=== PATIENT | male | born 1985 | race Caucasian/White ===

== ENCOUNTER → 2020-07-30 11:21 | Outpatient (BNVA) | payer SELFPAY | DX: Z02.79 Encounter for issue of other medical certificate (principal) ==

== ENCOUNTER 2020-08-06 20:19 | Emergency (ER) | payer OTHER, SELFPAY ==
[2020-08-06 20:40] VITALS: BP 146/85; PULSE 66; RESP 16; TEMP 36.2; O2SAT 99; BMI 28.1
--- NOTE | 2020-08-06 22:39 | ED.MEDCLEAR ---
HPI - Medical Clearance General Chief complaint: Medical Clearance Stated complaint: drug test Time Seen by Provider: 08/06/20 22:39 Source: patient Mode of arrival: ambulatory Limitations: no limitations History of Present Illness HPI Narrative: Patient probation missed appointment for drug testing came here for drug testing. Patient denies any substance abuse no other complaints Related Information Allergies Allergy/AdvReac Type Severity Reaction Status Date / Time No Known Allergies Allergy Verified 08/06/20 20:42 Review of Systems Review of Systems: Yes all other systems are reviewed and are negative [facility] Social History Social History Advance Directives: No Advance Directives Information Provided: Yes Physical Exam Vital Signs: Vital Signs: Last Vital Signs Temp 97.2 F 08/06/20 20:40 Pulse 66 08/06/20 20:40 Resp 16 08/06/20 20:40 BP 146/85 H 08/06/20 20:40 Pulse Ox 99 08/06/20 20:40 Body Mass Index 28.1 Const: General: comfortable and no acute distress Orientation/consciousness: patient oriented x3 Resp: Effort & Inspection: normal respiratory effort and able to speak in complete sentences Neuro: General: patient oriented x3 and gait normal Discharge Plan Discharge Clinical Impression: Normal physical exam Patient Disposition: Home, Self-Care
--- NOTE | 2020-08-06 23:40 | PC.NURSE ---
PT UPDATED. ANALYZER FOR LYNN DOWN. IT WILL BE ABOUT 1/2 HOUR. PT WILL WAIT. BLANKET GIVEN AND LIGHTS DIMMED.
[2020-08-07 00:36] LABS: Amphetamine Screen Urine Not Detected (Not Detect); Barbiturates, Urine Not Detected (Not Detect); Benzodiazepines Screen Urine Not Detected (Not Detect); Cannabinoid Screen Urine Not Detected (Not Detect); Cocaine Screen Urine Not Detected (Not Detect); Opiate Screen Urine Not Detected (Not Detect); Phencyclidine Screen Urine Not Detected (Not Detect)
== END 2020-08-07 01:11 | disposition home or self-care (01) ==
PROVIDERS: Emergency Provider Internal Medicine; PCP Internal Medicine
DX: Z02.79 Encounter for issue of other medical certificate (principal)
CPT/HCPCS: 80307; 99283; 99284

== ENCOUNTER 2020-12-12 09:03 | Outpatient (REF) | payer OTHER, SELFPAY ==
[2020-12-12 09:35] LABS: COVID-19 Test Negative (Negative)
== END 2020-12-12 09:04 | disposition home or self-care (01) ==
LOC: HO.LAB 09:03
PROVIDERS: Visit Provider Internal Medicine
DX: Z20.822 Contact with and (suspected) exposure to COVID-19 (principal)
CPT/HCPCS: 36415; 87635; C9803

== ENCOUNTER 2020-12-16 09:22 | Outpatient (REF) | payer OTHER, SELFPAY | END 2020-12-16 09:23 | disposition home or self-care (01) | LOC: HO.LAB 09:22 | PROVIDERS: Visit Provider Internal Medicine | DX: Z20.822 Contact with and (suspected) exposure to COVID-19 (principal) | CPT/HCPCS: C9803; U0003; U0005 ==

== ENCOUNTER 2021-09-08 13:13 | Emergency (ER) | payer OTHER, SELFPAY ==
[2021-09-08 16:15] VITALS: BP 135/81; PULSE 55; RESP 18; TEMP 36.8; O2SAT 99; BMI 29.5
--- NOTE | 2021-09-08 16:43 | ED_ITS ---
HPI - Extremity Problem General Chief complaint: Extremity Problem Stated complaint: achilles left pain Time Seen by Provider: 09/08/21 16:20 Source: patient Mode of arrival: ambulatory Limitations: no limitations History of Present Illness HPI Narrative: 36-year-old male with history of Achilles tendon repair in 2017 presents with intermittent left posterior heel pain over the last year. Patient tells me pain has been worsened over the last 1 week with some swelling. He noticed increasing pain and swelling after walking on the beach over 01 of September weekend. He denies any specific injury or trauma. He reports swelling is worsened after being on his feet for long period of time. No redness, warmth, fevers or chills. [facility] come into [facility] for further evaluation. He did have his Achilles tendon repair done by Dr. Baker Related Data Allergies Allergy/AdvReac Type Severity Reaction Status Date / Time No Known Allergies Allergy Verified 08/06/20 20:42 Review of Systems Review of Systems: Yes all other systems are reviewed and are negative Constitutional: Constitutional: Reports no additional constitutional complaints, Denies body ache(s), Denies chills, Denies fever(s), Denies headache(s) and Denies weakness Eyes: Eyes: Reports no additional eye complaints and Denies change in vision ENT: Reports system reviewed and no additional complaints, except as documented, Denies dizziness, Denies headache(s), Denies nasal congestion, Denies nasal discharge and Denies neck pain Cardiovascular: Cardiovascular: Reports no additional cardiovascular complaints, Denies chest pain, Denies leg edema and Denies dyspnea Respiratory: Respiratory: Reports no additional respiratory complaints, Denies cough and Denies dyspnea Gastrointestinal: Gastrointestinal: Reports no additional gastrointestinal complaints, Denies abdominal pain, Denies diarrhea, Denies nausea and Denies vomiting Genitourinary: Genitourinary: Denies urinary incontinence Musculoskeletal: Musculoskeletal: Reports no additional musculoskeletal complaints, Denies back pain, Reports arthralgias, Denies joint swelling, Reports limited range of motion, Denies neck pain, Denies numbness and Denies tingling Integumentary/Breasts: Skin/Breast: Reports system reviewed and no additional complaints, except as docu and Denies rash Neurologic: Reports system reviewed and no additional complaints, except as documented, Denies Abnormal speech present, Denies dizziness, Denies headache(s), Denies numbness, Denies tingling and Denies weakness [facility] Past Medical History Attestation statement: The following information was validated with the patient. Source: old records reviewed and nursing notes reviewed Physical Exam Vital Signs: Vital Signs: Last Vital Signs Temp 98.2 F 09/08/21 16:15 Pulse 55 09/08/21 16:15 Resp 18 09/08/21 16:15 BP 135/81 09/08/21 16:15 Pulse Ox 99 09/08/21 16:15 O2 Del Method 09/08/21 16:15 BMI result Body Mass Index 29.5 Const: General: cooperative, healthy appearing, comfortable and no acute distress Orientation/consciousness: patient oriented x3 Limitations: no limitations HEENT: Head: Yes normal to inspection Ears: hearing grossly normal bilaterally General nose exam: Normal external nose present Face and sinus: Yes normal facial exam Mouth: Normal oral and palatal mucosa present Throat: Yes posterior oropharynx normal Eyes: General: appearance normal, both eyes and all related structures Pupils: Equal, round and reactive pupils present Neck: Neck: Yes normal visual inspection Chest: Chest palpation & inspection: normal inspection of the chest Resp: Effort & Inspection: normal respiratory effort Auscultation: clear to auscultation bilaterally Cardio: Rate: regular rate Rhythm: regular rhythm Peripheral pulses: Peripheral pulses 2+ throughout GI: Inspection: Yes normal to inspection Palpation (GI): Soft to palpation and nontender Auscultation: normal bowel sounds Back/Spine/Pelvis: Thoracic/Lumbar Spine: thoracic and lumbar spine normal to inspection Skin: General skin exam: no rashes or lesions noted Neuro: General: patient oriented x3, no focal motor deficits and normal sensation to monofilament Cranial nerves: Yes Equal, round and reactive pupils present Cognition (Neuro): normal cognition Speech: No Abnormal speech present Gait exam (Neuro): Normal gait present Motor exam (neuro): 5/5 motor strength present throughout Extrem: Other: Negative Rubio sign Mild tenderness the left posterior heel with no obvious deformity or swelling or redness or warmth. Full range of motion. Palpable DP and PT pulses General: Yes normal to inspection Course Course Course Narrative: Reviewed worrisome signs and symptoms of when to return to the emergency department. Comfortable discharge home. MDM - Extremity (Nontraumatic) MDM Narrative Medical decision making narrative: 36-year-old male with history of Achilles tendon repair 2017 here with intermittent pain and swelling to the left posterior heel worsened over the last 1 week after walking on the beach. No signs of Achilles tendon rupture Likely mild tendinitis due to overuse Patient has crutches, ortho boot, air cast and Jr wrap home. He also has naproxen at home Recommend follow-up with Orthopedics for persistent symptoms Medical Records Attestation: I reviewed the patient's medical records. Lab Data Attestation: I reviewed the patient's lab results. Discharge Plan Discharge Clinical Impression: Achilles tendon pain Patient Disposition: Home, Self-Care Instructions: Achilles Tendinitis (ED) Additional Instructions: Continue ice, elevation, splint and crutches Continue naproxen twice daily [place] [facility] [place] [facility] [facility] [place] Group[place] Stand Alone Forms: Work/School Release
== END 2021-09-08 17:10 | disposition home or self-care (01) ==
PROVIDERS: Emergency Provider Emergency Medicine; PCP Internal Medicine
DX: M79.672 Pain in left foot (principal)
CPT/HCPCS: 99282; 99283

== ENCOUNTER 2023-04-19 05:05 | Emergency (ER) | payer OTHER, SELFPAY ==
--- NOTE | ~2023-04-19 | XR_ITS ---
EXAMINATION: XR HAND, RIGHT CLINICAL INFORMATION: Swelling and pain. COMPARISON: None available. TECHNIQUE: PA, lateral, and oblique views of the right hand. FINDINGS: The bone mineralization is normal. The joint spaces are maintained. There is no fracture. There is soft tissue swelling about the third digit. XR/XR hand RT min 3V IMPRESSION: Soft tissue swelling about the third digit. No acute osseous abnormality.
[2023-04-19 05:08] VITALS: BP 154/92; PULSE 64; RESP 14; TEMP 36.8; O2SAT 98; BMI 30.6
[2023-04-19 05:37] VITALS: BP 154/96; PULSE 59; RESP 18; TEMP 36.6; O2SAT 99
--- NOTE | 2023-04-19 05:48 | PC.NURSE ---
Pt c&ox4, no signs of distress. Pt reports 10/10 right middle finger pain with an onset x3 days. Pt denies trauma to finger. Pt reports his BP has been high lately but has not been diagnosed with HTN. Plan of care ongoing.
--- NOTE | 2023-04-19 06:02 | ED_ITS ---
HPI - Extremity Problem General Chief complaint: Extremity Injury, Upper Stated complaint: Fractured middle finger Time Seen by Provider: 04/19/23 05:55 Source: patient Mode of arrival: ambulatory Limitations: no limitations History of Present Illness HPI Narrative: Patient comes to the emergency room complaining of swelling in the middle finger of the right hand. Patient denies any trauma. Patient states that yesterday he got a splint for his finger to avoid movement because it hurts a lot. Patient denies any fever or chills Related Data Allergies Allergy/AdvReac Type Severity Reaction Status Date / Time No Known Allergies Allergy Verified 04/19/23 05:08 Review of Systems 2 Review of Systems: Constitutional : No Weight loss, No Fever, No Chills, No Night Sweats, No Fatigue, No Malaise ENT/Mouth : No Hearing loss, No Ear Pain, No Nasal Congestion, No Sinus Pain, No Hoarseness, No sore throat, No Rhinorrhea, No Swallowing Difficulty Eyes: No Eye Pain, No Swelling, No Redness, No Foreign Body, No Discharge, No Vision Changes Cardiovascular : No Chest Pain, No SOB, No Dyspnea on Exertion, No Orthopnea, No Edema, No Palpitations Respiratory : No Cough, No Sputum, No Wheezing, No Smoke Exposure, No Dyspnea Gastrointestinal : No Nausea, No Vomiting, No Diarrhea, No Constipation, No abdominal Pain, No Hematochezia, No Melena Genitourinary : no irregular bleeding, No Dysuria, No Urinary Frequency, No Hematuria, No Urinary Incontinence, No Urgency, No Flank Pain, No Urinary Flow Changes, No Hesitancy Musculoskeletal : Complaining of swelling of the right middle finger on the right hand. No joint pain, No Myalgias, No Joint Swelling Skin : No Skin Lesions, No rash Neuro : No Weakness, No Numbness, No Paresthesias, No Loss of Consciousness, No Dizziness, No Headache Psych : No Anxiety/Panic, No Depression, No SI/HI/AH/VH, No Social Issues, Heme/Lymph: No Bruising, No Bleeding,No Lymphadenopathy Endocrine : No Polyuria, No Polydipsia, No Temperature Intolerance [facility] Social History Social History Smoked in Last 30 Days: No Use of substances other than those prescribed or required for medical reasons: Yes Substance Use Type: Marijuana Advance Directives: No Advance Directives Information Provided: No Physical Exam 2 Vital Signs: Vital Signs: Last Vital Signs Temp 97.8 F 04/19/23 05:37 Pulse 59 04/19/23 05:37 Resp 18 04/19/23 05:37 BP 154/96 H 04/19/23 05:37 Pulse Ox 99 04/19/23 05:37 O2 Del Method Room Air 04/19/23 05:37 BMI result Body Mass Index 30.6 Const: Other: Appearance: Alert. Oriented X3. No acute distress. Eyes: Pupils equal, round and reactive to light. ENT: Pharynx normal. Neck: Normal inspection. Neck supple. No lymph nodes noted. No crepitus CVS: Normal heart rate and rhythm. Pulses normal. Normal S1 and S2 Respiratory: No respiratory distress. Breath sounds normal. No Wheezing. No rales Abdomen: Soft and nontender. No rigidity. No distention. Skin: Skin warm and dry. Normal skin color. Normal skin turgor. Extremities: No lower extremity edema. Patient's right middle finger of the right hand is significantly more swollen than the wrist of the fingers, dorsum of the hand normal, no pain to palpation there. Most of the pain is around the PIP of the middle finger Neuro: Oriented X 3. No motor deficit. No sensory deficit. Moving all extremities. No slurred speech. CN 2 through 12 grossly intact Psych: calm, cooperative, normal affect Course Course Course Narrative: -patient's labs pending -x-ray pending -patient refused IM medications. Medical Decision Making Medical Decision Making [facility] Narrative: -my interpretation of x-ray of the hand: Soft tissue swelling present on the middle finger of the right hand, normal osseous alignment, no fractures -labs are pending. -sign-out given to Dr. Casanova Differential Diagnosis Differential Diagnoses: The differential diagnosis associated with the presentation includes (Cellulitis, joint strain, contusion, gout, pseudogout) Lab Data 04/19/23 06:34 04/19/23 06:34 Labs: Lab Results 04/19/23 Range/Units 06:34 WBC 8.5 (4.8-10.8) X10*3/uL RBC 4.63 (4.60-5.80) X10*6/uL Hgb 14.0 (14.0-18.0) g/dl Hct 39.4 L (42.0-52.0) % MCV 85.1 (80.0-98.0) fL MCH 30.2 (27.0-33.0) pg MCHC 35.5 (31.0-36.0) g/dl RDW 12.7 (11.0-16.0) % Plt Count 268 (160-400) X10*3/uL MPV 10.2 (9.4-12.4) fL Immature Gran % (Auto) 0.5 H (0.0-0.4) % Neut % (Auto) 53.2 (45-73) % Lymph % (Auto) 34.6 (20-40) % [place] % (Auto) 8.4 (2-11) % Eos % (Auto) 2.9 (0-4) % Baso % (Auto) 0.4 (0-2) % Lymph # (Auto) 2.9 (1.2-4.9) X10*3/uL [place] # (Auto) 0.7 (0.1-1.2) X10*3/uL Eos # (Auto) 0.3 (0.0-0.4) X10*3/uL Baso # (Auto) 0.0 (0.0-0.2) X10*3/uL Abs Immat Gran (auto) 0.04 H (0.00-0.03) X10*3/uL Absolute Neuts (auto) 4.5 (2.0-8.3) x10*3/uL Absolute Nucleated RBC 0.000 (0.0-0.012) X10*3/uL Nucleated RBC % (auto) 0.0 (0.0-0.2) /100WBC Sodium 138 (135-145) mmol/L Potassium 4.0 (3.3-5.1) mmol/L Chloride 106 (96-108) mmol/L Carbon Dioxide 24 (22-29) mmol/L Anion Gap 12 (12-20) BUN 17 H (9-16) mg/dL Creatinine 0.88 (0.5-1.4) mg/dL Estim Creat Clear Calc 132.6 Estimated GFR > 60 Random Glucose 104 (60-115) mg/dL Uric Acid 7.1 H (3.4-7.0) mg/dL Calcium 9.4 (8.4-10.2) mg/dL C-Reactive Protein 0.45 (< or = 0.50) mg/dL Independent Interpretation I performed an independent interpretation of an: Plain X-Ray Radiology Impression Discussion of test interpretation with radiology: I have reviewed the radiologist's reading. Radiologist Impression: FINDINGS: The bone mineralization is normal. The joint spaces are maintained. There is no fracture. There is soft tissue swelling about the third digit. XR/XR hand RT min 3V IMPRESSION: Soft tissue swelling about the third digit. No acute osseous abnormality Discharge Plan Discharge Clinical Impression: Finger joint swelling Patient Disposition: Still a Patient
[2023-04-19 06:40] LABS: MANUAL DIFF FLAG NO
[2023-04-19 06:42] LABS: Basophils Percent Auto 0.4 % (0-2); Eosinophils Absolute Auto 0.3 X10*3/uL (0.0-0.4); Eosinophils Percent Auto 2.9 % (0-4); Hematocrit 39.4 % (42.0-52.0); Imm Gran Abs Auto 0.04 X10*3/uL (0.00-0.03); Imm Gran Pct Auto 0.5 % (0.0-0.4); Lymphocytes Absolute Auto 2.9 X10*3/uL (1.2-4.9); Lymphocytes Percent Auto 34.6 % (20-40); Mean Corpuscular HGB Conc 35.5 g/dl (31.0-36.0); Mean Corpuscular Hemoglobin 30.2 pg (27.0-33.0); Mean Corpuscular Volume 85.1 fL (80.0-98.0); Mean Platelet Volume 10.2 fL (9.4-12.4); Monocytes Absolute Auto 0.7 X10*3/uL (0.1-1.2); Monocytes Percent Auto 8.4 % (2-11); Neutrophils Absolute Auto 4.5 x10*3/uL (2.0-8.3); Neutrophils Percent Auto 53.2 % (45-73); Platelet Count 268 X10*3/uL (160-400); Red Blood Count 4.63 X10*6/uL (4.60-5.80); Red Cell Distribution Width 12.7 % (11.0-16.0); White Blood Count 8.5 X10*3/uL (4.8-10.8)
[2023-04-19 07:01] LABS: Anion Gap 12 (12-20); Blood Urea Nitrogen 17 mg/dL (9-16); C Reactive Protein 0.45 mg/dL (< or = 0.50); Calcium 9.4 mg/dL (8.4-10.2); Carbon Dioxide 24 mmol/L (22-29); Chloride 106 mmol/L (96-108); Creatinine Clr Calc Pharmacy 132.6; Estimated Glomerular Filt Rate > 60; Glucose Random 104 mg/dL (60-115); Sodium 138 mmol/L (135-145); Uric Acid 7.1 mg/dL (3.4-7.0)
[2023-04-19 07:31] LABS: Erythrocyte Sedimentation Rate 6 MM/HR (0-15)
== END 2023-04-19 08:48 | disposition home or self-care (01) ==
PROVIDERS: Emergency Provider Emergency Medicine
DX: M25.441 Effusion, right hand (principal); M79.644 Pain in right finger(s); M79.641 Pain in right hand; Z79.899 Other long term (current) drug therapy
CPT/HCPCS: 36415; 73130; 80048; 84550; 85025; 85652; 86140; 99283; 99284

== ENCOUNTER 2023-05-14 08:47 | Outpatient (AMB) | payer OTHER, SELFPAY ==
--- NOTE | 2023-05-14 09:01 | MHC.OFFVIS ---
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 Rob 37 yoM presents today for evaluation of swollen right middle finger PIP thought to be gout. He was referred by his PCP. Per patient the sudden onset pain and swelling starting about 3 weeks ago. He takes Ibuprofen and Aleve. He had left achilles repair (due to injury) done 2014. About 2 years ago he started having intermittent swelling to the left great toe and dorsum. He thought the swelling was related to his achilles. Additionally, he has felt on and off sensation/pain in his right elbow. The elbow has been for about 1 year intermittent and the finger is the latest in the episodes. He was given Aleve and Ibuprofen 600 that helps with the pain. He drinks alcohol regularly. He wants to know what dietary choices may be contributory to the flares so he can make stay away from those. He denies symptoms of AxSpA - uveitis, rash, GI, low back pains and other joint swelling. He denies family history of gout and other inflammatory arthritis. 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 External ear normal. NOSE/SINUS:? Airflow through both nares, no nasal discharge, no bleeding THROAT:? Oral mucosa moist, no ulcerations NECK:? No thyromegaly or masses, no adenopathy, trachea midline. HEART:? Regular rhythm, S1-S2 heard, no murmurs, rubs or gallops. LUNG:? Clear to percussion and auscultation EXTREMITIES:? No edema, no calf tenderness, normal peripheral pulses. NEURO:? Oriented and alert x3.? No focal weakness.? Reflexes symmetric.? Gait normal. SKIN:? There are no skin lesions evident. No objective signs of Raynaud's phenomenon. JOINT EXAM: Cervical Spine:.? Full range of motion without pain; no tenderness. Thoracic Spine:.? No scoliosis.? No tenderness on palpation. Lumbar Spine:.? Alignment normal.? Full range of motion without pain, no tenderness. Chest Wall:.? No tenderness, swelling, increased warmth or erythema. Hands:.? Left: Normal pain-free range of motion without tenderness, swelling, increased warmth or erythema. 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 Right: Third MCP swollen, tender, warm Wrists:.? Normal pain-free range of motion without tenderness, swelling, increased warmth or erythema. Elbows:. Left: Normal pain-free range of motion without tenderness, swelling, increased warmth or erythema. Right: Swollen, tender warm erythematous/olecranon bursitis Shoulders:.?? Full range of motion without pain. No tenderness, weakness, swelling, increased warmth or erythema. Hips:.? Full range of motion without pain. Hip bursa:.? No tenderness. Knees:.?? Normal pain-free range of motion without tenderness, swelling, increased warmth or erythema.? There is no effusion or crepitation Ankles:.? Normal pain-free range of motion without tenderness, swelling, increased warmth or erythema. Feet:.? Normal pain-free range of motion without tenderness, swelling, increased warmth or erythema. Left Small 1st MTP bunion Results Reviewed Results Reviewed: Laboratory Tests 04/19/23 04/19/23 04/19/23 06:32 06:34 06:34 WBC 8.5 RBC 4.63 Hgb 14.0 Hct 39.4 L ESR 6 Uric Acid 7.1 H C-Reactive Protein 0.45 Assessment & Plan Assessment & Plan (1) Swelling of right middle finger: Code(s): M79.89 - Other specified soft tissue disorders (2) Olecranon bursitis, right elbow: Code(s): M70.21 - Olecranon bursitis, right elbow (3) Dietary counseling: Code(s): Z71.3 - Dietary counseling and surveillance (4) Idiopathic gout: Code(s): M10.00 - Idiopathic gout, unspecified site Plan #Gout: The clinical picture with this patient is 1 of a crystal arthritis, gout. As outlined in the HPI he has had intermittent swelling at multiple sites and now found to have elevated uric acid levels at 7.1. I will prescribed colchicine 0.6 mg q.d. for about 2 weeks and reassess for improvement. I will consider to start him on allopurinol at the next visit in 1 month after the swelling and tenderness have resolved that will help to affirm that gout is the differential diagnosis. If it is gout I think it would be appropriate to start the allopurinol because it sounds like historically over the last 2 years he has been having flares. On visit today his right elbow and right middle finger is really swollen, red and warm. He experienced could also be an AxSpA given the intermittent swelling of unilateral joints. However we will consider that option if treatment for gout approach is not effective. I discussed with patient the possible side effects of colchicine to include but not limited to diarrhea. His kidney functions are adequate so there is no concerns there. He is also aware of that personal allergies are possible and to seek medical attention immediately if needed. #Diet: The patient is interested in understanding what foods can potentially have adverse effects. I discussed with the patient that not everything effects everyone the same and we talked about common foods that are known to insight gout flares. At this time I recommend that we work on resolving the current gout episode. It is easier to determine his reaction is to foods when he is not in a flare. One known thing that he can cut back on is the alcohol which he agrees and will do at this time. We will continue to assess and discuss this. I spent 45 minutes reviewing history, evaluating and educating patient on the disease process, and documenting Orders: Orders Erythrocyte Sedimentation Rate 1 Month M70.21 - Olecranon bursitis, right elbow, M79.89 - Other specified soft tissue disorders Comprehensive Met. Panel 1 Month M70.21 - Olecranon bursitis, right elbow, M79.89 - Other specified soft tissue disorders Complete Blood Count Auto Diff 1 Month M70.21 - Olecranon bursitis, right elbow, M79.89 - Other specified soft tissue disorders MARY Reflex Titer and Pattern 1 Month M70.21 - Olecranon bursitis, right elbow, M79.89 - Other specified soft tissue disorders Immunoglobulins,IgG IgA IgM 1 Month M70.21 - Olecranon bursitis, right elbow, M79.89 - Other specified soft tissue disorders Creatine Kinase Total 1 Month M70.21 - Olecranon bursitis, right elbow, M79.89 - Other specified soft tissue disorders C Reactive Protein 1 Month M70.21 - Olecranon bursitis, right elbow, M79.89 - Other specified soft tissue disorders Anti Extractable Nuclear Ag 1 Month M70.21 - Olecranon bursitis, right elbow, M79.89 - Other specified soft tissue disorders Protein Electrophoresis, Serum 1 Month M70.21 - Olecranon bursitis, right elbow, M79.89 - Other specified soft tissue disorders Uric Acid 1 Month M70.21 - Olecranon bursitis, right elbow, M79.89 - Other specified soft tissue disorders Medications: New colchicine 0.6 mg PO DAILY 14 tabs 2RF M10.00 - Idiopathic gout, unspecified site, M70.21 - Olecranon bursitis, right elbow, M79.89 - Other specified soft tissue disorders ibuprofen 800 mg PO Q8H 30 tabs 2RF M10.00 - Idiopathic gout, unspecified site, M70.21 - Olecranon bursitis, right elbow, M79.89 - Other specified soft tissue disorders Discontinued naproxen (Naprosyn) Discontinued Reason: Doctor's Order 500 mg PO BID PRN 20 tabs 0RF PAIN Coding Level of Care Code New Pt Level 4 (87956) Diagnoses Swelling of right middle finger M79.89 Olecranon bursitis, right elbow M70.21 Dietary counseling Z71.3 Idiopathic gout M10.00
[2023-05-14 09:04] VITALS: BP 138/104; PULSE 72; TEMP 36.1; O2SAT 93; BMI 31.1
== END 2023-05-14 09:54 | disposition home or self-care (01) ==
PROVIDERS: PCP Internal Medicine; Referring Provider Nurse Practitioner Family; Visit Provider Nurse Practitioner Family
DX: M79.89 Other specified soft tissue disorders (principal); M70.21 Olecranon bursitis, right elbow; Z71.3 Dietary counseling and surveillance; M10.00 Idiopathic gout, unspecified site
CPT/HCPCS: 99204

== ENCOUNTER → 2023-05-14 08:47 | Outpatient (BNVA) | payer OTHER, SELFPAY | PROVIDERS: Visit Provider Nurse Practitioner Family | DX: M10.00 Idiopathic gout, unspecified site (principal); M70.21 Olecranon bursitis, right elbow; M79.89 Other specified soft tissue disorders; Z71.3 Dietary counseling and surveillance | CPT/HCPCS: 99202 ==

== ENCOUNTER 2023-05-20 16:05 | Outpatient (REF) | payer OTHER, SELFPAY ==
--- NOTE | ~2023-05-20 | MR_ITS ---
EXAMINATION: MR FOOT WITHOUT AND WITH CONTRAST, LEFT CLINICAL INFORMATION: Left toe lytic lesion. Achilles tendon repair in 2014. Well-defined lytic lesion involving the base of the first proximal phalanx. COMPARISON: Left toe radiographs dated 11/20/2016. TECHNIQUE: MRI of the left foot was performed before and after the intravenous administration of 10 mL Gadavist on a high-field scanner. FINDINGS: BONE: Within the base of the first proximal phalanx there is a subchondral, well marginated and simple appearing cyst measuring approximately 1.4 x 1.1 x 1.3 cm (AP x ML x CC). There is peripheral postcontrast enhancement. Minimal adjacent marrow edema. No cortical erosion or expansion. No periosteal reaction. Full-thickness articular cartilage loss with marginal osteophytes at the first metatarsophalangeal joint and hallux sesamoids. Findings likely represent a subchondral degenerative cyst/geode. On the radiographs from 2017 there is a tiny subchondral cyst in this region and overall first metatarsophalangeal osteoarthritis appears progressed. No additional lytic or blastic osseous lesion. Focal marrow edema within the fourth metatarsal head with mild adjacent soft tissue edema which could represent a stress reaction or osseous contusion. Mild fourth metatarsal head articular cartilage signal heterogeneity with tiny marginal osteophytes. MUSCLES/TENDONS: The visualized flexor and extensor tendons are intact. No transverse tendon tear or tendon retraction. LIGAMENTS: Intact Lisfranc ligament. SOFT TISSUES: Moderate first metatarsophalangeal joint effusion and small fourth metatarsophalangeal joint effusion as well as a trace fifth metatarsal joint effusion with mild synovitis and edema/enhancement. Findings could indicate a multifocal inflammatory arthropathy in the appropriate clinical setting. MR/MR foot LT wo/w con IMPRESSION: 1. Within the base of the first proximal phalanx there is a simple appearing subchondral cyst measuring up to 1.4 cm with minimal adjacent marrow edema. 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 No associated cortical erosion or expansion. Overall moderate first metatarsophalangeal osteoarthritis which appears slightly progressed when compared to the radiographs from 2017. 2. Focal marrow edema within the fourth metatarsal head with mild adjacent soft tissue edema. Findings could indicate a stress reaction or osseous contusion. No associated fracture line. 3. Small fourth and trace fifth metatarsophalangeal joint effusions. Given the multifocal joint effusions, an inflammatory arthropathy could be considered in the appropriate clinical setting.
[2023-05-20] MEDS: gadobutroL 10 ML VIAL IVPUSH (17:19)
== END 2023-05-20 16:06 | disposition home or self-care (01) ==
LOC: HO.MRI 16:05
PROVIDERS: PCP Internal Medicine; Visit Provider Internal Medicine
DX: M89.9 Disorder of bone, unspecified (principal)
CPT/HCPCS: 73720; A9585

== ENCOUNTER 2023-06-16 09:47 | Outpatient (REF) | payer OTHER, SELFPAY ==
[2023-06-16 10:04] LABS: MANUAL DIFF FLAG NO
[2023-06-16 10:46] LABS: Basophils Percent Auto 0.6 % (0-2); Eosinophils Absolute Auto 0.2 X10*3/uL (0.0-0.4); Hematocrit 41.8 % (42.0-52.0); Hemoglobin 14.7 g/dl (14.0-18.0); Imm Gran Abs Auto 0.01 X10*3/uL (0.00-0.03); Imm Gran Pct Auto 0.2 % (0.0-0.4); Lymphocytes Absolute Auto 2.1 X10*3/uL (1.2-4.9); Lymphocytes Percent Auto 39.7 % (20-40); Mean Corpuscular HGB Conc 35.2 g/dl (31.0-36.0); Mean Corpuscular Hemoglobin 29.1 pg (27.0-33.0); Mean Corpuscular Volume 82.8 fL (80.0-98.0); Mean Platelet Volume 10.5 fL (9.4-12.4); Monocytes Absolute Auto 0.5 X10*3/uL (0.1-1.2); Monocytes Percent Auto 9.8 % (2-11); Neutrophils Absolute Auto 2.4 x10*3/uL (2.0-8.3); Neutrophils Percent Auto 45.7 % (45-73); Platelet Count 278 X10*3/uL (160-400); Red Blood Count 5.05 X10*6/uL (4.60-5.80); Red Cell Distribution Width 12.6 % (11.0-16.0); White Blood Count 5.2 X10*3/uL (4.8-10.8)
[2023-06-16 11:34] LABS: Alanine Aminotransferase 61 U/L (0-40); Albumin Level 4.5 g/dL (3.5-5.0); Anion Gap 12 (12-20); Aspartate Amino Transferase 29 U/L (5-37); Bilirubin Total 0.4 mg/dL (0.0-1.0); Blood Urea Nitrogen 15 mg/dL (9-16); Calcium 9.4 mg/dL (8.4-10.2); Carbon Dioxide 24 mmol/L (22-29); Chloride 107 mmol/L (96-108); Estimated Glomerular Filt Rate > 60; Glucose Random 101 mg/dL (60-115); Sodium 139 mmol/L (135-145); Total Protein 7.7 g/dL (6.5-8.0); Uric Acid 12.4 mg/dL (3.4-7.0)
[2023-06-16 11:38] LABS: Alkaline Phosphatase 55 U/L (39-117)
[2023-06-16 11:43] LABS: Erythrocyte Sedimentation Rate 6 MM/HR (0-15)
[2023-06-17 14:34] LABS: IgA 111 mg/dL (47-310); IgG 1097 mg/dL (600-1640); IgM 168 mg/dL (50-300)
[2023-06-17 20:48] LABS: SM/Ribonucleoprotein Ab <1.0 NEG AI (<1.0 NEG); Smith Protein <1.0 NEG AI (<1.0 NEG)
[2023-06-17 22:09] LABS: Prot Elec - Albumin 4.5 g/dL (3.8-4.8); Prot Elec - Alpha1 0.2 g/dL (0.2-0.3); Prot Elec - Alpha2 0.6 g/dL (0.5-0.9); Prot Elec - Beta 1 0.5 g/dL (0.4-0.6); Prot Elec - Beta 2 0.4 g/dL (0.2-0.5); Prot Elec - Gamma 1.1 g/dL (0.8-1.7); Prot Elec - Total Protein 7.2 g/dL (6.1-8.1)
[2023-06-18 15:09] LABS: Anti Nuclear Antibody Screen NEGATIVE (NEGATIVE)
== END 2023-06-16 09:48 | disposition home or self-care (01) ==
LOC: HO.LAB 09:47
PROVIDERS: PCP Obstetrics & Gynecology; Visit Provider Nurse Practitioner Family
DX: M79.89 Other specified soft tissue disorders (principal); M70.21 Olecranon bursitis, right elbow
CPT/HCPCS: 36415; 80053; 82550; 82784; 84165; 84550; 85025; 85652; 86038; 86140; 86235

== ENCOUNTER 2023-10-29 13:40 | Outpatient (REF) | payer OTHER, SELFPAY ==
--- NOTE | ~2023-10-29 | MR_ITS ---
EXAMINATION: MR ANKLE WITHOUT CONTRAST, LEFT CLINICAL INFORMATION: History of Achilles tendon rupture 2016. Continued pain and swelling. COMPARISON: MRI of the left foot April 2023. TECHNIQUE: MRI of the ankle was performed using routine sequences on a high-field scanner. FINDINGS: MUSCLES/TENDONS: Achilles: There is fusiform enlargement of most of the Achilles tendon with sparing of the very distal insertion of the tendon. There is minimal metallic artifact present consistent with prior surgery. There is additional scattered heterogeneous intermediate increased signal throughout the intrasubstance portion of the tendon. There is no transverse measurable defect or tendon retraction. There is no surrounding soft tissue edema. RETROCALCANEAL BURSA: Normal. Minimal cyst within the calcaneal tuberosity. No surrounding edema. The remaining muscles and tendons are normal. PLANTAR FASCIA: Normal. SUBCUTANEOUS SOFT TISSUES: Normal. LIGAMENTS/CAPSULAR STRUCTURES: Normal. BONE/CARTILAGE: Normal. MR/MR ankle LT wo con IMPRESSION: 1. Postsurgical changes related to prior Achilles tendon repair. 2. There is fusiform enlargement and scattered heterogeneity throughout most of the Achilles tendon compatible with postsurgical change but cannot exclude small areas of recurrent chronic interstitial intrasubstance partial tearing and tendinosis. 3. No transverse measurable defect or tendon retraction. Electronically signed by: Darci Terry MD 11/03/2023 12:12 PM EDT
== END 2023-10-29 13:41 | disposition home or self-care (01) ==
LOC: HO.MRI 13:40
PROVIDERS: PCP Internal Medicine; Visit Provider Podiatrist
DX: M76.62 Achilles tendinitis, left leg (principal)
CPT/HCPCS: 73721

== ENCOUNTER 2024-03-13 16:10 | Emergency (ER) | payer SELFPAY ==
[2024-03-13 16:47] VITALS: BP 157/95; PULSE 70; RESP 18; TEMP 36.1; O2SAT 98; BMI 29.5
--- NOTE | 2024-03-13 16:48 | ED_ITS ---
HPI - General Adult General Chief complaint: Medical Clearance Stated complaint: drug test Time Seen by Provider: 03/13/24 16:47 Source: patient, RN notes reviewed and old records reviewed Mode of arrival: ambulatory Limitations: no limitations History of Present Illness ED Provider: Anton HPI narrative: Patient is a 38-year-old male presenting to the ED requesting a urine drug screen, states he needs this primarily for THC. Denies any physical complaints. MD complaint: med clearance Associated symptoms: denies other symptoms Treatments prior to arrival: none Related Data Previous Rx's ?Medication ?Instructions ?Recorded colchicine 0.6 mg tablet 0.6 mg PO DAILY #14 tabs 05/17/23 ibuprofen 800 mg tablet 800 mg PO Q8H #30 tabs 05/17/23 Allergies Allergy/AdvReac Type Severity Reaction Status Date / Time No Known Allergies Allergy Verified 03/13/24 16:48 Review of Systems Review of Systems: As per HPI Yes all other systems are reviewed and are negative Constitutional: Constitutional: Reports as per HPI [facility] Past Medical History Medical History (Updated 03/13/24 @ 17:19 by Rosalba Walton, GERTRUDIS) Dietary counseling Swelling of right middle finger Olecranon bursitis, right elbow Idiopathic gout Surgical History (Updated 05/14/23 @ 09:12 by JOEL Pennington) History of surgery Social History Social History (Updated 05/14/23 @ 09:11 by JOEL Pennington) Alcohol intake: never Patient Tobacco Use Status: Never used Tobacco Substance Use Type: Marijuana Advance Directives: No Advance Directives Information Provided: Yes Do you have a plan to hurt others: No 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 Blood pressure normal. Heart rate normal. Respiratory rate normal. Temperature normal. Oxygen saturation normal. Const General: cooperative, healthy appearing and no acute distress Orientation/consciousness: oriented to person, oriented to place, oriented to time and patient oriented x3 Limitations: no limitations HENMT Head: Yes normocephalic and Yes atraumatic Ears: external ears normal General nose exam: Normal external nose present Face and sinus: Yes face symmetric Mouth: oropharynx normal and moist mucous membranes Throat: Yes uvula midline Eyes Pupils: Equal, round and reactive pupils present Neck Neck: Yes normal visual inspection and Yes supple Resp Effort & Inspection: normal respiratory effort and able to speak in complete sentences Auscultation: clear to auscultation bilaterally Cardio Rate: regular rate Rhythm: regular rhythm Heart sounds: S1 normal heart sound present and S2 normal heart sound present GI Palpation (GI): Soft to palpation and nontender Auscultation: normoactive bowel sounds General: Yes no CVA tenderness Back/Spine/Pelvis Back: no CVA tenderness Skin General skin exam: elasticity normal and turgor normal Neuro General: oriented to person, oriented to place, oriented to time, patient oriented x3, moves all extremities, no focal motor deficits and CN's II-XI intact bilaterally Cranial nerves: Yes Equal, round and reactive pupils present Cognition (Neuro): normal cognition Extrem General: Yes full ROM, Yes no pedal edema and Yes no calf tenderness Psych Mental Status: mental status grossly normal Affect: normal affect Thought process: Normal thought process present Medical Decision Making Medical Decision Making [facility] Narrative: Patient is a 38-year-old male presenting to the ED requesting a urine drug screen, states he needs this primarily for THC. On exam patient is awake, A+Ox3, VS WNL, afebrile, normal neurological exam without focal deficits, physical exam findings as above. Given reported symptoms and physical exam findings, initial differential includes but is not limited to med clearance, drug intoxication. Urine drug screen ordered and patient provided specimen. Patient requesting discharge prior to results, states he will check results on the portal. Instructions for accessing the portal provided on discharge instructions. Advised patient to return with any new or concerning symptoms. Patient verbalized understanding of and agreement with plan. Differential Diagnosis Differential Diagnoses: The differential diagnosis associated with the presentation includes as per [facility] External Record Review External record reviewed: Inpatient record, Office record and Outpatient record Discharge Plan Discharge Clinical Impression: Encounter for drug screening Patient Disposition: Home, Self-Care Additional Instructions: You presented to the emergency department today for drug screening. You chose to leave prior to results. You can view your results on the patient portal. Follow up with your primary care provider. Return with any new or concerning symptoms. Please see the information below about our Patient Portal. If you are not yet enrolled in the [facility] Patient Portal, you will receive an enrollment email invitation following your visit to any [facility] care setting. You may also self-enroll in the Patient Portal by visiting our website: [email or web address] The following information is required to access the Patient Portal: - Your [facility] Medical Record Number - Your personal home email address (must match what is in your electronic medical record, Registration staff can assist with this) - Name - Date of Capabilities of the Patient Portal: - Message some providers - View upcoming appointments - Access your health summary, medical history, and visit history - View current conditions and allergies - View procedure and lab results - View your medications, including guidelines, side effects, and precautions - Complete pre-appointment questionnaires requested by your provider - Ready summary reports of your office visits and procedures To access the Patient Portal Mobile [employer], follow these directions: - Search [employer] in the [employer] Store or [employer] Store - Download the Chary - Search for [facility] - Enter your login/password Prescriptions: No Action colchicine 0.6 mg tablet 0.6 mg PO DAILY Qty: 14 2RF ibuprofen 800 mg tablet 800 mg PO Q8H Qty: 30 2RF Print Language: Czech
[2024-03-13 17:37] LABS: Amphetamine Screen Urine Not Detected (Not Detect); Barbiturates, Urine Not Detected (Not Detect); Benzodiazepines Screen Urine Not Detected (Not Detect); Buprenorphine Scr Not Detected (Not Detect); Cannabinoid Screen Urine Not Detected (Not Detect); Cocaine Screen Urine Not Detected (Not Detect); Fentanyl, urine Not Detected (Not Detect); Methadone Screen, Urine Not Detected (Not Detect); Opiate Screen Urine Not Detected (Not Detect); Oxycodone Screen Urine Not Detected (Not Detect); Phencyclidine Screen Urine Not Detected (Not Detect)
--- OUTSIDE RECORDS SUMMARY | 2024-03-13 19:46 | XMS_ITS | Continuity of Care Document ---
Author Name [facility] Organization [facility] Care Team Providers Care Fire Ranger Name Role Phone [facility] Unavailable Unavailable Problems Combined list of problems from Department of Defense and Veterans Affairs facilities. It does not include entries that were removed or entered in error. Problem Status Onset Date Problem Type Date of Resolution Comments Source Pain in leg Active 024 Condition July 20, 2023 Entered By: RAFIA MEDEROS Comment: gout [facility] Abdominal pain Active Condition July 11, 2021 Entered By: RAFIA MEDEROS Comment: ordered UGI [facility] Hypercholesterolemia (SCT [id number]) Active Condition July 11, 2021 Entered By: RAFIA MEDEROS Comment: treated with diet [facility] Sleep disorder Active Condition July 11, 2021 Entered By: RAFIA MEDEROS Comment: ordered sleep studySep 2023 Entered By: RAFIA MEDEROS Comment: obstructive sleep apnea [facility] Knee pain Active 018 Condition May 21, 2017 Entered By: RAFIA MEDEROS Comment: x-rays normal. Completed physical therapy. [facility] Achilles tendinitis Active 016 Condition July 09, 2020 Entered By: RAFIA MEDEROS Comment: 2016 surgery [facility] Anxiety disorder Active Condition Feb 07, 2024 Entered By: CHYNA MCCOY Comment: Unspecified Anxiety Disorder [facility] Cannabis abuse Active Condition Jan Entered By: CHYNA MCCOY Comment: Cannabis Use Disorder, Mild [facility] Diagnosis: ICD-10-CM F32.A Depression, unspecified Active Diagnosis [facility] Diagnosis: ICD-10-CM F41.9 Anxiety disorder, unspecified Active Diagnosis [facility] Diagnosis: ICD-10-CM F12.10 Cannabis abuse, uncomplicated Active Diagnosis [facility] Diagnosis: ICD-10-CM M10.9 Gout, unspecified Active Diagnosis [facility] Diagnosis: ICD-10-CM G47.33 Obstructive sleep apnea (adult) (pediatric) Active Diagnosis [facility] Diagnosis: ICD-10-CM M76.62 Achilles tendinitis, left leg Active Diagnosis [facility] Diagnosis: ICD-10-CM M79.669 Pain in unspecified lower leg Active Diagnosis [facility] Diagnosis: ICD-10-CM M76.60 Achilles tendinitis, unspecified leg Active Diagnosis [facility] Diagnosis: ICD-10-CM E78.00 Pure hypercholesterolemia, unspecified Active Diagnosis [facility] Medications Combined list of outpatient medications from Department of Defense and Veterans Affairs facilities.Medications provided include 1) outpatient medications from the last 15 months, and 2) patient-reported medications. Medication Details Route Status Patient Instructions Prescription Expires Prescription Number Last Dispense Date Ordering Provider Order Date Order Qty Source colchicine (U/D) 0.6 MG ORAL TAB TAKE ONE TABLET BY MOUTH ONCE DAILYFOR GOUT Active 05/17/2024 [id number] DAVID CAMARILLO 2023 14 [facility] COLCHICINE 0.6MG TAB TAKE ONE TABLET BY MOUTH ONCE DAILY NEEDED FOR ACUTE GOUT ATTACK FOR GOUT ORAL ACTIVE 11/16/2024 [id number] 4 CINTHIA MEDEROS 2023 14 [facility] COLCHICINE 0.6MG TAB TAKE ONE TABLET BY MOUTH ONCE DAILY FOR GOUT ORAL DISCONT INUED 05/17/2024 [id number] ZO CAMARILLO 2023 14 [facility] DICLOFENAC NA 1% GEL,TOP APPLY 2 GRAMS TOPICALL Y THREE TIMES DAILY NEEDED FOR OSTEOART HRITIS - USE DOSING CARD PROVIDED IN BOX TOPICA L ACTIVE 04/14/2024 [id number] 4 CINTHIA MEDEROS D 2023 [facility] Diclofenac Sodium 0.01mg/mg, Gel/Jelly, Topical APPLY 2 GRAMS TOPICALL Y THREE TIMES DAILY NEEDED FOR OSTEOART HRITIS - USE DOSING CARD PROVIDED IN BOX Active 04/14/2024 [id number] RAFIA MEDEROS 2023 100 [facility] Ibuprofen (Motrin) Tablet 800 mg Oral TAKE ONE TABLET BY MOUTH EVERY 8 HOURSTAK E WITH FOOD Active 05/17/2024 [id number] 4 DAVID CAMARILLO 2023 30 [facility] IBUPROFEN 800MG TAB TAKE ONE TABLET BY MOUTH EVERY 8 HOURS NEEDED FOR PAIN TAKE WITH FOOD ORAL ACTIVE 11/16/2024 [id number] 4 CINTHIA MEDEROS D 2023 [facility] IBUPROFEN 800MG TAB TAKE ONE TABLET BY MOUTH EVERY 8 HOURS TAKE WITH FOOD ORAL DISCONT INUED 05/17/2024 [id number] 4 ZO CAMARILLO 2023 30 [facility] IBUPROFEN 800MG TAB TAKE ONE TABLET BY MOUTH THREE TIMES A DAY AFTER MEALS ORAL ACTIVE ONEYSSI,I SSAM A [facility] Immunizations Combined list of available immunizations from the Department of Defense and Veterans Affairs facilities. Immunization Series Date Given Administered By Site Reaction Lot Number CVX Code Drug Photographic Supervisor Status Comments Source INFLUENZA, INJECTABLE, QUADRIVALENT, PRESERVATIVE FREE 2022 BRITTNEY MORENO LEFT DELTO ID [id number] A 150 complet ed [facility] [place] [facility] [facility] INFLUENZA, INJECTABLE, QUADRIVALENT, PRESERVATIVE FREE 2019 150 complet ed Site: Right Deltoid [facility] INFLUENZA, INJECTABLE, QUADRIVALENT 2018 158 complet ed Site: Right Deltoid [facility] [place] [facility] INFLUENZA, SEASONAL, INJECTABLE 2017 141 complet ed Site: Right Deltoid [facility] TDAP 2017 115 complet ed Site: Left Deltoid [facility] [place] Results Combined list of recent chemistry, hematology and other laboratory results from Department of Defense and Veterans Affairs, ranging from 15 months to all on record, depending upon the facility. Order Name Results Value Reference Range Date Interpretation Specimen Comments Source BASIC METABOLI C PANEL (fasting ) UREA NITROGEN [MASS/VOLU ME] IN SERUM OR PLASMA 15 mg/dL 7 - 25 11/15 Specimen Type: SERUM No comment entered. Ordering Provider: EFFIE MEDEROS Report Released Date/Time: Nov 07, 2023 12:06 AM Reporting Lab: [place] [facility] [place] [facility] [address] [facility] [address] Performing Lab: [facility] [address] [facility] [facility] BASIC METABOLI C PANEL (fasting ) GLUCOSE [MASS/VOLU ME] IN SERUM OR PLASMA 90 mg/dL 65 - 100 11/15 Specimen Type: SERUM No comment entered. Ordering Provider: EFFIE MEDEROS Report Released Date/Time: Nov 07, 2023 12:06 AM Reporting Lab: [facility] [place] [facility] [address] [facility] [address] Performing Lab: [facility] [place] [address] [address] [facility] [place] [facility] BASIC METABOLI C PANEL (fasting ) SODIUM [MOLES/VOL UME] IN SERUM OR PLASMA 139 mmol/L 135 - 145 11/15 Specimen Type: SERUM No comment entered. Ordering Provider: EFFIE MEDEROS Report Released Date/Time: Nov 07, 2023 12:06 AM Reporting Lab: [place] [facility] [place] [facility] [address] [facility] [address] Performing Lab: [facility] [place] [address] [address] [place] [facility] [place] [facility] BASIC METABOLI C PANEL (fasting ) POTASSIUM [MOLES/VOL UME] IN SERUM OR PLASMA 5.4 mmol/L 3.5 - 5.0 11/15 H Specimen Type: SERUM No comment entered. Ordering Provider: EFFIE MEDEROS Report Released Date/Time: Nov 07, 2023 12:06 AM Reporting [facility]: [facility] [address] [address] Performing Lab: [facility] [address] [address] [facility] BASIC METABOLI C PANEL (fasting ) CHLORIDE [MOLES/VOL UME] IN SERUM OR PLASMA 106 mmol/L 100 - 110 11/15 Specimen Type: SERUM No comment entered. Ordering Provider: EFFIE MEDEROS Report Released Date/Time: Nov 07, 2023 12:06 AM Reporting Lab: [address] [address] Performing Lab: [facility] [address] [address] [facility] BASIC METABOLI C PANEL (fasting ) CARBON DIOXIDE, TOTAL [MOLES/VOL UME] IN SERUM OR PLASMA 25 meq/L 20 - 30 11/15 Specimen Type: SERUM No comment entered. Ordering Provider: EFFIE MEDEROS Report Released Date/Time: Nov 07, 2023 12:06 AM Reporting Lab: [facility] [address] [address] Performing Lab: [facility] [address] [address] [facility] BASIC METABOLI C PANEL (fasting ) CREATININE [MASS/VOLU ME] IN SERUM OR PLASMA 0.94 mg/dL 0.50 - 1.40 11/15 Specimen Type: SERUM No comment entered. Ordering Provider: EFFIE MEDEROS Report Released Date/Time: Nov 07, 2023 12:06 AM Reporting Lab: [facility] [address] [address] Performing Lab: [facility] [place] [facility] [address] [facility] [address] [facility] BASIC METABOLI C PANEL (fasting ) GLOMERULAR FILTRATION RATE/1.73 SQ M.PREDICTE D [VOLUME RATE/AREA] IN SERUM, PLASMA OR BLOOD BY CREATININE -BASED FORMULA (CKD-EPI 2020) >90mL/mi n 60 11/15 Specimen Type: SERUM No comment entered. Ordering Provider: EFFIE MEDEROS Report Released Date/Time: Nov 07, 2023 12:06 AM Reporting Lab: [place] [facility] [address] [facility] [address] Performing Lab: [place] [facility] [place] [facility] [address] [facility] [address] [facility] [place] [facility] CBC AND DIFF (AUTO) LEUKOCYTES [#/VOLUME] IN BLOOD BY AUTOMATED COUNT 5.28 10*3/uL 4.50 - 11.00 11/15 Specimen Type: BLOOD No comment entered. Ordering Provider: EFFIE MEDEROS Report Released Date/Time: Nov 07, 2023 12:06 AM Reporting Lab: [facility] [place] [facility] [address] [facility] [address] Performing Lab: [place] [facility] [address] [facility] [address] [facility] [place] [facility] CBC AND DIFF (AUTO) ERYTHROCYT ES [#/VOLUME] IN BLOOD BY AUTOMATED COUNT 5.16 10*6/uL 4.23 - 5.66 11/15 Specimen Type: BLOOD No comment entered. Ordering Provider: EFFIE MEDEROS Report Released Date/Time: Nov 07, 2023 12:06 AM Reporting Lab: [place] [facility] [place] [facility] [address] [facility] [address] Performing Lab: [place] [facility] [place] [address] [address] [facility] [place] [facility] CBC AND DIFF (AUTO) HEMOGLOBIN [MASS/VOLU ME] IN BLOOD 14.9 g/dL 12.8 - 17 11/15 Specimen Type: BLOOD No comment entered. Ordering Provider: EFFIE MEDEROS Report Released Date/Time: Nov 07, 2023 12:06 AM Reporting Lab: [facility] [address] [facility] [address] Performing Lab: [facility] [address] [facility] [address] [facility] CBC AND DIFF (AUTO) HEMATOCRIT [VOLUME FRACTION] OF BLOOD BY AUTOMATED COUNT 43.7 39.2 - 50.4 11/15 Specimen Type: BLOOD No comment entered. Ordering Provider: EFFIE MEDEROS Report Released Date/Time: Nov 07, 2023 12:06 AM Reporting Lab: [facility] [place] [facility] [address] [facility] [address] Performing Lab: [facility] [place] [facility] [address] [facility] [address] [facility] [place] [facility] CBC AND DIFF (AUTO) MCV [ENTITIC VOLUME] BY AUTOMATED COUNT 84.7 fL 82 - 99 11/15 Specimen Type: BLOOD No comment entered. Ordering Provider: EFFIE MEDEROS Report Released Date/Time: Nov 07, 2023 12:06 AM Reporting Lab: [facility] [address] [facility] [address] Performing Lab: [facility] [place] [facility] [address] [facility] [address] [facility] [place] [facility] CBC AND DIFF (AUTO) MCHC [MASS/VOLU ME] BY AUTOMATED COUNT 34.1 g/dL 30.8 - 35.1 11/15 Specimen Type: BLOOD No comment entered. Ordering Provider: EFFIE MEDEROS Report Released Date/Time: Nov 07, 2023 12:06 AM Reporting Lab: [facility] [address] [facility] [address] Performing Lab: [facility] [place] [facility] [address] [facility] [address] [facility] [place] [facility] CBC AND DIFF (AUTO) PLATELETS [#/VOLUME] IN BLOOD BY AUTOMATED COUNT 256 10*3/uL 140 - 360 11/15 Specimen Type: BLOOD No comment entered. Ordering Provider: EFFIE MEDEROS Report Released Date/Time: Nov 07, 2023 12:06 AM Reporting Lab: [facility] [place] [facility] [address] [facility] [address] Performing Lab: [place] [facility] [place] [facility] [address] [facility] [address] [place] [facility] [place] [facility] CBC AND DIFF (AUTO) ERYTHROCYT E DISTRIBUTI ON WIDTH [RATIO] BY AUTOMATED COUNT 12.8 12.0 - 16.0 11/15 Specimen Type: BLOOD No comment entered. Ordering Provider: EFFIE MEDEROS Report Released Date/Time: Nov 07, 2023 12:06 AM Reporting Lab: [facility] [place] [address] [address] Performing Lab: [place] [facility] [place] [facility] [address] [facility] [address] [facility] [place] [facility] CBC AND DIFF (AUTO) MONOCYTES [#/VOLUME] IN BLOOD BY AUTOMATED COUNT 0.34 10*3/uL 0.30 - 1.10 11/15 Specimen Type: BLOOD No comment entered. Ordering Provider: EFFIE MEDEROS Report Released Date/Time: Nov 07, 2023 12:06 AM Reporting Lab: [facility] [place] [address] [address] Performing Lab: [place] [facility] [place] [facility] [address] [facility] [address] [place] [facility] [place] [facility] CBC AND DIFF (AUTO) MCH [ENTITIC MASS] BY AUTOMATED COUNT 28.9 pg 26.2 - 32.6 11/15 Specimen Type: BLOOD No comment entered. Ordering Provider: EFFIE MEDEROS Report Released Date/Time: Nov 07, 2023 12:06 AM Reporting Lab: [place] [facility] [place] [facility] [address] [facility] [address] Performing Lab: [place] [facility] [place] [place] [address] [address] [facility] CBC AND DIFF (AUTO) NEUTROPHIL S/100 LEUKOCYTES IN BLOOD BY AUTOMATED COUNT 43.4 43.7 - 75.8 11/15 L Specimen Type: BLOOD No comment entered. Ordering Provider: EFFIE MEDEROS Report Released Date/Time: Nov 07, 2023 12:06 AM Reporting Lab: [facility] [address] [facility] [address] Performing Lab: [facility] [address] [facility] [address] [facility] CBC AND DIFF (AUTO) LYMPHOCYTE S/100 LEUKOCYTES IN BLOOD BY AUTOMATED COUNT 45.6 14.0 - 42.3 11/15 H Specimen Type: BLOOD No comment entered. Ordering Provider: EFFIE MEDEROS Report Released Date/Time: Nov 07, 2023 12:06 AM Reporting Lab: [facility] [address] [facility] [address] Performing Lab: [facility] [place] [address] [address] [facility] CBC AND DIFF (AUTO) MONOCYTES/ 100 LEUKOCYTES IN BLOOD BY AUTOMATED COUNT 6.4 5.1 - 13.7 11/15 Specimen Type: BLOOD No comment entered. Ordering Provider: EFFIE MEDEROS Report Released Date/Time: Nov 07, 2023 12:06 AM Reporting Lab: [facility] [address] [facility] [address] Performing Lab: [facility] [address] [facility] [address] [facility] CBC AND DIFF (AUTO) EOSINOPHIL S/100 LEUKOCYTES IN BLOOD BY AUTOMATED COUNT 3.6 0.4 - 6.8 11/15 Specimen Type: BLOOD No comment entered. Ordering Provider: EFFIE MEDEROS Report Released Date/Time: Nov 07, 2023 12:06 AM Reporting Lab: [facility] [place] [facility] [address] [facility] [address] Performing Lab: [facility] [place] [facility] [address] [facility] [address] [facility] [place] [facility] CBC AND DIFF (AUTO) BASOPHILS/ 100 LEUKOCYTES IN BLOOD BY AUTOMATED COUNT 0.6 0.1 - 2.0 11/15 Specimen Type: BLOOD No comment entered. Ordering Provider: EFFIE MEDEROS Report Released Date/Time: Nov 07, 2023 12:06 AM Reporting Lab: [facility] [address] [facility] [address] Performing Lab: [place] [place] [facility] [address] [facility] [address] [facility] [place] [facility] CBC AND DIFF (AUTO) NEUTROPHIL S [#/VOLUME] IN BLOOD BY AUTOMATED COUNT 2.29 10*3/uL 2.20 - 7.60 11/15 Specimen Type: BLOOD No comment entered. Ordering Provider: EFFIE MEDEROS Report Released Date/Time: Nov 07, 2023 12:06 AM Reporting Lab: [facility] [place] [facility] [address] [facility] [address] Performing Lab: [facility] [place] [facility] [address] [facility] [address] [place] [facility] [place] [facility] CBC AND DIFF (AUTO) LYMPHOCYTE S [#/VOLUME] IN BLOOD BY AUTOMATED COUNT 2.41 10*3/uL 1.00 - 3.20 11/15 Specimen Type: BLOOD No comment entered. Ordering Provider: EFFIE MEDEROS Report Released Date/Time: Nov 07, 2023 12:06 AM Reporting Lab: [facility] [place] [facility] [address] [facility] [address] Performing Lab: [facility] [place] [place] [facility] [address] [facility] [address] [facility] [place] [facility] CBC AND DIFF (AUTO) EOSINOPHIL S [#/VOLUME] IN BLOOD BY AUTOMATED COUNT 0.19 10*3/uL 0.03 - 0.44 11/15 Specimen Type: BLOOD No comment entered. Ordering Provider: EFFIE MEDEROS Report Released Date/Time: Nov 07, 2023 12:06 AM Reporting Lab: [facility] [address] [facility] [address] Performing Lab: [facility] [address] [facility] [address] [facility] CBC AND DIFF (AUTO) BASOPHILS [#/VOLUME] IN BLOOD BY AUTOMATED COUNT 0.03 10*3/uL 0.01 - 0.13 11/15 Specimen Type: BLOOD No comment entered. Ordering Provider: EFFIE MEDEROS Report Released Date/Time: Nov 07, 2023 12:06 AM Reporting Lab: [facility] [address] [facility] [address] Performing Lab: [facility] [address] [facility] [address] [facility] CBC AND DIFF (AUTO) IMMATURE GRANULOCYT ES/100 LEUKOCYTES IN BLOOD BY AUTOMATED COUNT 0.4 0.0 - 0.7 11/15 Specimen Type: BLOOD No comment entered. Ordering Provider: EFFIE MEDEROS Report Released Date/Time: Nov 07, 2023 12:06 AM Reporting Lab: [facility] [address] [facility] [address] Performing Lab: [facility] [address] [facility] [address] [facility] CBC AND DIFF (AUTO) IMMATURE GRANULOCYT ES [#/VOLUME] IN BLOOD 0.02 10*3/uL 0.00 - 0.06 11/15 Specimen Type: BLOOD No comment entered. Ordering Provider: EFFIE MEDEROS Report Released Date/Time: Nov 07, 2023 12:06 AM Reporting Lab: [facility] [address] [facility] [address] Performing Lab: [facility] [address] [place] [address] [facility] CBC AND DIFF (AUTO) NRBC % 0.0 0.0 - 0.0 11/15 Specimen Type: BLOOD No comment entered. Ordering Provider: EFFIE MEDEROS Report Released Date/Time: Nov 07, 2023 12:06 AM Reporting Lab: [facility] [address] [facility] [address] Performing Lab: [facility] [place] [place] [facility] [address] [facility] [address] [facility] [place] [facility] CBC AND DIFF (AUTO) NRBC, ABS 0.00 10*3/uL 0.00 - 0.00 11/15 Specimen Type: BLOOD No comment entered. Ordering Provider: EFFIE MEDEROS Report Released Date/Time: Nov 07, 2023 12:06 AM Reporting Lab: [facility] [place] [facility] [address] [facility] [address] Performing Lab: [facility] [facility] [address] [facility] [address] [place] [facility] [place] [facility] LIVER FUNCTION PROTEIN [MASS/VOLU ME] IN SERUM OR PLASMA 7.4 g/dL 6.0 - 8.3 11/15 Specimen Type: SERUM No comment entered. Ordering Provider: EFFIE MEDEROS Report Released Date/Time: Nov 07, 2023 12:06 AM Reporting Lab: [facility] [place] [facility] [address] [facility] [address] Performing Lab: [facility] [place] [facility] [address] [facility] [address] [facility] [place] [facility] LIVER FUNCTION ALBUMIN [MASS/VOLU ME] IN SERUM OR PLASMA 4.3 g/dL 3.5 - 5.0 11/15 Specimen Type: SERUM No comment entered. Ordering Provider: EFFIE MEDEROS Report Released Date/Time: Nov 07, 2023 12:06 AM Reporting Lab: [facility] [place] [facility] [address] [facility] [address] Performing Lab: [facility] [place] [facility] [address] [facility] [address] [facility] [place] [facility] LIVER FUNCTION ALKALINE PHOSPHATAS E [ENZYMATIC ACTIVITY/V OLUME] IN SERUM OR PLASMA 49 U/L 40 - 150 11/15 Specimen Type: SERUM No comment entered. Ordering Provider: EFFIE MEDEROS Report Released Date/Time: Nov 07, 2023 12:06 AM Reporting Lab: [facility] [place] [facility] [address] [facility] [address] Performing Lab: [place] [facility] [address] [facility] [address] [facility] [place] [facility] LIVER FUNCTION ASPARTATE AMINOTRANS FERASE [ENZYMATIC ACTIVITY/V OLUME] IN SERUM OR PLASMA 18 U/L 5 - 34 11/15 Specimen Type: SERUM No comment entered. Ordering Provider: EFFIE MEDEROS Report Released Date/Time: Nov 07, 2023 12:06 AM Reporting Lab: [place] [facility] [place] [address] [address] Performing Lab: [place] [place] [facility] [address] [facility] [address] [facility] LIVER FUNCTION ALANINE AMINOTRANS FERASE [ENZYMATIC ACTIVITY/V OLUME] IN SERUM OR PLASMA 34 U/L 11/15 Specimen Type: SERUM No comment entered. Ordering Provider: EFFIE MEDEROS Report Released Date/Time: Nov 07, 2023 12:06 AM Reporting Lab: [facility] [place] [address] [address] Performing Lab: [place] [facility] [address] [facility] [phone] [facility] [place] [facility] LIVER FUNCTION BILIRUBIN. TOTAL [MASS/VOLU ME] IN SERUM OR PLASMA 0.4 mg/dL 0.2 - 1.2 11/15 Specimen Type: SERUM No comment entered. Ordering Provider: EFFIE MEDEROS Report Released Date/Time: Nov 07, 2023 12:06 AM Reporting Lab: [facility] [place] [address] [address] Performing Lab: [place] [address] [address] [place] [facility] TSH THYROTROPI N [UNITS/VOL UME] IN SERUM OR PLASMA 1.25 u[IU]/mL 0.35 - 5.00 11/15 Specimen Type: SERUM No comment entered. Ordering Provider: EFFIE MEDEROS Report Released Date/Time: Nov 07, 2023 12:06 AM Reporting Lab: [facility] [place] [facility] [address] [facility] [phone] Performing Lab: [facility] [place] [place] [facility] [address] [facility] [address] [place] [facility] LIPID PANEL FASTING CHOLESTERO L [MASS/VOLU ME] IN SERUM OR PLASMA 257 mg/dL 11/15 H Specimen Type: SERUM No comment entered. Ordering Provider: EFFIE MEDEROS Report Released Date/Time: Nov 07, 2023 12:06 AM Reporting Lab: [place] [address] [address] Performing Lab: [facility] [place] [address] [address] [place] [facility] [place] [facility] LIPID PANEL FASTING TRIGLYCERI DE [MASS/VOLU ME] IN SERUM OR PLASMA 375 mg/dL 0 - 150 11/15 H Specimen Type: SERUM No comment entered. Ordering Provider: EFFIE MEDEROS Report Released Date/Time: Nov 07, 2023 12:06 AM Reporting Lab: [facility] [place] [address] [address] Performing Lab: [facility] [place] [address] [address] [facility] [place] [facility] LIPID PANEL FASTING CHOLESTERO L IN LDL [MASS/VOLU ME] IN SERUM OR PLASMA BY CALCULATIO N Reflex to dLDLmg/d L 0 - 129 11/15 Specimen Type: SERUM No comment entered. Ordering Provider: EFFIE MEDEROS Report Released Date/Time: Nov 07, 2023 12:06 AM Reporting Lab: [facility] [place] [address] [place] [address] Performing Lab: [facility] [place] [facility] [address] [facility] [address] [facility] [place] [facility] LIPID PANEL FASTING CHOLESTERO L.TOTAL/CH OLESTEROL IN HDL [MASS RATIO] IN SERUM OR PLASMA 6.4 11/15 Specimen Type: SERUM No comment entered. Ordering Provider: EFFIE MEDEROS Report Released Date/Time: Nov 07, 2023 12:06 AM Reporting Lab: [facility] [place] [facility] [address] [facility] [address] Performing Lab: [facility] [place] [facility] [address] [facility] [address] [facility] [place] [facility] LIPID PANEL FASTING CHOLESTERO L IN HDL [MASS/VOLU ME] IN SERUM OR PLASMA 40 mg/dL 40 - 60 11/15 Specimen Type: SERUM No comment entered. Ordering Provider: EFFIE MEDEROS Report Released Date/Time: Nov 07, 2023 12:06 AM Reporting Lab: [facility] [place] [facility] [address] [facility] [address] Performing Lab: [facility] [place] [facility] [address] [facility] [address] [facility] W[facility] LIPID PANEL FASTING CHOLESTERO L IN LDL [MASS/VOLU ME] IN SERUM OR PLASMA BY DIRECT ASSAY 153 mg/dL 11/15 H Specimen Type: SERUM No comment entered. Ordering Provider: EFFIE MEDEROS Report Released Date/Time: Nov 07, 2023 12:06 AM Reporting Lab: [facility] [place] [facility] [address] [facility] [address] Performing Lab: [facility] [place] [facility] [address] [facility] [address] [facility] [place] [facility] URIC ACID URATE [MASS/VOLU ME] IN SERUM OR PLASMA 9.6 mg/dL 3.5 - 7.2 11/15 H Specimen Type: SERUM No comment entered. Ordering Provider: EFFIE MEDEROS Report Released Date/Time: Nov 07, 2023 12:06 AM Reporting Lab: [facility] [place] [facility] [address] [facility] [address] Performing Lab: [facility] [place] [facility] [address] [facility] [address] [facility] [place] [facility] URINALYS IS CLEAN CATCH COLOR OF URINE Colorles s 11/15 Specimen Type: URINE Comment: If Glucose = >500 and Ketones are positive, please alert the Physician. Ordering Provider: EFFIE MEDEROS Report Released Date/Time: Nov 07, 2023 12:06 AM Reporting Lab: [place] [facility] [facility] [address] [facility] [address] Performing Lab: [facility] [place] [facility] [address] [facility] [address] [facility] [place] [facility] URINALYS IS CLEAN CATCH APPEARANCE OF URINE Clear 11/15 Specimen Type: URINE Comment: If Glucose = >500 and Ketones are positive, please alert the Physician. Ordering Provider: EFFIE MEDEROS Report Released Date/Time: Nov 07, 2023 12:06 AM Reporting Lab: [facility] [place] [facility] [address] [facility] [address] Performing Lab: [facility] [place] [facility] [address] [facility] [address] [facility] [place] [facility] URINALYS IS CLEAN CATCH GLUCOSE [MASS/VOLU ME] IN URINE Normalmg /dL 11/15 Specimen Type: URINE Comment: If Glucose = >500 and Ketones are positive, please alert the Physician. Ordering Provider: EFFIE MEDEROS Report Released Date/Time: Nov 07, 2023 12:06 AM Reporting Lab: [facility] [place] [facility] [address] [facility] [address] Performing Lab: [facility] [facility] [address] [facility] [address] [facility] [place] [facility] URINALYS IS CLEAN CATCH KETONES [MASS/VOLU ME] IN URINE BY TEST STRIP NEGATIVE mg/dL 11/15 Specimen Type: URINE Comment: If Glucose = >500 and Ketones are positive, please alert the Physician. Ordering Provider: EFFIE MEDEROS Report Released Date/Time: Nov 07, 2023 12:06 AM Reporting Lab: [facility] [place] [facility] [address] [facility] [address] Performing Lab: [facility]R W[facility]N [facility] [address] [facility] [address] [facility]RL [facility] [place] [facility] URINALYS IS CLEAN CATCH ERYTHROCYT ES [PRESENCE] IN URINE SEDIMENT BY LIGHT MICROSCOPY NEGATIVE mg/dL 11/15 Specimen Type: URINE Comment: If Glucose = >500 and Ketones are positive, please alert the Physician. Ordering Provider: EFFIE MEDEROS Report Released Date/Time: Nov 07, 2023 12:06 AM Reporting Lab: [facility]ITALRINFIRMARY WESTTRN [place] [facility] [address] [facility] [address] Performing Lab: [facility]N [place] [facility] [address] [facility] [address] [facility]ITALRL TRN [place] [facility] URINALYS IS CLEAN CATCH PROTEIN [MASS/VOLU ME] IN URINE BY TEST STRIP NEGATIVE mg/dL 11/15 Specimen Type: URINE Comment: If Glucose = >500 and Ketones are positive, please alert the Physician. Ordering Provider: EFFIE MEDEROS Report Released Date/Time: Nov 07, 2023 12:06 AM Reporting Lab: [facility]ITALRINFIRMARY WESTTRN [place] [facility] [address] [facility] [address] Performing Lab: [place] [facility] [address] [facility] [address] [facility]RL TRN [place] [facility] URINALYS IS CLEAN CATCH NITRITE [PRESENCE] IN URINE NEGATIVE mg/dL 11/15 Specimen Type: URINE Comment: If Glucose = >500 and Ketones are positive, please alert the Physician. Ordering Provider: EFFIE MEDEROS Report Released Date/Time: Nov 07, 2023 12:06 AM Reporting Lab: [facility] [place] [facility] [address] [facility] [address] Performing Lab: [facility]RL [facility]N [place] [facility] [address] [facility] [address] [facility]N [facility]ITALUSE [facility] URINALYS IS CLEAN CATCH BILIRUBIN. TOTAL [PRESENCE] IN URINE NEGATIVE mg/dL 11/15 Specimen Type: URINE Comment: If Glucose = >500 and Ketones are positive, please alert the Physician. Ordering Provider: EFFIE MEDEROS Report Released Date/Time: Nov 07, 2023 12:06 AM Reporting Lab: [facility] [address] Performing Lab: [facility]N [facility]ITALUSE[address] [address] [facility]PITALUSE [facility] URINALYS IS CLEAN CATCH SPECIFIC GRAVITY OF URINE BY REFRACTOME TRY 1.017 1.016 - 1.022 11/15 Specimen Type: URINE Comment: If Glucose = >500 and Ketones are positive, please alert the Physician. Ordering Provider: EFFIE MEDEROS Report Released Date/Time: Nov 07, 2023 12:06 AM Reporting Lab: [facility]N [facility]ITALUSE[address] [address] Performing Lab: [facility]N [facility]ITALUSE[address] [address] [facility]N [facility]ITALUSE [facility] URINALYS IS CLEAN CATCH PH OF URINE BY TEST STRIP 6.0 5.0 - 9.0 11/15 Specimen Type: URINE Comment: If Glucose = >500 and Ketones are positive, please alert the Physician. Ordering Provider: EFFIE MEDEROS Report Released Date/Time: Nov 07, 2023 12:06 AM Reporting Lab: [facility] HOSPITALRTAYLOR HARDIN [facility] MEDICAL FACILITYN [facility]OSPITALUSE[address] [address] Performing Lab: [facility]N [facility]ITALUSE[address] [address] [facility]N [facility]OSPITALUSE [facility] URINALYS IS CLEAN CATCH UROBILINOG EN [MASS/VOLU ME] IN URINE BY TEST STRIP Normalmg /dL <2.0 - 2.0 11/15 Specimen Type: URINE Comment: If Glucose = >500 and Ketones are positive, please alert the Physician. Ordering Provider: EFFIE MEDEROS Report Released Date/Time: Nov 07, 2023 12:06 AM Reporting Lab: [place] [facility] [address] [facility] [address] Performing Lab: [place] [facility] [address] [facility] [address] [facility] HOSPITALRL WSTRN [place] [facility] URINALYS IS CLEAN CATCH LEUKOCYTE ESTERASE [PRESENCE] IN URINE BY TEST STRIP NEGATIVE 11/15 Specimen Type: URINE Comment: If Glucose = >500 and Ketones are positive, please alert the Physician. Ordering Provider: EFFIE MEDEROS Report Released Date/Time: Nov 07, 2023 12:06 AM Reporting Lab: [place] [facility] [address] [facility] [address] Performing Lab: [place] [address] [address] [facility]OSPITALRL WSTRN [place] [facility] BASIC METABOLI C PANEL (fasting ) UREA NITROGEN [MASS/VOLU ME] IN SERUM OR PLASMA 20 mg/dL 7 - 25 11/13 Specimen Type: SERUM No comment entered. Ordering Provider: EFFIE MEDEROS Report Released Date/Time: Oct 31, 2022 05:55 PM Reporting Lab: [place] [facility] [address] [facility] [address] Performing Lab: [place] [address] [address] [facility]ITALRL WSTRN [place] [facility] BASIC METABOLI C PANEL (fasting ) GLUCOSE [MASS/VOLU ME] IN SERUM OR PLASMA 93 mg/dL 65 - 100 11/13 Specimen Type: SERUM No comment entered. Ordering Provider: EFFIE MEDEROS Report Released Date/Time: Oct 31, 2022 05:55 PM Reporting Lab: [place] [facility] [address] [facility] [address] Performing Lab: [place] [address] [address] [facility] [place] [place] [facility] BASIC METABOLI C PANEL (fasting ) SODIUM [MOLES/VOL UME] IN SERUM OR PLASMA 139 mmol/L 135 - 145 11/13 Specimen Type: SERUM No comment entered. Ordering Provider: EFFIE MEDEROS Report Released Date/Time: Oct 31, 2022 05:55 PM Reporting Lab: [place] [facility] [address] Performing Lab: [facility] HOSPITALRL WSTRN [facility]USE[address] [address] [facility]PITALRL WSTRN [facility]OSPITALUSE [facility] BASIC METABOLI C PANEL (fasting ) POTASSIUM [MOLES/VOL UME] IN SERUM OR PLASMA 4.9 mmol/L 3.5 - 5.0 11/13 Specimen Type: SERUM No comment entered. Ordering Provider: EFFIE MEDEROS Report Released Date/Time: Oct 31, 2022 05:55 PM Reporting Lab: [facility] HOSPITALRL TRN [address] [address] Performing Lab: IN CNTRL [place] [facility]OSPITALUSE[address] [address] [facility]OSPITALRL WSTRN [facility] BASIC METABOLI C PANEL (fasting ) CHLORIDE [MOLES/VOL UME] IN SERUM OR PLASMA 104 mmol/L 100 - 110 11/13 Specimen Type: SERUM No comment entered. Ordering Provider: EFFIE MEDEROS Report Released Date/Time: Oct 31, 2022 05:55 PM Reporting Lab: [facility] HOSPITALRL WSTRN [place] [address] Performing Lab: IN CNTRL [place] [facility] HOSPITALUSETS [address] [address] [facility]ITALRL WSTRN [facility]PITALUSE [facility] BASIC METABOLI C PANEL (fasting ) CARBON DIOXIDE, TOTAL [MOLES/VOL UME] IN SERUM OR PLASMA 26 meq/L 20 - 30 11/13 Specimen Type: SERUM No comment entered. Ordering Provider: EFFIE MEDEROS Report Released Date/Time: Oct 31, 2022 05:55 PM Reporting Lab: [facility]ITALR W[facility]N [facility]ITALUSE[address] [address] Performing Lab: [facility] [place] [facility] [address] [facility] [address] [facility] HOSPITALRL WSTRN [place] [facility] BASIC METABOLI C PANEL (fasting ) CREATININE [MASS/VOLU ME] IN SERUM OR PLASMA 1.08 mg/dL 0.50 - 1.40 11/13 Specimen Type: SERUM No comment entered. Ordering Provider: EFFIE MEDEROS Report Released Date/Time: Oct 31, 2022 05:55 PM Reporting Lab: [facility]PITALRL [facility]STRN [place] [facility] [address] [facility] [address] Performing Lab: [facility] HOSPITALRL WSTRN [facility]ETS [facility] [address] [facility] [address] [facility] HOSPITALRL TRN [place] [facility] BASIC METABOLI C PANEL (fasting ) GLOMERULAR FILTRATION RATE/1.73 SQ M.PREDICTE D [VOLUME RATE/AREA] IN SERUM, PLASMA OR BLOOD BY CREATININE -BASED FORMULA (CKD-EPI 2020) >90mL/mi n 60 11/13 Specimen Type: SERUM No comment entered. Ordering Provider: EFFIE MEDEROS Report Released Date/Time: Oct 31, 2022 05:55 PM Reporting Lab: [facility] HOSPITALRL TRN [facility]ITALUSETS [facility] [address] [facility] [address] Performing Lab: [facility] HOSPITALRL TRN [facility]ITALUSETS [facility] [address] [facility] [address] [facility]N [facility] CBC AND DIFF (AUTO) LEUKOCYTES [#/VOLUME] IN BLOOD BY AUTOMATED COUNT 7.14 10*3/uL 4.50 - 11.00 11/13 Specimen Type: BLOOD No comment entered. Ordering Provider: EFFIE MEDEROS Report Released Date/Time: Oct 31, 2022 05:55 PM Reporting Lab: [facility] HOSPITALRL TRN [facility]ITALUSETS [facility] [address] [facility] [address] Performing Lab: [facility] HOS[facility]ITALRL TRN [facility]OSPITALUSETS [address] [address] [facility] HOSPITALRTAYLOR HARDIN SECURE MEDICAL FACILITYN [facility]OSPITALUSE [facility] CBC AND DIFF (AUTO) ERYTHROCYT ES [#/VOLUME] IN BLOOD BY AUTOMATED COUNT 5.17 10*6/uL 4.23 - 5.66 11/13 Specimen Type: BLOOD No comment entered. Ordering Provider: EFFIE MEDEROS Report Released Date/Time: Oct 31, 2022 05:55 PM Reporting Lab: [facility] [place] [facility] [address] [facility] [address] Performing Lab: [facility] [place] [facility] [address] [facility] [address] [facility] [facility] CBC AND DIFF (AUTO) HEMOGLOBIN [MASS/VOLU ME] IN BLOOD 15.0 g/dL 12.8 - 17 11/13 Specimen Type: BLOOD No comment entered. Ordering Provider: EFFIE MEDEROS Report Released Date/Time: Oct 31, 2022 05:55 PM Reporting Lab: [facility] [place] [facility] [address] [facility] [address] Performing Lab: [facility] [place] [address] [address] [place] [facility] CBC AND DIFF (AUTO) HEMATOCRIT [VOLUME FRACTION] OF BLOOD BY AUTOMATED COUNT 44.2 39.2 - 50.4 11/13 Specimen Type: BLOOD No comment entered. Ordering Provider: EFFIE MEDEROS Report Released Date/Time: Oct 31, 2022 05:55 PM Reporting Lab: [facility] [place] [facility] [address] [facility] [address] Performing Lab: [facility] [place] [facility] [address] [facility] [address] [facility] [place] [facility] CBC AND DIFF (AUTO) MCV [ENTITIC VOLUME] BY AUTOMATED COUNT 85.5 fL 82 - 99 11/13 Specimen Type: BLOOD No comment entered. Ordering Provider: EFFIE MEDEROS Report Released Date/Time: Oct 31, 2022 05:55 PM Reporting Lab: [facility] [place] [facility] [address] [facility] [address] Performing Lab: [facility] [place] [address] [address] [facility] [place] [facility] CBC AND DIFF (AUTO) MCHC [MASS/VOLU ME] BY AUTOMATED COUNT 33.9 g/dL 30.8 - 35.1 11/13 Specimen Type: BLOOD No comment entered. Ordering Provider: EFFIE MEDEROS Report Released Date/Time: Oct 31, 2022 05:55 PM Reporting Lab: [place] [facility] [address] [facility] [address] Performing Lab: [place] [facility] [address] [facility] [address] [facility]ITALRL WSTRN [place] [facility] CBC AND DIFF (AUTO) PLATELETS [#/VOLUME] IN BLOOD BY AUTOMATED COUNT 294 10*3/uL 140 - 360 11/13 Specimen Type: BLOOD No comment entered. Ordering Provider: EFFIE MEDEROS Report Released Date/Time: Oct 31, 2022 05:55 PM Reporting Lab: [place] [address] [address] Performing Lab: [place] [address] [address] [facility]ITALRL WSTRN [facility]USCHUSE TS [facility] CBC AND DIFF (AUTO) ERYTHROCYT E DISTRIBUTI ON WIDTH [RATIO] BY AUTOMATED COUNT 12.3 12.0 - 16.0 11/13 Specimen Type: BLOOD No comment entered. Ordering Provider: EFFIE MEDEROS Report Released Date/Time: Oct 31, 2022 05:55 PM Reporting Lab: [facility] HOSPITALRL [place] [place] [address] [address] Performing Lab: [place] [address] [address] [facility]ITALRL WSTRN [place] [facility] CBC AND DIFF (AUTO) MONOCYTES [#/VOLUME] IN BLOOD BY AUTOMATED COUNT 0.53 10*3/uL 0.30 - 1.10 11/13 Specimen Type: BLOOD No comment entered. Ordering Provider: EFFIE MEDEROS Report Released Date/Time: Oct 31, 2022 05:55 PM Reporting Lab: [facility]ITALRL [place] [place] [facility] [address] [facility] [address] Performing Lab: [place] [address] [place] [address] [facility] [place] [facility] CBC AND DIFF (AUTO) MCH [ENTITIC MASS] BY AUTOMATED COUNT 29.0 pg 26.2 - 32.6 11/13 Specimen Type: BLOOD No comment entered. Ordering Provider: EFFIE MEDEROS Report Released Date/Time: Oct 31, 2022 05:55 PM Reporting Lab: [facility] [place] [facility] [address] [facility] [address] Performing Lab: [facility] [place] [facility] [address] [facility] [address] [facility] [place] [facility] CBC AND DIFF (AUTO) NEUTROPHIL S/100 LEUKOCYTES IN BLOOD BY AUTOMATED COUNT 54.3 43.7 - 75.8 11/13 Specimen Type: BLOOD No comment entered. Ordering Provider: EFFIE MEDEROS Report Released Date/Time: Oct 31, 2022 05:55 PM Reporting Lab: [facility] [place] [facility] [address] [facility] [address] Performing Lab: [facility] [place] [facility] [address] [facility] [address] [facility] [place] [facility] CBC AND DIFF (AUTO) LYMPHOCYTE S/100 LEUKOCYTES IN BLOOD BY AUTOMATED COUNT 35.7 14.0 - 42.3 11/13 Specimen Type: BLOOD No comment entered. Ordering Provider: EFFIE MEDEROS Report Released Date/Time: Oct 31, 2022 05:55 PM Reporting Lab: [facility] [place] [facility] [address] [facility] [address] Performing Lab: [facility] [place] [facility] [address] [facility] [address] [facility] [place] [facility] CBC AND DIFF (AUTO) MONOCYTES/ 100 LEUKOCYTES IN BLOOD BY AUTOMATED COUNT 7.4 5.1 - 13.7 11/13 Specimen Type: BLOOD No comment entered. Ordering Provider: EFFIE MEDEROS Report Released Date/Time: Oct 31, 2022 05:55 PM Reporting Lab: [facility] [place] [facility] [address] [facility] [address] Performing Lab: [place] [facility] [address] [facility] [address] [place] [facility] [facility] CBC AND DIFF (AUTO) EOSINOPHIL S/100 LEUKOCYTES IN BLOOD BY AUTOMATED COUNT 1.7 0.4 - 6.8 11/13 Specimen Type: BLOOD No comment entered. Ordering Provider: EFFIE MEDEROS Report Released Date/Time: Oct 31, 2022 05:55 PM Reporting Lab: [facility] [place] [facility] [address] [facility] [address] Performing Lab: [place] [address] [address] [place] [facility] CBC AND DIFF (AUTO) BASOPHILS/ 100 LEUKOCYTES IN BLOOD BY AUTOMATED COUNT 0.6 0.1 - 2.0 11/13 Specimen Type: BLOOD No comment entered. Ordering Provider: EFFIE MEDEROS Report Released Date/Time: Oct 31, 2022 05:55 PM Reporting Lab: [facility] [place] [address] [address] Performing Lab: [place] [address] [address] [facility]RL W[facility]N [place] [facility] CBC AND DIFF (AUTO) NEUTROPHIL S [#/VOLUME] IN BLOOD BY AUTOMATED COUNT 3.88 10*3/uL 2.20 - 7.60 11/13 Specimen Type: BLOOD No comment entered. Ordering Provider: EFFIE MEDEROS Report Released Date/Time: Oct 31, 2022 05:55 PM Reporting Lab: [facility] [place] [address] [address] Performing Lab: [place] [address] [address] [place] [facility] CBC AND DIFF (AUTO) LYMPHOCYTE S [#/VOLUME] IN BLOOD BY AUTOMATED COUNT 2.55 10*3/uL 1.00 - 3.20 11/13 Specimen Type: BLOOD No comment entered. Ordering Provider: EFFIE MEDEROS Report Released Date/Time: Oct 31, 2022 05:55 PM Reporting Lab: [facility] [place] [facility] [address] [facility] [phone] Performing Lab: [facility] [place] [facility] [address] [facility] [address] [facility] CBC AND DIFF (AUTO) EOSINOPHIL S [#/VOLUME] IN BLOOD BY AUTOMATED COUNT 0.12 10*3/uL 0.03 - 0.44 11/13 Specimen Type: BLOOD No comment entered. Ordering Provider: EFFIE MEDEROS Report Released Date/Time: Oct 31, 2022 05:55 PM Reporting Lab: [facility] [place] [facility] [address] [facility] [phone] Performing Lab: [facility] [place] [facility] [address] [place] [phone] [facility] CBC AND DIFF (AUTO) BASOPHILS [#/VOLUME] IN BLOOD BY AUTOMATED COUNT 0.04 10*3/uL 0.01 - 0.13 11/13 Specimen Type: BLOOD No comment entered. Ordering Provider: EFFIE MEDEROS Report Released Date/Time: Oct 31, 2022 05:55 PM Reporting Lab: [facility] [place] [facility] [address] [facility] [phone] Performing Lab: [facility] [place] [facility] [address] [place] [phone] [facility] CBC AND DIFF (AUTO) IMMATURE GRANULOCYT ES/100 LEUKOCYTES IN BLOOD BY AUTOMATED COUNT 0.3 0.0 - 0.7 11/13 Specimen Type: BLOOD No comment entered. Ordering Provider: EFFIE MEDEROS Report Released Date/Time: Oct 31, 2022 05:55 PM Reporting Lab: [facility] [place] [facility] [address] [facility] [address] Performing Lab: [facility] [place] [facility] [address] [place] [phone] [facility] [place] CBC AND DIFF (AUTO) IMMATURE GRANULOCYT ES [#/VOLUME] IN BLOOD 0.02 10*3/uL 0.00 - 0.06 11/13 Specimen Type: BLOOD No comment entered. Ordering Provider: EFFIE MEDEROS Report Released Date/Time: Oct 31, 2022 05:55 PM Reporting Lab: [facility] [place] [facility] [address] [facility] [phone] Performing Lab: [place] [facility] [place] [facility] [address] [facility] [phone] [facility] [place] [facility] LIVER FUNCTION PROTEIN [MASS/VOLU ME] IN SERUM OR PLASMA 7.9 g/dL 6.0 - 8.3 11/13 Specimen Type: SERUM No comment entered. Ordering Provider: EFFIE MEDEROS Report Released Date/Time: Oct 31, 2022 05:55 PM Reporting Lab: [facility] [place] [address] [address] [address] Performing Lab: [place] [address] [address] [facility] LIVER FUNCTION ALBUMIN [MASS/VOLU ME] IN SERUM OR PLASMA 4.8 g/dL 3.5 - 5.0 11/13 Specimen Type: SERUM No comment entered. Ordering Provider: EFFIE MEDEROS Report Released Date/Time: Oct 31, 2022 05:55 PM Reporting Lab: [place] [address] [address] Performing Lab: [place] [address] [address] IN [facility] [place] [facility] LIVER FUNCTION ALKALINE PHOSPHATAS E [ENZYMATIC ACTIVITY/V OLUME] IN SERUM OR PLASMA 49 U/L 40 - 150 11/13 Specimen Type: SERUM No comment entered. Ordering Provider: EFFIE MEDEROS Report Released Date/Time: Oct 31, 2022 05:55 PM Reporting Lab: [place] [address] [address] Performing Lab: [place] [address] [address] [facility] [place] [facility] LIVER FUNCTION ASPARTATE AMINOTRANS FERASE [ENZYMATIC ACTIVITY/V OLUME] IN SERUM OR PLASMA 21 U/L 5 - 34 11/13 Specimen Type: SERUM No comment entered. Ordering Provider: EFFIE MEDEROS Report Released Date/Time: Oct 31, 2022 05:55 PM Reporting Lab: [facility] [place] [place] [facility] [address] [facility] [address] Performing Lab: [place] [facility] [address] [facility] [address] [facility] [place] [facility] LIVER FUNCTION ALANINE AMINOTRANS FERASE [ENZYMATIC ACTIVITY/V OLUME] IN SERUM OR PLASMA 36 U/L 11/13 Specimen Type: SERUM No comment entered. Ordering Provider: EFFIE MEDEROS Report Released Date/Time: Oct 31, 2022 05:55 PM Reporting Lab: [facility] [place] [address] [address] Performing Lab: [facility] [place] [place] [facility] [address] [facility] [address] [facility] LIVER FUNCTION BILIRUBIN. TOTAL [MASS/VOLU ME] IN SERUM OR PLASMA 0.7 mg/dL 0.2 - 1.2 11/13 Specimen Type: SERUM No comment entered. Ordering Provider: EFFIE MEDEROS Report Released Date/Time: Oct 31, 2022 05:55 PM Reporting Lab: [facility] [place] [place] [address] [address] Performing Lab: [facility] [place] [place] [address] [address] [facility]OSPITALRTAYLOR [facility]ARD[facility]ILITYN [facility] Vital Signs Combined list of inpatient and outpatient Vital Signs from Department of Defense and Veterans Affairs, ranging from 12 months to all on record, depending upon the facility. Vital Sign Value Date Comments Source SYSTOLIC BLOOD PRESSURE 144 11/16/19 24 09:59:08 [facility]TR[facility] DIASTOLIC BLOOD PRESSURE 86 024 09:59:08 [facility]ITAL[facility]STTRN [facility] PULSE OXIMETRY 99 11/16/2023 09:59:08 [facility] [place] [facility] WEIGHT 205.4 11/16/2023 09:59:08 [facility] [place] [facility] BMI 30kg/m2 11/16/2023 09:59:08 [facility] [place] [facility] PAIN 0 11/16/2023 09:59:08 [facility] [place] [facility] HEIGHT 69 11/16/2023 09:59:08 [facility] [place] [facility] TEMPERATURE 97.6 11/16/2023 09:59:08 [facility] [place] [facility] PULSE 48 11/16/2023 09:59:08 [facility] [place] [facility] RESPIRATION 16 11/16/2023 09:59:08 [facility] [place] [facility] SYSTOLIC BLOOD PRESSURE 118 09/17/19 24 10:13:01 [facility] [place] [facility] DIASTOLIC BLOOD PRESSURE 68 024 10:13:01 [facility] [place] [facility] PULSE OXIMETRY 98 09/17/2023 10:13:01 [facility] [place] [facility] PAIN 3 09/17/2023 10:13:01 [facility] [place] [facility] TEMPERATURE 98.8 09/17/2023 10:13:01 [facility] [place] [facility] PULSE 68 09/17/2023 10:13:01 [facility] [place] [facility] SYSTOLIC BLOOD PRESSURE 142 07/20/19 24 12:52:02 [facility] [place] [facility] DIASTOLIC BLOOD PRESSURE 92 024 12:52:02 [facility] [place] [facility] PULSE OXIMETRY 99 07/20/2023 12:52:02 [facility] [place] [facility] WEIGHT 205.3 07/20/2023 12:52:02 [facility] [place] [facility] BMI 30kg/m2 07/20/2023 12:52:02 [facility] [place] [facility] PAIN 3 07/20/2023 12:52:02 [facility] [place] [facility] HEIGHT 69 07/20/2023 12:52:02 [facility] [place] [facility] TEMPERATURE 98.7 07/20/2023 12:52:02 [facility] [place] [facility] PULSE 59 07/20/2023 12:52:02 [facility] [place] [facility] RESPIRATION 16 07/20/2023 12:52:02 [facility] [place] [facility] SYSTOLIC BLOOD PRESSURE 150 04/14/19 24 09:14:33 [facility] [place] [facility] DIASTOLIC BLOOD PRESSURE 98 024 09:14:33 [facility] [place] [facility] PULSE OXIMETRY 98 04/14/2023 09:14:33 [facility] [place] [facility] WEIGHT 209 04/14/2023 09:14:33 [facility] [place] [facility] BMI 32kg/m2 04/14/2023 09:14:33 [facility] [place] [facility] PAIN 0 04/14/2023 09:14:33 [facility] [place] [facility] TEMPERATURE 98.2 04/14/2023 09:14:33 [facility] [place] [facility] PULSE 64 04/14/2023 09:14:33 [facility] [place] [facility] RESPIRATION 16 04/14/2023 09:14:33 [facility] [place] [facility] Encounters Combined list of: 1) Encounters from Department of Veterans Affairs facilities going back up to thelast 18 months. 2) Encounters from the Department of Defense facilities going back up to 280 months. Location Location Details Encounter Type Encounter Number Reason For Visit Attending Provider ADM Date DC Date Status Disposition Source [place] [address](Opt ometry Clinic [facility]) OUTPATIENT [id number] ROSINA KEITH 08/24 Released w/o Limitations [facility] [place] [address](O ptometr y Clinic [facility]) Theater Facility OUTPATIENT [id number] Theater Provider 10/06 Released w/o Limitations [facility] OUTPATIENT [id number] Theater Provider 10/06 Released w/o Limitations [facility] OUTPATIENT [id number] Theater Provider 10/13 Released w/o Limitations [facility] Facility OUTPATIENT [id number] Theater Provider 10/20 Released w/o Limitations [facility] Theater Facility OUTPATIENT [id number] Theater Provider 12/23 Transfer to [facility] Theater Facilit y Theater Facility OUTPATIENT [id number] Theater Provider 12/23 Released with Work/Duty Limitations Theater Facilit y Theater Facility OUTPATIENT [id number] Theater Provider 12/26 Released with Work/Duty Limitations Theater Facilit [facility] Theater Facility OUTPATIENT [id number] Theater Provider 12/28 Released with Work/Duty Limitations Theater Facilit [facility] Theater Facility OUTPATIENT [id number] Theater Provider 01/02 Released w/o Limitations Theater Facilit [facility] Theater Facility OUTPATIENT [id number] Theater Provider 01/05 [facility]ilit [facility] [place] 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
VALERIE MEDEROS RD 11/13 [facility] En[facility] [id number] 03/04 [facility] [place] En[facility] [id number] OSCAR EARLY 04/05 [facility] O/P EST SF 10 MIN [id number] Diagnos is: ICD-10- CM M76.60 Lloyd s tendini tis, unspeci fied leg<br/ > VALERIE MEDEROS RD D 04/14 [facility] En[facility] [id number] 04/16 [facility] En[facility] [id number] 04/22 [facility] [place] En[facility] [id number] 05/10 [facility] En[facility] [id number] 05/12 [facility] [place] En[facility] [id number] 05/17 [facility] En[facility] [id number] 05/19 [facility] En[facility] [id number] 07/15 [facility] [place] O/P EST LOW 20 MIN [id number] Diagnos is: ICD-10- CM M79.669 Pain in unspeci fied lower leg<br/ > VALERIE MEDEROS RD 07/19 [facility] En[facility] [id number] 07/19 [facility] [place] En[facility] [id number] 07/28 [facility] [place] PSYTX W PT 45 MINUTES [id number] Diagnos is: ICD-10- CM F32.A Depress ion, unspeci fied
MARGARITA UNDERWOOD R 08/01 [facility] [place] En[facility] [id number] 08/05 [facility] PSYTX W PT 30 MINUTES [id number] Diagnos is: ICD-10- CM F41.9 Anxiety disorde r, unspeci fied
MARGARITA UNDERWOOD R 08/15 [facility] [place] [place] [facility] Outpatient Encounter [id number] 08/29 [facility] En[facility] [id number] 09/12 [facility] [place] [place] [facility] OFFICE O/P NEW LOW 30 MIN [id number] Diagnos is: ICD-10- CM M76.62 Wright s tendini tis, left leg<br/ > JENNIE MOSS D 09/16 [facility] [place] [facility] SELF-MGMT EDUC & TRAIN 1 PT [id number] Diagnos is: ICD-10- CM G47.33 Obstruc tive sleep apnea (adult) (pediat [place])
SHIRAZ,FREDE ROSALINA 09/21 [facility] [place] [facility] PSYTX W PT 30 MINUTES [id number] Diagnos is: ICD-10- CM F41.9 Anxiety disorde r, unspeci fied
MARGARITA UNDERWOOD R 10/17 [facility] [place] [facility] [place] [facility] Outpatient Encounter [id number] 10/24 [facility] [place] [facility] SLEEP STUDY UNATT&RESP EFFT [id number] Diagnos is: ICD-10- CM G47.33 Obstruc tive sleep apnea (adult) ([facility] [place])
SHIRAZJOSEPH Gutierrez ROSALINA 10/[address] [facility] [place] [facility] [place] [facility] Outpatient Encounter [id number] 10/28 [facility] [place] [facility] SLEEP STUDY UNATT&RESP EFFT [id number] Diagnos is: ICD-10- CM G47.33 Obstruc tive sleep apnea (adult) ([facility] [place])
COCO HENDRIXA 11/[address] [place] [facility] [place] [place] [facility] Outpatient Encounter [id number] 11/06 [facility] [place] [place] [facility] [place] [facility] PSYTX W PT 30 MINUTES [id number] Diagnos is: ICD-10- CM F41.9 Anxiety disorde r, unspeci fied
MARGARITA UNDERWOOD R 11/07 [facility] [place] [place] [facility] [facility] [place] [facility] OFFICE O/P EST LOW 20 MIN [id number] Diagnos is: ICD-10- CM M10.9 Gout, unspeci fied
VALERIE MEDEROS RD D 11/15 [facility] [place] En[facility] [id number] 1.11/20 [facility] [place] Encounter [id number] D 11/20 [facility] [place] PSYTX W PT 30 MINUTES [id number] 1. Diagnos is: ICD-10- CM F32.A Depress ion, unspeci fied
MARGARITA UNDERWOOD R 11/21 [facility] En[facility] [id number] 1.1987 [facility] [place] PSYTX W PT 30 MINUTES [id number] Diagnos is: ICD-10- CM F41.9 Anxiety disorde r, unspeci fied
MARGARITA UNDERWOOD R 12/19 [facility] PSYTX W PT 30 MINUTES [id number] Diagnos is: ICD-10- CM F32.A Depress ion, unspeci fied
MARGARITA UNDERWOOD R 01/02 [facility] [place] En[facility] [id number] D 01/20 [facility] [place] [place] PSYTX W PT 30 MINUTES [id number] Diagnos is: ICD-10- CM F41.9 Anxiety disorde r, unspeci fied
MARGARITA UNDERWOOD RTNEY R 01/30 [facility] [place] [place] [facility] PSYCH DIAGNOSTIC EVALUATION [id number] Diagnos is: ICD-10- CM F12.10 Cannabi s abuse, uncompl icated< br/> CLARITA MCCOYF PETER 02/06 [facility] En[facility] [id number] 1. NADINELIZABETH PETER 02/06 [facility] [place] PSYTX W PT 30 MINUTES [id number] Diagnos is: ICD-10- CM F12.10 Cannabi s abuse, uncompl icated< br/> LIZABETH MCCOY 02/06 [facility] [place] PSYTX W PT 30 MINUTES [id number] Diagnos is: ICD-10- CM F41.9 Anxiety disorde r, unspeci fied
MARGARITA UNDERWOOD RTMARK R 02/13 [facility] En[facility] [id number] 02/18 [facility] [place] Out[facility] Encounter [id number] 02/25 [facility] [place] [place] PSYTX W PT 30 MINUTES [id number] Diagnos is: ICD-10- CM F32.A Depress ion, unspeci fied
MARGARITA UNDERWOOD RTMARK R 02/27 [facility] [place] [facility] [facility] Procedures Combined list of: 1) Procedures from Department of Veterans Affairs facilities going back up to thelast 18 months, not all [place] non-surgical procedures are included; 2) All procedures from the Department of Defense facilities. Procedure Procedure Type Code Date Perfomer Comments Sour e Screening Test Of Visual Acuity, Quantitative, Bilateral Screening Test Of Visual Acuity, Quantitative, Bilateral 41815 08/25/2011 ONELIA JAEGER [facility] Spectacles Services Fitting Monofocal Except For Aphakia Spectacles Services Fitting Monofocal Except For Aphakia 27667 08/25/2011 ONELIA JAEGER [facility] THERAPEUTIC, PROPHYLACTIC, OR DIAGNOSTIC INJECTION (SPECIFY SUBSTANCE OR DRUG); SUBCUTANEOUS OR INTRAMUSCULAR 08/27/2011 [facility] FITTING OF SPECTACLES, EXCEPT FOR APHAKIA; MONOFOCAL 08/25/2011 [facility] Social History Combined list of available smoking, tobacco, and other social history from Department of Defense and Veterans Affairs facilities. Social History Type Response Date Comment Sourc e Tobacco smoking status NHIS VA-TOBACCO QUIT 1 TO < 5 YRS 11/16/2023 [facility] [place] [facility] History of tobacco use VA-TOBACCO FORMER USER 11/16/2023 [facility] [place] [facility] History of tobacco use VA-TOBACCO NEVER USED 11/13/2022 [facility] [place] [facility] History of tobacco use VA-TOBACCO NEVER USED 07/11/2021 [facility] [place] [facility] History of tobacco use VA-TOBACCO NEVER USED 07/09/2020 [facility] [place] [facility] History of tobacco use VA-TOBACCO NEVER USED 05/16/2019 [facility] [place] [facility] History of tobacco use VA-TOBACCO NEVER USED 10[facility]20/2017 [facility] [place] [facility] History of tobacco use LIFETIME NON-TOBACCO USER 05/21/2017 [place] [facility] This section is an empty social history section. [facility] Plan of Care List of future care activities from Department of Veterans Affairs facilities. Additional future care activities may be listed in the Assessment and Plan section. Date/Time Care Activity Care Activity Detail Facili ty 03/14/2024 AMBULATORY - PSYCHIATRY AMBULATORY - PSYC [place]ATRY [place] [facility] 03/23/2024 AMBULATORY - MEDICINE [facility] 03/27/2024 AMBULATORY - PSYCHIATRY AMBULATORY [facility] 02/07/2024 Consult Order [facility] OUTPT Cons Strategic Business Development's Choice [facility]
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
--- OUTSIDE RECORDS SUMMARY | 2024-03-13 19:48 | XMS_ITS ---
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 Date/Time Encounter Type Encounter Description Reason Provider Source Jan 03, 2024 04:30 PM PSYTX W PT 30 MINUTES PCMHI INDIV ICD-10-CM F32.A Depression, unspecified DEVYN UNDERWOOD E Encounter Template Text not used by [place] Assessments - Encounter Diagnoses This section includes the primary and secondary diagnoses documented for the Encounter. Date/Time Primary/Secondary Diagnosis Diagnosis Name Provider Source Jan 04, 2024 03:37 PM PRIMARY Depression, unspecified DEVYN UNDERWOOD [facility] [place] [facility] Jan 04, 2024 03:37 PM SECONDARY Anxiety disorder, unspecified DEVYN UNDERWOOD [facility] [place] [facility] Jan 04, 2024 03:37 PM SECONDARY Pain in leg, unspecified DEVYN UNDERWOOD [facility] [place] [facility] Plan of Treatment: Future Appointments (+ 6 months) and Future Tests (+/- 45 days) The Plan of Treatment section includes future care activities for the patient from all [place] treatmentfacilities. This section includes future appointments and future orders which are active, pending or scheduled. Future Appointments This section includes appointments that were scheduled to occur 6 months from the date of the Encounter, up to a maximum of 20 appointments. The data comes from all [place] treatment facilities. Appointment Date/Time Appointment Type Appointme nt Facility Name Jan 31, 2024 04:30 PM AMBULATORY - PSYCHIATRY [facility] [place] [facility] Feb 07, 2024 10:00 AM AMBULATORY - PSYCHIATRY [facility] [place] [facility] Feb 07, 2024 11:30 AM AMBULATORY - PSYCHIATRY [facility] [place] [facility] Feb 14, 2024 04:30 PM AMBULATORY - PSYCHIATRY [facility] [place] [facility] Feb 19, 2024 01:00 PM AMBULATORY - PSYCHIATRY [facility] [place] [facility] Feb 26, 2024 01:00 PM AMBULATORY - PSYCHIATRY [facility] [place] [facility] Feb 28, 2024 04:30 PM AMBULATORY - PSYCHIATRY [facility] [place] [facility] Mar 14, 2024 05:00 PM AMBULATORY - PSYCHIATRY [facility] [place] [facility] Mar 23, 2024 10:00 AM AMBULATORY - MEDICINE [facility] Mar 27, 2024 04:30 PM [facility] Active, Pending, and Scheduled Orders This section includes a listing of several types of active, pending, and scheduled orders, including clinic medications orders, diagnostic test orders, procedure orders and consult orders; where the start date of the order is 45 days before the date of the Encounter or 45 days after the date of theEncounter. The data comes from all [facility]. Test Date/Time Test Type Test Details Facility Name Nov 23, 2023 05:39 PM Consult Order [facility] OUTPT Cons Director [facility] [place] [facility] Feb 07, 2024 11:58 AM Consult Order [facility] Cons Director Plans[facility] [place] [facility] Social History: Smoking Status (Most current) and Tobacco Use (All prior to encounter date) This section includes the most current, and the historical, smoking and tobacco- related health factors from the [place] facility where the Encounter took place. Current Smoking Status This section includes the most current smoking, or tobacco-related health factor, from the [place] facility where the Encounter took place. Date/Time Current Smoking Status Comment Facil ity Nov 16, 2023 10:00 AM VA-TOBACCO QUIT 1 TO < 5 YRS [facility] [place] [facility] Tobacco Use History This section includes a history of the smoking, or tobacco-related health factors, that were collected on or before the date of the Encounter. The data comes from the [place] facility where the Encounter took place. Date/Time Smoking Status/Tobacco Use Comment F acility Nov 16, 2023 10:00 AM VA-TOBACCO QUIT 1 TO < 5 YRS [facility] [place] [facility] Nov 13, 2022 11:00 AM VA-TOBACCO NEVER USED [facility] [place] [facility] July 11, 2021 03:00 PM VA-TOBACCO NEVER USED [facility] [place] [facility] July 09, 2020 09:30 AM VA-TOBACCO NEVER USED [facility] [place] [facility] May 16, 2019 11:51 AM VA-TOBACCO NEVER USED [facility] [place] [facility] Oct 20, 2017 11:04 AM VA-TOBACCO NEVER USED [facility] [place] [facility] May 21, 2017 01:47 PM LIFETIME NON-TOBACCO USER [facility] [place] [facility] Encounter Notes: All associated encounter notes This section contains the clinical notes associated to the Encounter. Date/Time Encounter Note(s) Provider Source Jan 03, 2024 07:17 AM TELEHEALTH NOTE: LOCAL TITLE: [facility] VIDEO CONNECT PCMMO NOTE STANDARD TITLE: TELEHEALTH NOTE DATE OF NOTE: JAN 03, 2024@07:17 ENTRY DATE: JAN 03, 2024@07:17:47 AUTHOR: SUMEET UNDERWOOD COSIGNER: URGENCY: STATUS: COMPLETED [place] [facility] Connect ([facility]) Standard Documentation [facility] Clinician Resources Only: E911 (Emergency Call Relay Center): [phone] National Veterans Crisis Line - 988 then press #1. [facility] Suicide Coordinator [phone], Ext. [phone]; Back-up Ext. [phone] [place] YUNG [place] [phone] Introduction: Visit is being conducted by [place] Video Connect. [place] identified with 2 identifiers: [X] Full Name [X] Date of [ ] VA ID Card Emergency Plan: confirmed and/or provided the following information in case of emergency or technology failure. PATIENT PHONE - PHONE NUMBER [CELLULAR] - NONE FOUND Is patient phone number correct, if not, enter below: 's phone number: JULIÁN ROB JR [address], [place], [address] 's present location and address for appointment: home address listed above Delavan's emergency contact name and phone number: [phone]- mother Pradeep's phone reported that location is private and safe: Yes Informed Consent: [place] informed of the risks and benefits of Telehealth video care. [place] has the right to refuse video services. If refuses video visit, a ysaj-dc-zain visit will be scheduled. verbalized consent for this video visit: Yes provided consent for any other persons present for visit: No If yes, who and relationship to patient: Secure visit: Visit was locked for security and privacy:Yes PC-M[facility] OUTPATIENT F/U NOTE DURATION: 35 mins Mr. Rob is a 38 year-old, partnered male with a PMH of pain in leg, knee, Achillies, anxiety, and depression. This was the seventh session between junior technical writer and . Delavan will return for one, final PCMHI session. explored how his mood and stress have been stable, mild and more manageable . He still experiences moments of feeling overwhelmed with life but reported that it does not interfere as much with functioning, and he is able to change his mind set to become more positive and realistic, and build in periods of breaks and relaxation when possible. He is asking to take time for his own needs to improve balance of life and reduce stressmore often. He said that he is also challenging automatic negative thoughts and critical thinking, more frequently and successfully. Furthermore, he is taking more time in nature for self-care which is helpful. He denied SI/HI. SCREENERS: PHQ-9: 5, mild depression (11/22/23 ABIODUN-7: 6, mild anxiety (11/22/23) DIAGNOSES: Anxiety D/O, Unspecified; Depressive Disorder, Unspecified; Pain in left leg IMPRESSIONS/PLAN: Mr. 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 He has not engaged in MH treatment and symptoms persist despite making many positive health changes (discontinuing use of alhcol tobacco and cannabis and earing healthier). He denied SI/HI. In collaboration with considering evidence-based treatment, clinical judgment and patient preference, options of treatment were offered. He agreed to return to [facility] for brief CBT for depression and anxiety including relaxation training, cognitive restructuring and behavioral activation. He will return to -MHI for roughly 1-2 individual sessions. He will return to -I, 01/30 at 4:30pm [facility]. /mendez/ SUMEET UNDERWOOD, PhD STAFF PSYCHOLOGIST Signed: 01/04/2024 15:38 SUMEET UNDERWOOD [facility]
--- OUTSIDE RECORDS SUMMARY | 2024-03-13 19:48 | XMS_ITS | Encounter Summary ---
Author Name [facility] [place] [place] Organization [facility] [place] Address [address] [place] [address] Care Team Providers Care Bonded Structures Repairer Name Role Phone MEDEROS RAFIA Primary Care Provider Unavailabl e Selected Encounter This section includes the information on record at [place] for the Encounter. Date/Time Encounter Type Encounter Description Reason Provider Source Nov 22, 2023 04:30 PM PSYTX W PT 30 MINUTES PCMHI INDIV ICD-10-CM F32.A Depression, unspecified DEVYN UNDERWOOD E Encounter Template Text not used by [place] Assessments - Encounter Diagnoses This section includes the primary and secondary diagnoses documented for the Encounter. Date/Time Primary/Secondary Diagnosis Diagnosis Name Provider Source Nov 24, 2023 08:01 AM PRIMARY Depression, unspecified DEVYN UNDERWOOD [facility] Nov 24, 2023 08:01 AM SECONDARY Anxiety disorder, unspecified DEVYN UNDERWOOD [facility] Plan of Treatment: Future Appointments (+ 6 months) and Future Tests (+/- 45 days) The Plan of Treatment section includes future care activities for the patient from all [place] treatmentfacilities. This section includes future appointments and future orders which are active, pending or scheduled. Future Appointments This section includes appointments that were scheduled to occur 6 months from the date of the Encounter, up to a maximum of 20 appointments. The data comes from all [place] treatment facilities. Appointment Date/Time Appointment Type Appointme nt Facility Name Dec 20, 2023 04:30 PM AMBULATORY - [facility]IATRY [facility] [place] [facility] Jan 03, 2024 04:30 PM AMBULATORY - PS[facility]CHIATRY [facility] [place] [facility] Jan 31, 2024 04:30 PM AMBULATORY - PS[facility]CHIATRY [facility] [place] [facility] Feb 07, 2024 10:00 AM AMBULATORY - PSYCHIATRY [facility] [place] [facility] Feb 07, 2024 11:30 AM AMBULATORY - PS[facility]CHIATRY [facility] [place] [facility] Feb 14, 2024 04:30 PM AMBULATORY - PS[facility]CHIATRY [facility] [place] [facility] Feb 19, 2024 01:00 PM AMBULATORY - PSYCHIATRY [facility] [place] [facility] Feb 26, 2024 01:00 PM AMBULATORY - PSYCHIATRY [facility] [place] [facility] Feb 28, 2024 04:30 PM AMBULATORY - PSYCHIATRY [facility] [place] [facility] Mar 14, 2024 05:00 PM AMBULATORY - PSYCHIATRY [place] [facility] [place] [facility] Mar 23, 2024 10:00 AM AMBULATORY - MEDICINE [facility] [place] [facility] Mar 27, 2024 04:30 PM AMBULATORY - PSYCHIATRY [place] [facility] [place] [facility] Active, Pending, and Scheduled Orders This section includes a listing of several types of active, pending, and scheduled orders, including clinic medications orders, diagnostic test orders, procedure orders and consult orders; where the start date of the order is 45 days before the date of the Encounter or 45 days after the date of theEncounter. The data comes from all [place] treatment facilities. Test Date/Time Test Type Test Details Facility Name Nov 23, 2023 05:39 PM Consult Order LIBRA E/BILLY OUTPT Cons Assistant Sales Manager's Choice [place] [facility] [place] [facility] Lab Results: +/- 30 days of the encounter This section includes the Chemistry and Hematology Lab Results on record with [place] for the patient. Radiology Reports and Pathology Reports are provided separately, in subsequent sections. Lab Results This section contains the Chemistry/Hematology Results that were resulted 30 days before or 30 daysafter the date of the Encounter. Date/Time Source Result Type Result - Unit Interpretation Reference Range Comment Nov 16, 2023 10:39 AM [place] [facility] BASIC METABOLIC PANEL (fasting) Specimen Type: SERUM No comment entered. Ordering Provider: RAFIA MEDEROS Report Released Date/Time: Nov 07, 2023 12:06 AM Reporting Lab: [facility] [address] [facility] [address] Performing Lab: [facility] [address] [facility] [address] UREA NITROGEN 15 mg/dL 7-25 GLUCOSE 90 mg/dL 65-100 SODIUM 139 mmol/L 135-145 POTASSIUM 5.4 mmol/L H 3.5-5.0 CHLORIDE 106 mmol/L 100-110 CO2 25 meq/L 20-30 CREATININE, Serum 0.94 mg/dL 0.50-1.40 eGFR(CKD-EPI 2020) >90 mL/min >60 Nov 16, 2023 10:39 AM [facility] CBC AND DIFF (AUTO) Specimen Type: BLOOD No comment entered. Ordering Provider: RAFIA MEDEROS Report Released Date/Time: Nov 07, 2023 12:06 AM Reporting Lab: [facility] [address] [facility] [address] Performing Lab: [address] [address] WBC 5.28 10*3/uL 4.50-11.00 RBC 5.16 10*6/uL 4.23-5.66 HGB 14.9 g/dL 12.8-17 HCT 43.7 39.2-50.4 MCV 84.7 fL 82-99 MCHC 34.1 g/dL 30.8-35.1 PLT 256 10*3/uL 140-360 RDW-CV 12.8 12.0-16.0 MONO, ABS 0.34 10*3/uL 0.30-1.10 MCH 28.9 pg 26.2-32.6 NEUT % 43.4 L 43.7-75.8 LYMPH % 45.6 H 14.0-42.3 MONO % 6.4 5.1-13.7 EOS % 3.6 0.4-6.8 BASO % 0.6 0.1-2.0 NEUT, ABS 2.29 10*3/uL 2.20-7.60 LYMPH, ABS 2.41 10*3/uL 1.00-3.20 EOS, ABS 0.19 10*3/uL 0.03-0.44 BASO, ABS 0.03 10*3/uL 0.01-0.13 IMMATURE GRAN % 0.4 0.0-0.7 IMMATURE GRAN, ABS 0.02 10*3/uL 0.00-0.06 NRBC % 0.0 0.0-0.0 NRBC, ABS 0.00 10*3/uL 0.00-0.00 Nov 16, 2023 10:39 AM [facility] LIVER FUNCTION Specimen Type: SERUM No comment entered. Ordering Provider: RAFIA MEDEROS Report Released Date/Time: Nov 07, 2023 12:06 AM Reporting Lab: [address] [address] Performing Lab: [address] [address] PROTEIN,TOTAL 7.4 g/dL 6.0-8.3 ALBUMIN 4.3 g/dL 3.5-5.0 ALKALINE PHOSPHATASE 49 U/L 40-150 AST 18 U/L 5-34 ALT 34 U/L BILIRUBIN, TOTAL 0.4 mg/dL 0.2-1.2 Nov 16, 2023 10:39 AM [facility] TSH Specimen Type: SERUM No comment entered. Ordering Provider: RAFIA MEDEROS Report Released Date/Time: Nov 07, 2023 12:06 AM Reporting Lab: [address] [address] Performing Lab: [address] [address] TSH 1.25 u[IU]/mL 0.35-5.00 Nov 16, 2023 10:39 AM [facility] LIPID PANEL FASTING Specimen Type: SERUM No comment entered. Ordering Provider: RAFIA MEDEROS Report Released Date/Time: Nov 07, 2023 12:06 AM Reporting Lab: [address] [address] Performing Lab: [facility] [address] [facility] [address] CHOLESTEROL 257 mg/dL H TRIGLYCERIDE 375 mg/dL H 0-150 LDL calculated Reflex to dLDL mg/dL 0-129 CHOL/HDL 6.4 HDL CHOLESTEROL 40 mg/dL 40-60 LDL DIRECT 153 mg/dL H Nov 16, 2023 10:39 AM [facility] URIC ACID Specimen Type: SERUM No comment entered. Ordering Provider: RAFIA MEDEROS Report Released Date/Time: Nov 07, 2023 12:06 AM Reporting Lab: [facility] [address] [facility] [address] Performing Lab: [address] [address] URIC ACID 9.6 mg/dL H 3.5-7.2 Nov 16, 2023 10:39 AM [facility] URINALYSIS CLEAN CATCH Specimen Type: URINE Comment: If Glucose = >500 and Ketones are positive, please alert the Physician. Ordering Provider: RAFIA MEDEROS Report Released Date/Time: Nov 07, 2023 12:06 AM Reporting Lab: [address] [address] Performing Lab: [address] [address] UA COLOR Colorless Yellow UA APPEARANCE Clear Clear UA GLUCOSE Normal mg/dL Negative UA KETONES NEGATIVE mg/dL Negative UA BLOOD NEGATIVE mg/dL Negative UA PROTEIN NEGATIVE mg/dL Negative UA NITRITE NEGATIVE mg/dL Negative UA BILIRUBIN NEGATIVE mg/dL Negative UA SPECIFIC GRAVITY 1.017 1.016-1.022 UA pH 6.0 5.0-9.0 UA UROBILINOGEN Normal mg/dL <2.0 UA LEUKOCYTE NEGATIVE Negative Social History: Smoking Status (Most current) and Tobacco Use (All prior to encounter date) This section includes the most current, and the historical, smoking and tobacco- related health factors from the [place] facility where the Encounter took place. Current Smoking Status This section includes the most current smoking, or tobacco-related health factor, from the [place] facility where the Encounter took place. Date/Time Current Smoking Status Comment Facil ity Nov 16, 2023 10:00 AM VA-TOBACCO QUIT 1 TO < 5 YRS [place] [facility] [place] [facility] Tobacco Use History This section includes a history of the smoking, or tobacco-related health factors, that were collected on or before the date of the Encounter. The data comes from the [place] facility where the Encounter took place. Date/Time Smoking Status/Tobacco Use Comment F acility Nov 16, 2023 10:00 AM VA-TOBACCO QUIT 1 TO < 5 YRS [place] [facility] [place] [facility] Nov 13, 2022 11:00 AM VA-TOBACCO NEVER USED [facility] [place] [facility] July 11, 2021 03:00 PM VA-TOBACCO NEVER USED [facility] [place] [facility] July 09, 2020 09:30 AM VA-TOBACCO NEVER USED [facility] [place] [facility] May 16, 2019 11:51 AM VA-TOBACCO NEVER USED [facility] [place] [facility] Oct 20, 2017 11:04 AM VA-TOBACCO NEVER USED [place] [facility] [place] [facility] May 21, 2017 01:47 PM LIFETIME NON-TOBACCO USER [place] [facility] [place] [facility] Encounter Notes: All associated encounter notes This section contains the clinical notes associated to the Encounter. Date/Time Encounter Note(s) Provider Source Nov 22, 2023 06:32 AM TELEHEALTH NOTE: LOCAL TITLE: [facility] VIDEO CONNECT [facility] NOTE STANDARD TITLE: TELEHEALTH NOTE DATE OF NOTE: NOV 22, 2023@06:32 ENTRY DATE: NOV 22, 2023@06:32:56 AUTHOR: SUMEET UNDERWOOD COSIGNER: URGENCY: STATUS: COMPLETED [facility] Video Connect (VVC) Standard Documentation VVC Clinician Resources Only: E911 (Emergency Call Relay Center): [phone] National Veterans Crisis Line - 988 then press #1. YUNG Suicide Coordinator [phone], Ext. [phone]; Back-up Ext. [phone] [place] YUNG Font[place] [phone] Introduction: Visit is being conducted by [place] Video Connect. Mona identified with 2 identifiers: [X] Full Name [X] Date of [ ] VA ID Card Emergency Plan: Mona confirmed and/or provided the following information in case of emergency or technology failure. PATIENT PHONE - PHONE NUMBER [CELLULAR] - NONE FOUND Is patient phone number correct, if not, enter below: Mona's phone number: JULIÁN ROB JR [address], [place], [address] Mona's present location and address for appointment: home address listed above Mona's emergency contact name and phone number: [phone]- mother Pradeep's phone Mona reported that location is private and safe: Yes Informed Consent: Mona informed of the risks and benefits of Telehealth video care. has the right to refuse video services. If refuses video visit, a [id number] visit will be scheduled. verbalized consent for this video visit: Yes Mona provided consent for any other persons present for visit: No If yes, who and relationship to patient: Secure visit: Visit was locked for security and privacy:Yes PC-MHI OUTPATIENT F/U NOTE DURATION: 35 mins Mr. Rob is a 38 year-old, partnered male Mona with a PMH of pain in leg, knee, Achillies, anxiety, and depression. This was the fifth session between television writer and Mona. explored how he was feeling much better and experiencing a reduction in anxiety and depression. Results on measures were reviewed. Mona denied SI/HI. Mona reviewed how he continues to challenge negative thoughts and challenge himself to gain more balanced perspectives and reduce self-judgment and blame. He also identified how he is challenging his initial assumptions on how fast he must complete certain chores and responsibilities. He also identified room to better manage stress to reduce burnout and irritability and improve relaxation and communication. Mona explored how is asking for time for himself to destress and practice relaxation and mindfulness and practice more self-care. Confines of PCMHI were reviewed as well as other MH treatment options and WH treatment options. identified interest in acupuncture and television writer contact Mona's PCP to ask about possibility of this consult and if he would be eligible. SCREENERS: PHQ-9: 5, mild depression ABIODUN-7: 6, mild anxiety DIAGNOSES: Anxiety D/O, Unspecified; Depressive Disorder, Unspecified; Pain in left IMPRESSIONS/PLAN: Mr. 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 He has not engaged in MH treatment and symptoms persist despite making many positive health changes (discontinuing use of alhcol tobacco and cannabis and earing healthier). He denied SI/HI. In collaboration with Mona considering evidence-based treatment, clinical judgment and patient preference, options of treatment were offered. He agreed to return to [facility] for brief CBT for depression and anxiety including relaxation training, cognitive restructuring and behavioral activation. He will return to -I for roughly 1-2 individual sessions. He will return to -I, 12/19 at 430pm, [facility]. /mendez/ SUMEET UNDERWOOD, PhD STAFF PSYCHOLOGIST Signed: 11/24/2023 08:01 SUMEET UNDERWOOD [place] [facility]
--- OUTSIDE RECORDS SUMMARY | 2024-03-13 19:48 | XMS_ITS ---
Author Name [facility] [place] [place] Organization [place] Address [address] [place] [address] Care Team Providers Care Testing Shaking Shipping Name Role Phone KIM RAFIA Primary Care Provider Unavailabl e Selected Encounter This section includes the information on record at [place] for the Encounter. Date/Time Encounter Type Encounter Description Reason Pro vider Source Nov 07, 2023 02:44 PM Outpatient Encounter PRIMARY CARE/MEDICINE IHE Encounter Template Text not used by [place] Plan of Treatment: Future Appointments (+ 6 months) and Future Tests (+/- 45 days) The Plan of Treatment section includes future care activities for the patient from all [place] treatmentfacilities. This section includes future appointments and future orders which are active, pending or scheduled. Future Appointments This section includes appointments that were scheduled to occur 6 months from the date of the Encounter, up to a maximum of 20 appointments. The data comes from all [place] treatment facilities. Appointment Date/Time Appointment Type Appointme nt Facility Name Nov 08, 2023 05:00 PM AMBULATORY - PS[place]CHIATRY [place] [facility] [place] [facility] Nov 16, 2023 10:00 AM AMBULATORY - MEDICINE [place] [facility] [place] [facility] Nov 22, 2023 04:30 PM AMBULATORY - PSYCHIATRY [place] [facility] [place] [facility] Dec 20, 2023 04:30 PM AMBULATORY - PSYCHIATRY [place] [facility] [place] [facility] Jan 03, 2024 04:30 PM AMBULATORY - PSYCHIATRY [place] [facility] [place] [facility] Jan 31, 2024 04:30 PM AMBULATORY - PSYCHIATRY [place] [facility] [place] [facility] Feb 07, 2024 10:00 AM AMBULATORY - PSYCHIATRY [place] [facility] [place] [facility] Feb 07, 2024 11:30 AM AMBULATORY - PSYCHIATRY [place] [facility] [place] [facility] Feb 14, 2024 04:30 PM AMBULATORY - PSYCHIATRY [place] [facility] [place] [facility] Feb 19, 2024 01:00 PM AMBULATORY - PSYCHIATRY [place] [facility] [place] [facility] Feb 26, 2024 01:00 PM AMBULATORY - PSYCHIATRY [place] [facility] [place] [facility] Feb 28, 2024 04:30 PM AMBULATORY - PSYCHIATRY [place] [facility] [place] [facility] Mar 14, 2024 05:00 PM AMBULATORY - PSYCHIATRY [place] [facility] [place] [facility] Mar 23, 2024 10:00 AM [facility] [place] [facility] Mar 27, 2024 04:30 PM [facility] Active, Pending, and Scheduled Orders This section includes a listing of several types of active, pending, and scheduled orders, including clinic medications orders, diagnostic test orders, procedure orders and consult orders; where the start date of the order is 45 days before the date of the Encounter or 45 days after the date of theEncounter. The data comes from all [place] treatment facilities. Test Date/Time Test Type Test Details Facility Name Nov 23, 2023 05:39 PM Consult Order LIBRA Casey/BILLY OUTPT Cons [place] Operator's Choice [facility] Lab Results: +/- 30 days of the encounter This section includes the Chemistry and Hematology Lab Results on record with [place] for the patient. Radiology Reports and Pathology Reports are provided separately, in subsequent sections. Lab Results This section contains the Chemistry/Hematology Results that were resulted 30 days before or 30 daysafter the date of the Encounter. Date/Time Source Result Type Result - Unit Interpretation Reference Range Comment Nov 16, 2023 10:39 AM [facility] BASIC METABOLIC PANEL (fasting) Specimen Type: SERUM No comment entered. Ordering Provider: RAFIA KIM Report Released Date/Time: Nov 07, 2023 12:06 AM Reporting Lab: [facility] [address] [place] [address] Performing Lab: [address] [address] UREA NITROGEN 15 mg/dL 7-25 GLUCOSE 90 mg/dL 65-100 SODIUM 139 mmol/L 135-145 POTASSIUM 5.4 mmol/L H 3.5-5.0 CHLORIDE 106 mmol/L 100-110 CO2 25 meq/L 20-30 CREATININE, Serum 0.94 mg/dL 0.50-1.40 eGFR(CKD-EPI 2020) >90 mL/min >60 Nov 16, 2023 10:39 AM [facility] LIVER FUNCTION Specimen Type: SERUM No comment entered. Ordering Provider: RAFIA KIM Report Released Date/Time: Nov 07, 2023 12:06 AM Reporting Lab: [address] [address] Performing Lab: [address] [address] PROTEIN,TOTAL 7.4 g/dL 6.0-8.3 ALBUMIN 4.3 g/dL 3.5-5.0 ALKALINE PHOSPHATASE 49 U/L 40-150 AST 18 U/L 5-34 ALT 34 U/L BILIRUBIN, TOTAL 0.4 mg/dL 0.2-1.2 Nov 16, 2023 10:39 AM [facility] CBC AND DIFF (AUTO) Specimen Type: BLOOD No comment entered. Ordering Provider: RAFIA KIM Report Released Date/Time: Nov 07, 2023 12:06 AM Reporting Lab: [address] [address] Performing Lab: [address] [address] WBC 5.28 10*3/uL 4.50-11.00 RBC 5.16 10*6/uL [...] 10*3/uL 0.00-0.00 Nov 16, 2023 10:39 AM [facility] LIPID PANEL FASTING Specimen Type: SERUM No comment entered. Ordering Provider: RAFIA KIM Report Released Date/Time: Nov 07, 2023 12:06 AM Reporting Lab: [address] [address] Performing Lab: [address] [address] CHOLESTEROL 257 mg/dL H TRIGLYCERIDE 375 mg/dL H 0-150 LDL calculated Reflex to dLDL mg/dL 0-129 CHOL/HDL 6.4 HDL CHOLESTEROL 40 mg/dL 40-60 LDL DIRECT 153 mg/dL H Nov 16, 2023 10:39 AM [facility] TSH Specimen Type: SERUM No comment entered. Ordering Provider: RAFIA KIM Report Released Date/Time: Nov 07, 2023 12:06 AM Reporting Lab: [address] [address] Performing Lab: [address] [address] TSH 1.25 u[IU]/mL 0.35-5.00 Nov 16, 2023 10:39 AM [facility] URIC ACID Specimen Type: SERUM No comment entered. Ordering Provider: RAFIA KIM Report Released Date/Time: Nov 07, 2023 12:06 AM Reporting Lab: [address] [address] Performing Lab: [address] [address] URIC ACID 9.6 mg/dL H 3.5-7.2 Nov 16, 2023 10:39 AM [facility] URINALYSIS CLEAN CATCH Specimen Type: URINE Comment: If Glucose = >500 and Ketones are positive, please alert the Physician. Ordering Provider: RAFIA KIM Report Released Date/Time: Nov 07, 2023 12:06 AM Reporting Lab: [address] [address] Performing Lab: [address] [address] UA COLOR Colorless Yellow UA APPEARANCE Clear [...] and tobacco- related health factors from the [place] facility where the Encounter took place. Current Smoking Status This section includes the most current smoking, or tobacco-related health factor, from the [place] facility where the Encounter took place. Date/Time Current Smoking Status Comment Chika reyna Nov 13, 2022 11:00 AM VA-TOBACCO NEVER USED [facility] Tobacco Use History This section includes a history of the smoking, or tobacco-related health factors, that were collected on or before the date of the Encounter. The data comes from the [place] facility where the Encounter took place. Date/Time Smoking Status/Tobacco Use Comment F acility July 11, 2021 03:00 PM VA-TOBACCO NEVER USED [place] [facility] [place] [facility] July 09, 2020 09:30 AM VA-TOBACCO NEVER USED [facility] [place] [facility] May 16, 2019 11:51 AM VA-TOBACCO NEVER USED [facility] [place] [facility] Oct 20, 2017 11:04 AM VA-TOBACCO NEVER USED [facility] [place] [facility] May 21, 2017 01:47 PM LIFETIME NON-TOBACCO USER [facility] [place] [facility] Encounter Notes: All associated encounter notes This section contains the clinical notes associated to the Encounter. Date/Time Encounter Note(s) Provider Source Nov 07, 2023 02:46 PM LETTERS: LOCAL TITLE: PATIENT LETTER (T) STANDARD TITLE: LETTERS DATE OF NOTE: NOV 07, 2023@14:46 ENTRY DATE: NOV 07, 2023@14:46:21 AUTHOR: RAFIA KIM EXP COSIGNER: URGENCY: STATUS: COMPLETED DEPARTMENT OF [facility] Toll Free Number Primary Care Telephone Assistance can be reached at extension [phone] [facility] scheduling can be reached at extension [phone] [facility] scheduling can be reached at ext [phone] JULIÁN PENN [address], [address] November 07, 2023 Dear Randolph, Please find enclosed a copy of recent testing. The sleep study showed obstructive sleep apnea. I entered a request for a respiratory therapy appointment. They can discuss treatment options with you. Please contact me if you have questions. Respectfully, Rafia Kim MD Sincerely, Your Primary Care Team [facility] [address] [address] [place] [address] [phone] [facility] [address] [place] [address] [place], [place] [id number] [facility] [address] [facility] [place] [address] [place] [address] [phone] RAFIA KIM [facility]
--- OUTSIDE RECORDS SUMMARY | 2024-03-13 19:48 | XMS_ITS | Encounter Summary ---
Author Name [facility] Address [address] [place] [address] Care Team Providers Care Salary And Wage Administrator Name Role Phone RAFIA KIM Primary Care Provider Unavailabl e Selected Encounter This section includes the information on record at [place] for the Encounter. Date/Time Encounter Type Encounter Description Reason Provider Source Nov 16, 2023 10:00 AM OFFICE O/P EST LOW 20 MIN PRIMARY CARE/MEDICINE ICD-10-CM M10.9 Gout, unspecified RAFIA KIM E Encounter Template Text not used by [place] Assessments - Encounter Diagnoses This section includes the primary and secondary diagnoses documented for the Encounter. Date/Time Primary/Secondary Diagnosis Diagnosis Name Provider Source Nov 16, 2023 10:39 AM PRIMARY Gout, unspecified RAFIA KIM [facility] Plan of Treatment: Future Appointments (+ 6 months) and Future Tests (+/- 45 days) The Plan of Treatment section includes future care activities for the patient from all [place] treatmentfacilities. This section includes future appointments and future orders which are active, pending or scheduled. Future Appointments This section includes appointments that were scheduled to occur 6 months from the date of the Encounter, up to a maximum of 20 appointments. The data comes from all [place] treatment facilities. Appointment Date/Time Appointment Type Appointme nt Facility Name Nov 22, 2023 04:30 PM AMBULATORY - PSYCHIATRY [facility] Dec 20, 2023 04:30 PM AMBULATORY - PSYCHIATRY [facility] Jan 03, 2024 04:30 PM [facility] [place] [facility] Jan 31, 2024 04:30 PM AM[place]ORY [place] [facility] [place] [facility] Feb 07, 2024 10:00 AM AMBUL[facility]ORY [place] [facility] [place] [facility] Feb 07, 2024 11:30 AM [facility] [place] [facility] Feb 14, 2024 04:30 PM AM[facility] [place] [facility] Feb 19, 2024 01:00 PM AMBUL[facility] [place] [facility] Feb 26, 2024 01:00 PM AMBUL[facility]ORY [place] [facility] [place] [facility] Feb 28, 2024 04:30 PM AMBULATORY - [place]RY [place] [facility] [place] [facility] Mar 14, 2024 05:00 PM AMBULATORY - [place]RY [place] [facility] [place] [facility] Mar 23, 2024 10:00 AM AMBULATORY - MEDICINE [place] [facility] [place] [facility] Mar 27, 2024 04:30 PM AMBULATORY - [place]ATRY [place] [facility] [place] [facility] Active, Pending, and Scheduled Orders This section includes a listing of several types of active, pending, and scheduled orders, including clinic medications orders, diagnostic test orders, procedure orders and consult orders; where the start date of the order is 45 days before the date of the Encounter or 45 days after the date of theEncounter. The data comes from all [place] treatment facilities. Test Date/Time Test Type Test Details Facility Name Nov 23, 2023 05:39 PM Consult Order LIBRA Casey/BILLY OUTPT Cons [facility] Lab Results: +/- 30 days of the encounter This section includes the Chemistry and Hematology Lab Results on record with [place] for the patient. Radiology Reports and Pathology Reports are provided separately, in subsequent sections. Lab Results This section contains the Chemistry/Hematology Results that were resulted 30 days before or 30 daysafter the date of the Encounter. Date/Time Source Result Type Result - Unit Interpretation Reference Range Comment Nov 16, 2023 10:39 AM [facility] BASIC METABOLIC PANEL (fasting) Specimen Type: SERUM No comment entered. Ordering Provider: RAFIA KIM Report Released Date/Time: Nov 07, 2023 12:06 AM Reporting Lab: [address] [address] Performing Lab: [address] [address] UREA NITROGEN 15 mg/dL 7-25 GLUCOSE 90 mg/dL 65-100 SODIUM 139 mmol/L 135-145 POTASSIUM 5.4 mmol/L H 3.5-5.0 CHLORIDE 106 mmol/L 100-110 CO2 25 meq/L 20-30 CREATININE, Serum 0.94 mg/dL 0.50-1.40 eGFR(CKD-EPI 2020) >90 mL/min >60 Nov 16, 2023 10:39 AM [facility] CBC AND DIFF (AUTO) Specimen Type: BLOOD No comment entered. Ordering Provider: RAFIA KIM Report Released Date/Time: Nov 07, 2023 12:06 AM Reporting Lab: [address] [address] Performing Lab: [address] [address] WBC 5.28 10*3/uL 4.50-11.00 RBC 5.16 10*6/uL [...] 10*3/uL 0.00-0.00 Nov 16, 2023 10:39 AM [facility] LIVER FUNCTION Specimen Type: SERUM No comment entered. Ordering Provider: RAFIA KIM Report Released Date/Time: Nov 07, 2023 12:06 AM Reporting Lab: [address] [address] Performing Lab: [address] [address] PROTEIN,TOTAL 7.4 g/dL 6.0-8.3 ALBUMIN 4.3 g/dL 3.5-5.0 ALKALINE PHOSPHATASE 49 U/L 40-150 AST 18 U/L 5-34 ALT 34 U/L BILIRUBIN, TOTAL 0.4 mg/dL 0.2-1.2 Nov 16, 2023 10:39 AM [facility] TSH Specimen Type: SERUM No comment entered. Ordering Provider: RAFIA KIM Report Released Date/Time: Nov 07, 2023 12:06 AM Reporting Lab: [address] [address] Performing Lab: [address] [address] TSH 1.25 u[IU]/mL 0.35-5.00 Nov 16, 2023 10:39 AM [facility] LIPID PANEL FASTING Specimen Type: SERUM No comment entered. Ordering Provider: RAFIA KIM Report Released Date/Time: Nov 07, 2023 12:06 AM Reporting Lab: [address] [address] Performing Lab: [address] [place] [address] CHOLESTEROL 257 mg/dL H TRIGLYCERIDE 375 mg/dL H 0-150 LDL calculated Reflex to dLDL mg/dL 0-129 CHOL/HDL 6.4 HDL CHOLESTEROL 40 mg/dL 40-60 LDL DIRECT 153 mg/dL H Nov 16, 2023 10:39 AM [facility] URIC ACID Specimen Type: SERUM No comment entered. Ordering Provider: RAFIA KIM Report Released Date/Time: Nov 07, 2023 12:06 AM Reporting Lab: [address] [address] Performing Lab: [address] [address] URIC ACID 9.6 mg/dL H 3.5-7.2 Nov 16, 2023 10:39 AM [facility] URINALYSIS CLEAN CATCH Specimen Type: URINE Comment: If Glucose = >500 and Ketones are positive, please alert the Physician. Ordering Provider: RAFIA KIM Report Released Date/Time: Nov 07, 2023 12:06 AM Reporting Lab: [address] [address] Performing Lab: [address] [address] UA COLOR Colorless Yellow UA APPEARANCE Clear Clear UA GLUCOSE Normal mg/dL Negative UA KETONES NEGATIVE mg/dL Negative UA BLOOD NEGATIVE mg/dL Negative UA PROTEIN NEGATIVE mg/dL Negative UA NITRITE NEGATIVE mg/dL Negative UA BILIRUBIN NEGATIVE mg/dL Negative UA SPECIFIC GRAVITY 1.017 1.016-1.022 UA pH 6.0 5.0-9.0 UA UROBILINOGEN Normal mg/dL <2.0 UA LEUKOCYTE NEGATIVE Negative Vital Signs: All taken on the encounter date This section contains inpatient and outpatient Vital Signs collected on the date of the Encounter. Date/Time Temperature Pulse Blood Pressure Respiratory Rate SP02 Pain Height Weight Body Mass Index Source Nov 16, 2023 10:34 AM 134[facility] Nov 16, 2023 09:59 AM 97.6 48 144/86 16 99 0 69 205.4 30 [facility] Social History: Smoking Status (Most current) and Tobacco Use (All prior to encounter date) This section includes the most current, and the historical, smoking and tobacco- related health factors from the [place] facility where the Encounter took place. Current Smoking Status This section includes the most current smoking, or tobacco-related health factor, from the [place] facility where the Encounter took place. Date/Time Current Smoking Status Comment Facil ity Nov 16, 2023 10:00 AM VA-TOBACCO FORMER USER [place] [facility] [place] [facility] Tobacco Use History This section includes a history of the smoking, or tobacco-related health factors, that were collected on or before the date of the Encounter. The data comes from the [place] facility where the Encounter took place. Date/Time Smoking Status/Tobacco Use Comment F [email or web address] Nov 16, 2023 10:00 AM VA-TOBACCO QUIT 1 TO < 5 YRS [facility] [place] [facility] Nov 13, 2022 11:00 AM VA-TOBACCO NEVER USED [facility] [place] [facility] July 11, 2021 03:00 PM VA-TOBACCO NEVER USED [facility] [place] [facility] July 09, 2020 09:30 AM VA-TOBACCO NEVER USED [facility] [place] [facility] May 16, 2019 11:51 AM VA-TOBACCO NEVER USED [facility] [place] [facility] Oct 20, 2017 11:04 AM VA-TOBACCO NEVER USED [facility] [place] [facility] May 21, 2017 01:47 PM LIFETIME NON-TOBACCO USER [place] [facility] [place] [facility] Encounter Notes: All associated encounter notes This section contains the clinical notes associated to the Encounter. Date/Time Encounter Note(s) Provider Source Nov 16, 2023 10:35 AM PHYSICIAN NOTE: LOCAL TITLE: MD NOTE STANDARD TITLE: PHYSICIAN NOTE DATE OF NOTE: NOV 16, 2023@10:35 ENTRY DATE: NOV 16, 2023@10:35:04 AUTHOR: RAFIA KIM COSIGNER: URGENCY: STATUS: COMPLETED Patient Name: JULIÁN PENN JR CHEEK VITALS: Patient temperature: 97.6 F [36.4 C] (11/16/2023 09:59) Blood pressure: 134/74 (11/16/2023 10:34) Patient height: 69 in [175.3 cm] (11/16/2023 09:59) Patient weight: 205.4 lb [93.17 kg] (11/16/2023 09:59) Patient BMI: BMI: 30.4 Patient pulse: 48 (11/16/2023 09:59) Patient respiration: 16 (11/16/2023 09:59) Patient Pulse Oximetry: 99% (11/16/2023 09:59) Pain Ratin (11/16/2023 09:59) Active [facility] Medications: Active Outpatient Medications (including Supplies): Active Outpatient Medications Status 1) COLCHICINE 0.6MG TAB TAKE ONE TABLET BY MOUTH ONCE ACTIVE DAILY FOR GOUT 2) DICLOFENAC NA 1% TOP GEL APPLY 2 GRAMS TOPICALLY ACTIVE THREE TIMES DAILY NEEDED FOR OSTEOARTHRITIS - USE DOSING CARD PROVIDED IN BOX 3) IBUPROFEN 800MG TAB TAKE ONE TABLET BY MOUTH EVERY 8 ACTIVE HOURS TAKE WITH FOOD Pending Outpatient Medications Status 1) COLCHICINE 0.6MG TAB TAKE ONE TABLET BY MOUTH ONCE PENDING DAILY NEEDED FOR GOUT 2) IBUPROFEN 800MG TAB TAKE ONE TABLET BY MOUTH EVERY 8 PENDING HOURS NEEDED TAKE WITH FOOD Active Non-VA Medications Status 1) Non-VA IBUPROFEN 800MG TAB 800MG BY MOUTH THREE TIMES ACTIVE A DAY AFTER MEALS 6 Total Medications Remote Medications: No Active Remote 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 He has discontinued use of alcohol. He keeps proteins meat and fish to minimum. Today he feels well today with no complaints. Review of systems No chest pain or dyspnea No abdominal pain No trouble urinating No fever or chills No cough Physical examination: Well developed well nourished in no apparent distress Vitals as above Heart: rrr, no m/r/g Lungs: clear to ausculatation Abdomen: soft, +bs, nontender, nondistended, no masses or guarding Extremities: no edema, no cyanosis or clubbing Neurologic: alert, normal gait, normal senory and motor, EOMI, PERRLA, conjunctiva and sclera normal Psychiatric: answers questions appropriately, normal/coherent speech HEENT: mucious membranes moist Ears and pharynx: no erythema, tympanic membranes normal Neck: supple Urogenital: normal external male, no masses Skin: warm, dry, no lesions Assessment and plan: 1. Gout: No acute symptoms Plan: Check uric acid level Continue colchicine and ibuprofen as needed Fasting labs today Follow-up 1 year clinic visit and lab Patient declined all vaccines today BMI>30/>24.99 High Risk: At this visit, the health risks of obesity were reviewed and discussed with the , and the benefits of a weight management treatment program, such as [facility] was discussed and offered to the . After discussing the health risks of being overweight or obese and providing information about available weight management treatment, and offering a referral to [facility] or another weight management treatment program outside the [facility], the patient DECLINES REFERRAL to [facility] or any other weight management treatment program at this time. Influenza Immunization: Deferral / Refusal The patient declines to receive the recommended dose of seasonal influenza vaccine. Immunization: INFLUENZA, UNSPECIFIED FORMULATION Refusal Reason: PATIENT DECISION Patient refuses all immunization(s) in the FLU group Date Documented: 11/16/23 10:38 COVID-19 Immunization: Refused Moderna Monovalent COVID-19 vaccine Immunization: COVID-19 (MODERNA), MRNA, LNP-S, PF, 50 MCG/0.5 ML (AGES 12+ YEARS) Refusal Reason: PATIENT DECISION Patient refuses all immunization(s) in the COVID-19 group Date Documented: 11/16/23 10:39 /mendez/ Rafia Kim MD Staff Physician Signed: 11/16/2023 10:39 RAFIA KIM [place] [facility] [place] [facility] Nov 16, 2023 10:02 AM PREVENTIVE MEDICIN E NURSING NOTE: LOCAL TITLE: CLINICAL REMINDERS/NURSING STANDARD TITLE: PREVENTIVE MEDICINE NURSING NOTE DATE OF NOTE: NOV 16, 2023@10:02 ENTRY DATE: NOV 16, 2023@10:02:10 AUTHOR: VIPIN DOLAN COSIGNER: URGENCY: STATUS: COMPLETED Homelessness/Food Insecurity Screen: In the past 2 months, have you been living in stable housing that you own, rent, or stay in as part of a household? Yes - Living in stable housing. Are you worried or concerned that in the next 2 months you may NOT have stable housing that you own, rent, or stay in as part of a household? No - Not worried about housing near future The reports the following: Within the past 12 months, you worried whether your food would run out before you got money to buy more. Never true Within the past 12 months, the food you bought just didn't last and you didn't have money to get more. Never true Depression Screening: Perform PHQ-2 A PHQ-2 screen was performed. The score was 0 which is a negative screen for depression. Over the past two weeks, how often have you been bothered by the following problems? 1. Little interest or pleasure in doing things Not at all 2. Feeling down, depressed, or hopeless Not at all Tobacco Use Screening: The patient is a former tobacco user. The patient quit one to less than 5 years ago. Alcohol Use Screen (AUDIT-C): Alcohol Screen: SCREEN FOR ALCOHOL (AUDIT-C) An alcohol screening test (AUDIT-C) was negative (score=0). 1. How often did you have a drink containing alcohol in the past year? Consider a drink to be a 12 ounce can or bottle of regular beer, 8 ounces of malt liquor, a 5 ounce glass of table wine, or a 1.5 ounce shot of liquor (like scotch, gin, or vodka). Never 2. How many drinks containing alcohol did you have on a typical day when you were drinking in the past year? Response not required due to responses to other questions. 3. How often did you have six or more drinks on one occasion in the past year? Response not required due to responses to other questions. Sexual Orientation: The patient thinks of their sexual orientation as: Straight or Heterosexual /es/ VIPIN DOLAN LPN LPN Signed: 11/16/2023 10:03 [facility]
--- OUTSIDE RECORDS SUMMARY | 2024-03-13 19:48 | XMS_ITS | Encounter Summary ---
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 Date/Time Encounter Type Encounter Description Reason Provider Source Nov 08, 2023 05:00 PM PSYTX W PT 30 MINUTES PCMHI INDIV ICD-10-CM F41.9 Anxiety disorder, unspecified DEVYN UNDERWOOD E Encounter Template Text not used by [place] Assessments - Encounter Diagnoses This section includes the primary and secondary diagnoses documented for the Encounter. Date/Time Primary/Secondary Diagnosis Diagnosis Name Provider Source Nov 13, 2023 08:37 PM PRIMARY Anxiety disorder, unspecified DEVYN UNDERWOOD [facility] [place] [facility] Nov 13, 2023 08:37 PM SECONDARY Depression, unspecified DEVYN UNDERWOOD [facility] [place] [facility] Plan of Treatment: Future Appointments (+ 6 months) and Future Tests (+/- 45 days) The Plan of Treatment section includes future care activities for the patient from all [place] treatmentfacilities. This section includes future appointments and future orders which are active, pending or scheduled. Future Appointments This section includes appointments that were scheduled to occur 6 months from the date of the Encounter, up to a maximum of 20 appointments. The data comes from all [place] treatment facilities. Appointment Date/Time Appointment Type Appointme nt Facility Name Nov 16, 2023 10:00 AM AMBULATORY - MEDICINE [facility] [place] [facility] Nov 22, 2023 04:30 PM AMBULATORY - PSYCHIATRY [facility] [place] [facility] Dec 20, 2023 04:30 PM AMBULATORY - PSYCHIATRY [facility] [place] [facility] Jan 03, 2024 04:30 PM AMBULATORY - PSYCHIATRY [facility] [place] [facility] Jan 31, 2024 04:30 PM AMBULATORY - PSYCHIATRY [facility] [place] [facility] Feb 07, 2024 10:00 AM AMBULATORY - PSYCHIATRY [facility] [place] [facility] Feb 07, 2024 11:30 AM AMBULATORY - PSYCHIATRY [facility] [place] [facility] Feb 14, 2024 04:30 PM AMBULATORY - PSYCHIATRY [facility] [place] [facility] Feb 19, 2024 01:00 PM AMBULATORY - PSYCHIATRY [facility] [place] [facility] Feb 26, 2024 01:00 PM AMBULATORY - PSYCHIATRY [facility] [place] [facility] Feb 28, 2024 04:30 PM AMBULATORY - PSYCHIATRY [facility] [place] [facility] Mar 14, 2024 05:00 PM AMBULATORY - PSYCHIATRY [facility] [place] [facility] Mar 23, 2024 10:00 AM AMBULATORY - MEDICINE [facility] [place] [facility] Mar 27, 2024 04:30 PM AMBULATORY - PSYCHIATRY [facility] [place] [facility] Active, Pending, and Scheduled Orders This section includes a listing of several types of active, pending, and scheduled orders, including clinic medications orders, diagnostic test orders, procedure orders and consult orders; where the start date of the order is 45 days before the date of the Encounter or 45 days after the date of theEncounter. The data comes from all [place] treatment facilities. Test Date/Time Test Type Test Details Facility Name Nov 23, 2023 05:39 PM Consult Order LIBRA Casey/BILLY OUTPT Cons Sr. Media Manager's Choice [facility] [place] [facility] Lab Results: +/- 30 days of the encounter This section includes the Chemistry and Hematology Lab Results on record with VA for the patient. Radiology Reports and Pathology Reports are provided separately, in subsequent sections. Lab Results This section contains the Chemistry/Hematology Results that were resulted 30 days before or 30 daysafter the date of the Encounter. Date/Time Source Result Type Result - Unit Interpretation Reference Range Comment Nov 16, 2023 10:39 AM [facility] BASIC METABOLIC PANEL (fasting) Specimen Type: SERUM No comment entered. Ordering Provider: RAFIA MEDEROS Report Released Date/Time: Nov 07, 2023 12:06 AM Reporting Lab: [address] [address] Performing Lab: [address] [address] UREA NITROGEN 15 mg/dL 7-25 GLUCOSE 90 mg/dL 65-100 SODIUM 139 mmol/L 135-145 POTASSIUM 5.4 mmol/L H 3.5-5.0 CHLORIDE 106 mmol/L 100-110 CO2 25 meq/L 20-30 CREATININE, Serum 0.94 mg/dL 0.50-1.40 eGFR(CKD-EPI 2020) >90 mL/min >60 Nov 16, 2023 10:39 AM [facility] CBC AND DIFF (AUTO) Specimen Type: BLOOD No comment entered. Ordering Provider: RAFIA MEDEROS Report Released Date/Time: Nov 07, 2023 12:06 AM Reporting Lab: [address] [address] Performing Lab: [address] [address] WBC 5.28 10*3/uL 4.50-11.00 RBC 5.16 10*6/uL [...] 10*3/uL 0.00-0.00 Nov 16, 2023 10:39 AM [facility] LIVER FUNCTION Specimen Type: SERUM No comment entered. Ordering Provider: RAFIA MEDEROS Report Released Date/Time: Nov 07, 2023 12:06 AM Reporting Lab: [address] [address] Performing Lab: [address] [address] PROTEIN,TOTAL 7.4 g/dL 6.0-8.3 ALBUMIN 4.3 g/dL 3.5-5.0 ALKALINE PHOSPHATASE 49 U/L 40-150 AST 18 U/L 5-34 ALT 34 U/L BILIRUBIN, TOTAL 0.4 mg/dL 0.2-1.2 Nov 16, 2023 10:39 AM [facility] TSH Specimen Type: SERUM No comment entered. Ordering Provider: RAFIA MEDEROS Report Released Date/Time: Nov 07, 2023 12:06 AM Reporting Lab: [address] [address] Performing Lab: [address] [address] TSH 1.25 u[IU]/mL 0.35-5.00 Nov 16, 2023 10:39 AM [facility] LIPID PANEL FASTING Specimen Type: SERUM No comment entered. Ordering Provider: RAFIA MEDEROS Report Released Date/Time: Nov 07, 2023 12:06 AM Reporting Lab: [address] [address] Performing Lab: [address] [address] CHOLESTEROL 257 mg/dL H TRIGLYCERIDE 375 mg/dL H 0-150 LDL calculated Reflex to dLDL mg/dL 0-129 CHOL/HDL 6.4 HDL CHOLESTEROL 40 mg/dL 40-60 LDL DIRECT 153 mg/dL H Nov 16, 2023 10:39 AM [facility] URIC ACID Specimen Type: SERUM No comment entered. Ordering Provider: RAFIA MEDEROS Report Released Date/Time: Nov 07, 2023 12:06 AM Reporting Lab: [address] [address] Performing Lab: [address] [address] URIC ACID 9.6 mg/dL H 3.5-7.2 Nov 16, 2023 10:39 AM [facility] URINALYSIS CLEAN CATCH Specimen Type: URINE Comment: If Glucose = >500 and Ketones are positive, please alert the Physician. Ordering Provider: RAFIA MEDEROS Report Released Date/Time: Nov 07, 2023 12:06 AM Reporting Lab: [address] [address] Performing Lab: [address] [address] UA COLOR Colorless Yellow UA APPEARANCE Clear [...] and tobacco- related health factors from the [place] facility where the Encounter took place. Current Smoking Status This section includes the most current smoking, or tobacco-related health factor, from the [place] facility where the Encounter took place. Date/Time Current Smoking Status Comment Chika reyna Nov 13, 2022 11:00 AM [facility] Tobacco Use History This section includes a history of the smoking, or tobacco-related health factors, that were collected on or before the date of the Encounter. The data comes from the [place] facility where the Encounter took place. Date/Time Smoking Status/Tobacco Use Comment F acsanjeev July 11, 2021 03:00 PM VA-TOBACCO NEVER USED [facility] [facility] July 09, 2020 09:30 AM VA-TOBACCO NEVER USED [facility] [place] [facility] May 16, 2019 11:51 AM VA-TOBACCO NEVER USED [facility] [place] [facility] Oct 20, 2017 11:04 AM VA-TOBACCO NEVER USED [facility] [place] [facility] May 21, 2017 01:47 PM LIFETIME [facility]-TOBACCO [facility] Encounter Notes: All associated encounter notes This section contains the clinical notes associated to the Encounter. Date/Time Encounter Note(s) Provider Source Nov 08, 2023 06:09 AM TELEHEALTH NOTE: LOCAL TITLE: [place] [facility] NOTE STANDARD TITLE: TELEHEALTH NOTE DATE OF NOTE: NOV 08, 2023@06:09 ENTRY DATE: NOV 08, 2023@06:09:51 AUTHOR: SUMEET UNDERWOOD COSIGNER: URGENCY: STATUS: COMPLETED [place] [facility] Connect (VVC) Standard Documentation VVC Clinician Resources Only: E911 (Emergency Call Relay Center): [phone] National Veterans Crisis Line - 988 then press #1. YUNG Suicide Coordinator [phone], Ext. [phone]; Back-up Ext. [phone] [place] PoliceYUNG [place] [phone] Introduction: Visit is being conducted by [place] [employer] (formerly [employer]) Connect. identified with 2 identifiers: [X] Full Name [X] Date of [ ] VA ID Card Emergency Plan: [place] confirmed and/or provided the following information in case of emergency or technology failure. PATIENT PHONE - PHONE NUMBER [CELLULAR] - NONE FOUND Is patient phone number correct, if not, enter below: [place]'s phone number: JULIÁN ROB JR [address], [place], [address] 's present location and address for appointment: home address listed above 's emergency contact name and phone number: [phone]- mother Pradeep's phone reported that location is private and safe: Yes Informed Consent: informed of the risks and benefits of Telehealth video care. has the right to refuse video services. If refuses video visit, a [id number] visit will be scheduled. verbalized consent for this video visit: Yes [place] provided consent for any other persons present for visit: No If yes, who and relationship to patient: Secure visit: Visit was locked for security and privacy:Yes __ [facility] OUTPATIENT F/U NOTE DURATION: 35 mins Mr. Rob is a 38 year-old, partnered male with a PMH of pain in leg, knee, Achillies, anxiety, and depression. This was the fourth session between life underwriter and [place]. explored how he is managing both fatherhood and work. He explored how he sometimes feel anxious and overwhelmed. He explored room to continue to build in more self-care and relaxation. Options of topics to explore for today were reviewed and [place] chose to explore automative negative thinking patterns and VA handouts on cognitive distortions and fixing cognitive distortions were reviewed and securely messaged to the [place]. [place] identified habits of all or nothing, shoulds/oughts, emotional reasoning, negative labels ahole and hindsight bias. Recent examples were explored and reviewed. briefly explored ways of challenging automatic thoughts and creating more balanced perspectives. He will also consider double standards and shades of grissom. [place] denied SI/HI and agreed to explore other MH treatment options next session. Confines of PCMHI were briefly reviewed. SCREENERS: PHQ-9: 6, mild depression, somewhat difficult (08/02/23) ABIODUN-7: 12, moderate anxiety, somewhat difficult (08/02/23) DIAGNOSES: Anxiety D/O, Unspecified; Depressive Disorder, Unspecified; [...] were offered. [facility] for depression and anxiety including relaxation training, cognitive restructuring and behavioral activation. He will return to -[facility] for roughly 2-3, individual sessions. He will return to -[facility], 11/21 at 430pm, [facility]. /mendez/ SUMEET UNDERWOOD, PhD STAFF PSYCHOLOGIST Signed: 11/13/2023 20:43 SUMEET UNDERWOOD [facility]
--- OUTSIDE RECORDS SUMMARY | 2024-03-13 19:48 | XMS_ITS ---
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 Date/Time Encounter Type Encounter Description Reason Pro vider Source Nov 21, 2023 05:09 PM Outpatient Encounter PRIMARY CARE/MEDICINE IHE Encounter Template Text not used by [place] Plan of Treatment: Future Appointments (+ 6 months) and Future Tests (+/- 45 days) The Plan of Treatment section includes future care activities for the patient from all [place] treatmentfacilities. This section includes future appointments and future orders which are active, pending or scheduled. Future Appointments This section includes appointments that were scheduled to occur 6 months from the date of the Encounter, up to a maximum of 20 appointments. The data comes from all [place] treatment facilities. Appointment Date/Time Appointment Type Appointme nt Facility Name Nov 22, 2023 04:30 PM AMBULATORY - PSYCHIATRY [facility] [place] [facility] Dec 20, 2023 04:30 PM AMBULATORY - PSYCHIATRY [facility] [place] [facility] Jan 03, 2024 04:30 PM AMBULATORY - PSYCHIATRY [facility] [place] [facility] Jan 31, 2024 04:30 PM AMBULATORY - PSYCHIATRY [facility] [place] [facility] Feb 07, 2024 10:00 AM AMBULATORY - PSYCHIATRY [facility] [place] [facility] Feb 07, 2024 11:30 AM AMBULATORY - PSYCHIATRY [facility] [place] [facility] Feb 14, 2024 04:30 PM AMBULATORY - PSYCHIATRY [facility] [place] [facility] Feb 19, 2024 01:00 PM AMBULATORY - PSYCHIATRY [facility] [place] [facility] Feb 26, 2024 01:00 PM AMBULATORY - PSYCHIATRY [facility] [place] [facility] Feb 28, 2024 04:30 PM AMBULATORY - PSYCHIATRY [facility] [place] [facility] Mar 14, 2024 05:00 PM AMBULATORY - PSYCHIATRY [facility] [place] [facility] Mar 23, 2024 10:00 AM AMBULATORY - MEDICINE [facility] [place] [facility] Mar 27, 2024 04:30 PM [facility] Active, Pending, and Scheduled Orders This section includes a listing of several types of active, pending, and scheduled orders, including clinic medications orders, diagnostic test orders, procedure orders and consult orders; where the start date of the order is 45 days before the date of the Encounter or 45 days after the date of theEncounter. The data comes from all [place] treatment facilities. Test Date/Time Test Type Test Details Facility Name Nov 23, 2023 05:39 PM Consult Order ACUPUNCTPHUONG Casey/BILLY OUTPT Cons Ham Passer's Choice [facility] Lab Results: +/- 30 days of the encounter This section includes the Chemistry and Hematology Lab Results on record with [place] for the patient. Radiology Reports and Pathology Reports are provided separately, in subsequent sections. Lab Results This section contains the Chemistry/Hematology Results that were resulted 30 days before or 30 daysafter the date of the Encounter. Date/Time Source Result Type Result - Unit Interpretation Reference Range Comment Nov 16, 2023 10:39 AM [facility] BASIC METABOLIC PANEL (fasting) Specimen Type: SERUM No comment entered. Ordering Provider: RAFIA KIM Report Released Date/Time: Nov 07, 2023 12:06 AM Reporting Lab: [facility] [address] [facility] [address] Performing Lab: [address] [address] UREA NITROGEN 15 mg/dL 7-25 GLUCOSE 90 mg/dL 65-100 SODIUM 139 mmol/L 135-145 POTASSIUM 5.4 mmol/L H 3.5-5.0 CHLORIDE 106 mmol/L 100-110 CO2 25 meq/L 20-30 CREATININE, Serum 0.94 mg/dL 0.50-1.40 eGFR(CKD-EPI 2020) >90 mL/min >60 Nov 16, 2023 10:39 AM [facility] LIVER FUNCTION Specimen Type: SERUM No comment entered. Ordering Provider: RAFIA KIM Report Released Date/Time: Nov 07, 2023 12:06 AM Reporting Lab: [address] [address] Performing Lab: [address] [address] PROTEIN,TOTAL 7.4 g/dL 6.0-8.3 ALBUMIN 4.3 g/dL 3.5-5.0 ALKALINE PHOSPHATASE 49 U/L 40-150 AST 18 U/L 5-34 ALT 34 U/L BILIRUBIN, TOTAL 0.4 mg/dL 0.2-1.2 Nov 16, 2023 10:39 AM [facility] CBC AND DIFF (AUTO) Specimen Type: BLOOD No comment entered. Ordering Provider: RAFIA KIM Report Released Date/Time: Nov 07, 2023 12:06 AM Reporting Lab: [address] [address] Performing Lab: [address] [address] WBC 5.28 10*3/uL 4.50-11.00 RBC 5.16 10*6/uL [...] 10*3/uL 0.00-0.00 Nov 16, 2023 10:39 AM [facility] LIPID PANEL FASTING Specimen Type: SERUM No comment entered. Ordering Provider: RAFIA KIM Report Released Date/Time: Nov 07, 2023 12:06 AM Reporting Lab: [address] [address] Performing Lab: [address] [address] CHOLESTEROL 257 mg/dL H TRIGLYCERIDE 375 mg/dL H 0-150 LDL calculated Reflex to dLDL mg/dL 0-129 CHOL/HDL 6.4 HDL CHOLESTEROL 40 mg/dL 40-60 LDL DIRECT 153 mg/dL H Nov 16, 2023 10:39 AM [facility] TSH Specimen Type: SERUM No comment entered. Ordering Provider: RAFIA KIM Report Released Date/Time: Nov 07, 2023 12:06 AM Reporting Lab: [address] [address] Performing Lab: [address] [address] TSH 1.25 u[IU]/mL 0.35-5.00 Nov 16, 2023 10:39 AM [facility] URIC ACID Specimen Type: SERUM No comment entered. Ordering Provider: RAFIA KIM Report Released Date/Time: Nov 07, 2023 12:06 AM Reporting Lab: [address] [address] Performing Lab: [address] [address] URIC ACID 9.6 mg/dL H 3.5-7.2 Nov 16, 2023 10:39 AM [facility] URINALYSIS CLEAN CATCH Specimen Type: URINE Comment: If Glucose = >500 and Ketones are positive, please alert the Physician. Ordering Provider: RAFIA KIM Report Released Date/Time: Nov 07, 2023 12:06 AM Reporting Lab: [address] [address] Performing Lab: [address] [address] UA COLOR Colorless Yellow UA APPEARANCE Clear [...] and tobacco- related health factors from the [place] facility where the Encounter took place. Current Smoking Status This section includes the most current smoking, or tobacco-related health factor, from the [place] facility where the Encounter took place. Date/Time Current Smoking Status Comment Facil ity Nov 16, 2023 10:00 AM VA-TOBACCO FORMER USER [facility] Tobacco Use History This section includes a history of the smoking, or tobacco-related health factors, that were collected on or before the date of the Encounter. The data comes from the [place] facility where the Encounter took place. Date/Time Smoking Status/Tobacco Use Comment F acility Nov 16, 2023 10:00 AM VA-TOBACCO QUIT 1 TO < 5 YRS [facility] [place] [facility] Nov 13, 2022 11:00 AM VA-TOBACCO NEVER USED [facility] [place] [facility] July 11, 2021 03:00 PM VA-TOBACCO NEVER USED [facility] [place] [facility] July 09, 2020 09:30 AM VA-TOBACCO NEVER USED [facility] [place] [facility] May 16, 2019 11:51 AM VA-TOBACCO NEVER USED [facility] [place] [facility] Oct 20, 2017 11:04 AM VA-TOBACCO NEVER USED [facility] [place] [facility] May 21, 2017 01:47 PM LIFETIME NON-TOBACCO USER [facility] [place] [facility] Encounter Notes: All associated encounter notes This section contains the clinical notes associated to the Encounter. Date/Time Encounter Note(s) Provider Source Nov 21, 2023 05:09 PM LETTERS: LOCAL TITLE: PATIENT LETTER (T) STANDARD TITLE: LETTERS DATE OF NOTE: NOV 21, 2023@17:09 ENTRY DATE: NOV 21, 2023@17:09:25 AUTHOR: RAFIA KIM EXP COSIGNER: URGENCY: STATUS: COMPLETED DEPARTMENT OF [facility] Toll Free Number Primary Care Telephone Assistance can be reached at extension [phone] [facility] scheduling can be reached at extension [phone] [facility] scheduling can be reached at ext [phone], [address] November 21, 2023 Dear [place], Please find enclosed a copy of recent testing. The following tests were normal: Red blood cell count, white blood cell count, platelets, TSH thyroid, liver enzymes, kidney enzymes, glucose, urine. Uric acid is a screening test for gout. Uric acid level is elevated. Cholesterol and triglyceride levels were elevated. These are fat molecules. This may increase risk for heart attack and stroke. This does not require medication. You may benefit from mild exercise, mild weight loss and low-fat foods. Please contact me if you have questions. Respectfully, Rafia Kim MD Sincerely, Your Primary Care Team [facility] [address] [place] [id number] [place] [address] [phone] [facility] Outpatient [facility] [address] [place] [address] [place] [address] [phone] [facility] [address] [facility] [place] [address] [place] [address] RAFIA KIM [facility]
--- OUTSIDE RECORDS SUMMARY | 2024-03-13 19:48 | XMS_ITS | Encounter Summary ---
Author Name [facility] Organization [facility] Address [address] [place] [id number] Care Team Providers Care Chemistry Manager Name Role Phone RAFIA MEDEROS Primary Care Provider Unavailabl e Selected Encounter This section includes the information on record at [facility] for the Encounter. Date/Time Encounter Type Encounter Description Reason Provider Source Feb 07, 2024 11:24 AM Outpatient Encounter SUBSTANCE USE DISORDER IND LEBRON DUFFY Encounter Template Text not used by [facility] Plan of Treatment: Future Appointments (+ 6 months) and Future Tests (+/- 45 days) The Plan of Treatment section includes future care activities for the patient from all [facility] treatmentfacilities. This section includes future appointments and future orders which are active, pending or scheduled. Future Appointments This section includes appointments that were scheduled to occur 6 months from the date of the Encounter, up to a maximum of 20 appointments. The data comes from all [facility] treatment facilities. Appointment Date/Time Appointment Type Appointme nt Facility Name Feb 14, 2024 04:30 PM AMBULATORY - [facility]ATRY [facility] Feb 19, 2024 01:00 PM AMBULATORY - PS[facility]IATRY [facility] Feb 26, 2024 01:00 PM AMBULATORY - PS[facility]ATRY [facility] Feb 28, 2024 04:30 PM AMBULATORY - PS[facility]ATRY [facility] Mar 14, 2024 05:00 PM AMBULATORY - PS[facility]IATRY [facility] Mar 23, 2024 10:00 AM AMBULATORY - MEDICINE [facility] Mar 27, 2024 04:30 PM AMBULATORY - PS[facility]IATRY [facility] Active, Pending, and Scheduled Orders This section includes a listing of several types of active, pending, and scheduled orders, including clinic medications orders, diagnostic test orders, procedure orders and consult orders; where the start date of the order is 45 days before the date of the Encounter or 45 days after the date of theEncounter. The data comes from all [facility] treatment facilities. Test Date/Time Test Type Test Details Facility Name Feb 07, 2024 11:58 AM Consult Order [facility]PT Cons Humanities Teacher's Choice [facility] Social History: Smoking Status (Most current) and Tobacco Use (All prior to encounter date) This section includes the most current, and the historical, smoking and tobacco- related health factors from the [facility] facility where the Encounter took place. Current Smoking Status This section includes the most current smoking, or tobacco-related health factor, from the [facility] facility where the Encounter took place. Date/Time Current Smoking Status Comment Facil ity Nov 16, 2023 10:00 AM VA-TOBACCO FORMER USER [facility] Tobacco Use History This section includes a history of the smoking, or tobacco-related health factors, that were collected on or before the date of the Encounter. The data comes from the [facility] facility where the Encounter took place. Date/Time Smoking Status/Tobacco Use Comment F acility Nov 16, 2023 10:00 AM VA-TOBACCO QUIT 1 TO < 5 YRS [facility] Nov 13, 2022 11:00 AM VA-TOBACCO NEVER USED [facility] July 11, 2021 03:00 PM VA-TOBACCO NEVER USED [facility] July 09, 2020 09:30 AM VA-TOBACCO NEVER USED [facility] May 16, 2019 11:51 AM VA-TOBACCO NEVER USED [facility] Oct 20, 2017 11:04 AM VA-TOBACCO NEVER USED [facility] May 21, 2017 01:47 PM LIFETIME NON-TOBACCO USER [facility] Encounter Notes: All associated encounter notes This section contains the clinical notes associated to the Encounter. Date/Time Encounter Note(s) Provider Source Feb 07, 2024 11:24 AM MENTAL HEALTH DIAG NOSTIC STUDY NOTE: LOCAL TITLE: MENTAL HEALTH DIAGNOSTIC STUDY STANDARD TITLE: MENTAL HEALTH DIAGNOSTIC STUDY NOTE DATE OF NOTE: FEB 07, 2024@11:24:33 ENTRY DATE: FEB 07, 2024@11:24:33 AUTHOR: LEBRON DUFFY EXP COSIGNER: URGENCY: STATUS: COMPLETED Brief Addiction Monitor - Revised Date Given: 02/07/2024 Clinician: Lebron Duffy Location: [facility] [place]: LianeJulián Jr, Jr SSN: [id number] : [birth year] ([birth year]) Gender: Man Clinical Subscales Use: 35 Items 4, 5, 6. A high score indicates more use, range is 0 to 90. If a patient scores a 1 or greater, it calls for further assessment and clinical attention, e.g., consider addition/change of pharmacotherapy or psychosocial intervention. Risk Factors: 142 Items 1, 2, 3, 8, 11, 15. A high score indicates increased risk, range is 0 to 180. For subscale scores, items with ordinal response options (0-4) were converted to contribute proportionately consistent with items on days of use (0-30). Clinicians are encouraged to consider scores on individual Risk items in offering interventions as indicated during initial treatment planning and following re-assessment. Protective Factors: 81 Items 9, 10, 12, 13, 14, 16. A high score indicates greater protective factors, range is 0 to 180. For subscale scores, items with ordinal response options (0-4) were converted to contribute proportionately consistent with items on days of use (0-30). Clinicians are encouraged to consider scores on individual Protective items in offering interventions as indicated during initial treatment planning and following re-assessment. Questions and Answers A. Date of administration: 02/07/2024 B. Method of administration: Clinician Interview 1. In the past 30 days, how would you say your physical health has been? Fair 2. In the past 30 days, how many nights did you have trouble falling asleep or staying asleep? 30 3. In the past 30 days, how many days have you felt depressed, anxious, angry or very upset throughout most of the day? 30 4. In the past 30 days, how many days did you drink ANY alcohol? 6 5. In the past 30 days, how many days did you have at least 5 drinks (if you are a man) or at least 4 drinks (if you are a woman)? [One drink is considered one shot of hard liquor (1.5 oz.) or 12-ounce can/bottle of beer or 5-ounce glass of wine.] 0 6. In the past 30 days, how many days did you use any illegal or street drugs or abuse any prescription medications? 29 7A. Marijuana (cannabis, pot, weed)? 29 7B. Sedatives and/or Tranquilizers (benzos, Valium, Xanax, Ativan, Ambien, barbs, Phenobarbital, downers, etc.)? 0 7C. Cocaine and/or Crack? 0 7D. Other Stimulants (amphetamine, methamphetamine, Dexedrine, Ritalin, Adderall, speed, crystal meth, ice, etc.)? 0 7E. Opiates (Heroin, Morphine, Dilaudid, Demerol, Oxycontin, oxy, codeine (Tylenol 2,3,4), Percocet, Vicodin, Fentanyl, etc.)? 0 7F. Inhalants (glues, adhesives, nail english remover, paint thinner, etc.)? 0 7G. Other drugs (steroids, non-prescription sleep and diet pills, Benadryl, Ephedra, other bpls-mhp-yygdwgo or unknown medications)? 0 8. In the past 30 days, how much were you bothered by cravings or urges to drink alcohol or use drugs? Not at all 9. How confident are you that you will NOT use alcohol and drugs in the next 30 days? Moderately 10. In the past 30 days, how many days did you attend self-help meetings like AA or NA to support your recovery? 0 11. In the past 30 days, how many days were you in any situations or with any people that might put you at an increased risk for using alcohol or drugs (i.e., around risky people, places or things )? 30 12. Does your congregation or spirituality help support your recovery? Moderately 13. In the past 30 days, how many days did you spend much of the time at work, school, or doing volunteer work? 20 14. Do you have enough income (from legal sources) to pay for necessities such as housing, transportation, food and clothing for yourself and your dependents? Yes 15. In the past 30 days, how much have you been bothered by arguments or problems getting along with any family members or friends? Extremely 16. In the past 30 days, how many days did you contact or spend time with any family members or friends who are supportive of your recovery? 1 17. How satisfied are you with your progress toward achieving your recovery goals? Moderately Information contained in this note is based on a self-report assessment and is not sufficient to use alone for diagnostic purposes. Assessment results should be verified for accuracy and used in conjunction with other diagnostic activities and procedures. /mendez/ LEBRON DUFFY [facility] Airport Operations Coordinator Signed: 02/07/2024 11:56 LEBRON DUFFY [facility]
--- OUTSIDE RECORDS SUMMARY | 2024-03-13 19:48 | XMS_ITS | Encounter Summary ---
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 Response not required due to responses to other questions. 6. If yes, at any time in the past month did you intend to carry out this plan? Response not required due to responses to other questions. 7. In your lifetime, have you ever done anything, started to do anything, or prepared to do anything to end your life (for example, collected pills, obtained a gun, gave away valuables, went to the roof but didn't jump)? No 8. If YES, was this within the past 3 months? Response not required due to responses to other questions. /mendez/ LEBRON MCCOY [facility] Assistant Women'S Rowing Coach Signed: 02/07/2024 11:[address]
--- OUTSIDE RECORDS SUMMARY | 2024-03-13 19:48 | XMS_ITS ---
Author Name [facility] [place] Organization [place] Address [address] [place] [address] Care Team Providers Care Garage Helper Name Role Phone RAFIA MEDEROS Primary Care Provider Unavailabl e Selected Encounter This section includes the information on record at [place] for the Encounter. Date/Time Encounter Type Encounter Description Reason Pro vider Source Aug 30, 2023 04:00 PM Outpatient Encounter [facility] I[facility] Encounter Template Text not used by [...] Date/Time Appointment Type Appointme nt Facility Name Sep 13, 2023 05:00 PM AMBULATORY - PSYCHIATRY [facility] [place] [facility] Sep 17, 2023 10:00 AM AMBULATORY - MEDICINE [facility] [place] [facility] Sep 22, 2023 01:30 PM AMBULATORY - NONE [facility] [place] [facility] Oct 18, 2023 05:00 PM AMBULATORY - PSYCHIATRY [facility] [place] [facility] Oct 25, 2023 05:00 PM AMBULATORY - PSYCHIATRY [facility] [place] [facility] Oct 29, 2023 01:30 PM AMBULATORY - MEDICINE [facility] [place] [facility] Nov 08, 2023 05:00 PM AMBULATORY - PSYCHIATRY [facility] [place] [facility] Nov 16, 2023 10:00 AM AMBULATORY - MEDICINE [facility] [place] [facility] Nov 22, 2023 04:30 PM AMBULATORY - PSYCHIATRY [facility] [place] [facility] Dec 20, 2023 04:30 PM AMBULATORY - PSYCHIATRY [facility] [place] [facility] Jan 03, 2024 04:30 PM AMBULATORY - PSYCHIATRY [facility] [place] [facility] Jan 31, 2024 04:30 PM AMBULATORY - PSYCHIATRY [facility] [place] [facility] Feb 07, 2024 10:00 AM AMBULATORY - PSYCHIATRY [facility] [place] [facility] Feb 07, 2024 11:30 AM AMBULATORY - PSYCHIATRY [facility] [place] [facility] Feb 14, 2024 04:30 PM AMBULATORY - PSYCHIATRY [facility] [place] [facility] Feb 19, 2024 01:00 PM AMBULATORY - PSYCHIATRY [facility] [place] [facility] Feb 26, 2024 01:00 PM AMBULATORY - PSYCHIATRY [facility] [place] [facility] Feb 28, 2024 04:30 PM AMBULATORY - PSYCHIATRY [facility] [place] [facility] Social History: Smoking Status (Most current) [...] 13, 2022 11:00 AM VA-TOBACCO [facility] Tobacco Use History This section includes a history of the smoking, or tobacco-related health factors, that were collected on or before the date of the Encounter. The data comes from the [place] facility where the Encounter took place. Date/Time Smoking Status/Tobacco Use Comment F [email or web address] July 11, 2021 03:00 PM VA-TOBACCO NEVER USED [facility] [place] [facility] July 09, 2020 09:30 AM VA-TOBACCO NEVER USED [facility] [place] [facility] May 16, 2019 11:51 AM VA-TOBACCO NEVER USED [facility] [place] [facility] Oct 20, 2017 11:04 AM VA-TOBACCO NEVER USED [facility] [place] [facility] May 21, 2017 01:47 PM LIFETIME NON-TOBACCO USER [facility] [place] [facility] Encounter Notes: All associated encounter notes This section contains the clinical notes associated to the Encounter. Date/Time Encounter Note(s) Provider Source Aug 30, 2023 04:19 PM CLERICAL NOTE: LOCAL TITLE: APPOINTMENT NO SHOW STANDARD TITLE: CLERICAL NOTE DATE OF NOTE: AUG 30, 2023@16:19 ENTRY DATE: AUG 30, 2023@16:19:58 AUTHOR: SUMEET UNDERWOOD EXP COSIGNER: URGENCY: STATUS: COMPLETED Patient Name: JULIÁN ROB JR JR Patient SSN: [id number] Date and time of Appointment No show : 08/30/23 16:00 PATIENT PHONE - PHONE NUMBER [CELLULAR] - NONE FOUND Patient's medical record was reviewed. Follow-up actions were determined and initiated: Please check/complete as applies: [X]Telephoned Directly [X]Re-scheduled for next available appt [ ]Sent a N0-show letter ( must call for appointment) [ ]Other (Emergent/Overbook, etc.): Additional Comments: Operations Label Clerk called Mr. Rob five minutes into the start of the video appointment and reached him. He shared that he forgot about the appointment today and they just had their baby and he requested to reschedule the PCMHI appt. He rescheduled for 09/12 at 5pm, [facility]. Operations Label Clerk confirmed her direct contact information as well. Future Clinic Visits 09/13/2023 17:00 CWM/NO/VVC/PCMHI/PSYCHOL O 09/17/2023 10:00 CWM/NO/PODIATRY A 09/22/2023 13:30 CWM/NO/VVC/HOMESLEEP 1 11/16/2023 10:00 CWM/NO/PACT 2 /es/ SUMEET UNDERWOOD, PhD STAFF PSYCHOLOGIST Signed: 08/30/2023 16:21 SUMEET UNDERWOOD [facility]
--- OUTSIDE RECORDS SUMMARY | 2024-03-13 19:48 | XMS_ITS ---
Author Name Department of Vetera Affairs [place] Organization [place] Address [address] [place] [address] Care Team Providers Care Precast Concrete Ironworker Name Role Phone RAFIA KIM Primary Care Provider Unavailabl e Selected Encounter This section includes the information on record at [place] for the Encounter. Date/Time Encounter Type Encounter Description Reason Provider Source Nov 21, 2023 05:15 PM Outpatient Encounter PRIMARY CARE/MEDICINE RAFIA KIM Carmela Encounter Template Text not used by [place] Plan of Treatment: Future Appointments (+ 6 months) and Future Tests (+/- 45 days) The Plan of Treatment section includes future care activities for the patient from all [place] treatmentfacilities. This section includes future appointments and future orders which are active, pending or scheduled. Future Appointments This section includes appointments that were scheduled to occur 6 months from the date of the Encounter, up to a maximum of 20 appointments. The data comes from all [place] treatment facilities. Appointment Date/Time Appointment Type Appointme nt Facility Name Nov 22, 2023 04:30 PM AMBULATORY - PSYCHIATRY [place] [facility] [place] [facility] Dec 20, 2023 04:30 PM AMBULATORY - PSYCHIATRY [place] [facility] [place] [facility] Jan 03, 2024 04:30 PM AMBULATORY - PSYCHIATRY [place] [facility] [place] [facility] Jan 31, 2024 04:30 PM AMBULATORY - PSYCHIATRY [place] [facility] [place] [facility] Feb 07, 2024 10:00 AM AMBULATORY - PSYCHIATRY [place] [facility] [facility] Feb 07, 2024 11:30 AM AMBULATORY - PSYCHIATRY [place] [facility] [facility] Feb 14, 2024 04:30 PM AMBULATORY - PSYCHIATRY [place] [facility] [place] [facility] Feb 19, 2024 01:00 PM AMBULATORY - PSYCHIATRY [place] [facility] [place] [facility] Feb 26, 2024 01:00 PM AMBULATORY - PSYCHIATRY [place] [facility] [place] [facility] Feb 28, 2024 04:30 PM AMBULATORY - PSYCHIATRY [facility] [place] [facility] Mar 14, 2024 05:00 PM AMBULATORY - PSYCHIATRY [facility] [place] [facility] Mar 23, 2024 10:00 AM AMBULATORY - MEDICINE [place] [facility] [place] [facility] Mar 27, 2024 04:30 PM AMBULATORY - [facility] Active, Pending, and Scheduled Orders This section includes a listing of several types of active, pending, and scheduled orders, including clinic medications orders, diagnostic test orders, procedure orders and consult orders; where the start date of the order is 45 days before the date of the Encounter or 45 days after the date of theEncounter. The data comes from all [place] treatment facilities. Test Date/Time Test Type Test Details Facility Name Nov 23, 2023 05:39 PM Consult Order LIBRA Casey/BILLY OUTPT Cons Cook At [employer] [facility] Lab Results: +/- 30 days of the encounter This section includes the Chemistry and Hematology Lab Results on record with [place] for the patient. Radiology Reports and Pathology Reports are provided separately, in subsequent sections. Lab Results This section contains the Chemistry/Hematology Results that were resulted 30 days before or 30 daysafter the date of the Encounter. Date/Time Source Result Type Result - Unit Interpretation Reference Range Comment Nov 16, 2023 10:39 AM [facility] BASIC METABOLIC PANEL (fasting) Specimen Type: SERUM No comment entered. Ordering Provider: RAFIA KIM Report Released Date/Time: Nov 07, 2023 12:06 AM Reporting Lab: [facility] [address] [facility] [address] Performing Lab: [facility] [address] [address] UREA NITROGEN 15 mg/dL 7-25 GLUCOSE 90 mg/dL 65-100 SODIUM 139 mmol/L 135-145 POTASSIUM 5.4 mmol/L H 3.5-5.0 CHLORIDE 106 mmol/L 100-110 CO2 25 meq/L 20-30 CREATININE, Serum 0.94 mg/dL 0.50-1.40 eGFR(CKD-EPI 2020) >90 mL/min >60 Nov 16, 2023 10:39 AM [facility] LIVER FUNCTION Specimen Type: SERUM No comment entered. Ordering Provider: RAFIA KIM Report Released Date/Time: Nov 07, 2023 12:06 AM Reporting Lab: [address] [address] Performing Lab: [address] [address] PROTEIN,TOTAL 7.4 g/dL 6.0-8.3 ALBUMIN 4.3 g/dL 3.5-5.0 ALKALINE PHOSPHATASE 49 U/L 40-150 AST 18 U/L 5-34 ALT 34 U/L BILIRUBIN, TOTAL 0.4 mg/dL 0.2-1.2 Nov 16, 2023 10:39 AM [facility] CBC AND DIFF (AUTO) Specimen Type: BLOOD No comment entered. Ordering Provider: RAFIA KIM Report Released Date/Time: Nov 07, 2023 12:06 AM Reporting Lab: [facility] [address] [facility] [address] Performing Lab: [address] [address] WBC 5.28 10*3/uL 4.50-11.00 RBC 5.16 10*6/uL [...] 10*3/uL 0.00-0.00 Nov 16, 2023 10:39 AM [facility] LIPID PANEL FASTING Specimen Type: SERUM No comment entered. Ordering Provider: RAFIA KIM Report Released Date/Time: Nov 07, 2023 12:06 AM Reporting Lab: [address] [address] Performing Lab: [address] [address] CHOLESTEROL 257 mg/dL H TRIGLYCERIDE 375 mg/dL H 0-150 LDL calculated Reflex to dLDL mg/dL 0-129 CHOL/HDL 6.4 HDL CHOLESTEROL 40 mg/dL 40-60 LDL DIRECT 153 mg/dL H Nov 16, 2023 10:39 AM [facility] TSH Specimen Type: SERUM No comment entered. Ordering Provider: RAFIA KIM Report Released Date/Time: Nov 07, 2023 12:06 AM Reporting Lab: [address] [address] Performing Lab: [address] [address] TSH 1.25 u[IU]/mL 0.35-5.00 Nov 16, 2023 10:39 AM [facility] URIC ACID Specimen Type: SERUM No comment entered. Ordering Provider: RAFIA KMI Report Released Date/Time: Nov 07, 2023 12:06 AM Reporting Lab: [address] [address] Performing Lab: [address] [address] URIC ACID 9.6 mg/dL H 3.5-7.2 Nov 16, 2023 10:39 AM [facility] URINALYSIS CLEAN CATCH Specimen Type: URINE Comment: If Glucose = >500 and Ketones are positive, please alert the Physician. Ordering Provider: RAFIA KIM Report Released Date/Time: Nov 07, 2023 12:06 AM Reporting Lab: [address] [address] Performing Lab: [address] [address] UA COLOR Colorless Yellow UA APPEARANCE Clear [...] and tobacco- related health factors from the [place] facility where the Encounter took place. Current Smoking Status This section includes the most current smoking, or tobacco-related health factor, from the [place] facility where the Encounter took place. Date/Time Current Smoking Status Comment Facil ity Nov 16, 2023 10:00 AM VA-TOBACCO FORMER USER [facility] Tobacco Use History This section includes a history of the smoking, or tobacco-related health factors, that were collected on or before the date of the Encounter. The data comes from the [place] facility where the Encounter took place. Date/Time Smoking Status/Tobacco Use Comment F acility Nov 16, 2023 10:00 AM VA-TOBACCO QUIT 1 TO < 5 YRS [facility] [place] [facility] Nov 13, 2022 11:00 AM VA-TOBACCO NEVER USED [facility] [place] [facility] July 11, 2021 03:00 PM VA-TOBACCO NEVER USED [facility] [place] [facility] July 09, 2020 09:30 AM VA-TOBACCO NEVER USED [facility] [place] [facility] May 16, 2019 11:51 AM VA-TOBACCO NEVER USED [facility] [place] [facility] Oct 20, 2017 11:04 AM VA-TOBACCO NEVER USED [facility] [place] [facility] May 21, 2017 01:47 PM LIFETIME NON-TOBACCO USER [facility] [place] [facility] Encounter Notes: All associated encounter notes This section contains the clinical notes associated to the Encounter. Date/Time Encounter Note(s) Provider Source Nov 21, 2023 05:15 PM PRIMARY CARE SECUR E MESSAGING: LOCAL TITLE: PRIMARY CARE SECURE MESSAGING STANDARD TITLE: PRIMARY CARE SECURE MESSAGING DATE OF NOTE: NOV 21, 2023@17:15 ENTRY DATE: NOV 21, 2023@17:15:13 AUTHOR: RAFIA KIM EXP COSIGNER: URGENCY: STATUS: COMPLETED ------Original Message ----- Sent: 11/21/2023 05:14 PM ET From: RAFIA KIM To: JULIÁN PENN JR Subject: General:General Inquiry LOCAL TITLE: PATIENT LETTER (T) STANDARD TITLE: LETTERS DATE OF NOTE: NOV 21, 2023@17:09 ENTRY DATE: NOV 21, 2023@17:09:25 AUTHOR: RAFIA KIM EXP COSIGNER: URGENCY: STATUS: COMPLETED [facility] Toll Free Number Primary Care Telephone Assistance can be reached at extension [phone] [facility] scheduling can be reached at extension [phone] [facility] scheduling can be reached at ext [phone] JULIÁN PENN JR [address] [place] [address], [phone] November 21, 2023 Dear Janet, Please find enclosed a copy of recent [...] Kim MD Sincerely, Your Primary Care Team [facility] [address] [facility] [address] [place] [address] [place] [address] [phone] [facility] [address] [place] [address] [place] [address] [place] [facility] [address] [facility] [place] [phone] [place] [address] ---- GENERAL CHEMISTRY ---- SERUM Sep Reference 2023 10:39 Units Ranges - GLUCOSE 90 mg/dL 65 - 100 BUN 15 mg/dL 7 - 25 CREATININE 0.94 mg/dL .5 - 1.4 eGFR(IDMS) Ref: >=60 CREAT mg/dL .5 - 1.5 eGFR See Eval Ref: See Eval Sodium 139 mmol/L 135 - 145 K+/Pot 5.4 H mmol/L 3.5 - 5 CL 106 mmol/L 100 - 110 CO2 25 mEq/L 20 - 30 CA mg/dL 8.5 - 10.2 UricAci 9.6 H mg/dL 3.5 - 7.2 NH3/Amm PO4 mg/dL 2.5 - 5 T. PROT 7.4 g/dL 6 - 8.3 ALBUMIN 4.3 g/dL 3.5 - 5 T BILI 0.4 mg/dL .2 - 1.2 D. BILI mg/dL 0 - .5 AST 18 U/L 5 - 34 ALT 34 U/L <6 - 55 GGT U/L 10 - 65 ALK NAHUN 49 U/L 40 - 150 AMYLASE U/L 25 - 125 MAG mg/dL 1.6 - 2.6 ACETONE Ref: Neg T3 Total ng/dL 35 - 193 Comments: isaac gray. Evaluation for GLUCOSE: Reference range prior to 10/15/03 was 65-110 mg/dL Ordering Provider: Rafia Kim MD Report Released..: Nov 16, 2023@12:41 Reporting Lab....: [facility] [CLIA# [id number]] [address] [place] [address] Performing Lab...: [facility] [CLIA# [id number]] [address] [place] [address] ---- LIPID PANEL ---- SERUM Nov 15 Reference 2023 10:39 Units Ranges - CHOL 257 H mg/dL <7 - 199 TRIG 375 H mg/dL 0 - 150 HDL 40 mg/dL 40 - 60 LDL-d 153 H mg/dL <10 - 120 LDL Reflex to dLDL mg/dL0 - 129 CHO/HDL 6.4 Comments: isaac gray. Evaluation for TRIG: Triglyceride & cLDL results may be affected by nonfasting state. Evaluation for LDL-c: Evaluation of cardiovascular risk is based on the following range of values: Desirable: <100 mg/dL Low risk: 100-129 mg/dL Borderline high: 130-159 mg/dL High:160-189 mg/dL Very high: > or = 190 mg/dL LDL calculated using Friedewald formula. Evaluation for LDL-d: Evaluation of cardiovascular risk is based on the following range of values: Desirable: <100 mg/dL Low risk: 100-129 mg/dL Borderline high: 130-159 mg/dL High:160-189 mg/dL Very high: > or = 190 mg/dL Ordering Provider: Rafia Kim MD Report Released..: Nov 16, 2023@12:41 Reporting Lab....: [facility] [place] [facility] [CLIA# [id number]] [address] [place] [address] Performing Lab...: [facility] [CLIA# [id number]] [address] [place] [phone] ---- THYROID TESTS ---- SERUM Nov 15 Reference 2023 10:39 Units Ranges - T-U % 32 - 48 T4 ug/dL 4.5 - 12 TSH 1.25 uIU/mL .35 - 5 FTI ug/dL 6.3 - 12.4 T3FR pg/mL WES AB IU/mL 0 - 2 TSIG % baseline FT4 ng/dL .6 - 1.6 Comments: paxton burnett Ordering Provider: Rafia Kim MD Report Released..: Nov 16, 2023@12:49 Reporting Lab....: [facility] [CLIA# [id number]] [address] [place] [phone] Performing Lab...: [facility] [CLIA# [id number]] [address] [place] [phone] ---- URINE TESTS ---- URINE Nov 15 Reference 2023 10:39 Units Ranges - Color Colorless Ref: Yellow Appear Clear Ref: Clear pH 6.0 5 - 9 GlucUr Normal mg/dL Ref: Negative Keton Neg mg/dL Ref: Negative Blood Neg mg/dL Ref: Negative Protein Neg mg/dL Ref: Negative LeukEs Neg Ref: Negative Nitrit Neg mg/dL Ref: Negative Biliru Neg mg/dL Ref: Negative UroBiln Normal mg/dL Ref: <2.0 SpeGra 1.017 1.016 - 1.022 Comments: a a. If Glucose = >500 and Ketones are positive, please alert the Physician. Evaluation for Biliru: Etodolac may cause false positve Bilirubin, Urine. Ordering Provider: Rafia Kim MD Report Released..: Nov 16, 2023@11:09 Reporting Lab....: [facility] [CLIA# [id number]] [address] [place] [address] Performing Lab...: [facility] [CLIA# [id number]] [address] [place] [address] ---- CBC and AUTO DIFF ---- BLOOD Nov 15 Reference 2023 10:39 Units Ranges - WBC 5.28 K/cmm 4.5 - 11 RBC 5.16 M/cmm 4.23 - 5.66 HGB 14.9 g/dL 12.8 - 17 HCT 43.7 % 39.2 - 50.4 MCV 84.7 fl 82 - 99 MCH 28.9 pg 26.2 - 32.6 MCHC 34.1 g/dL 30.8 - 35.1 RDW 12.8 % 12 - 16 PLT 256 K/cmm 140 - 360 Neut% 43.4 L % 43.7 - 75.8 Lymph% 45.6 H % 14 - 42.3 Faulkner% 6.4 % 5.1 - 13.7 Eos% 3.6 % .4 - 6.8 Baso% 0.6 % .1 - 2 IG% 0.4 % 0 - .7 NeutAbs 2.29 K/cmm 2.2 - 7.6 LymAbs 2.41 K/cmm 1 - 3.2 MonoAbs 0.34 K/cmm .3 - 1.1 EosAbs 0.19 K/cmm .03 - .44 BasoAbs 0.03 K/cmm .01 - .13 IG,Abs 0.02 K/cmm 0 - .06 NRBC% 0.0 % 0 - 0 NRBC# 0.00 K/cmm 0 - 0 RETIC % % .6 - 2 RETIC # K/cmm 30 - 90 Comments: zak torres Ordering Provider: Rafia Kim MD Report Released..: Nov 16, 2023@11:10 Reporting Lab....: [facility] [CLIA# [id number]] [address] [place] [address] Performing Lab...: [facility] [facility] [CLIA# [id number]] [address] [place] [phone] ---- MISCELLANEOUS TESTS ---- DATE TIME SPECIMEN TEST VALUE Ref ranges - Nov 16, 2023@10:39 SERUM eGFR(CKD-EPI 2020): >90 mL/min Ref: >=60 Ordering Provider: Rafia Kim MD Report Released..: Nov 16, 2023@12:41 Reporting Lab....: [facility] [CLIA# [id number]] [address] [place] [phone] Performing Lab...: [facility] [place] [facility] [CLIA# [id number]] [address] [place] [address] = /es/ Rafia Kim MD Staff Physician Signed: 11/21/2023 17:15 RAFIA KIM [facility]
--- OUTSIDE RECORDS SUMMARY | 2024-03-13 19:48 | XMS_ITS ---
Author Name [facility] [place] Organization [facility] [place] [place] Address [address] [place] [address] Care Team Providers Care Senior Inspector Name Role Phone MEDEROS RAFIA Primary Care Provider Unavailabl e Selected Encounter This section includes the information on record at [place] for the Encounter. Date/Time Encounter Type Encounter Description Reason Pro vider Source Feb 26, 2024 01:00 PM Outpatient Encounter [facility] Encounter Template Text not used by [place] Plan of Treatment: Future Appointments (+ 6 months) and Future Tests (+/- 45 days) The Plan of Treatment section includes future care activities for the patient from all [place] treatmentfacilities. This section includes future appointments and future orders which are active, pending or scheduled. Future Appointments This section includes appointments that were scheduled to occur 6 months from the date of the Encounter, up to a maximum of 20 appointments. The data comes from all [place] treatment facilities. Appointment Date/Time Appointment Type Appointme nt Facility Name Feb 28, 2024 04:30 PM AMBULATORY - PS[place]IATRY [facility] [place] [facility] Mar 14, 2024 05:00 PM AMBULATORY - PSYCHIATRY [facility] [place] [facility] Mar 23, 2024 10:00 AM AMBULATORY - MEDICINE [facility] [place] [facility] Mar 27, 2024 04:30 PM AMBULATORY [facility]IATRY [facility] Active, Pending, and Scheduled Orders This section includes a listing of several types of active, pending, and scheduled orders, including clinic medications orders, diagnostic test orders, procedure orders and consult orders; where the start date of the order is 45 days before the date of the Encounter or 45 days after the date of theEncounter. The data comes from all [place] treatment facilities. Test Date/Time Test Type Test Details Facility Name Feb 07, 2024 11:58 AM Consult Order [facility] Cons [facility] [place] [facility] Social History: Smoking Status (Most current) and Tobacco Use (All prior to encounter date) This section includes the most current, and the historical, smoking and tobacco- related health factors from the [place] facility where the Encounter took place. Current Smoking Status This section includes the most current smoking, or tobacco-related health factor, from the [place] facility where the Encounter took place. Date/Time Current Smoking Status Comment Facil ity Nov 16, 2023 10:00 AM VA-TOBACCO FORMER USER [place] [facility] [place] [facility] Tobacco Use History This section includes a history of the smoking, or tobacco-related health factors, that were collected on or before the date of the Encounter. The data comes from the [place] facility where the Encounter took place. Date/Time Smoking Status/Tobacco Use Comment F acility Nov 16, 2023 10:00 AM VA-TOBACCO QUIT 1 TO < 5 YRS [facility] [place] [facility] Nov 13, 2022 11:00 AM VA-TOBACCO NEVER USED [facility] [place] [facility] July 11, 2021 03:00 PM VA-TOBACCO NEVER USED [facility] [place] [facility] July 09, 2020 09:30 AM VA-TOBACCO NEVER USED [facility] [place] [facility] May 16, 2019 11:51 AM VA-TOBACCO NEVER USED [facility] [place] [facility] Oct 20, 2017 11:04 AM VA-TOBACCO NEVER USED [facility] [place] [facility] May 21, 2017 01:47 PM LIFETIME NON-TOBACCO USER [facility] [place] [facility] Encounter Notes: All associated encounter notes This section contains the clinical notes associated to the Encounter. Date/Time Encounter Note(s) Provider Source Feb 26, 2024 01:00 PM CLERICAL NOTE: LOCAL TITLE: APPOINTMENT NO SHOW STANDARD TITLE: CLERICAL NOTE DATE OF NOTE: FEB 26, 2024@13:00 ENTRY DATE: FEB 26, 2024@17:49:54 AUTHOR: THANH HALL EXP COSIGNER: URGENCY: STATUS: COMPLETED Patient Name: JULIÁN PENN JR, JR Patient SSN: [id number] Date and time of Appointment No show : 02/26/24 13:00 PATIENT PHONE - PHONE NUMBER [CELLULAR] - Patient's medical record was reviewed. Follow-up actions were determined and initiated: Please check/complete as applies: [ ]Telephoned Directly [ ]Re-scheduled for next available appt [ ]Sent a N0-show letter ( must call for appointment) [ ]Other (Emergent/Overbook, etc.): Additional Comments: Alerting central office operator supervisor and consults guest history clerk MSA. did not show up for past two appts and cancelled original appt. This particular appt time seems inopportune for [place]. Future Clinic Visits 02/28/2024 16:30 CWM/NO/VVC/PCMHI/PSYCHO LO 03/23/2024 10:00 CWM/NO/ACUPUNCTURE GRP 1 11/17/2024 10:00 CWM/NO/PACT 2 /es/ THANH HALL,PhD Neuropsychologist Signed: 02/26/2024 17:51 [facility]
--- OUTSIDE RECORDS SUMMARY | 2024-03-13 19:48 | XMS_ITS | Encounter Summary ---
Author Name [facility] [place] [place] Organization [facility] [place] Address [address] [place] [id number] Care Team Providers Care Director [facility] Name Role Phone RAFIA MEDEROS Primary Care Provider Unavailabl e Selected Encounter This section includes the information on record at [place] for the Encounter. Date/Time Encounter Type Encounter Description Reason Provider Source Sep 17, 2023 10:00 AM OFFICE O/P NEW LOW 30 MIN PODIATRY ICD-10-CM M76.62 Achilles tendinitis, left leg CINDY MARTINEZ Carmela Encounter Template Text not used by [place] Assessments - Encounter Diagnoses This section includes the primary and secondary diagnoses documented for the Encounter. Date/Time Primary/Secondary Diagnosis Diagnosis Name Provider Source Dec 09, 2023 07:56 PM PRIMARY Achilles tendinitis, left leg CINDY MARTINEZ [facility] Plan of Treatment: Future Appointments (+ 6 months) and Future Tests (+/- 45 days) The Plan of Treatment section includes future care activities for the patient from all [place] treatmentfacilities. This section includes future appointments and future orders which are active, pending or scheduled. Future Appointments This section includes appointments that were scheduled to occur 6 months from the date of the Encounter, up to a maximum of 20 appointments. The data comes from all [place] treatment facilities. Appointment Date/Time Appointment Type Appointme nt Facility Name Sep 22, 2023 01:30 PM AMBULATORY - NONE [facility] Oct 18, 2023 05:00 PM AMBULATORY - PSYCHIATRY [facility] Oct 25, 2023 05:00 PM AMBULATORY - PS[facility]IATRY [facility] [place] [facility] Oct 29, 2023 01:30 PM AMBULATORY - MEDICINE [facility] [place] [facility] Nov 08, 2023 05:00 PM AMBULATORY - PSYCHIATRY [facility] [place] [facility] Nov 16, 2023 10:00 AM AMBULATORY - MEDICINE [facility] [place] [facility] Nov 22, 2023 04:30 PM AMBULATORY - PSYCHIATRY [facility] [place] [facility] Dec 20, 2023 04:30 PM AMBULATORY - PSYCHIATRY [facility] [place] [facility] Jan 03, 2024 04:30 PM AMBULATORY - PSYCHIATRY [facility] [place] [facility] Jan 31, 2024 04:30 PM AMBULATORY - PSYCHIATRY [facility] [place] [facility] Feb 07, 2024 10:00 AM AMBULATORY - PSYCHIATRY [facility] [place] [facility] Feb 07, 2024 11:30 AM AMBULATORY - PSYCHIATRY [facility] [place] [facility] Feb 14, 2024 04:30 PM AMBULATORY - PSYCHIATRY [facility] [place] [facility] Feb 19, 2024 01:00 PM AMBULATORY - PSYCHIATRY [facility] [place] [facility] Feb 26, 2024 01:00 PM AMBULATORY - PSYCHIATRY [facility] [place] [facility] Feb 28, 2024 04:30 PM AMBULATORY - PSYCHIATRY [facility] [place] [facility] Mar 14, 2024 05:00 PM AMBULATORY - PSYCHIATRY [facility] [place] [facility] Vital Signs: All taken on the encounter date This section contains inpatient and outpatient Vital Signs collected on the date of the Encounter. Date/Time Temperature Pulse Blood Pressure Respiratory Rate SP02 Pain Height Weight Body Mass Index Source Sep 17, 2023 10:13 AM 98.8 68 118/68 98 3 [facility] [place] [facility] Social History: Smoking Status (Most current) and Tobacco Use (All prior to encounter date) This section includes the most current, and the historical, smoking and tobacco- related health factors from the [place] facility where the Encounter took place. Current Smoking Status This section includes the most current smoking, or tobacco-related health factor, from the [place] facility where the Encounter took place. Date/Time Current Smoking Status Comment Facil ity Nov 13, 2022 11:00 AM VA-TOBACCO NEVER USED [place] [facility] [place] [facility] Tobacco Use History This section includes a history of the smoking, or tobacco-related health factors, that were collected on or before the date of the Encounter. The data comes from the [place] facility where the Encounter took place. Date/Time Smoking Status/Tobacco Use Comment F acility July 11, 2021 03:00 PM VA-TOBACCO NEVER USED [place] [facility] [place] [facility] July 09, 2020 09:30 AM VA-TOBACCO NEVER USED [facility] [place] [facility] May 16, 2019 11:51 AM VA-TOBACCO NEVER USED [facility] [place] [facility] Oct 20, 2017 11:04 AM VA-TOBACCO NEVER USED [place] [facility] [place] [facility] May 21, 2017 01:47 PM LIFETIME NON-TOBACCO USER [place] [facility] [place] [facility] Encounter Notes: All associated encounter notes This section contains the clinical notes associated to the Encounter. Date/Time Encounter Note(s) Provider Source Sep 17, 2023 10:12 AM PODIATRY CONSULT: LOCAL TITLE: CONSULT REPORT/PODIATRY STANDARD TITLE: PODIATRY CONSULT DATE OF NOTE: SEP 17, 2023@10:12 ENTRY DATE: SEP 17, 2023@10:14:28 AUTHOR: CINDY MARTINEZ EXP COSIGNER: URGENCY: STATUS: COMPLETED Podiatry [facility] New Consult Provider: Cindy Martinez Date: SEP 17, [address] [address] May 38 [place] [id number] PATIENT PHONE - Primary Care: RAFIA MEDEROS Consult Concern:Patient referred by RAFIA MEDEROS for ankle pain. History of chief complaint: Patient reports history of acute rupture of left Achilles tendon in 2016 with primary open repair but condition reportedly was delayed in repair due to deployment issues. Patient eventually recovered but has continued to have stiffness in the area he is unable to participate in running or jogging or other high impact activities without developing acute redness and swelling in the area. Presently the areas of low intensity pain because patient has been relatively inactive. He is not reporting any current foot problems though he does report a history of gout. X-rays of the right foot and an MRI of the right foot display a benign cyst at the base of the proximal phalanx of the right great toe. Otherwise no significant pathology please see reports below Subjective: Presently patient reporting low level pain at about 2. He is not performing any active stretching exercises but only prior to trying to do activities. Social Hx: No history of IVDA or illicit drug use. Hx: [employer] FROM Oct TO Oct Surgical Hx: Surgical repair of ruptured Achilles tendon left 2015 [employer]/ Medical problems active: Active Problem Pain in leg M79.606, Onset 07/20/2023 RAFIA MEDEROS Hypercholesterolemia ([facility] [id number]) 07/11/2021 RAFIA MEDEROS Abdominal pain R10.9, Onset 07/11/2021 RAFIA MEDEROS Sleep disorder G47.9, Onset 07/11/2021 RAFIA MEDEROS Achilles tendinitis M76.60, Onset 0 07/09/2020 RAFIA MEDEROS Knee pain R69., Onset 05/21/2017 RAFIA MEDEROS Active mediciation: Active Outpatient Medications (including Supplies): Active Outpatient Medications Status 1) COLCHICINE 0.6MG TAB TAKE ONE TABLET BY MOUTH ONCE ACTIVE DAILY FOR GOUT 2) DICLOFENAC NA 1% TOP GEL APPLY 2 GRAMS TOPICALLY ACTIVE THREE TIMES DAILY NEEDED FOR OSTEOARTHRITIS - USE DOSING CARD PROVIDED IN BOX 3) IBUPROFEN 800MG TAB TAKE ONE TABLET BY MOUTH EVERY 8 ACTIVE HOURS TAKE WITH FOOD Active Non-VA Medications Status 1) Non-VA IBUPROFEN 800MG TAB 800MG BY MOUTH THREE TIMES ACTIVE A DAY AFTER MEALS 4 Total Medications Allergies: Data on this list may not be complete. Please check JLV. FACILITY ALLERGY/ADR -------- No Remote Allergy/ADR Data available for this patient [place] [facility] No Known Allergies Lab data: CBC TREND Collection DT Spec WBC RBC HGB HCT MCV MCH PLT 11/13/2022 11:33 BLOOD 7.14 5.17 15.0 44.2 85.5 29.0 294 07/11/2021 15:37 BLOOD 7.28 5.01 14.9 43.8 87.4 29.7 276 07/30/2020 10:25 BLOOD 5.52 5.14 15.0 44.7 87.0 29.2 273 05/20/2018 08:42 BLOOD 5.15 5.05 15.1 43.2 85.5 29.9 289 -- -- PT INR TREND No data available -- Imaging Reports: === Include data from 09/17/2022 to 09/17/2023 09/17/2023 10:14 CONFIDENTIAL IMAGING REPORTS SUMMARY pg. 1 JULIÁN PENN JR [id number] : 1985 II - Imaging Impression (max 1 occurrence) Date Procedure CPT Status Case # 04/14/2023 FOOT 3 OR MORE VIEWS(LEFT) [id number] Verified 274 1. Well-defined lytic lesion involving the base of the proximal phalanx of the great toe with the differential diagnosis as provided above. Given that one of the considerations is a a giant cell tumor,an MRI with and without contrast is recommended for further assessment. 2. Mild first MTP joint degenerative changes. Mild pes cavus deformity. 3. Calcaneal enthesopathy READING PHYSICIAN: Malick Fatima -[phone] 04/15/2023 7:18 [facility] [phone] (For Medical Practitioner Use Only) Attention Patients / Veterans: If you have questions or concerns about these test results, please contact your ordering provider or primary care team. MRI 05/19/2013 see report in vistal pre and post contarts: major findings of djd first mpj and cyct likely degerative at base prox phalanx hallux. enhancement metatsarl head four - contusion, no tenoniopathy retracvtion. ligamaents lisfarct intact. There is no MRI of the achilles. One is ordered today. === REVIEW OF SYSTEMS: CONSTITUTIONAL: No fever/chills, unintended wgt loss. SKIN: No rashes, pruritis, new/changed skin lesions. ENDOCRINE: No excess thirst, heat/cold intolerance ALLERGY/IMMUNE: No recurrent infections. HEMATOL/LYMPH: No hx of abnl bleeding/bruising, no night sweats. EYES: No change in vision, no eye pain. ENMT: no tinnitus and hearing loss, has had audiology exam. No nasal tiff/rhinorrhea, sore throat/gums/mouth, difficulty swallowing. CARDIOVASCULAR: No chest pain, palpitations, no orthopnea/pnd. RESPIRATORY: No dyspnea at rest or with exertion. No cough, wheezing GI: No n/v, abd pain, change in bowel habits, blood in stool, melena. : No dysuria, hematuria, frequency. No difficulty starting the stream, hesitancy, nocturia. No difficulty achieving or maintaining erection. MSC-SKEL: No arthralgias, myalgias. NEURO: No vertigo, johnston, numbness/weakness, unstable balance or falls. PSYCHIATRIC: no depressed mood, racing thought, anxiety, or difficulty sleeping Vital signs: Date Vital Measurement Qualifiers 09/17/2023 10:13 Temp F (C) 98.8 (37.1) Pulse 68 BP 118/68 L Arm, Sitting, Cuff- Manual, Lg Adult Cuff Pain 3 POx (L/Min)(%) 98 Room Air LE Exam: Vascular exam reveals: Bilateral findings: 2+ DP and PT pulses, warm pink skin normal distribution of pedal ankle and leg hair, no edema, warm pink skin, normal brisk capillary refill bilaterally. Neurological exam reveals intact light touch pain in temperature to dermatomes L4-5 S1 bilateral, normal muscle bulk and tone equal and symmetrical bilateral, no clonus on dorsiflexion bilateral, Babinski downgoing bilateral, no fasciculations or other abnormal spontaneous motor movement identified, motor power 5 over 5 inverters everters invertors dorsi flexors plantar flexors bilateral. Orthopedic exam: Normal posterior leg ankle heel alignment, no significant inversion or eversion positional stance abnormalities in the hindfoot, normal arch formation bilateral, no forefoot positional or structural abnormalities such as varus or valgus, no hallux varus or valgus or hammertoes present. No significant tibial varum or torsion present. Equal limb length left and right. Ankle range of motion 3-4 degree dorsiflexion 25 degree plantarflexion bilateral subtalar joint range of motion two thirds one third inversion eversion bilateral with neutral near 0, midtarsal and metatarsophalangeal joint range of motion normal without crepitus. Dermatological exam: No abnormal pigmentation lesions no rashes or plaques present no webspace maceration no plantar lesions or calluses present no excrescences on the toes toenails normal. Problem focused exam: Patient has bulbous firm enlargement of the distal Achilles tendon approximately 3 cm above the insertion and comprising an area of approximately 3 cm x 2 cm length and width. Relatively firm pressure across this area produces only a 2-3 out of 10 pain reaction which the patient states is mild. There is no redness or swelling There is a well-healed surgical scar There is no heat. Impression: Presently patient is not complaining of any forefoot pain though he does have some degenerative changes noted on both plain radiography and MRI. He was concerned about his Achilles tendon and its limitations on his activities. He likely has a significant amount of scarring that may reorganize with Alfmercedezson's protocol stretching. An MRI would be useful to evaluate the tendon heterogenicity and to rule out any central tendon degenerative changes. Plan: Alfmercedezson's protocol was discussed with the patient Patient was instructed to perform the following stretching exercises: -Stretch each leg understanding with metatarsals and toes on step and dropping heels into ankle dorsiflexion 4 10 to 15 seconds. This should then be followed by rising on toes with plantar flexion for an additional 10 to 15 seconds resulting in both eccentric and concentric contraction of triceps surgeries which will facilitate tendon fiber realignment in a linear fashion. -Patient should repeat this exercise with each leg 15-20 times for 1 set -Patient should do 3 sets a day if possible -Patient should warm up prior to stretching -If pain lasts more than a couple hours after stretching should decrease distance between wall and feet so that stretching potential is decreased, and should back off from stretching for 24 to 48 hours to allow for tissues to recover. -Overtime gradually increase distance from the wall until patient able to achieve 7 to 10 degrees of dorsiflexion in each lower extremity without pain during above exercise. -For patients with significant tightness in the posterior muscle group this goal should not be considered achievable earlier than 4 to 6 months. -Patient encouraged to call for any questions regarding the above should they occur. A consult for an MRI for the Achilles tendon was placed formerly [facility] Patient will follow-up in 8 weeks clinical however we will schedule firmly once patient's MRI has returned. In the meantime patient should avoid any high impact activities and proceed with daily stretching exercises at least 2-3 times a day with icing afterwards. Time spent 35 minutes decision-making points: Preparing to see patient reviewing tests obtaining and/or reviewing separate obtained history, performing a medically appropriate examination and/or evaluation, counseling and educating the patient/family/caregiver, ordering medications, tests, or procedures, referring and communicating with other healthcare professionals, documenting critical information in the medical record, independently interpreting results and communicating results and care coordination. /mendez/ CINDY MARTINEZ DPM PODIATRY ATTENDING Signed: 09/17/2023 15:31 CINDY MARTINEZ [facility]
--- OUTSIDE RECORDS SUMMARY | 2024-03-13 19:48 | XMS_ITS | Encounter Summary ---
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 Date/Time Encounter Type Encounter Description Reason Provider Source Feb 28, 2024 04:30 PM PSYTX W PT 30 MINUTES [facility] INDIV ICD-10-CM F32.A Depression, unspecified DEVYN UNDERWOOD E Encounter Template Text not used by [place] Assessments - Encounter Diagnoses This section includes the primary and secondary diagnoses documented for the Encounter. Date/Time Primary/Secondary Diagnosis Diagnosis Name Provider Source Feb 29, 2024 11:35 AM PRIMARY Depression, unspecified DEVYN UNDERWOOD [facility] [place] [facility] Feb 29, 2024 11:35 AM SECONDARY Anxiety disorder, unspecified DEVYN UNDERWOOD [facility] [place] [facility] Feb 29, 2024 11:35 AM SECONDARY Pain in leg, unspecified DEVYN UNDERWOOD [facility] [place] [facility] Plan of Treatment: Future Appointments (+ 6 [...] Date/Time Appointment Type Appointme nt Facility Name Mar 14, 2024 05:00 PM AMBULATORY - PS[place]IATRY [place] [facility] [place] [facility] Mar 23, 2024 10:00 AM AMBULATORY - MEDICINE [place] [facility] [place] [facility] Mar 27, 2024 04:30 PM AMBULATORY - PS[place]CHIATRY [place] [facility] [place] [facility] Active, Pending, and Scheduled Orders [...] AM Consult Order [facility] Cons [employer] [place] [facility] [place] [facility] Social History: Smoking Status (Most current) [...] 16, 2023 10:00 AM VA-TOBACCO FORMER USER [place] [facility] [place] [facility] Tobacco Use History This section includes a history of the smoking, or tobacco-related health factors, that were collected on or before the date of the Encounter. The data comes from the [place] facility where the Encounter took place. Date/Time Smoking Status/Tobacco Use Comment F acility Nov 16, 2023 10:00 AM VA-TOBACCO QUIT 1 TO < 5 YRS [place] [facility] [place] [facility] Nov 13, 2022 11:00 AM VA-TOBACCO NEVER USED [place] [facility] [place] [facility] July 11, 2021 03:00 PM VA-TOBACCO NEVER USED [place] [facility] [place] [facility] July 09, 2020 09:30 AM VA-TOBACCO NEVER USED [place] [facility] [place] [facility] May 16, 2019 11:51 AM VA-TOBACCO NEVER USED [facility] [place] [facility] Oct 20, 2017 11:04 AM VA-TOBACCO NEVER USED [facility] [place] [facility] May 21, 2017 01:47 PM LIFETIME NON-TOBACCO USER [place] [facility] [place] [facility] Encounter Notes: All associated encounter notes This section contains the clinical notes associated to the Encounter. Date/Time Encounter Note(s) Provider Source Feb 28, 2024 05:37 AM TELEHEALTH NOTE: LOCAL TITLE: [employer] VIDEO CONNECT [facility] NOTE STANDARD TITLE: TELEHEALTH NOTE DATE OF NOTE: FEB 28, 2024@05:37 ENTRY DATE: FEB 28, 2024@05:38:02 AUTHOR: SUMEET UNDERWOOD COSIGNER: URGENCY: STATUS: COMPLETED [place] Video Connect (VVC) Standard Documentation VVC Clinician Resources Only: E911 (Emergency Call Relay Center): [phone] [place] [employer] Crisis Line - 9[address] press #[address] [facility] Suicide Coordinator [phone], Ext. [phone]; Back-up Ext. [phone] [place] Police, Gavin BARRAGAN [phone] Introduction: Visit is being conducted by [email or web address]. identified with 2 identifiers: [X] Full Name [X] Date of [ ] [place] ID Card Emergency Plan: confirmed and/or provided the following information in case of emergency or technology failure. PATIENT PHONE - PHONE NUMBER [CELLULAR] - Is patient phone number correct, if not, enter below: 's phone number: JULIÁN ROB [address], [address] [place]'s present location and address for appointment: home address listed above [place]'s emergency contact name and phone number: [phone]- mother Pradeep's phone [place] reported that location is private and safe: Yes Informed Consent: informed of the risks and benefits of Telehealth video care. [place] has the right to refuse video services. If refuses video visit, a [id number] visit will be scheduled. [place] verbalized consent for this video visit: Yes [place] provided consent for any other persons present for visit: No If yes, who and relationship to patient: Secure visit: Visit was locked for security and privacy:Yes _ [facility] OUTPATIENT F/U NOTE DURATION: 35 mins Mr. Rob is a 38 year-old, partnered male [place] with a PMH of pain in leg, knee, Achillies, anxiety, and depression. 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 explored how he is making efforts to sustain sobriety from cannabis. He will leave current job and return to prior job at end of March. He has home drug tests for cannabis to confirm clean reading before returning to prior place of employment. He explored how previous employer is looking forward to his return and been encouraging. He explored ways to prepare for potential increase in stress with return to prior job and room to create boundaries at work. He explored gratitude for having time to titrate off cannabis at current employment to prepare for previous employment. To increase healthy coping he is increasing exercise at gym, using sauna and considering getting a sauna for the home. He is also using other oral substitute such as gum or candy and practicing relaxation and mindfulness. He and his partner are giving each other time away for exercise and self-care. He is considering trying herbal teas as well. He denied SI/HI. Furthermore, he is 8/10 confident he can sustain sobriety from cannabis. He said that he knows it is me and keeping motivated and busy will help. Some friends still use around him and he is working on this trigger. He said the official quit date for 03/01/24. SCREENERS: PHQ-9: 5, mild depression (11/22/23 ABIODUN-7: [...] healthier). He denied SI/HI. In collaboration with [place] considering evidence-based treatment, clinical judgment and patient preference, options of treatment were offered. He agreed to return to [facility] for brief CBT for depression and anxiety including relaxation training, cognitive restructuring and behavioral activation. He will return to -[facility] for roughly 1-2 individual sessions. He will return to -[facility], 03/20 at 430pm, [facility]. /mendez/ SUMEET UNDERWOOD, PhD STAFF PSYCHOLOGIST Signed: 02/29/2024 11:37 SUMEET UNDERWOOD [place] [facility]
--- OUTSIDE RECORDS SUMMARY | 2024-03-13 19:48 | XMS_ITS | Encounter Summary ---
Author Name [place] Organization [place] Address [address] [place] [id number] Care Team Providers Care Shipping Room Helper Name Role Phone MEDEROS RAFIA Primary Care Provider Unavailabl e Selected Encounter This section includes the information on record at [place] for the Encounter. Date/Time Encounter Type Encounter Description Reason Provider Source Jan 31, 2024 04:30 PM PSYTX W PT 30 MINUTES PC[facility] INDIV ICD-10-CM F41.9 Anxiety disorder, unspecified DEVYN UNDERWOOD E Encounter Template Text not used by [place] Assessments - Encounter Diagnoses This section includes the primary and secondary diagnoses documented for the Encounter. Date/Time Primary/Secondary Diagnosis Diagnosis Name Provider Source Feb 03, 2024 09:09 AM PRIMARY Anxiety disorder, unspecified DEVYN UNDERWOOD [place] [facility] [facility] Feb 03, 2024 09:09 AM SECONDARY Depression, unspecified DEVYN UNDERWOOD [place] [facility] [facility] Feb 03, 2024 09:09 AM SECONDARY Pain in leg, unspecified DEVYN UNDERWOOD [facility] [place] [facility] Plan of Treatment: Future Appointments (+ 6 months) and Future Tests (+/- 45 days) The Plan of Treatment section includes future care activities for the patient from all [place] treatmentfacilities. This section includes future appointments and future orders which are active, pending or scheduled. Future Appointments This section includes appointments that were scheduled to occur 6 months from the date of the Encounter, up to a maximum of 20 appointments. The data comes from all [facility]. Appointment Date/Time Appointment Type Appointme nt Facility Name Feb 07, 2024 10:00 AM AM[place]ULATORY [place] [facility] [place] [facility] Feb 07, 2024 11:30 AM AMBULATORY [place] [facility] Feb 14, 2024 04:30 PM AMBULATORY [place] [facility] Feb 19, 2024 01:00 PM AMBULATORY [place] [facility] Feb 26, 2024 01:00 PM AMBULATORY [place] [facility] Feb 28, 2024 04:30 PM AMBULATORY - [place]RY [place] [facility] [facility] Mar 14, 2024 05:00 PM AMBUL[place]ORY [place]RY [place] [facility] [place] [facility] Mar 23, 2024 10:00 AM AM[place]ORY [place] [facility] Mar 27, 2024 04:30 PM [facility] Active, Pending, and Scheduled Orders This section includes a listing of several types of active, pending, and scheduled orders, including clinic medications orders, diagnostic test orders, procedure orders and consult orders; where the start date of the order is 45 days before the date of the Encounter or 45 days after the date of theEncounter. The data comes from all [facility]. Test Date/Time Test Type Test Details Facility Name Feb 07, 2024 11:58 AM Consult Order [facility] Cons Inspector Filters's Choice [facility] Social History: Smoking Status (Most current) and Tobacco Use (All prior to encounter date) This section includes the most current, and the historical, smoking and tobacco- related health factors from the [place] facility where the Encounter took place. Current Smoking Status This section includes the most current smoking, or tobacco-related health factor, from the [place] facility where the Encounter took place. Date/Time Current Smoking Status Comment Facil ity Nov 16, 2023 10:00 AM VA-TOBACCO [facility] Tobacco Use History This section includes a history of the smoking, or tobacco-related health factors, that were collected on or before the date of the Encounter. The data comes from the [place] facility where the Encounter took place. Date/Time Smoking Status/Tobacco Use Comment F acility Nov 16, 2023 10:00 AM VA-TOBACCO QUIT 1 TO < 5 YRS [place] [facility] [place] [facility] Nov 13, 2022 11:00 AM VA-TOBACCO NEVER USED [place] [facility] [place] [facility] July 11, 2021 03:00 PM VA-TOBACCO NEVER USED [place] [facility] [place] [facility] July 09, 2020 09:30 AM VA-TOBACCO NEVER USED [place] [facility] [place] [facility] May 16, 2019 11:51 AM VA-TOBACCO NEVER USED [place] [facility] [place] [facility] Oct 20, 2017 11:04 AM VA-TOBACCO NEVER USED [place] [facility] [place] [facility] May 21, 2017 01:47 PM LIFETIME NON-TOBACCO USER [place] [facility] [place] [facility] Encounter Notes: All associated encounter notes This section contains the clinical notes associated to the Encounter. Date/Time Encounter Note(s) Provider Source Jan 31, 2024 06:34 AM TELEHEALTH NOTE: LOCAL TITLE: [facility] VIDEO CONNECT [facility] NOTE STANDARD TITLE: TELEHEALTH NOTE DATE OF NOTE: JAN 31, 2024@06:34 ENTRY DATE: JAN 31, 2024@06:34:59 AUTHOR: SUMEET UNDERWOOD COSIGNER: URGENCY: STATUS: COMPLETED [place] Video Connect (VVC) Standard Documentation VVC Clinician Resources Only: E911 (Emergency Call Relay Center): [phone] [employer] Crisis Line - 988 then press #1. [facility] Suicide Coordinator [phone], Ext. [phone]; Back-up Ext. [phone] [place] Police, Gavin BARRAGAN [phone] Introduction: Visit is being conducted by [place] Video Connect. identified with 2 identifiers: [X] Full Name [X] Date of [ ] [place] ID Card Emergency Plan: [place] confirmed and/or provided the following information in case of emergency or technology failure. PATIENT PHONE - PHONE NUMBER [CELLULAR] - Is patient phone number correct, if not, enter below: [place]'s phone number: JULIÁN ROB JR [address] [place] [address], [phone] 's present location and address for appointment: home address listed above [place]'s emergency contact name and phone number: [phone]- mother Pradeep's phone [place] reported that location is private and safe: Yes Informed Consent: [place] informed of the risks and benefits of Telehealth video care. [place] has the right to refuse video services. If refuses video visit, a [id number] visit will be scheduled. verbalized consent for this video visit: Yes provided consent for any other persons present for visit: No If yes, who and relationship to patient: Secure visit: Visit was locked for security and privacy:Yes [facility] OUTPATIENT F/U NOTE DURATION: 35 mins Mr. Rob is a 38 year-old, partnered male [place] with a PMH of pain in leg, knee, Achillies, anxiety, and depression. 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 explored how he lost his job due to drug test and cannabis use. However, he already started a temporary job through a friend that pays more and is less stress. He explored how stressful the last few weeks were with job loss. 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 explored how he has relied on cannabis on and off for anxiety and how it is helpful at times. [facility] MH treatment options including medication and WH treatment options in addition to talk therapy were explored. In addition, other MH psychotherapy treatment beyond PCMHI was explored. He requested additional 1-2 PCM[facility] session during this transition time and will consider other treatment options. He denied SI/HI. SCREENERS: PHQ-9: 5, mild [...] were offered. He agreed to return to [facility] for brief CBT for depression and anxiety including relaxation training, cognitive restructuring and behavioral activation. He will return to -[place] for roughly 1-2 individual sessions. He will return to -[place], 02/13 at 4:30pm [facility]. /mendez/ SUMEET UNDERWOOD, PhD STAFF PSYCHOLOGIST Signed: 02/03/2024 09:15 SUMEET UNDERWOOD [place] [facility] [facility]
--- OUTSIDE RECORDS SUMMARY | 2024-03-13 19:48 | XMS_ITS | Encounter Summary ---
Author Name [facility] [place] Organization [place] Address [address] [place] [id number] Care Team Providers Care Scrub Wheel Operator Name Role Phone RAFIA MEDEROS Primary Care Provider Unavailabl e Selected Encounter This section includes the information on record at [place] for the Encounter. Date/Time Encounter Type Encounter Description Reason Provider Source Dec 20, 2023 04:30 PM PSYTX W PT 30 MINUTES PCMHI INDIV ICD-10-CM F41.9 Anxiety disorder, unspecified DEVYN UNDERWOOD E Encounter Template Text not used by [place] Assessments - Encounter Diagnoses This section includes the primary and secondary diagnoses documented for the Encounter. Date/Time Primary/Secondary Diagnosis Diagnosis Name Provider Source Dec 21, 2023 08:34 AM PRIMARY Anxiety disorder, unspecified DEVYN UNDERWOOD [facility] [place] [facility] Dec 21, 2023 08:34 AM SECONDARY Depression, unspecified [facility]WOOD [facility] [place] [facility] Dec 21, 2023 08:34 AM SECONDARY Pain in leg, unspecified DEVYN UNDERWOOD [facility] Plan of Treatment: Future Appointments (+ 6 months) and Future Tests (+/- 45 days) The Plan of Treatment section includes future care activities for the patient from all [place] treatmentfacilities. This section includes future appointments and future orders which are active, pending or scheduled. Future Appointments This section includes appointments that were scheduled to occur 6 months from the date of the Encounter, up to a maximum of 20 appointments. The data comes from all [place] treatment [facility]. Appointment Date/Time Appointment Type Appointme nt Facility Name Jan 03, 2024 04:30 PM AMBULATORY - PS[place]IATRY [place] [facility] [place] [place] [facility] Jan 31, 2024 04:30 PM AMBULATORY - PSYCHIATRY [place] [facility] [place] [facility] Feb 07, 2024 10:00 AM AMBULATORY - PSYCHIATRY [place] [facility] [place] [facility] Feb 07, 2024 11:30 AM AMBULATORY - PSYCHIATRY [place] [facility] [place] [facility] Feb 14, 2024 04:30 PM AMBULATORY - PSYCHIATRY [place] [facility] [place] [facility] Feb 19, 2024 01:00 PM AMBULATORY - PSYCHIATRY [place] [facility] [place] [place] [facility] Feb 26, 2024 01:00 PM AMBULATORY - PSYCHIATRY [place] [facility] [place] [facility] Feb 28, 2024 04:30 PM AMBULATORY - PSYCHIATRY [place] [facility] [place] [place] [facility] Mar 14, 2024 05:00 PM AMBULATORY - PSYCHIATRY [place] [facility] [place] [facility] Mar 23, 2024 10:00 AM AMBULATORY - MEDICINE [place] C [facility] [place] [facility] Mar 27, 2024 04:30 PM AMBULATORY - PSYCHIATRY [place] [facility] [place] [facility] Active, Pending, and Scheduled Orders This section includes a listing of several types of active, pending, and scheduled orders, including clinic medications orders, diagnostic test orders, procedure orders and consult orders; where the start date of the order is 45 days before the date of the Encounter or 45 days after the date of theEncounter. The data comes from all [place] treatment [facility]. Test Date/Time Test Type Test Details Facility Name Nov 23, 2023 05:39 PM Consult Order ACUPUNCTUR E/NHM OUTPT Cons Circle Shear Operator's Choice [place] [facility] [place] [facility] Social History: Smoking Status (Most current) and Tobacco Use (All prior to encounter date) This section includes the most current, and the historical, smoking and tobacco- related health factors from the [place] facility where the Encounter took place. Current Smoking Status This section includes the most current smoking, or tobacco-related health factor, from the [place] facility where the Encounter took place. Date/Time Current Smoking Status Comment Chika reyna Nov 16, 2023 10:00 AM VA-TOBACCO QUIT 1 TO < 5 YRS [place] [facility] [place] [facility] Tobacco Use History This section includes a history of the smoking, or tobacco-related health factors, that were collected on or before the date of the Encounter. The data comes from the [place] facility where the Encounter took place. Date/Time Smoking Status/Tobacco Use Comment F acility Nov 16, 2023 10:00 AM VA-TOBACCO QUIT 1 TO < 5 YRS [place] [facility] [place] [facility] Nov 13, 2022 11:00 AM VA-TOBACCO NEVER USED [place] [facility] [place] [facility] July 11, 2021 03:00 PM VA-TOBACCO NEVER USED [place] [facility] [place] [facility] July 09, 2020 09:30 AM VA-TOBACCO NEVER USED [facility] [place] [facility] May 16, 2019 11:51 AM VA-TOBACCO NEVER USED [place] [facility] [place] [facility] Oct 20, 2017 11:04 AM VA-TOBACCO NEVER USED [place] [facility] [place] [place] [facility] May 21, 2017 01:47 PM LIFETIME NON-TOBACCO USER [place] [facility] [place] [facility] Encounter Notes: All associated encounter notes This section contains the clinical notes associated to the Encounter. Date/Time Encounter Note(s) Provider Source Dec 20, 2023 08:31 AM TELEHEALTH NOTE: LOCAL TITLE: VA VIDEO CONNECT [facility] NOTE STANDARD TITLE: TELEHEALTH NOTE DATE OF NOTE: DEC 20, 2023@08:31 ENTRY DATE: DEC 20, 2023@08:31:44 AUTHOR: SUMEET UNDERWOOD COSIGNER: URGENCY: STATUS: COMPLETED VA Video Connect (VVC) Standard Documentation VVC Clinician Resources Only: E911 (Emergency Call Relay Center): [phone] [employer] [facility] Crisis Line - 988 then press #1. YUNG Suicide Coordinator [phone], Ext. [phone]; Back-up Ext. [phone] [place] PoliceYUNG [place] [phone] Introduction: Visit is being conducted by [place] [employer] [facility]. [facility] identified with 2 identifiers: [X] Full Name [X] Date of [ ] VA ID Card Emergency Plan: confirmed and/or provided the following information in case of emergency or technology failure. PATIENT PHONE - PHONE NUMBER [CELLULAR] - NONE FOUND Is patient phone number correct, if not, enter below: 's phone number: JULIÁN ROB JR [address], [place], [address] [facility]'s present location and address for appointment: home address as listed above [facility]'s emergency contact name and phone number: [phone]- mother Pradeep's phone [facility] reported that location is private and safe: Yes Informed Consent: [facility] informed of the risks and benefits of Telehealth video care. [facility] has the right to refuse video services. If refuses video visit, a fvoa-jw-ouhs visit will be scheduled. verbalized consent for this video visit: Yes [facility] provided consent for any other persons present for visit: No If yes, who and relationship to patient: Secure visit: Visit was locked for security and privacy:Yes PC-MHI OUTPATIENT F/U NOTE DURATION: 35 mins Mr. Rob is a 38 year-old, partnered male with a PMH of pain in leg, knee, Achillies, anxiety, and depression. 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 explored how anxiety/stress overall have been better, but some days anxiety may spike. He also explored how he does not experience depression or low mood. 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 He looks forward to acupuncture and will return to [facility] for 1-2 sessions. He denied interest in other MH treatment. 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 He explored how he aims to create more time for relaxation and hobbies just for him, to promote stress reduction, as well as continue with value-driven activities and responsibilities that he can balance and manage, in service of others. He identified benefit of reducing guilt related to activities, exercise, hobbies for himself and improving ability to set limits and boundaries, and say no as appropriate to help reduce burnout/stress. He denied SI/HI. SCREENERS: PHQ-9: 5, mild depression (11/22/23 ABIODUN-7: 6, mild anxiety (11/22/23) DIAGNOSES: Anxiety D/O, Unspecified; Depressive Disorder, Unspecified; Pain in left leg IMPRESSIONS/PLAN: Mr. 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 He has not engaged in MH treatment and symptoms persist despite making many positive health changes (discontinuing use of alhcol tobacco and cannabis and earing healthier). He denied SI/HI. In collaboration with considering evidence-based treatment, clinical judgment and patient preference, options of treatment were offered. He agreed to return to [facility] for brief CBT for depression and anxiety including relaxation training, cognitive restructuring and behavioral activation. He will return to -[facility] for roughly 1-2 individual sessions. He will return to -[facility], 01/02 at 4:30pm [facility]. /mendez/ SUMEET UNDERWOOD, PhD STAFF PSYCHOLOGIST Signed: 12/21/2023 14:09 SUMEET UNDERWOOD [facility]
--- OUTSIDE RECORDS SUMMARY | 2024-03-13 19:48 | XMS_ITS ---
Author Name [facility] [place] Organization [place] Address [address] [place] [address] Care Team Providers Care Chronic Specialist Name Role Phone RAFIA MEDEROS Primary Care Provider Unavailabl e Selected Encounter This section includes the information on record at [place] for the Encounter. Date/Time Encounter Type Encounter Description Reason Pro vider Source Feb 19, 2024 01:00 PM Outpatient Encounter [facility] Encounter Template Text not used by [place] Plan of Treatment: Future Appointments (+ 6 [...] Appointment Type Appointme nt Facility Name Feb 26, 2024 01:00 PM AMBULATORY - PS[place]CHIATRY [place] [facility] [place] [facility] Feb 28, 2024 04:30 PM AMBULATORY - PSYCHIATRY [place] [facility] [place] [facility] Mar 14, 2024 05:00 PM AMBULATORY - PSYCHIATRY [place] [facility] [place] [facility] Mar 23, 2024 10:00 AM AMBULATORY - MEDICINE [place] C [facility] [place] [facility] Mar 27, 2024 04:30 PM [facility] [place] [facility] Active, Pending, and Scheduled Orders This section includes a listing of several types of active, pending, and scheduled orders, including clinic medications orders, diagnostic test orders, procedure orders and consult orders; where the start date of the order is 45 days before the date of the Encounter or 45 days after the date of theEncounter. The data comes from all [place] treatment facilities. Test Date/Time Test Type Test Details Facility Name Feb 07, 2024 11:58 AM Consult Order [facility] OUTPT Cons Activity Director's Choice [place] [facility] [place] [facility] Social History: Smoking Status (Most [...] 16, 2023 10:00 AM [facility] [place] [facility] Tobacco Use History This section includes a history of the smoking, or tobacco-related health factors, that were collected on or before the date of the Encounter. The data comes from the [place] facility where the Encounter took place. Date/Time Smoking Status/Tobacco Use Comment F acility Nov 16, 2023 10:00 AM VA-TOBACCO QUIT 1 TO < 5 YRS [place] [facility] [place] [facility] Nov 13, 2022 11:00 AM VA-TOBACCO NEVER USED [place] [facility] [place] [facility] July 11, 2021 03:00 PM VA-TOBACCO NEVER USED [place] [facility] [place] [facility] July 09, 2020 09:30 AM VA-TOBACCO NEVER USED [place] [facility] [place] [facility] May 16, 2019 11:51 AM VA-TOBACCO NEVER USED [place] [facility] [place] [facility] Oct 20, 2017 11:04 AM VA-TOBACCO NEVER USED [place] [facility] [place] [facility] May 21, 2017 01:47 PM LIFETIME NON-TOBACCO USER [place] [facility] [facility] Encounter Notes: All associated encounter notes This section contains the clinical notes associated to the Encounter. Date/Time Encounter Note(s) Provider Source Feb 19, 2024 01:00 PM CLERICAL NOTE: LOCAL TITLE: APPOINTMENT NO SHOW STANDARD TITLE: CLERICAL NOTE DATE OF NOTE: FEB 19, 2024@13:00 ENTRY DATE: FEB 26, 2024@09:51:47 AUTHOR: THANH HALL COSIGNER: URGENCY: STATUS: COMPLETED Patient Name: JULIÁN PENN JR JR Patient SSN: [id number] Date and time of Appointment No show : 02/19/24 13:00 PATIENT PHONE - PHONE NUMBER [CELLULAR] - Patient's medical record was reviewed. Follow-up actions were determined and initiated: Please check/complete as applies: [ ]Telephoned Directly [X]Re-scheduled for next available appt [ ]Sent a N0-show letter ( must call for appointment) [ ]Other (Emergent/Overbook, etc.): Additional Comments: Future Clinic Visits 02/26/2024 13:00 CWM/NO/MHC/CRANIAL STIM G 02/28/2024 16:30 CWM/NO/VVC/PCMHI/PSYCHO LO 03/23/2024 10:00 CWM/NO/ACUPUNCTURE GRP 1 11/17/2024 10:00 CWM/NO/PACT 2 /es/ THANH HALL,PhD Neuropsychologist Signed: 02/26/2024 09:52 THANH HALL CNTRL WSTRN [facility]
--- OUTSIDE RECORDS SUMMARY | 2024-03-13 19:48 | XMS_ITS ---
Author Name [place] Organization [place] Address [address] [place] [address] Care Team Providers Care Rn Bsn Name Role Phone RAFIA MEDEROS Primary Care Provider Unavailabl e Selected Encounter This section includes the information on record at [place] for the Encounter. Date/Time Encounter Type Encounter Description Reason Provider Source Feb 14, 2024 04:30 PM PSYTX W PT 30 MINUTES PCMHI INDIV ICD-10-CM F41.9 Anxiety disorder, unspecified DEVYN UNDERWOOD E Encounter Template Text not used by [place] Assessments - Encounter Diagnoses This section includes the primary and secondary diagnoses documented for the Encounter. Date/Time Primary/Secondary Diagnosis Diagnosis Name Provider Source Feb 15, 2024 01:21 PM PRIMARY Anxiety disorder, unspecified DEVYN UNDERWOOD [place] [facility] [place] [facility] Feb 15, 2024 01:21 PM SECONDARY Depression, unspecified DEVYN UNDERWOOD [place] [facility] [place] [facility] Feb 15, 2024 01:21 PM SECONDARY Pain in leg, unspecified DEVYN UNDERWOOD [facility] [place] [facility] Plan of Treatment: Future Appointments (+ 6 months) and Future Tests (+/- 45 days) The Plan of Treatment section includes future care activities for the patient from all [place] treatmentfacilities. This section includes future appointments and future orders which are active, pending or scheduled. Future Appointments This section includes appointments that were scheduled to occur 6 months from the date of the Encounter, up to a maximum of 20 appointments. The data comes from all [place] treatment [facility]. Appointment Date/Time Appointment Type Appointme nt Facility Name Feb 19, 2024 01:00 PM AMBULATORY [place]RY [place] [facility] Feb 26, 2024 01:00 PM AMBULATORY - PS[place]CHIATRY [place] [facility] [place] [facility] Feb 28, 2024 04:30 PM AMBULATORY - PSYCHIATRY [place] [facility] [place] [facility] Mar 14, 2024 05:00 PM AMBULATORY [place] [facility] [facility] Mar 23, 2024 10:00 AM AMBULATORY - MEDICINE [place] [facility] Mar 27, 2024 04:30 PM [facility] Active, Pending, and Scheduled Orders This section includes a listing of several types of active, pending, and scheduled orders, including clinic medications orders, diagnostic test orders, procedure orders and consult orders; where the start date of the order is 45 days before the date of the Encounter or 45 days after the date of theEncounter. The data comes from all [facility]. Test Date/Time Test Type Test Details Facility Name Feb 07, 2024 11:58 AM Consult Order [facility] Cons Boxing Instructor's Choice [facility] Social History: Smoking Status (Most current) and Tobacco Use (All prior to encounter date) This section includes the most current, and the historical, smoking and tobacco- related health factors from the [place] facility where the Encounter took place. Current Smoking Status This section includes the most current smoking, or tobacco-related health factor, from the [place] facility where the Encounter took place. Date/Time Current Smoking Status Comment Facil ity Nov 16, 2023 10:00 AM VA-TOBACCO FORMER USER [facility] Tobacco Use History This section includes a history of the smoking, or tobacco-related health factors, that were collected on or before the date of the Encounter. The data comes from the [place] facility where the Encounter took place. Date/Time Smoking Status/Tobacco Use Comment F acility Nov 16, 2023 10:00 AM [place]-TOBACCO QUIT 1 TO < 5 YRS [facility] Nov 13, 2022 11:00 AM VA-TOBACCO NEVER USED [place] [facility] [place] [facility] July 11, 2021 03:00 PM VA-TOBACCO NEVER [...] LIFETIME NON-TOBACCO USER [place] [facility] [place] [facility] Encounter Notes: All associated encounter notes This section contains the clinical notes associated to the Encounter. Date/Time Encounter Note(s) Provider Source Feb 14, 2024 09:51 AM TELEHEALTH NOTE: LOCAL TITLE: VA VIDEO CONNECT PCMHI NOTE STANDARD TITLE: TELEHEALTH NOTE DATE OF NOTE: FEB 14, 2024@09:51 ENTRY DATE: FEB 14, 2024@09:51:14 AUTHOR: SUMEET UNDERWOOD EXP COSIGNER: URGENCY: STATUS: COMPLETED [facility] Video Connect (VVC) Standard Documentation VVC Clinician Resources Only: E911 (Emergency Call Relay Center): [phone] [facility] Crisis Line - 988 then press #1. [facility] Suicide Coordinator [phone], Ext. [phone]; Back-up Ext. [phone] [place] YUNG Fontaine [place] [phone] Introduction: Visit is being conducted by [place] [employer]. identified with 2 identifiers: [X] Full Name [X] Date of [ ] VA ID Card Emergency Plan: [place] confirmed and/or provided the following information in case of emergency or technology failure. PATIENT PHONE - PHONE NUMBER [CELLULAR] - Is patient phone number correct, if not, enter below: [place]'s phone number: JULIÁN ROB JR [address] [place] [address], [address] 's present location and address for appointment: home address listed above 's emergency contact name and phone number: [phone]- mother Pradeep's phone [place] reported that location is private and safe: Yes Informed Consent: [place] informed of the risks and benefits of Telehealth video care. [place] has the right to refuse video services. If refuses video visit, a oqfj-go-eass visit will be scheduled. verbalized consent for this video visit: Yes [place] provided consent for any other persons present for visit: No If yes, who and relationship to patient: Secure visit: Visit was locked for security and privacy:Yes PC-M[facility] OUTPATIENT F/U NOTE DURATION: 35 mins Mr. Rob is a 38 year-old, partnered male [place] with a PMH of pain in leg, knee, Achillies, anxiety, and depression. This was the ninth session between underwriter and . [place] is acclimating to new job and enjoying the work. He is also working toward returning to his previous job of which he has invested many eyras and is vetted. He identified some ambivalence about returning to his previous job, but shared that the benefits and nursing home are better than his current job position. He is working toward abstinence from marijuana and smoked this past weekend but is trying to make this week his last week of smoking so that he can have 30-45 days sober to hopefully return to his previous job at the end of the month. His current temporary job lasts until the end of next month. He explored ways he is preparing mentally for returning to his previous job which is more stressful and requires sobriety from marijuana. He explored how he is working through urges (drinking delaying, using gum and hard candy, closing his eyes and practicing mindfulness, thinking about reasons why it's important, and that he was able to quit alcohol in the past, and can do the same with cannabis, etc.). He identified reasons for and against using. He also expressed interest in [facility] individual therapy treatment. He will return to [facility] for 1-2 sessions until he is established with new [facility] provider. He is benefiting from starting to create healthier routine and working out more often. Furthermore, has informed friends and family about his goals and asking them to not smoke around him. he denied SI/HI. SCREENERS: PHQ-9: 5, mild depression [...] individual sessions. He will return to -[facility], 02/27 at 430pm. /mendez/ SUMEET UNDERWOOD, PhD STAFF PSYCHOLOGIST Signed: 02/15/2024 16:59 SUMEET UNDERWOOD [place] [facility]
--- OUTSIDE RECORDS SUMMARY | 2024-03-13 19:48 | XMS_ITS | Encounter Summary ---
Author Name [facility] [place] Organization [facility] [place] Address [address] [place] [address] Care Team Providers Care Equipment Operation Instructor Name Role Phone DAVID KIM Primary Care Provider Unavailabl e Selected Encounter This section includes the information on record at [place] for the Encounter. Date/Time Encounter Type Encounter Description Reason Provider Source Jan 21, 2024 12:28 PM Outpatient Encounter PRIMARY CARE/MEDICINE DAVID KIM Carmela Encounter Template Text not used by [place] [...] AMBULATORY - PSYCHIATRY [facility] [place] [facility] Feb 07, 2024 10:00 AM AMBULATORY - PSYCHIATRY [facility] [place] [facility] Feb 07, 2024 11:30 AM AMBULATORY - PS[facility]CHIATRY [facility] [place] [facility] Feb 14, 2024 04:30 PM AMBULATORY - PSYCHIATRY [facility] [place] [facility] Feb 19, 2024 01:00 PM AMBULATORY - PSYCHIATRY [facility] [place] [facility] Feb 26, 2024 01:00 PM AMBULATORY - PSYCHIATRY [facility] [place] [facility] Feb 28, 2024 04:30 PM AMBULATORY - PS[facility]CHIATRY [facility] [place] [facility] Mar 14, 2024 05:00 PM AMBULATORY - PSYCHIATRY [facility] [place] [facility] Mar 23, 2024 10:00 AM AMBULATORY - MEDICINE [facility] [place] [facility] Mar 27, 2024 04:30 PM AMBULATORY - PSYCHIATRY [facility] [place] [facility] Active, Pending, and Scheduled Orders This [...] AM Consult Order [facility] OUTPT Cons Glass Processing Worker's Choice [facility] Social History: Smoking Status (Most current) and Tobacco Use (All prior to encounter date) This section includes the most current, and the historical, smoking and tobacco- related health factors from the [facility] facility where the Encounter took place. Current Smoking Status This section includes the most current smoking, or tobacco-related health factor, from the [place] facility where the Encounter took place. Date/Time Current Smoking Status Comment Facil ity Nov 16, 2023 10:00 AM [facility] 1 TO < 5 Y[facility] Tobacco Use History This section includes a history of the smoking, or tobacco-related health factors, that were collected on or before the date of the Encounter. The data comes from the [place] facility where the Encounter took place. Date/Time Smoking Status/Tobacco Use Comment F acility Nov 16, 2023 10:00 AM VA-TOBACCO QUIT 1 TO < 5 YRS [facility] [place] [facility] Nov 13, 2022 11:00 AM VA-TOBACCO NEVER USED [facility] [place] [facility] July 11, 2021 03:00 PM VA-TOBACCO NEVER USED [facility] [place] [facility] July 09, 2020 09:30 AM VA-TOBACCO NEVER USED [facility] [place] [facility] May 16, 2019 11:51 AM VA-TOBACCO NEVER USED [facility] [place] [facility] Oct 20, 2017 11:04 AM VA-TOBACCO NEVER USED [facility] [place] [facility] May 21, 2017 01:47 PM LIFETIME NON-TOBACCO USER [facility] [place] [facility] Encounter Notes: All associated encounter notes This section contains the clinical notes associated to the Encounter. Date/Time Encounter Note(s) Provider Source Jan 21, 2024 12:43 PM PRIMARY CARE SECUR E MESSAGING: LOCAL TITLE: PRIMARY CARE SECURE MESSAGING STANDARD TITLE: PRIMARY CARE SECURE MESSAGING DATE OF NOTE: JAN 21, 2024@12:43 ENTRY DATE: JAN 21, 2024@12:43:41 AUTHOR: DAVID KIM EXP COSIGNER: URGENCY: STATUS: COMPLETED ------Original Message ------- Sent: 01/21/2024 12:36 PM ET From: JULIÁN PENN JR To: [facility] Subject: General:Is there a substance abuse program I can attend? Thank you /mendez/ David Kim MD Staff Physician Signed: 01/21/2024 12:43 DAVID KIM [facility] [place] [facility] Jan 21, 2024 12:28 PM PRIMARY CARE SECUR E MESSAGING: LOCAL TITLE: PRIMARY CARE SECURE MESSAGING STANDARD TITLE: PRIMARY CARE SECURE MESSAGING DATE OF NOTE: JAN 21, 2024@12:28 ENTRY DATE: JAN 21, 2024@12:28:01 AUTHOR: DAVID KIM EXP COSIGNER: URGENCY: STATUS: COMPLETED ------Original Message ------- Sent: 01/21/2024 11:38 AM ET From: JULIÁN PENN JR To: Cristhian [facility] Subject: General:Is there a substance abuse program I can attend? I have a problem smoking weed because of my anxiety. Is there a program I can attend to help me stop. ------Original Message ------- Sent: 01/21/2024 12:27 PM ET From: DAVID KIM To: JULIÁN PENN JR Subject: General:Is there a substance abuse program I can attend? I am pleased that you asked for help. I entered a request for outpatient treatment. They will call you in the next few days to set up the first appointment. /mendez/ David Kim MD Staff Physician Signed: 01/21/2024 12:28 DAVID KIM [facility]
--- OUTSIDE RECORDS SUMMARY | 2024-03-13 19:48 | XMS_ITS | Encounter Summary ---
Author Name [facility] [place] [facility] [place] Address [address] [place] [id number] Care Team Providers Care Pbx Repairer Name Role Phone KIM DAVID Primary Care Provider Unavailabl e Selected Encounter This section includes the information on record at [place] for the Encounter. Date/Time Encounter Type Encounter Description Reason Pro vider Source Nov 23, 2023 05:38 PM Outpatient Encounter PRIMARY CARE/MEDICINE I[facility] Encounter Template Text not used by [place] Plan of Treatment: Future Appointments (+ 6 months) and Future Tests (+/- 45 days) The Plan of Treatment section includes future care activities for the patient from all [place] treatmentfacilities. This section includes future appointments and future orders which are active, pending or scheduled. Future Appointments This section includes appointments that were scheduled to occur 6 months from the date of the Encounter, up to a maximum of 20 appointments. The data comes from all [place] treatment facilities. Appointment Date/Time Appointment Type Appointme nt Facility Name Dec 20, 2023 04:30 PM AMBULATORY - [place]ATRY [place] [facility] [place] [facility] Jan 03, 2024 04:30 PM AMBULATORY - [facility]IATRY [place] [facility] [place] [facility] Jan 31, 2024 04:30 PM AMBULATORY - PS[facility]CHIATRY [facility] [place] [facility] Feb 07, 2024 10:00 AM AMBULATORY - PS[facility]IATRY [place] [facility] [place] [facility] Feb 07, 2024 11:30 AM AMBULATORY - PS[facility]CHIATRY [facility] [place] [facility] Feb 14, 2024 04:30 PM AMBULATORY - PS[facility]CHIATRY [facility] [place] [facility] Feb 19, 2024 01:00 PM AMBULATORY - PS[facility]IATRY [place] [facility] [place] [facility] Feb 26, 2024 01:00 PM AMBULATORY - [facility]IATRY [place] [facility] [place] [facility] Feb 28, 2024 04:30 PM AMBULATORY - [facility]IATRY [place] [facility] [place] [facility] Mar 14, 2024 05:00 PM [facility] Mar 23, 2024 10:00 AM [facility] Mar 27, 2024 04:30 PM [facility] Active, Pending, and Scheduled Orders This section includes a listing of several types of active, pending, and scheduled orders, including clinic medications orders, diagnostic test orders, procedure orders and consult orders; where the start date of the order is 45 days before the date of the Encounter or 45 days after the date of theEncounter. The data comes from all [place] treatment facilities. Test Date/Time Test Type Test Details Facility Name Nov 23, 2023 05:39 PM Consult Order [facility] OUTPT Cons Management Trainee Program Stores's Choice [facility] Lab Results: +/- 30 days of the encounter This section includes the Chemistry and Hematology Lab Results on record with [place] for the patient. Radiology Reports and Pathology Reports are provided separately, in subsequent sections. Lab Results This section contains the Chemistry/Hematology Results that were resulted 30 days before or 30 daysafter the date of the Encounter. Date/Time Source Result Type Result - Unit Interpretation Reference Range Comment Nov 16, 2023 10:39 AM [facility] BASIC METABOLIC PANEL (fasting) Specimen Type: SERUM No comment entered. Ordering Provider: DAVID KIM Report Released Date/Time: Nov 07, 2023 12:06 AM Reporting Lab: [facility] [address] [facility] [id number] Performing Lab: [address] [address] UREA NITROGEN 15 mg/dL 7-25 GLUCOSE 90 mg/dL 65-100 SODIUM 139 mmol/L 135-145 POTASSIUM 5.4 mmol/L H 3.5-5.0 CHLORIDE 106 mmol/L 100-110 CO2 25 meq/L 20-30 CREATININE, Serum 0.94 mg/dL 0.50-1.40 eGFR(CKD-EPI 2020) >90 mL/min >60 Nov 16, 2023 10:39 AM [facility] CBC AND DIFF (AUTO) Specimen Type: BLOOD No comment entered. Ordering Provider: DAVID KIM Report Released Date/Time: Nov 07, 2023 12:06 AM Reporting Lab: [facility] [address] [address] Performing Lab: [facility] [address] [facility] [address] WBC 5.28 10*3/uL 4.50-11.00 RBC 5.16 10*6/uL [...] 10*3/uL 0.00-0.00 Nov 16, 2023 10:39 AM [facility] LIVER FUNCTION Specimen Type: SERUM No comment entered. Ordering Provider: DAVID KIM Report Released Date/Time: Nov 07, 2023 12:06 AM Reporting Lab: [facility] [address] [facility] [address] Performing Lab: [facility] [address] [facility] [address] PROTEIN,TOTAL 7.4 g/dL 6.0-8.3 ALBUMIN 4.3 g/dL 3.5-5.0 ALKALINE PHOSPHATASE 49 U/L 40-150 AST 18 U/L 5-34 ALT 34 U/L BILIRUBIN, TOTAL 0.4 mg/dL 0.2-1.2 Nov 16, 2023 10:39 AM [facility] TSH Specimen Type: SERUM No comment entered. Ordering Provider: DAVID KIM Report Released Date/Time: Nov 07, 2023 12:06 AM Reporting Lab: [facility] [address] [address] Performing Lab: [facility] [address] [facility] [address] TSH 1.25 u[IU]/mL 0.35-5.00 Nov 16, 2023 10:39 AM [facility] LIPID PANEL FASTING Specimen Type: SERUM No comment entered. Ordering Provider: DAVID KIM Report Released Date/Time: Nov 07, 2023 12:06 AM Reporting Lab: [facility] [address] [facility] [address] Performing Lab: [address] [address] CHOLESTEROL 257 mg/dL H TRIGLYCERIDE 375 mg/dL H 0-150 LDL calculated Reflex to dLDL mg/dL 0-129 CHOL/HDL 6.4 HDL CHOLESTEROL 40 mg/dL 40-60 LDL DIRECT 153 mg/dL H Nov 16, 2023 10:39 AM [facility] URIC ACID Specimen Type: SERUM No comment entered. Ordering Provider: DAVID KIM Report Released Date/Time: Nov 07, 2023 12:06 AM Reporting Lab: [facility] [address] [facility] [address] Performing Lab: [address] [address] URIC ACID 9.6 mg/dL H 3.5-7.2 Nov 16, 2023 10:39 AM [facility] URINALYSIS CLEAN CATCH Specimen Type: URINE Comment: If Glucose = >500 and Ketones are positive, please alert the Physician. Ordering Provider: DAVID KIM Report Released Date/Time: Nov 07, 2023 12:06 AM Reporting Lab: [address] [address] Performing Lab: [address] [address] UA COLOR Colorless Yellow UA APPEARANCE Clear [...] and tobacco- related health factors from the [place] facility where the Encounter took place. Current Smoking Status This section includes the most current smoking, or tobacco-related health factor, from the [place] facility where the Encounter took place. Date/Time Current Smoking Status Comment Facil ity Nov 16, 2023 10:00 AM [place]-TOBACCO QUIT 1 TO < 5 YRS [facility] Tobacco Use History This section includes a history of the smoking, or tobacco-related health factors, that were collected on or before the date of the Encounter. The data comes from the [place] facility where the Encounter took place. Date/Time Smoking Status/Tobacco Use Comment F acility Nov 16, 2023 10:00 AM [place]-TOBACCO QUIT 1 TO < 5 YRS [facility] Nov 13, 2022 11:00 AM [place]-TOBACCO NEVER USED [facility] [place] [facility] July 11, 2021 03:00 PM VA-TOBACCO NEVER USED [facility] [place] [facility] July 09, 2020 09:30 AM VA-TOBACCO NEVER USED [facility] [place] [facility] May 16, 2019 11:51 AM VA-TOBACCO NEVER USED [facility] [place] [facility] Oct 20, 2017 11:04 AM VA-TOBACCO NEVER USED [facility] [place] [facility] May 21, 2017 01:47 PM LIFETIME NON-TOBACCO USER [facility] [place] [facility] Encounter Notes: All associated encounter notes This section contains the clinical notes associated to the Encounter. Date/Time Encounter Note(s) Provider Source Nov 23, 2023 05:39 PM PHYSICIAN NOTE: LOCAL TITLE: NOTE STANDARD TITLE: PHYSICIAN NOTE DATE OF NOTE: NOV 23, 2023@17:39 ENTRY DATE: NOV 23, 2023@17:39:37 AUTHOR: DAVID KIM EXP COSIGNER: URGENCY: STATUS: COMPLETED Per request, ordered acupuncture for back pain, neck pain, anxiety and stress. /mendez/ David Kim MD Staff Physician Signed: 11/23/2023 17:40 DAVID KIM [place] [facility] [place] [facility]
--- OUTSIDE RECORDS SUMMARY | 2024-03-13 19:48 | XMS_ITS | Encounter Summary ---
Author Name [facility] [place] Organization [facility] [place] Address [address] [place] [id number] Care Team Providers Care Flat Optical Element Maker Name Role Phone RAFIA KIM Primary Care Provider Unavailabl e Selected Encounter This section includes the information on record at [place] for the Encounter. Date/Time Encounter Type Encounter Description Reason Provider Source Nov 05, 2023 04:00 PM SLEEP STUDY UNATT&RESP EFFT SLEEP STUDY ICD-10-CM G47.33 Obstructive sleep apnea (adult) (pediatric) PAIGE LAURA Carmela Encounter Template Text not used by [place] Assessments - Encounter Diagnoses This section includes the primary and secondary diagnoses documented for the Encounter. Date/Time Primary/Secondary Diagnosis Diagnosis Name Provider Source Nov 05, 2023 04:00 PM PRIMARY Obstructive sleep apnea (adult) (pediatric) PAIGE LAURA [facility] Plan of Treatment: Future Appointments (+ 6 months) and Future Tests (+/- 45 days) The Plan of Treatment section includes future care activities for the patient from all [place] treatmentfacilities. This section includes future appointments and future orders which are active, pending or scheduled. Future Appointments This section includes appointments that were scheduled to occur 6 months from the date of the Encounter, up to a maximum of 20 appointments. The data comes from all [place] treatment facilities. Appointment Date/Time Appointment Type Appointme nt Facility Name Nov 08, 2023 05:00 PM [facility] [place] [facility] [place] [facility] Nov 16, 2023 10:00 AM [facility]ICINE [place] [facility] Nov 22, 2023 04:30 PM [facility] [place] [facility] [place] [facility] Dec 20, 2023 04:30 PM AM[facility]UL[facility]ATRY [facility] [place] [facility] Jan 03, 2024 04:30 PM AM[facility]ATRY [facility] [place] [facility] Jan 31, 2024 04:30 PM [facility]ATRY [facility] [place] [facility] Feb 07, 2024 10:00 AM AMB[facility]RY [facility] [place] [facility] Feb 07, 2024 11:30 AM AMB[facility]ATRY [facility] [place] [facility] Feb 14, 2024 04:30 PM AMBULATORY [facility] PS[facility]IATRY [facility] [place] [facility] Feb 19, 2024 01:00 PM AMBULATORY [facility] PS[facility]IATRY [facility] [place] [facility] Feb 26, 2024 01:00 PM AMBUL[facility]ORY [facility]ATRY [facility] [place] [facility] Feb 28, 2024 04:30 PM AMBULATORY - PS[facility]CHIATRY [facility] [place] [facility] Mar 14, 2024 05:00 PM AMBULATORY - PS[facility]CHIATRY [facility] [place] [facility] Mar 23, 2024 10:00 AM AMBULATORY [place] MEDICINE [place] [facility] [place] [facility] Mar 27, 2024 04:30 PM AMBULATORY - PS[facility]CHIATRY [facility] [place] [facility] Active, Pending, and Scheduled Orders This section includes a listing of several types of active, pending, and scheduled orders, including clinic medications orders, diagnostic test orders, procedure orders and consult orders; where the start date of the order is 45 days before the date of the Encounter or 45 days after the date of theEncounter. The data comes from all [place] treatment facilities. Test Date/Time Test Type Test Details Facility Name Nov 23, 2023 05:39 PM Consult Order LIBRA Casey/BILLY OUTPT Cons Chimney Repairer's Choice [facility] [place] [facility] Lab Results: +/- 30 days of the [...] Range Comment Nov 16, 2023 10:39 AM [facility] BASIC METABOLIC PANEL (fasting) Specimen Type: SERUM No comment entered. Ordering Provider: RAFIA KIM Report Released Date/Time: Nov 07, 2023 12:06 AM Reporting Lab: [facility] [address] [facility] [address] Performing Lab: [address] [address] UREA NITROGEN 15 mg/dL 7-25 GLUCOSE 90 mg/dL 65-100 SODIUM 139 mmol/L 135-145 POTASSIUM 5.4 mmol/L H 3.5-5.0 CHLORIDE 106 mmol/L 100-110 CO2 25 meq/L 20-30 CREATININE, Serum 0.94 mg/dL 0.50-1.40 eGFR(CKD-EPI 2020) >90 mL/min >60 Nov 16, 2023 10:39 AM [facility] CBC AND DIFF (AUTO) Specimen Type: BLOOD No comment entered. Ordering Provider: RAFIA KIM Report Released Date/Time: Nov 07, 2023 12:06 AM Reporting Lab: [facility] [address] [facility] [address] Performing Lab: [address] [address] WBC 5.28 10*3/uL 4.50-11.00 RBC 5.16 10*6/uL [...] 10*3/uL 0.00-0.00 Nov 16, 2023 10:39 AM [facility] LIVER FUNCTION Specimen Type: SERUM No comment entered. Ordering Provider: RAFIA KIM Report Released Date/Time: Nov 07, 2023 12:06 AM Reporting Lab: [address] [address] Performing Lab: [address] [address] PROTEIN,TOTAL 7.4 g/dL 6.0-8.3 ALBUMIN 4.3 g/dL 3.5-5.0 ALKALINE PHOSPHATASE 49 U/L 40-150 AST 18 U/L 5-34 ALT 34 U/L BILIRUBIN, TOTAL 0.4 mg/dL 0.2-1.2 Nov 16, 2023 10:39 AM [facility] TSH Specimen Type: SERUM No comment entered. Ordering Provider: RAFIA KIM Report Released Date/Time: Nov 07, 2023 12:06 AM Reporting Lab: [address] [address] Performing Lab: [address] [address] TSH 1.25 u[IU]/mL 0.35-5.00 Nov 16, 2023 10:39 AM [facility] LIPID PANEL FASTING Specimen Type: SERUM No comment entered. Ordering Provider: RAFIA KIM Report Released Date/Time: Nov 07, 2023 12:06 AM Reporting Lab: [facility] [address] [facility] [address] Performing Lab: [address] [address] CHOLESTEROL 257 mg/dL H TRIGLYCERIDE 375 mg/dL H 0-150 LDL calculated Reflex to dLDL mg/dL 0-129 CHOL/HDL 6.4 HDL CHOLESTEROL 40 mg/dL 40-60 LDL DIRECT 153 mg/dL H Nov 16, 2023 10:39 AM [facility] URIC ACID Specimen Type: SERUM No comment entered. Ordering Provider: RAFIA KIM Report Released Date/Time: Nov 07, 2023 12:06 AM Reporting Lab: [facility] [address] [facility] [address] Performing Lab: [address] [address] URIC ACID 9.6 mg/dL H 3.5-7.2 Nov 16, 2023 10:39 AM [facility] URINALYSIS CLEAN CATCH Specimen Type: URINE Comment: If Glucose = >500 and Ketones are positive, please alert the Physician. Ordering Provider: RAFIA KIM Report Released Date/Time: Nov 07, 2023 12:06 AM Reporting Lab: [facility] [address] [facility] [address] Performing Lab: [address] [address] UA COLOR Colorless Yellow UA APPEARANCE Clear Clear UA GLUCOSE Normal mg/dL Negative UA KETONES NEGATIVE mg/dL Negative UA BLOOD NEGATIVE mg/dL Negative UA PROTEIN NEGATIVE mg/dL Negative UA NITRITE NEGATIVE mg/dL Negative UA BILIRUBIN NEGATIVE mg/dL Negative UA SPECIFIC GRAVITY 1.017 1.016-1.022 UA pH 6.0 5.0-9.0 UA UROBILINOGEN Normal mg/dL <2.0 UA LEUKOCYTE NEGATIVE Negative Encounter Notes: All associated encounter notes This section contains the clinical notes associated to the Encounter. Date/Time Encounter Note(s) Provider Source Nov 05, 2023 04:01 PM SLEEP MEDICINE DIAGNOSTIC STUDY REPORT: LOCAL TITLE: SLEEP STUDY RESULTS LETTER (GT) STANDARD TITLE: SLEEP MEDICINE DIAGNOSTIC STUDY REPORT DATE OF NOTE: NOV 05, 2023@16:01 ENTRY DATE: NOV 05, 2023@16:01:16 AUTHOR: MELANIA LAURAIGNER: URGENCY: STATUS: COMPLETED JULIÁN CHEEK JR [facility] [place] [address] Date:NOV 05, 2023 Dear Julián Rob Jr, JR, You recently had a sleep test that showed obstructive sleep apnea. We will have you follow up with your referring provider, Dr. Kim to further discuss sleep study results. Thank you, Dr. Melania Laura Sleep Medicine Physician [address] [address] MELANIA LAURA [facility] Nov 05, 2023 04:00 PM SLEEP MEDICINE CONSULT: LOCAL TITLE: Sleep Study Interpretation Consult Note STANDARD TITLE: SLEEP MEDICINE CONSULT DATE OF NOTE: NOV 05, 2023@16:00:23 ENTRY DATE: NOV 05, 2023@16:00:24 AUTHOR: MELANIA LAURAIGNER: URGENCY: STATUS: COMPLETED [facility] [facility] HOME SLEEP APNEA TEST - NOXT3 Study date: 10/07/2023 Name (Last, First): JULIÁN ROB SSN: [id number] : 1985 Requesting Provider: RAFIA KIM IMPRESSION - Mild obstructive sleep apnea (AG) based on an KIRK-3% of 7.8 /hr. The supine KIRK-3% was 16.1/hr and the non-supine KIRK-3% was 5.9/hr. - The oxygen saturation justina was 81.0%. The mean oxygen saturation was 94.5%. The time spent below 90% was 0.9 minutes or 0.2% of the validated monitoring time. RECOMMENDATIONS - 1.The study showed evidence of mild obstructive sleep apnea (AG). Depending on symptoms and comorbidities, treatment may be indicated. If patient is symptomatic, can offer APAP 5-20 cm H20 to se if it helps with patient sleep symptoms. If started on APAP, clinical follow-up as well as follow-up of download data is necessary to ensure efficacy and compliance with this treatment modality. 2. Since this [place] receives his care at [facility] system, ordering of the CPAP unit will be through the referring [place] provider. Follow up can occur in [place]. 3. Patient can also be seen in sleep clinic for guidance of treatment of AG. Patient can be seen in sleep clinic at the Clinical Video Telehealth (CVT) sleep study clinic at [facility] or at [facility] in [place]. Please place the the sleep clinic consult if is to be seen. 4. Patient should avoid sleeping in supine position. 5. A copy of this report will be forwarded to the referring provider. 6. The will receive a letter with the summary of sleep study results. 7. Current [employer] recommendations for treatment of obstructive sleep apnea includes 1) positive airway pressure (PAP) as initial therapy, and alternative therapy may include oral appliance therapy, ENT evaluation for upper airway surgery; Inspire/hypoglossal nerve stimulator therapy. Treatment also includes weight reduction if BMI is elevated, avoidance of sleeping in the supine position and reduction of alcohol and medications that contribute to upper airway relaxation. STUDY TECHNIQUE AND DEFINITIONS This home sleep apnea test was performed using an unattended type 3 portable monitor with at least 4 recorded channels including airflow, dual thoracoabdominal respiratory effort belts (with RIP), oximetry, pulse rate, actigraphy, body position, and snore sensor. Study was scored and interpreted based on AASM guidelines. PATIENT HISTORY Indication for study: Evaluate for sleep apnea 38 year old Male with BMI of 30 (weight 205.30 lbs, height 69 inches) ESS: 6 Sleep Symptoms: snoring Active Problem List: - Hypercholesterolemia ([facility] [id number]) - Sleep disorder ([facility] [id number]) - Achilles tendinitis ([facility] [id number]) - Pain in leg ([facility] [id number]) - Abdominal pain ([facility] [id number]) - Knee pain ([facility] [id number]) Medication(s): COLCHICINE 0.6MG TAB, DICLOFENAC NA 1% TOP GEL, IBUPROFEN 800MG TAB, IBUPROFEN TAB Night 1 (2023-10-07): Total monitoring time (MT)*: 387.3 minutes Recording start time: 10:51 PM Recording stop time: 8:51 AM Total recording Time (TRT)*: 600.0 minutes STUDY DETAILS Signal Quality: Oximeter: 98.6%, Nasal cannula: 0.7%, Thorax: 100.0%, Abdomen: 100.0% RESPIRATORY PARAMETERS KIRK-3% was 7.8 /hr KIRK-4% was 3.6 /hr Hypopnea index was 6.7 /hr* Obstructive Apnea Index was 0.2 /hr* Central Apnea Index was 0.9 /hr* Mixed Apnea Index was 0.0 /hr* *For percentage of total, see scored report in [employer]. Breakdown of total respiratory events: 43 hypopneas (3% rule), 1 obstructive apneas, 0 mixed apneas, and 6 central apneas. Supine KIRK-3% was 16.1 /hr (in 70.8 minutes) Non-supine KIRK-3% was 5.9 /hr (in 316.1 minutes) Patient snored for 30.8 minutes during the study. BODY POSITION Supine sleep was 70.8 minutes (18.3% of MT) Non-supine sleep was 316.1 minutes (81.6% of MT) *For breakdown of non-supine data see scored report in [employer]. OXIMETRY МАРИЯ-3% was 9.6 /hr МАРИЯ-4% was 3.7 /hr Mean oxygen saturation was 94.5% Lowest oxygen saturation was 81.0% Average desaturation drop was 3.5% Average low desaturation was 92.5% Saturations < 90%: 0.9 minutes (0.2% of MT) Saturations <= 88%: 0.3 minutes (0.1% of MT) Saturations < 85%: 0.1 minutes (0.0% of MT) Saturations <80%: 0 minutes (0.0% of MT) HEART RATE STATISTICS (BPM) Mean: 54.1; Min: 43.0; Max: 97.0 Data Definitions *Monitoring time (MT): Estimated total sleep time calculated as total recording time minus periods of artifact and time the patient was determined to be awake as determined by actigraphy, body position sensor, and/or respiratory pattern by electrical test technician or interpreting provider. Movement time greater than 15 seconds and upright time are automatically excluded from monitoring time. Upright angle is >53.13 degrees, unless manually adjusted based on history of patient (recliner, head of bed elevation, etc). All respiratory parameters are calculated using MT. *Total Recording Time (TRT): Total time from when the recorder was turned on to when the recorder was turned off, in minutes. * Excluded Data: Epochs marked as Invalid Data will be excluded from the report calculations. * Movement Time: Epochs determined to be Movement Time (greater than 15 seconds) are estimated as wake and are excluded from the KIRK calculation * Respiratory Event Index (KIRK): Total number of respiratory events x60 divided by monitoring time. KIRK is a surrogate for Apnea Hypopnea Index (AHI). *Oxygen Desaturation Index (МАРИЯ): Total number of desaturation events x60 divided by monitoring time Position changes when at least 5 seconds of continuous position is found. The minimum upright position is at 53.13 angle. Movement is detected when the activity signal exceeds a threshold of 0.2 for a minimum of 1 second(s). Apneas are scored where there is a 90% drop in the Flow signal between 10 and 120 seconds. Hypopneas are scored where there is a 30% drop in the Flow signal between 10 and 120 seconds followed by either a drop in saturation of at least 3%, or an arousal. A tachycardia is added when the heart rate exceeds 90bpm for at least 30 seconds. Bradycardia is scored when the heart rate falls below 40bpm for at least 30 seconds. Limb movements are detected when EMG amplitude is above 5 times background activity for at least 0.5 seconds, but no more than 10 seconds. PLMs are detected when at least 4 limb movements occur within a minimum interval of 5 seconds and a maximum interval 90 seconds. An ECG artifact filter is applied to the leg EMG signals. LMs from all channels are combined into one PLM score. LMs are not scored if they start 0.5 seconds before an apnea, hypopnea or a RERA, or 0.5 seconds following the event. LMs are not scored if they start during movement. LMs are not scored if they start during periods of wake. Desaturations are marked when the SpO2 values drop by at least 3% for a minimum duration of 3 seconds with a plateau of no more than 45 seconds. /mendez/ MELANIA LAURA MD ATTENDING Signed: 11/05/2023 16:00 MELANIA LAURA [facility]
--- OUTSIDE RECORDS SUMMARY | 2024-03-13 19:49 | XMS_ITS ---
Author Name [facility] [place] Organization [facility] [place] [place] Address [address] [place] [address] Care Team Providers Care Development Advisor Name Role Phone RAFIA MEDEROS Primary Care Provider Unavailabl e Selected Encounter This section includes the information on record at [place] for the Encounter. Date/Time Encounter Type Encounter Description Reason Pro vider Source Oct 25, 2023 05:[address] [facility] Template Text not used by [place] [...] Date/Time Appointment Type Appointme nt Facility Name Oct 29, 2023 01:30 PM AM[place]ULATORY [place]IC[place] [facility] [place] [facility] Nov 08, 2023 05:00 PM AMBULATORY [place]IATRY [place] [facility] [place] [facility] Nov 16, 2023 10:00 AM AM[place]ORY [place]ICINE [place] [facility] [place] [facility] Nov 22, 2023 04:30 PM AMBULATORY - PS[place]IATRY [place] [facility] [place] [facility] Dec 20, 2023 04:30 PM [facility]BUL[facility]ORY [place]IATRY [place] [facility] [place] [facility] Jan 03, 2024 04:30 PM [facility] [place]IATRY [place] [facility] [place] [facility] Jan 31, 2024 04:30 PM [facility] [place]IATRY [place] [facility] [place] [facility] Feb 07, 2024 10:00 AM [facility] - PS[facility]IATRY [facility] [place] [facility] Feb 07, 2024 11:30 AM [facility]BULAT[facility] - PS[facility]CHIATRY [facility] [place] [facility] Feb 14, 2024 04:30 PM AMBULATORY - [place]IATRY [place] [facility] [place] [facility] Feb 19, 2024 01:00 PM AMBULATORY - PS[place]CHIATRY [place] [facility] [place] [facility] Feb 26, 2024 01:00 PM AMBULATORY - PS[place]CHIATRY [place] [facility] [place] [facility] Feb 28, 2024 04:30 PM AMBUL[facility]ORY - [place]IATRY [place] [facility] [place] [facility] Mar 14, 2024 05:00 PM AMBULATORY [place] PS[place]IATRY [place] [facility] [place] [facility] Mar 23, 2024 10:00 AM AMBULATORY - MEDICINE [place] [facility] [place] [facility] Mar 27, 2024 04:30 PM AMBULATORY - PS[place]CHIATRY [place] [facility] [place] [facility] Active, Pending, and Scheduled Orders [...] PM Consult Order LIBRA Casey/BILLY OUTPT Cons Medication Administration Professional[facility] Lab Results: +/- 30 days of the [...] Range Comment Nov 16, 2023 10:39 [facility] BASIC METABOLIC PANEL (fasting) Specimen Type: SERUM No comment entered. Ordering Provider: RAFIA MEDEROS Report Released Date/Time: Nov 07, 2023 12:06 AM Reporting Lab: [facility] [address] [facility] [address] Performing Lab: [address] [address] UREA NITROGEN 15 mg/dL 7-25 GLUCOSE 90 mg/dL 65-100 SODIUM 139 mmol/L 135-145 POTASSIUM 5.4 mmol/L H 3.5-5.0 CHLORIDE 106 mmol/L 100-110 CO2 25 meq/L 20-30 CREATININE, Serum 0.94 mg/dL 0.50-1.40 eGFR(CKD-EPI 2020) >90 mL/min >60 Nov 16, 2023 10:39 AM [facility] CBC AND DIFF (AUTO) Specimen Type: BLOOD No comment entered. Ordering Provider: RAFIA MEDEROS Report Released Date/Time: Nov 07, 2023 12:06 AM Reporting Lab: [facility] [address] [facility] [address] Performing Lab: [address] [address] WBC 5.28 10*3/uL 4.50-11.00 RBC 5.16 10*6/uL [...] 10*3/uL 0.00-0.00 Nov 16, 2023 10:39 AM [facility] LIVER FUNCTION Specimen Type: SERUM No comment entered. Ordering Provider: RAFIA MEDEROS Report Released Date/Time: Nov 07, 2023 12:06 AM Reporting Lab: [address] [address] Performing Lab: [address] [address] PROTEIN,TOTAL 7.4 g/dL 6.0-8.3 ALBUMIN 4.3 g/dL 3.5-5.0 ALKALINE PHOSPHATASE 49 U/L 40-150 AST 18 U/L 5-34 ALT 34 U/L BILIRUBIN, TOTAL 0.4 mg/dL 0.2-1.2 Nov 16, 2023 10:39 AM [facility] TSH Specimen Type: SERUM No comment entered. Ordering Provider: RAFIA MEDEROS Report Released Date/Time: Nov 07, 2023 12:06 AM Reporting Lab: [address] [address] Performing Lab: [address] [address] TSH 1.25 u[IU]/mL 0.35-5.00 Nov 16, 2023 10:39 AM [facility] LIPID PANEL FASTING Specimen Type: SERUM No comment entered. Ordering Provider: RAFIA MEDEROS Report Released Date/Time: Nov 07, 2023 12:06 AM Reporting Lab: [address] [address] Performing Lab: [address] [address] CHOLESTEROL 257 mg/dL H TRIGLYCERIDE 375 mg/dL H 0-150 LDL calculated Reflex to dLDL mg/dL 0-129 CHOL/HDL 6.4 HDL CHOLESTEROL 40 mg/dL 40-60 LDL DIRECT 153 mg/dL H Nov 16, 2023 10:39 AM [facility] URIC ACID Specimen Type: SERUM No comment entered. Ordering Provider: RAFIA MEDEROS Report Released Date/Time: Nov 07, 2023 12:06 AM Reporting Lab: [address] [address] Performing Lab: [address] [address] URIC ACID 9.6 mg/dL H 3.5-7.2 Nov 16, 2023 10:39 AM [facility] URINALYSIS CLEAN CATCH Specimen Type: URINE Comment: If Glucose = >500 and Ketones are positive, please alert the Physician. Ordering Provider: RAFIA MEDEROS Report Released Date/Time: Nov 07, 2023 12:06 AM Reporting Lab: [address] [address] Performing Lab: [address] [address] UA COLOR Colorless Yellow UA APPEARANCE Clear [...] Chika reyna Nov 13, 2022 11:00 AM [place]-TO[place]ACCO NEVER USED [facility] Tobacco Use History This section includes a history of the smoking, or tobacco-related health factors, that were collected on or before the date of the Encounter. The data comes from the [place] facility where the Encounter took place. Date/Time Smoking Status/Tobacco Use Comment F [email or web address] July 11, 2021 03:00 PM [place]-TO[place]ACCO NEVER USED [place] [facility] [place] [facility] July 09, 2020 09:30 AM VA-TOBACCO NEVER USED [facility] [place] [facility] May 16, 2019 11:51 AM VA-TOBACCO NEVER USED [facility] [place] [facility] Oct 20, 2017 11:04 AM VA-TOBACCO NEVER USED [place] [facility] [place] [facility] May 21, 2017 01:47 PM LIFETIME NON-TOBACCO USER [place] [facility] [facility] Encounter Notes: All associated encounter notes This section contains the clinical notes associated to the Encounter. Date/Time Encounter Note(s) Provider Source Oct 26, 2023 09:43 AM CLERICAL NOTE: LOCAL TITLE: APPOINTMENT NO SHOW STANDARD TITLE: CLERICAL NOTE DATE OF NOTE: OCT 26, 2023@09:43 ENTRY DATE: OCT 26, 2023@09:43:59 AUTHOR: SUMEET UNDERWOOD COSIGNER: URGENCY: STATUS: COMPLETED Patient Name: JULIÁN PENN JR JR Patient SSN: [id number] Date and time of Appointment No show : 10/25/23 17:00 PATIENT PHONE - PHONE NUMBER [CELLULAR] - NONE FOUND Patient's medical record was reviewed. Follow-up actions were determined and initiated: Please check/complete as applies: [X]Telephoned Directly [X]Re-scheduled for next available appt [ ]Sent a N0-show letter ( must call for appointment) [ ]Other (Emergent/Overbook, etc.): Additional Comments: Cutlery Grinder called [place] [facility] five minutes into the start of the video appointment and reached him. He shared that he unexpectedly was asked to stay longer at work and [facility]. He apologized and he was rescheduled for 11/07 at 5pm. Future Clinic Visits 11/08/2023 17:00 CWM/NO/VVC/PCMHI/PSYCHOL O 11/16/2023 10:00 YUNG/AQUILES/[place] 2 /es/ SUMEET UNDERWOOD, PhD STAFF PSYCHOLOGIST Signed: 10/26/2023 13:09 SUMEET UNDERWOOD [place] [facility]
--- OUTSIDE RECORDS SUMMARY | 2024-03-13 19:49 | XMS_ITS | Encounter Summary ---
Author Name [facility] [place] Organization [place] Address [address] [place] [address] Care Team Providers Care Sales Enablement Specialist Name Role Phone ROSA M DAVID Primary Care Provider Unavailabl e Selected Encounter This section includes the information on record at [place] for the Encounter. Date/Time Encounter Type Encounter Description Reason Pro vider Source Apr 16, 2023 06:36 PM Outpatient Encounter PRIMARY CARE/MEDICINE IHE Encounter Template Text not used by [place] Plan of Treatment: Future Appointments (+ 6 [...] Date/Time Appointment Type Appointme nt Facility Name May 14, 2023 08:00 AM AMBULATORY - MEDICINE [place] [facility] [place] [facility] May 20, 2023 04:30 PM AMBULATORY - [place]ICINE [place] [facility] [place] [facility] July 20, 2023 01:00 PM AMBULATORY - MEDICINE [place] [facility] [place] [facility] Aug 02, 2023 01:00 PM AMBULATORY - PSYCHIATRY [place] [facility] [place] [facility] Aug 16, 2023 04:00 PM AMBULATORY - PS[place]CHIATRY [place] [facility] [place] [facility] Aug 30, 2023 04:00 PM AMBULATORY - PS[place]CHIATRY [place] [facility] [place] [facility] Sep 13, 2023 05:00 PM AMBULATORY - PS[place]CHIATRY [place] [facility] [place] [facility] Sep 17, 2023 10:00 AM AMBULATORY - MEDICINE [place] [facility] [place] [facility] Sep 22, 2023 01:30 PM AMBULATORY - NONE [place] [facility] Social History: Smoking Status (Most [...] 13, 2022 11:00 AM VA-TOBACCO [facility] Tobacco Use History This section includes a history of the smoking, or tobacco-related health factors, that were collected on or before the date of the Encounter. The data comes from the [place] facility where the Encounter took place. Date/Time Smoking Status/Tobacco Use Comment F acility July 11, 2021 03:00 PM VA-TOBACCO NEVER USED [place] [facility] [place] [facility] July 09, 2020 09:30 AM VA-TOBACCO NEVER USED [place] [facility] [place] [facility] May 16, 2019 11:51 AM VA-TOBACCO NEVER USED [place] [facility] [place] [facility] Oct 20, 2017 11:04 AM VA-TOBACCO NEVER USED [place] [facility] [place] [facility] May 21, 2017 01:47 PM LIFETIME NON-TOBACCO USER [place] [facility] Radiology Reports: +/- 30 days of the encounter Radiology Reports For cases when an order for radiology services may have been completed prior to the date of the Encounter, the report list includes the Radiology Reports that were completed up to 30 days before dateof the Encounter. For cases when an order for radiology services may have been completed after the date of the Encounter, the report list also includes the Radiology Reports that were completed up to30 days after date of the Encounter. The data comes from all [place] treatment facilities. Date/Time Radiology Report Provider Source Apr 14, 2023 09:42 AM ANKLE 3 OR MORE VIEWS(LEFT): ISAMAR,JULIÁN JR Villalpando [id number] -1985 M Exm Date: APR 14, 2023@09:42 Req Phys: DAVID KIM Loc: CWM/NO/PACT 2 (Req'g Loc) Img Loc: [facility] 1 Service: Unknown (Case [id number] COMPLETE) ANKLE 3 OR MORE VIEWS(LEFT) (RAD Detailed) CPT:33188 Reason for Study: pain, look for fracture Clinical History: Report Status: Verified Date Reported: APR 15, 2023 Date Verified: APR 15, 2023 Raw Products Director E-Sig: Report: ANKLE 3 OR MORE VIEWS(LEFT) Clinical History: pain, look for fracture Comparison: No priors available Findings: 3 views submitted. No joint effusion or acute fracture. Dorsal and plantar calcaneal enthesopathy. Mild tibiotalar joint degenerative changes. Talar dome is intact and the ankle mortise is preserved. Localized focal prominence of the distal Achilles tendon just superior to the attachment. Please correlate clinically. Impression: Localized thickening of the distal Achilles tendon just superior to its calcaneal attachment in a patient with prior Achilles tendon surgery may represent tendinopathy. Please correlate. Dorsal and plantar calcaneal enthesopathy. Mild tibiotalar joint degenerative changes. READING PHYSICIAN: Malick Fatima -[phone] 04/15/2023 7:14 EST [facility] National Teleradiology Program [phone] (For Medical Practitioner Use Only) Attention Patients / Veterans: If you have questions or concerns about these test results, please contact your ordering provider or primary care team. Primary Diagnostic Code: SIGNIFICANT ABNORMALITY, ATTN NEEDED Primary Interpreting Staff: RADIOLOGY,OUTSIDE SERVICE, Staff Physician / RADIOLOGY,OUTSIDE SERVICE [place] [facility] [place] [facility] Apr 14, 2023 09:42 AM FOOT 3 OR MORE VIEWS(LEFT): JULIÁN PENN JR Villalpando [id number] -1985 M Exm Date: APR 14, 2023@09:42 Req Phys: DAVID KIM Loc: CWM/NO/PACT 2 (Req'g Loc) Img Loc: [facility] 1 Service: Unknown (Case [id number] COMPLETE) FOOT 3 OR MORE VIEWS(LEFT) (RAD Detailed) CPT:75359 Proc Modifiers : LEFT CPT Modifiers : LT LEFT SIDE Reason for Study: pain, look for fracture Clinical History: Report Status: Verified Date Reported: APR 15, 2023 Date Verified: APR 15, 2023 Raw Products Director E-Sig: Report: FOOT 3 OR MORE VIEWS(LEFT) Clinical History: pain, look for fracture Comparison: No priors available Findings: 3 views of the left foot have been submitted including weightbearing lateral view. Mild pes cavus deformity. There is a well-defined lytic lesion involving the base of the proximal phalanx of the great toe measuring approximately 1.2 x 1.2 cm with minimal endosteal scalloping. Differential diagnosis includes intraosseous ganglion, bone cyst, however genic lesion such as enchondroma and possibly giant cell tumor given the epiphysial location. No associated pathologic fracture. Mild first MTP joint degenerative changes minimal midfoot degenerative changes. Calcaneal enthesopathy. Impression: 1. Well-defined lytic lesion involving the base of the proximal phalanx of the great toe with the differential diagnosis as provided above. Given that one of the considerations is a a giant cell tumor,an MRI with and without contrast is recommended for further assessment. 2. Mild first MTP joint degenerative changes. Mild pes cavus deformity. 3. Calcaneal enthesopathy READING PHYSICIAN: Malick Fatima -[phone] 04/15/2023 7:18 EST [facility] National Teleradiology Program [phone] (For Medical Practitioner Use Only) Attention Patients / Veterans: If you have questions or concerns about these test results, please contact your ordering provider or primary care team. Primary Diagnostic Code: SIGNIFICANT ABNORMALITY, ATTN NEEDED Primary Interpreting Staff: RADIOLOGY,OUTSIDE SERVICE, Staff Physician / RADIOLOGY,OUTSIDE SERVICE [place] [facility] Encounter Notes: All associated encounter notes This section contains the clinical notes associated to the Encounter. Date/Time Encounter Note(s) Provider Source Apr 16, 2023 06:36 PM PHYSICIAN NOTE: LOCAL TITLE: MD CLARKE STANDARD TITLE: PHYSICIAN NOTE DATE OF NOTE: APR 16, 2023@18:36 ENTRY DATE: APR 16, 2023@18:36:37 AUTHOR: DAVID KIM EXP COSIGNER: URGENCY: STATUS: COMPLETED Called patient to discuss result of recent x-rays. Left general message on voicemail. /mendez/ David Kim MD Staff Physician Signed: 04/16/2023 18:37 DAVID KIM [place] [facility]
--- OUTSIDE RECORDS SUMMARY | 2024-03-13 19:49 | XMS_ITS ---
Author Name [facility] [place] Organization [place] Address [address] [place] [address] Care Team Providers Care Chiropractic Care Name Role Phone RAFIA MEDEROS Primary Care Provider Unavailabl e Selected Encounter This section includes the information on record at [place] for the Encounter. Date/Time Encounter Type Encounter Description Reason Provider Source Aug 16, 2023 04:00 PM PSYTX W PT 30 MINUTES PCMHI INDIV ICD-10-CM F41.9 Anxiety disorder, unspecified DEVYN UNDERWOOD E Encounter Template Text not used by [place] Assessments - Encounter Diagnoses This section includes the primary and secondary diagnoses documented for the Encounter. Date/Time Primary/Secondary Diagnosis Diagnosis Name Provider Source Aug 17, 2023 09:52 AM PRIMARY Anxiety disorder, unspecified DEVYN UNDERWOOD [place] [facility] [facility] [place] [facility] Aug 17, 2023 09:52 AM SECONDARY Depression, unspecified DEVYN UNDERWOOD [place] [facility] [facility] [place] [facility] Aug 17, 2023 09:52 AM SECONDARY Pain in leg, unspecified DEVYN UNDERWOOD [facility] [place] [facility] Plan of Treatment: Future Appointments (+ 6 months) and Future Tests (+/- 45 days) The Plan of Treatment section includes future care activities for the patient from all [place] treatmentfacilities. This section includes future appointments and future orders which are active, pending or scheduled. Future Appointments This section includes appointments that were scheduled to occur 6 months from the date of the Encounter, up to a maximum of 20 appointments. The data comes from all [place] treatment facilities. Appointment Date/Time Appointment Type Appointme nt Facility Name Aug 30, 2023 04:00 PM AMBULATORY - PSYCHIATRY [place] [facility] [place] [facility] Sep 13, 2023 05:00 PM AMBULATORY - PSYCHIATRY [place] [facility] [place] [facility] Sep 17, 2023 10:00 AM AMBULATORY - MEDICINE [place] [facility] [place] [facility] Sep 22, 2023 01:30 PM AMBULATORY - NONE [place] [facility] [place] [facility] Oct 18, 2023 05:00 PM AMBULATORY - PSYCHIATRY [place] [facility] [place] [facility] Oct 25, 2023 05:00 PM AMBULATORY - PSYCHIATRY [place] [facility] [place] [facility] Oct 29, 2023 01:30 PM AMBULATORY - MEDICINE [place] [facility] [place] [facility] Nov 08, 2023 05:00 PM AMBULATORY - PSYCHIATRY [place] [facility] [place] [facility] Nov 16, 2023 10:00 AM AMBULATORY - MEDICINE [place] [facility] [facility] Nov 22, 2023 04:30 PM AMBULATORY - PSYCHIATRY [place] [facility] [place] [facility] Dec 20, 2023 04:30 PM AMBULATORY - PSYCHIATRY [place] [facility] [place] [facility] Jan 03, 2024 04:30 PM AMBULATORY - PSYCHIATRY [place] [facility] [place] [facility] Jan 31, 2024 04:30 PM AMBULATORY - PSYCHIATRY [place] [facility] [place] [facility] Feb 07, 2024 10:00 AM AMBULATORY - PSYCHIATRY [place] [facility] [place] [facility] Feb 07, 2024 11:30 AM AMBULATORY - PSYCHIATRY [place] [facility] [place] [facility] Feb 14, 2024 04:30 PM AMBULATORY - PSYCHIATRY [place] [facility] [place] [facility] Social History: Smoking Status (Most current) and Tobacco Use (All prior to encounter date) This section includes the most current, and the historical, smoking and tobacco- related health factors from the [place] facility where the Encounter took place. Current Smoking Status This section includes the most current smoking, or tobacco-related health factor, from the [place] facility where the Encounter took place. Date/Time Current Smoking Status Jahaira reyna Nov 13, 2022 11:00 AM VA-TOBACCO NEVER USED [place] [facility] [facility] Tobacco Use History This section includes a history of the smoking, or tobacco-related health factors, that were collected on or before the date of the Encounter. The data comes from the [place] facility where the Encounter took place. Date/Time Smoking Status/Tobacco Use Comment F acility July 11, 2021 03:00 PM VA-TOBACCO NEVER USED [place] [facility] [place] [facility] July 09, 2020 09:30 AM VA-TOBACCO NEVER USED [facility] [place] [facility] May 16, 2019 11:51 AM VA-TOBACCO NEVER USED [place] [facility] [place] [facility] Oct 20, 2017 11:04 AM VA-TOBACCO NEVER USED [place] [facility] [place] [facility] May 21, 2017 01:47 PM LIFETIME NON-TOBACCO USER [place] [facility] [place] [facility] Encounter Notes: All associated encounter notes This section contains the clinical notes associated to the Encounter. Date/Time Encounter Note(s) Provider Source Aug 16, 2023 06:04 AM TELEHEALTH NOTE: LOCAL TITLE: VA VIDEO CONNECT PCMNV NOTE STANDARD TITLE: TELEHEALTH NOTE DATE OF NOTE: AUG 16, 2023@06:04 ENTRY DATE: AUG 16, 2023@06:04:13 AUTHOR: SUMEET UNDERWOOD COSIGNER: URGENCY: STATUS: COMPLETED VA Video Connect (VVC) Standard Documentation VVC Clinician Resources Only: E911 (Emergency Call Relay Center): [phone] National Veterans Crisis Line - 988 then press #1. [facility] Suicide Coordinator [phone], Ext. [phone]; Back-up Ext. [phone] [place] Police, Gavin BARRAGAN [phone] Introduction: Visit is being conducted by [place] Video Connect. identified with 2 identifiers: [X] Full Name [X] Date of [ ] VA ID Card Emergency Plan: [place] confirmed and/or provided the following information in case of emergency or technology failure. PATIENT PHONE - PHONE NUMBER [CELLULAR] - NONE FOUND Is patient phone number correct, if not, enter below: 's phone number: JULIÁN ROB JR [address] [place] [address], [address] 's present location and address for appointment: [address] [place] [address] [place]'s emergency contact name and phone number: [phone]- mother Pradeep's phone [place] reported that location is private and safe: Yes Informed Consent: informed of the risks and benefits of Telehealth video care. has the right to refuse video services. If refuses video visit, a xvuw-je-fsaw visit will be scheduled. verbalized consent for this video visit: Yes provided consent for any other persons present for visit: No If yes, who and relationship to patient: Secure visit: Visit was locked for security and privacy:Yes __ PC-MHI OUTPATIENT F/U NOTE DURATION: 30 mins Mr. Rob is a 38 year-old, partnered male with a PMH of pain in leg, knee, Achillies, anxiety, and depression. 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 He explored how he immediately responds in social interactions before speaking, very often, and realizes there is room to improve communication and manage mood and expectations as well. Options of topics to explore for today were reviewed and he chose styles of communication, assertiveness skills and was oriented to healthy and unhealthy ways of giving and receiving power. He identified habits of passive, passive aggressive, and aggressive communication and how he is working on assertiveness. Other assertiveness tips were explored and benefits of creating and establishing healthy limits and boundaries with others. He identified how resentment and anger can build when not asserting needs often and clearly enough. He also identified room to summarize what others have shared and room to validate their emotions before igniting problem solving. He denied SI/HI. Related handouts were mailed to the [place]. SCREENERS: PHQ-9: 6, mild depression, somewhat difficult [...] were offered. He agreed to return to [facility] for brief CBT for depression and anxiety including relaxation training, cognitive restructuring and behavioral activation. He will return to [facility] for roughly 2-3, individual sessions. He will return to -[facility], 08/29 at 4pm, [facility]. [facility], ASPIRATION, PURPOSE, VALUES, AND SHARED GOALS MAP and values discussed /es/ SUMEET UNDERWOOD, PhD STAFF PSYCHOLOGIST Signed: 08/17/2023 10:46 SUMEET UNDERWOOD [place] [facility]
--- OUTSIDE RECORDS SUMMARY | 2024-03-13 19:49 | XMS_ITS ---
Author Name Department of [place]a [place] Organization [place] Address [address] [place] [address] Care Team Providers Care Nail Making Machine Setter Name Role Phone RAFIA MEDEROS Primary Care Provider Unavailabl e Selected Encounter This section includes the information on record at [place] for the Encounter. Date/Time Encounter Type Encounter Description Reason Pro vider Source July 16, 2023 10:42 AM Outpatient Encounter ADMIN PAT ACTIVTIES (MASNONCT) IHE Encounter Template Text not used by [place] Plan of Treatment: Future Appointments (+ 6 months) and Future Tests (+/- 45 days) The Plan of Treatment section includes future care activities for the patient from all [place] treatmentfacilities. This section includes future appointments and future orders which are active, pending or scheduled. Future Appointments This section includes appointments that were scheduled to occur 6 months from the date of the Encounter, up to a maximum of 20 appointments. The data comes from all [place] treatment facilities. Appointment Date/Time Appointment Type Appointme nt Facility Name July 20, 2023 01:00 PM AMBULATORY - MEDICINE [place] [facility] [place] [facility] Aug 02, 2023 01:00 PM AMBULATORY - PSYCHIATRY [place] [facility] [place] [facility] Aug 16, 2023 04:00 PM AMBULATORY - PSYCHIATRY [place] [facility] [facility] Aug 30, 2023 04:00 PM AMBULATORY - PSYCHIATRY [place] [facility] [place] [facility] Sep 13, 2023 05:00 PM AMBULATORY - PSYCHIATRY [place] [facility] [facility] Sep 17, 2023 10:00 AM AMBULATORY - MEDICINE [place] [facility] [place] [facility] Sep 22, 2023 01:30 PM AMBULATORY - NONE [place] [facility] [place] [facility] Oct 18, 2023 05:00 PM AMBULATORY - PSYCHIATRY [place] [facility] [place] [facility] Oct 25, 2023 05:00 PM AMBULATORY - PSYCHIATRY [place] [facility] [place] [facility] Oct 29, 2023 01:30 PM AMBULATORY - MEDICINE [place] [facility] [place] [facility] Nov 08, 2023 05:00 PM AMBULATORY - PSYCHIATRY [place] [facility] [place] [facility] Nov 16, 2023 10:00 AM AMBULATORY - MEDICINE [place] [facility] [place] [facility] Nov 22, 2023 04:30 PM AMBULATORY - PSYCHIATRY [place] [facility] [place] [facility] Dec 20, 2023 04:30 PM AMBULATORY - PSYCHIATRY [place] [facility] [place] [facility] Jan 03, 2024 04:30 PM AMBULATORY - PSYCHIATRY [place] [facility] [place] [facility] Social History: Smoking Status (Most current) and Tobacco Use (All prior to encounter date) This section includes the most current, and the historical, smoking and tobacco- related health factors from the [place] facility where the Encounter took place. Current Smoking Status This section includes the most current smoking, or tobacco-related health factor, from the [place] facility where the Encounter took place. Date/Time Current Smoking Status Comment Chika reyna Nov 13, 2022 11:00 AM VA-TOBACCO NEVER USED [place] [facility] [place] [facility] Tobacco Use History This section includes a history of the smoking, or tobacco-related health factors, that were collected on or before the date of the Encounter. The data comes from the [place] facility where the Encounter took place. Date/Time Smoking Status/Tobacco Use Comment F acility July 11, 2021 03:00 PM VA-TOBACCO NEVER USED [place] [facility] [place] [facility] July 09, 2020 09:30 AM VA-TOBACCO NEVER USED [place] [facility] [place] [facility] May 16, 2019 11:51 AM VA-TOBACCO NEVER USED [place] [facility] [place] [facility] Oct 20, 2017 11:04 AM VA-TOBACCO NEVER USED [place] [facility] [place] [facility] May 21, 2017 01:47 PM [facility]ET[facility] Encounter Notes: All associated encounter notes This section contains the clinical notes associated to the Encounter. Date/Time Encounter Note(s) Provider Source July 16, 2023 01:03 PM ADDENDUM: LOCAL TITLE: Addendum STANDARD TITLE: ADDENDUM DATE OF NOTE: JULY 16, 2023@13:03:12 ENTRY DATE: JULY 16, 2023@13:03:14 AUTHOR: SNEHA GERARDO EXP COSIGNER: URGENCY: STATUS: COMPLETED please schedule, any timeframe /es/ Sneha Gerardo RN, REY Primary Care Signed: 07/16/2023 13:03 Receipt Acknowledged By: 07/16/2023 14:19 /mendez/ PACO MIRANDA ADVANCED WASTEWATER PLANT OPERATOR === --- Original Document --- 07/16/23 CCC: SCHEDULING ADMINISTRATION: Patient Demographics Patient Name: JULIÁN PENN Patient Primary Phone: [phone] Patient Primary [address]: [address] [place] [address] Patient : 1985 Patient Age: 38 Call Back Number: [phone] Caller/Recipient Relation to Patient: Self Administrative Administrative Note Reason: Other Administrative Note Comments: patient reported needed to Schedule primary care appointment regarding fmla paper work need, patient declined triage nurse needed, deferred to primary care to assist /mendez/ RADHA RENEE 1 [facility] A[facility] Signed: 07/16/2023 10:42 Receipt Acknowledged By: 07/16/2023 13:03 /mendez/ Sneha Gerardo RN, BSN Primary Care * AWAITING SIGNATURE * VIPIN DOLAN 07/16/2023 ADDENDUM STATUS: UNSIGNED You may not VIEW this UNSIGNED Addendum. S[facility]HA G[facility]ARDO [facility] July 16, 2023 10:42 AM ADMINISTRATIVE NOTE: LOCAL TITLE: CCC: SCHEDULING ADMINISTRATION STANDARD TITLE: ADMINISTRATIVE NOTE DATE OF NOTE: JULY 16, 2023@10:42:23 ENTRY DATE: JULY 16, 2023@10:42:23 AUTHOR: RADHA BOOKER EXP COSIGNER: URGENCY: STATUS: COMPLETED CCC: SCHEDULING ADMINISTRATION Has ADDENDA Patient Demographics Patient Name: JULIÁN PENN Patient Primary Phone: [phone] Patient Primary [address]: [address] [place] [address] Patient : 1985 Patient Age: 38 Call Back Number: [phone] Caller/Recipient Relation to Patient: Self Administrative Administrative Note Reason: Other Administrative Note Comments: patient reported needed to Schedule primary care appointment regarding fmla paper work need, patient declined triage nurse needed, deferred to primary care to assist /mendez/ RADHA RENEE 1 [facility] Signed: 07/16/2023 10:42 Receipt Acknowledged By: 07/16/2023 13:03 /mendez/ Sneha Gerardo RN, BSN Primary Care 07/16/2023 15:49 /mendez/ VIPIN DOLAN LPN STUDIO ASSOCIATE 07/16/2023 ADDENDUM STATUS: COMPLETED please schedule, any timeframe /wkabena Gerardo RN, BSN Primary Care Signed: 07/16/2023 13:03 Receipt Acknowledged By: 07/16/2023 14:19 /mendez/ PACO MIRANDA ADVANCED WASTEWATER PLANT OPERATOR 07/16/2023 ADDENDUM STATUS: COMPLETED Test Carrier spoke to , scheduled an appoinment July 20, 2023. /mendez/ PACO MIRANDA ADVANCED WASTEWATER PLANT OPERATOR Signed: 07/16/2023 14:19 RADHA BOOKER [facility]
--- OUTSIDE RECORDS SUMMARY | 2024-03-13 19:49 | XMS_ITS ---
Author Name [facility] [place] Organization [place] Address [address] [place] [address] Care Team Providers Care Property Handler Name Role Phone RAFIA MEDEROS Primary Care Provider Unavailabl e Selected Encounter This section includes the information on record at [place] for the Encounter. Date/Time Encounter Type Encounter Description Reason Pro vider Source May 13, 2023 12:00 AM Outpatient Encounter EVENT (HISTORICAL) IHE Encounter Template Text not used by [place] Plan of Treatment: Future Appointments (+ 6 [...] 20 appointments. The data comes from all [place] treatment facilities. Appointment Date/Time Appointment Type Appointme nt Facility Name May 14, 2023 08:00 AM AMBULATORY [place]ICINE [place] [facility] [facility] May 20, 2023 04:30 PM AMBULATORY - MEDICINE [place] [facility] July 20, 2023 01:00 PM AMBULATORY - MEDICINE [place] [facility] [facility] Aug 02, 2023 01:00 PM AMBULATORY - PSYCHIATRY [place] [facility] [place] [facility] Aug 16, 2023 04:00 PM AMBULATORY - PSYCHIATRY [place] [facility] [place] [facility] Aug 30, 2023 04:00 PM AMBULATORY - PSYCHIATRY [place] [facility] [place] [facility] Sep 13, 2023 05:00 PM AMBULATORY - PSYCHIATRY [place] [facility] [place] [facility] Sep 17, 2023 10:00 AM AMBULATORY - MEDICINE [place] [facility] [place] [facility] Sep 22, 2023 01:30 PM AMBULATORY - NONE [place] [facility] [place] [facility] Oct 18, 2023 05:00 PM AMBULATORY - PSYCHIATRY [place] [facility] [place] [facility] Oct 25, 2023 05:00 PM AMBULATORY - PSYCHIATRY [place] [facility] [place] [facility] Oct 29, 2023 01:30 PM AMBULATORY - MEDICINE [place] [facility] [facility] Nov 08, 2023 05:00 PM AMBULATORY [facility] [place] [facility] Social History: Smoking Status (Most [...] place. Date/Time Current Smoking Status Comment Chika ity Nov 13, 2022 11:00 AM VA-TOBACCO [facility] Tobacco Use History This section includes a history of the smoking, or tobacco-related health factors, that were collected on or before the date of the Encounter. The data comes from the [place] facility where the Encounter took place. Date/Time Smoking Status/Tobacco Use Comment F acility July 11, 2021 03:00 PM VA-TOBACCO NEVER USED [place] [facility] [facility] July 09, 2020 09:30 AM VA-TOBACCO NEVER USED [place] [facility] [facility] May 16, 2019 11:51 AM VA-TOBACCO NEVER USED [place] [facility] [facility] Oct 20, 2017 11:04 AM VA-TOBACCO NEVER USED [place] [facility] [facility] May 21, 2017 01:47 PM [facility] [place] [facility] Radiology Reports: +/- 30 days [...] the Encounter. The data comes from all [place] treatment facilities. Date/Time Radiology Report Provider Source Apr 14, 2023 09:42 AM ANKLE 3 OR MORE VIEWS(LEFT): JULIÁN PENN JR [id number] -1985 Ex Date: APR 14, 2023@09:42 Req Phys: RAFIA MEDEROS Loc: CWM/NO/PACT 2 (Req'g Loc) Img Loc: [facility] 1 Service: Unknown (Case [id number] COMPLETE) ANKLE 3 OR MORE VIEWS(LEFT) (RAD Detailed) CPT:46053 Reason for Study: pain, look for fracture Clinical History: Report Status: Verified Date Reported: APR 15, 2023 Date Verified: APR 15, 2023 Painter Decorator E-Sig: Report: ANKLE 3 OR MORE VIEWS(LEFT) [...] tibiotalar joint degenerative changes. READING PHYSICIAN: Malick [id number] 04/15/2023 7:14 EST [facility] National Teleradiology Program [phone] (For Medical Practitioner Use Only) Attention Patients / Veterans: If you have questions or concerns about these test results, please contact your ordering provider or primary care team. Primary Diagnostic Code: SIGNIFICANT ABNORMALITY, ATTN NEEDED Primary Interpreting Staff: RADIOLOGY,OUTSIDE SERVICE, Staff Physician / RADIOLOGY,OUTSIDE SERVICE [place] [facility] Apr 14, 2023 09:42 AM FOOT 3 OR MORE VIEWS(LEFT): ISAMARJULIÁN JR [id number] -1985 M Exm Date: APR 14, 2023@09:42 Req Phys: RAFIA MEDEROS Loc: CWM/NO/PACT 2 (Req'g Loc) Img Loc: [facility] 1 Service: Unknown (Case [id number] COMPLETE) FOOT 3 OR MORE VIEWS(LEFT) (RAD Detailed) CPT:54928 Proc Modifiers : LEFT CPT Modifiers : LT LEFT SIDE Reason for Study: pain, look for fracture Clinical History: Report Status: Verified Date Reported: APR 15, 2023 Date Verified: APR 15, 2023 Painter Decorator E-Sig: Report: FOOT 3 OR MORE VIEWS(LEFT) [...] deformity. 3. Calcaneal enthesopathy READING PHYSICIAN: Malick [id number] 04/15/2023 7:18 EST [facility] National Teleradiology Program [phone] (For Medical Practitioner Use Only) Attention Patients / Veterans: If you have questions or concerns about these test results, please contact your ordering provider or primary care team. Primary Diagnostic Code: SIGNIFICANT ABNORMALITY, ATTN NEEDED Primary Interpreting Staff: RADIOLOGY,OUTSIDE SERVICE, Staff Physician / RADIOLOGY,OUTSIDE SERVICE [place] [facility] [place] [facility] Encounter Notes: All associated encounter notes This section contains the clinical notes associated to the Encounter. Date/Time Encounter Note(s) Provider Source May 13, 2023 12:00 AM NONVA CONSULT: LOCAL TITLE: COMMUNITY CARE-CONSULT RESULT NOTE STANDARD TITLE: NONVA CONSULT DATE OF NOTE: MAY 13, 2023 ENTRY DATE: SEP 06, 2023@10:19:54 AUTHOR: HOME HAAS EXP COSIGNER: URGENCY: STATUS: COMPLETED VistA Imaging - Scanned Document SCANNED DOCUMENT SIGNATURE NOT REQUIRED Electronically Filed: 09/06/2023 by: HOME PARMAR [facility]
--- OUTSIDE RECORDS SUMMARY | 2024-03-13 19:49 | XMS_ITS | Encounter Summary ---
Author Name Department of Vetera Affairs [place] Organization [place] Address [address] [place] [id number] Care Team Providers Care Silo Erector Name Role Phone DAVID KIM Primary Care Provider Unavailabl e Selected Encounter This section includes the information on record at [place] for the Encounter. Date/Time Encounter Type Encounter Description Reason Provider Source Apr 05, 2023 11:33 AM Outpatient Encounter TELEPHONE TRIAGE GEO EARLY Encounter Template Text not used by [place] [...] Date/Time Appointment Type Appointme nt Facility Name Apr 14, 2023 09:00 AM AMBULATORY - MEDICINE [place] [facility] [facility] Apr 14, 2023 09:36 AM AMBULATORY - NONE [place] [facility] [place] [facility] May 14, 2023 08:00 AM AMBULATORY - MEDICINE [place] [facility] [place] [facility] May 20, 2023 04:30 PM AMBULATORY - MEDICINE IN [place] [facility] [place] [facility] July 20, 2023 01:00 PM AMBULATORY - MEDICINE [place] [facility] [place] [facility] Aug 02, 2023 01:00 PM AMBULATORY - PSYCHIATRY [place] [facility] [place] [facility] Aug 16, 2023 04:00 PM AMBULATORY - PSYCHIATRY [place] [facility] [place] [facility] Aug 30, 2023 04:00 PM AMBULATORY - PSYCHIATRY [place] [facility] [place] [facility] Sep 13, 2023 05:00 PM AMBULATORY - PSYCHIATRY [place] [facility] [place] [facility] Sep 17, 2023 10:00 AM AMBULATORY - MEDICINE IN [place] [facility] [place] [facility] Sep 22, 2023 01:30 PM AMBULATORY - NONE [facility] Social History: Smoking Status (Most [...] 13, 2022 11:00 AM [facility]AC[facility] Tobacco Use History This section includes a history of the smoking, or tobacco-related health factors, that were collected on or before the date of the Encounter. The data comes from the [place] facility where the Encounter took place. Date/Time Smoking Status/Tobacco Use Comment F acility July 11, 2021 03:00 PM VA-TOBACCO NEVER USED IN [facility] [place] [facility] July 09, 2020 09:30 AM VA-TOBACCO NEVER USED IN [facility] [place] [facility] May 16, 2019 11:51 AM VA-TOBACCO NEVER USED IN [facility] [place] [facility] Oct 20, 2017 11:04 AM VA-TOBACCO NEVER USED IN [facility] [place] [facility] May 21, 2017 01:47 PM LIFETIME [facility]BACCO [facility] Radiology Reports: +/- 30 days [...] the Encounter. The data comes from all [place] treatment facilities. Date/Time Radiology Report Provider Source Apr 14, 2023 09:42 AM FOOT 3 OR MORE VIEWS(LEFT): JULIÁN PENN JR Irasema [id number] -1985 M Exm Date: APR 14, 2023@09:42 Req Phys: DAVID KIM Loc: CWM/NO/PACT 2 (Req'g Loc) Img Loc: [facility] 1 Service: Unknown (Case [id number] COMPLETE) FOOT 3 OR MORE VIEWS(LEFT) (RAD Detailed) CPT:45741 Proc Modifiers : LEFT CPT Modifiers : LT LEFT SIDE Reason for Study: pain, look for fracture Clinical History: Report Status: Verified Date Reported: APR 15, 2023 Date Verified: APR 15, 2023 Fish Roe Technician E-Sig: Report: FOOT 3 OR MORE VIEWS(LEFT) [...] 3. Calcaneal enthesopathy READING PHYSICIAN: Malick Fatima -[id number] 04/15/2023 7:18 EST [facility] National Teleradiology Program [phone] (For Medical Practitioner Use Only) Attention Patients / Veterans: If you have questions or concerns about these test results, please contact your ordering provider or primary care team. Primary Diagnostic Code: SIGNIFICANT ABNORMALITY, ATTN NEEDED Primary Interpreting Staff: RADIOLOGY,OUTSIDE SERVICE, Staff Physician / RADIOLOGY,OUTSIDE SERVICE [facility] Apr 14, 2023 09:42 AM ANKLE 3 OR MORE VIEWS(LEFT): SUKUMAR PENNIO Irasema [id number] -1985 M Exm Date: APR 14, 2023@09:42 Req Phys: DAVID KIM Loc: CWM/NO/PACT 2 (Req'g Loc) Img Loc: [facility] 1 Service: Unknown (Case [id number] COMPLETE) ANKLE 3 OR MORE VIEWS(LEFT) (RAD Detailed) CPT:55156 Reason for Study: pain, look for fracture Clinical History: Report Status: Verified Date Reported: APR 15, 2023 Date Verified: APR 15, 2023 Fish Roe Technician E-Sig: Report: ANKLE 3 OR MORE VIEWS(LEFT) [...] tibiotalar joint degenerative changes. READING PHYSICIAN: Malick [id number] 04/15/2023 7:14 EST [facility] National Teleradiology Program [phone] (For Medical Practitioner Use Only) Attention Patients / Veterans: If you have questions or concerns about these test results, please contact your ordering provider or primary care team. Primary Diagnostic Code: SIGNIFICANT ABNORMALITY, ATTN NEEDED Primary Interpreting Staff: RADIOLOGY,OUTSIDE SERVICE, Staff Physician / RADIOLOGY,OUTSIDE SERVICE [facility] Encounter Notes: All associated encounter notes This section contains the clinical notes associated to the Encounter. Date/Time Encounter Note(s) Provider Source Apr 07, 2023 09:13 AM ADDENDUM: LOCAL TITLE: Addendum STANDARD TITLE: ADDENDUM DATE OF NOTE: APR 07, 2023@09:13:06 ENTRY DATE: APR 07, 2023@09:13:07 AUTHOR: DAVID KIM COSIGNER: URGENCY: STATUS: COMPLETED Please make appointment within 2 weeks. /mendez/ David Kim MD Staff Physician Signed: 04/07/2023 09:13 Receipt Acknowledged By: 04/07/2023 09:21 /es/ OSMIN BRITTANIE COLLINS AMSA === --- Original Document --- 04/05/23 CCC: CLINICAL TRIAGE: Patient Demographics Patient Name: JULIÁN PENN Patient Primary Address: [address] [place] [address] Patient Primary Phone: [phone] Patient : 1985 Patient Age: 37 Caller/Recipient Relation to Patient: Self Emergency Contact: UNK UNK Triage Summary Conducted triage/discussed symptoms Pain Score: 8 (Severe Pain) Utilized the Triage Tool: Yes Chief Complaint: Foot Pain System WHEN: Now Nurse's Recommendation / WHEN: Now System WHERE: Emergency department Nurse's Recommendation / WHERE: ED Other Patient Disposition Patient/Caregiver agrees to plan of care: Yes Patient is Urgent or Emergent Nursing Plan and Disposition Referred patient to higher level of care Instructed to go to Emergency Room (ER) Advised of Financial Disclaimer: Patient advised that recommendation for care provided during the call does not constitute an approval or authorization for payment by the [place] or its staff. Patient advised to report a community ED visit to the [facility] Office of Community Care at within 72 hours. Nurse Summary Nurse Summary: reports new onset of left foot pain that includes his Achilles tendon. He reports that the pain radiates up into his left knee and hip. Clinical Contact Center Codes Clinic/Location: CWM PHONE CCC RN TXCC Triage Complete Triage Note: Phone Triage 05 Apr 2023 16:26:11 +0000 [facility] Demographics 37 y/o Male Results CC: Foot Pain Software suggested: Now Software suggested follow-up location: Emergency department Values and Measures Duration of CC: 1 Weeks Positive Responses HPI: heel erythema, worsening HPI: heel pain, severe HPI: skin lump, swollen, painful, over the heel VS: temperature not taken Negative Responses Denies: HPI: foot injury, within past 2 days Denies: HPI: leg pain, localized to ankle /mendez/ OSCAR EARLY Signed: 04/05/2023 11:33 Receipt Acknowledged By: 04/06/2023 11:01 /es/ Sneha Gerardo RN, BSN Primary Care 04/07/2023 09:13 /es/ David Kim MD Staff Physician 04/07/2023 ADDENDUM STATUS: COMPLETED AMSA spoke with [facility] and is scheduled for 04/14/23 at 9am in Primary Care. /mendez/ OSMIN COLLINS AMSA Signed: 04/07/2023 09:22 DAVID KIM [place] [facility] Apr 05, 2023 11:33 AM RN PROGRESS NOTE: LOCAL TITLE: CCC: CLINICAL TRIAGE STANDARD TITLE: RN PROGRESS NOTE DATE OF NOTE: APR 05, 2023@11:33:43 ENTRY DATE: APR 05, 2023@11:33:43 AUTHOR: OSCAR EARLY EXP COSIGNER: URGENCY: STATUS: COMPLETED CCC: CLINICAL TRIAGE Has ADDENDA Patient Demographics Patient Name: JULIÁN PENN Patient Primary Address: [address] [place] [address] Patient Primary Phone: [phone] Patient : 1985 Patient Age: 37 Caller/Recipient Relation to Patient: Self Emergency Contact: UNK UNK Triage Summary Conducted triage/discussed symptoms Pain Score: 8 (Severe Pain) Utilized the Triage Tool: Yes Chief Complaint: Foot Pain System WHEN: Now Nurse's Recommendation / WHEN: Now System WHERE: Emergency department Nurse's Recommendation / WHERE: ED Other Patient Disposition Patient/Caregiver agrees to plan of care: Yes Patient is Urgent or Emergent Nursing Plan and Disposition Referred patient to higher level of care Instructed to go to Emergency Room (ER) Advised of Financial Disclaimer: Patient advised that recommendation for care provided during the call does not constitute an approval or authorization for payment by the [place] or its staff. Patient advised to report a community ED visit to the [facility] at within 72 hours. Nurse Summary Nurse Summary: [facility] reports new onset of left foot pain that includes his Achilles tendon. He reports that the pain radiates up into his left knee and hip. Clinical Contact Center Codes Clinic/Location: V1 CWM PHONE CCC RN TXCC Triage Complete Triage Note: Phone Triage 05 Apr 2023 16:26:11 +0000 [facility] Demographics 37 y/o Male Results CC: Foot Pain Software suggested: Now Software suggested follow-up location: Emergency department Values and Measures Duration of CC: 1 Weeks Positive Responses HPI: heel erythema, worsening HPI: heel pain, severe HPI: skin lump, swollen, painful, over the heel VS: temperature not taken Negative Responses Denies: HPI: foot injury, within past 2 days Denies: HPI: leg pain, localized to ankle /mendez/ OSCAR EARLY Signed: 04/05/2023 11:33 Receipt Acknowledged By: 04/06/2023 11:01 /mendez/ Sneha Gerardo RN, BSN Primary Care 04/07/2023 09:13 /mendez/ David Kim MD Staff Physician 04/07/2023 ADDENDUM STATUS: COMPLETED Please make appointment within 2 weeks. /mendez/ David Kim MD Staff Physician Signed: 04/07/2023 09:13 Receipt Acknowledged By: 04/07/2023 09:21 /mendez/ OSMIN LINDSAY 04/07/2023 ADDENDUM STATUS: COMPLETED NEFTALI spoke with [facility] and is scheduled for 04/14/23 at 9am in Primary Care. /mendez/ OSMIN LINDSAY Signed: 04/07/2023 09:22 OSCAR EARLY CNTL [facility]
--- OUTSIDE RECORDS SUMMARY | 2024-03-13 19:49 | XMS_ITS | Encounter Summary ---
Author Name Department of Vetera Affairs [place] Organization [place] Address [address] [place] [address] Care Team Providers Care Plant Nursery Worker Name Role Phone DAVID KIM Primary Care Provider Unavailabl e Selected Encounter This section includes the information on record at [place] for the Encounter. Date/Time Encounter Type Encounter Description Reason Pro vider Source Aug 06, 2023 05:45 PM Outpatient Encounter PRIMARY CARE/MEDICINE IHE Encounter Template Text not used by [place] Plan of Treatment: Future Appointments (+ 6 months) and Future Tests (+/- 45 days) The Plan of Treatment section includes future care activities for the patient from all [place] treatmentfacilities. This section includes future appointments and future orders which are active, pending or scheduled. Future Appointments This section includes appointments that were scheduled to occur 6 months from the date of the Encounter, up to a maximum of 20 appointments. The data comes from all [place] treatment facilities. Appointment Date/Time Appointment Type Appointme nt Facility Name Aug 16, 2023 04:00 PM AMBULATORY - PSYCHIATRY [place] [facility] [place] [facility] Aug 30, 2023 04:00 PM AMBULATORY - PSYCHIATRY [place] [facility] [place] [facility] Sep 13, 2023 05:00 PM AMBULATORY - PSYCHIATRY [place] [facility] [place] [facility] Sep 17, 2023 10:00 AM AMBULATORY - MEDICINE [place] [facility] [place] [facility] Sep 22, 2023 01:30 PM AMBULATORY - NONE [place] [facility] [place] [facility] Oct 18, 2023 05:00 PM AMBULATORY - PSYCHIATRY [place] [facility] [facility] Oct 25, 2023 05:00 PM AMBULATORY - PSYCHIATRY [place] [facility] [place] [facility] Oct 29, 2023 01:30 PM AMBULATORY - MEDICINE [place] C [facility] [place] [facility] Nov 08, 2023 05:00 PM AMBULATORY - PSYCHIATRY [place] [facility] [facility] Nov 16, 2023 10:00 AM AMBULATORY - MEDICINE [place] C [facility] [place] [facility] Nov 22, 2023 04:30 PM AMBULATORY - PSYCHIATRY [place] [facility] [facility] Dec 20, 2023 04:30 PM AMBULATORY - PSYCHIATRY [place] [facility] [facility] Jan 03, 2024 04:30 PM AMBULATORY - PSYCHIATRY [place] [facility] [place] [facility] Jan 31, 2024 04:30 PM AMBULATORY - PSYCHIATRY [place] [facility] [place] [facility] Social History: Smoking Status (Most current) and Tobacco Use (All prior to encounter date) This section includes the most current, and the historical, smoking and tobacco- related health factors from the [place] facility where the Encounter took place. Current Smoking Status This section includes the most current smoking, or tobacco-related health factor, from the [place] facility where the Encounter took place. Date/Time Current Smoking Status Comment Chika reyna Nov 13, 2022 11:00 AM VA-TOBACCO [facility] Tobacco Use History This section includes a history of the smoking, or tobacco-related health factors, that were collected on or before the date of the Encounter. The data comes from the [place] facility where the Encounter took place. Date/Time Smoking Status/Tobacco Use Comment F acility July 11, 2021 03:00 PM VA-TOBACCO NEVER USED VA [facility] [place] [facility] July 09, 2020 09:30 AM VA-TOBACCO NEVER USED VA [facility] [place] [facility] May 16, 2019 11:51 AM VA-TOBACCO NEVER USED VA [facility] [place] [facility] Oct 20, 2017 11:04 AM VA-TOBACCO NEVER USED VA [facility] [place] [facility] May 21, 2017 01:47 PM LIFETIME NON-TOBACCO USER [place] [facility] [place] [facility] Encounter Notes: All associated encounter notes This section contains the clinical notes associated to the Encounter. Date/Time Encounter Note(s) Provider Source Aug 06, 2023 05:48 PM LETTERS: LOCAL TITLE: PATIENT LETTER (T) STANDARD TITLE: LETTERS DATE OF NOTE: AUG 06, 2023@17:48 ENTRY DATE: AUG 06, 2023@17:48:40 AUTHOR: DAVID KIM EXP COSIGNER: URGENCY: STATUS: COMPLETED DEPARTMENT OF [facility] Toll Free Number Primary Care Telephone Assistance can be reached at extension [phone] [facility] scheduling can be reached at extension [phone] [facility] scheduling can be reached at ext [phone] JULIÁN JR ISAMAR [address], [address] August 06, 2023 [place], Please find enclosed a copy of recent testing. MRI left foot with and without contrast [facility] 05-20-2023 Impression: 1. Within the base of the first proximal phalanx there is a simple appearing subchondral cyst measuring up to 1.4 cm with minimal adjacent marrow edema. 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 No associated cortical erosion or expansion. Overall moderate first metatarsophalangeal osteoarthritis which appears slightly progressed when compared to the radiographs from 2017. 2. Focal marrow edema within the fourth metatarsal head with mild adjacent soft tissue edema. Findings could indicate a stress reaction or osseous contusion. No associated fracture line. 3. Small fourth and trace fifth metatarsophalangeal joint effusions. Given the multifocal joint effusions, an inflammatory arthropathy could be considered in the appropriate clinical setting. Please contact me if you have questions. Respectfully, David Kim MD Sincerely, Your Primary Care Team [facility] [address] [facility] [address] [place] [address] [place] [address] [phone] [facility] [address] [place] [address] [place] [address] [phone] [facility] [address] [facility] [place] [id number] [place] [address] DAVID KIM [facility] Aug 06, 2023 05:48 PM PRIMARY CARE TELEPHONE ENCOUNTER NOTE: LOCAL TITLE: TELEPHONE NOTE/PRIMARY CARE STANDARD TITLE: PRIMARY CARE TELEPHONE ENCOUNTER NOTE DATE OF NOTE: AUG 06, 2023@17:48 ENTRY DATE: AUG 06, 2023@17:48:11 AUTHOR: DAVID KIM EXP COSIGNER: URGENCY: STATUS: COMPLETED Discussed with patient for 10 minutes. Discussed recent results of MRI left foot. Ordered podiatry consult for further evaluation. /mendez/ David Kim MD Staff Physician Signed: 08/06/2023 17:48 DAVID KIM [facility]
--- OUTSIDE RECORDS SUMMARY | 2024-03-13 19:49 | XMS_ITS | Encounter Summary ---
Author Name [facility] of [place] Organization [place] Address [address] [place] [id number] Care Team Providers Care Language And Literature Division Chair Name Role Phone DAVID KIM Primary Care Provider Unavailabl e Selected Encounter This section includes the information on record at [place] for the Encounter. Date/Time Encounter Type Encounter Description Reason Provider Source July 20, 2023 01:00 PM OFFICE O/P EST LOW 20 MIN PRIMARY CARE/MEDICINE ICD-10-CM M79.669 Pain in unspecified lower leg DAVID KIM [facility] Encounter Template Text not used by [place] Assessments - Encounter Diagnoses This section includes the primary and secondary diagnoses documented for the Encounter. Date/Time Primary/Secondary Diagnosis Diagnosis Name Provider Source July 20, 2023 01:37 PM PRIMARY Pain in unspecified lower leg DAVID KIM [facility] [place] [facility] July 20, 2023 01:37 PM SECONDARY Anxiety disorder, unspecified DAVID KIM [facility] [place] [facility] July 20, 2023 01:37 PM SECONDARY Sleep disorder, unspecified [facility]ID [facility] Plan of Treatment: Future Appointments (+ [...] Appointment Type Appointme nt Facility Name Aug 02, 2023 01:00 PM AMBULATORY [facility] [place] [facility] Aug 16, 2023 04:00 PM AMBULATORY - [facility]IATRY [facility] [place] [facility] Aug 30, 2023 04:00 PM AMBULATORY - PS[facility]IATRY [facility] [place] [facility] Sep 13, 2023 05:00 PM AMBULATORY - PS[facility]IATRY [facility] [place] [facility] Sep 17, 2023 10:00 AM AMBULATORY - MEDICINE [facility] [place] [facility] Sep 22, 2023 01:30 PM AMBULATORY - NONE [facility] [place] [facility] Oct 18, 2023 05:00 PM AMBULATORY - PS[facility]CHIATRY [facility] [place] [facility] Oct 25, 2023 05:00 PM AMBULATORY - PS[facility]CHIATRY [facility] [place] [facility] Oct 29, 2023 01:30 PM AMBULATORY - MEDICINE [facility] [place] [facility] Nov 08, 2023 05:00 PM AMBULATORY - PS[facility]CHIATRY [facility] [facility] Nov 16, 2023 10:00 AM AMBULATORY - MEDICINE [facility] [place] [facility] Nov 22, 2023 04:30 PM AMBULATORY - PS[facility]CHIATRY [facility] [place] [facility] Dec 20, 2023 04:30 PM AMBULATORY - PS[facility]CHIATRY [facility] [place] [facility] Jan 03, 2024 04:30 PM AMBULATORY - PS[facility]CHIATRY [facility] [place] [facility] Vital Signs: All taken on the encounter date This section contains inpatient and outpatient Vital Signs collected on the date of the Encounter. Date/Time Temperature Pulse Blood Pressure Respiratory Rate SP02 Pain Height Weight Body Mass Index Source July 20, 2023 01:28 PM 132/66 [facility] [place] [facility] July 20, 2023 12:52 PM 98.7 59 142/92 16 99 3 69 205.3 30 [place] [facility] [place] [facility] Social History: Smoking Status (Most current) and [...] 13, 2022 11:00 AM VA-TOBACCO NEVER USED [facility] Tobacco Use History This section includes a history of the smoking, or tobacco-related health factors, that were collected on or before the date of the Encounter. The data comes from the [place] facility where the Encounter took place. Date/Time Smoking Status/Tobacco Use Comment Chase dan July 11, 2021 03:00 PM VA-TOBACCO NEVER USED [place] [facility] [facility] July 09, 2020 09:30 AM VA-TOBACCO NEVER USED [place] [facility] [place] [facility] May 16, 2019 11:51 AM VA-TOBACCO NEVER USED [place] [facility] [facility] Oct 20, 2017 11:04 AM VA-TOBACCO NEVER USED [place] [facility] [facility] May 21, 2017 01:47 PM LIFETIME NON-TOBACCO USER [facility] Encounter Notes: All associated encounter notes This section contains the clinical notes associated to the Encounter. Date/Time Encounter Note(s) Provider Source July 20, 2023 01:32 PM PHYSICIAN NOTE: LOCAL TITLE: NOTE STANDARD TITLE: PHYSICIAN NOTE DATE OF NOTE: JULY 20, 2023@13:32 ENTRY DATE: JULY 20, 2023@13:32:08 AUTHOR: DAVID KIM COSIGNER: URGENCY: STATUS: COMPLETED NOTE Has ADDENDA Patient Name: ISAMARJULIÁN JR VITALS: Patient temperature: 98.7 F [37.1 C] (07/20/2023 12:52) Blood pressure: 132/66 (07/20/2023 13:28) Patient height: 69 in [175.3 cm] (07/20/2023 12:52) Patient weight: 205.3 lb [93.12 kg] (07/20/2023 12:52) Patient BMI: BMI: 30.4 Patient pulse: 59 (07/20/2023 12:52) Patient respiration: 16 (07/20/2023 12:52) Patient Pulse Oximetry: 99% (07/20/2023 12:52) Pain Ratin (07/20/2023 12:52) Active VA Medications: Active Outpatient Medications (including [...] A DAY AFTER MEALS 4 Total Medications Remote Medications: No Active Remote Medications for this patient 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 He needs FMLA form for occasional flareups. Review of systems No chest pain or dyspnea No abdominal pain no trouble urinating No fever or chills No cough Physical examination Well-developed well-nourished male no acute distress Gait normal No peripheral edema Assessment and plan: 1. Pain in legs: Occasional flareups. FMLA form completed today and given to patient Plan: Follow 2. Snoring: Patient wishes to make another attempt at sleep study Plan: Sleep study ordered 3. Anxiety: Not suicidal or homicidal. Requesting mental health Plan: Mental health consult 11-16-2023 primary care follow-up Casimiro, please request record of MRI left foot done at [facility] 05-20-2023 Medication Reconciliation: Outpatient: Has the patient been taking medications as documented in the EMLR? YES: The patient has been taking medications as documented in the EMLR. Essential Medication List for Review used to complete this medication reconciliation. INCLUDED IN THIS LIST: Alphabetical list of active outpatient prescriptions dispensed from this VA (local) and dispensed from another [place] or DoD facility (remote) as well as inpatient orders (local, pending and active), local clinic medications, locally documented non-VA medications, and local prescriptions that have or been discontinued in the past 90 days. - All changes in medications, including all non-VA/Herbal/OTC medications were entered into CPRS. - If there were any medications the patient should no longer take, they were discontinued. - The patient/caregiver was instructed to update this list, discard old lists, and take this list to the next appointment, whether with a VA or non-VA provider. COVID-19 Immunization: Refused Moderna Monovalent COVID-19 vaccine Immunization: COVID-19 (MODERNA), MRNA, LNP-S, PF, 50 MCG/0.5 ML (AGES 12+ YEARS) Refusal Reason: PATIENT DECISION Patient refuses all immunization(s) in the COVID-19 group Date Documented: 07/20/23 13:35 /mendez/ David Kim MD Staff Physician Signed: 07/20/2023 13:37 Receipt Acknowledged By: 07/20/2023 16:05 /mendez/ ELIZABETH EGAN MSN Ed., BSN TRANSIT DEPARTMENT CLERK NURSE 07/20/2023 ADDENDUM STATUS: COMPLETED F: Fax Request D: Request for results of MRI was requested from [facility]. /mendez/ ELIZABETH EGAN MSN Ed., BSN TRANSIT DEPARTMENT CLERK NURSE Signed: 07/20/2023 16:05 DAVID KIM [place] [facility] [place] [facility] July 20, 2023 01:25 PM LETTERS: LOCAL TITLE: PATIENT LETTER (T) STANDARD TITLE: LETTERS DATE OF NOTE: JULY 20, 2023@13:25 ENTRY DATE: JULY 20, 2023@13:25:39 AUTHOR: DAVID KIM EXP COSIGNER: URGENCY: STATUS: COMPLETED [facility] Toll Free Number Primary Care Telephone Assistance can be reached at extension [phone] [facility] scheduling can be reached at extension [phone] [facility] scheduling can be reached at ext [phone] JULIÁN CHEEK ISAMAR [address] [place] [address], [id number] July 20, 2023 To whom it may concern, This patient is presently under my medical care. For medical reasons, he was seen at this [facility] today. Please contact me if you have questions. Respectfully, David Kim MD Sincerely, Your Primary Care Team [facility] [address] [facility] [address] [place] [address] [place] [address] [phone] [facility] [address] [place] [address] [place] [address] [facility] [address] [facility] Floor [address] [place] [phone] [place] [address] DAVID KIM [facility]
--- OUTSIDE RECORDS SUMMARY | 2024-03-13 19:49 | XMS_ITS | Encounter Summary ---
Author Name [facility] [place] Organization [place] Address [address] [place] [phone] Care Team Providers Care Ground Control Approach Technician Name Role Phone RAFIA MEDEROS Primary Care Provider Unavailabl e Selected Encounter This section includes the information on record at CT for the Encounter. Date/Time Encounter Type Encounter Description Reason Pro vider Source Oct 29, 2023 12:00 AM Outpatient Encounter COMMUNITY CARE CONSULT IHE Encounter Template Text not used by CT Plan of Treatment: Future Appointments (+ 6 months) and Future Tests (+/- 45 days) The Plan of Treatment section includes future care activities for the patient from all CT treatmentfacilities. This section includes future appointments and future orders which are active, pending or scheduled. Future Appointments This section includes appointments that were scheduled to occur 6 months from the date of the Encounter, up to a maximum of 20 appointments. The data comes from all CT treatment facilities. Appointment Date/Time Appointment Type Appointme nt Facility Name Nov 08, 2023 05:00 PM AMBULATORY - PSYCHIATRY [place] [facility] [place] [facility] Nov 16, 2023 10:00 AM AMBULATORY - MEDICINE CT C [facility] [place] [facility] Nov 22, 2023 04:30 PM AMBULATORY - PSYCHIATRY [facility] [place] [facility] Dec 20, 2023 04:30 PM AMBULATORY - PSYCHIATRY [facility] [place] [facility] Jan 03, 2024 04:30 PM AMBULATORY - PSYCHIATRY [place] [facility] [place] [facility] Jan 31, 2024 04:30 PM AMBULATORY - PSYCHIATRY [place] [facility] [place] [facility] Feb 07, 2024 10:00 AM AMBULATORY - PSYCHIATRY [facility] [place] [facility] Feb 07, 2024 11:30 AM AMBULATORY - PS[facility]CHIATRY [facility] [place] [facility] Feb 14, 2024 04:30 PM AMBULATORY - PSYCHIATRY [facility] [place] [facility] Feb 19, 2024 01:00 PM AMBULATORY - PSYCHIATRY [facility] [place] [facility] Feb 26, 2024 01:00 PM AMBULATORY - PSYCHIATRY [facility] [place] [facility] Feb 28, 2024 04:30 PM AMBULATORY - PSYCHIATRY [facility] [place] [facility] Mar 14, 2024 05:00 PM AMBULATORY - PSYCHIATRY [place] [facility] [place] [facility] Mar 23, 2024 10:00 AM [facility]BUL[facility] Mar 27, 2024 04:30 PM [facility] Active, Pending, and Scheduled Orders This section includes a listing of several types of active, pending, and scheduled orders, including clinic medications orders, diagnostic test orders, procedure orders and consult orders; where the start date of the order is 45 days before the date of the Encounter or 45 days after the date of theEncounter. The data comes from all [place] treatment facilities. Test Date/Time Test Type Test Details Facility Name Nov 23, 2023 05:39 PM Consult Order LIBRA E/ALEXANDRAM OUTPT Cons Steam Cleaning Machine Operator's Choice [facility] Lab Results: +/- 30 days of the encounter This section includes the Chemistry and Hematology Lab Results on record with CT for the patient. Radiology Reports and Pathology Reports are provided separately, in subsequent sections. Lab Results This section contains the Chemistry/Hematology Results that were resulted 30 days before or 30 daysafter the date of the Encounter. Date/Time Source Result Type Result - Unit Interpretation Reference Range Comment Nov 16, 2023 10:[address] [facility] BASIC METABOLIC PANEL (fasting) Specimen Type: SERUM No comment entered. Ordering Provider: RAFIA MEDEROS Report Released Date/Time: Nov 07, 2023 12:06 AM Reporting Lab: [facility] [address] [place] [address] Performing Lab: [facility] [address] [facility] [address] UREA NITROGEN 15 mg/dL 7-25 GLUCOSE 90 mg/dL 65-100 SODIUM 139 mmol/L 135-145 POTASSIUM 5.4 mmol/L H 3.5-5.0 CHLORIDE 106 mmol/L 100-110 CO2 25 meq/L 20-30 CREATININE, Serum 0.94 mg/dL 0.50-1.40 eGFR(CKD-EPI 2020) >90 mL/min >60 Nov 16, 2023 10:39 AM [facility] CBC AND DIFF (AUTO) Specimen Type: BLOOD No comment entered. Ordering Provider: RAFIA MEDEROS Report Released Date/Time: Nov 07, 2023 12:06 AM Reporting Lab: [facility] [address] [facility] [address] Performing Lab: [address] [address] WBC 5.28 10*3/uL 4.50-11.00 RBC 5.16 10*6/uL [...] 10*3/uL 0.00-0.00 Nov 16, 2023 10:39 AM [facility] LIVER FUNCTION Specimen Type: SERUM No comment entered. Ordering Provider: RAFIA MEDEROS Report Released Date/Time: Nov 07, 2023 12:06 AM Reporting Lab: [facility] [address] [facility] [address] Performing Lab: [address] [address] PROTEIN,TOTAL 7.4 g/dL 6.0-8.3 ALBUMIN 4.3 g/dL 3.5-5.0 ALKALINE PHOSPHATASE 49 U/L 40-150 AST 18 U/L 5-34 ALT 34 U/L BILIRUBIN, TOTAL 0.4 mg/dL 0.2-1.2 Nov 16, 2023 10:39 AM [facility] TSH Specimen Type: SERUM No comment entered. Ordering Provider: RAFIA MEDEROS Report Released Date/Time: Nov 07, 2023 12:06 AM Reporting Lab: [facility] [address] [facility] [address] Performing Lab: [address] [address] TSH 1.25 u[IU]/mL 0.35-5.00 Nov 16, 2023 10:39 AM [facility] LIPID PANEL FASTING Specimen Type: SERUM No comment entered. Ordering Provider: RAFIA MEDEROS Report Released Date/Time: Nov 07, 2023 12:06 AM Reporting Lab: [address] [address] Performing Lab: [address] [address] CHOLESTEROL 257 mg/dL H TRIGLYCERIDE 375 mg/dL H 0-150 LDL calculated Reflex to dLDL mg/dL 0-129 CHOL/HDL 6.4 HDL CHOLESTEROL 40 mg/dL 40-60 LDL DIRECT 153 mg/dL H Nov 16, 2023 10:39 AM [facility] URIC ACID Specimen Type: SERUM No comment entered. Ordering Provider: RAFIA MEDEROS Report Released Date/Time: Nov 07, 2023 12:06 AM Reporting Lab: [address] [address] Performing Lab: [address] [address] URIC ACID 9.6 mg/dL H 3.5-7.2 Nov 16, 2023 10:39 AM [facility] URINALYSIS CLEAN CATCH Specimen Type: URINE Comment: If Glucose = >500 and Ketones are positive, please alert the Physician. Ordering Provider: RAFIA MEDEROS Report Released Date/Time: Nov 07, 2023 12:06 AM Reporting Lab: [address] [address] Performing Lab: [address] [address] UA COLOR Colorless Yellow UA APPEARANCE Clear [...] and tobacco- related health factors from the CT facility where the Encounter took place. Current Smoking Status This section includes the most current smoking, or tobacco-related health factor, from the [place] facility where the Encounter took place. Date/Time Current Smoking Status Comment Chika ryena Nov 13, 2022 11:00 AM VA-TOBACCO NEVER USED [facility] Tobacco Use History This section includes a history of the smoking, or tobacco-related health factors, that were collected on or before the date of the Encounter. The data comes from the [place] facility where the Encounter took place. Date/Time Smoking Status/Tobacco Use Comment F acility July 11, 2021 03:00 PM VA-TOBACCO NEVER USED [place] [facility] [place] [facility] July 09, 2020 09:30 AM VA-TOBACCO NEVER USED [facility] [facility] May 16, 2019 11:51 AM VA-TOBACCO NEVER USED CT [facility] [place] [facility] Oct 20, 2017 11:04 AM VA-TOBACCO NEVER USED CT [facility] [place] [facility] May 21, 2017 01:47 PM LIFETIME NON-TOBACCO USER CT [facility]TR [facility] [place] [facility] Encounter Notes: All associated encounter notes This section contains the clinical notes associated to the Encounter. Date/Time Encounter Note(s) Provider Source Oct 29, 2023 12:00 AM NONVA CONSULT: LOCAL TITLE: COMMUNITY CARE-CONSULT RESULT NOTE STANDARD TITLE: NONVA CONSULT DATE OF NOTE: OCT 29, 2023 ENTRY DATE: NOV 09, 2023@14:58:22 AUTHOR: NILA KERN [place] EXP COSIGNER: URGENCY: STATUS: COMPLETED VistA Imaging - Scanned Document SCANNED DOCUMENT SIGNATURE NOT REQUIRED Electronically Filed: 11/09/2023 by: NILA KERN JEWELRY ENGRAVER NILA KERN [facility]
--- OUTSIDE RECORDS SUMMARY | 2024-03-13 19:49 | XMS_ITS | Encounter Summary ---
Author Name [facility] of [facility] [place] Organization [place] Address [address] [place] [id number] Care Team Providers Care Office Support Name Role Phone DAVID KIM Primary Care Provider Unavailabl e Selected Encounter This section includes the information on record at [place] for the Encounter. Date/Time Encounter Type Encounter Description Reason Pro vider Source May 11, 2023 12:26 PM Outpatient Encounter COMMUNITY CARE CONSULT IHE Encounter Template Text not used by [place] Plan of Treatment: Future Appointments (+ 6 [...] 14, 2023 08:00 AM AMBULATORY - MEDICINE [facility] May 20, 2023 04:30 PM AMBULATORY - MEDICINE [facility] July 20, 2023 01:00 PM AMBULATORY - MEDICINE [facility] Aug 02, 2023 01:00 PM AMBULATORY - PSYCHIATRY [facility] Aug 16, 2023 04:00 PM AMBULATORY - PSYCHIATRY [facility] Aug 30, 2023 04:00 PM AMBULATORY - PSYCHIATRY [facility] Sep 13, 2023 05:00 PM AMBULATORY - PSYCHIATRY [facility] Sep 17, 2023 10:00 AM AMBULATORY - MEDICINE [facility] Sep 22, 2023 01:30 PM AMBULATORY - NONE [facility] Oct 18, 2023 05:00 PM AMBULATORY - PSYCHIATRY [facility] Oct 25, 2023 05:00 PM AMBULATORY - PSYCHIATRY [facility] Oct 29, 2023 01:30 PM AMBULATORY - MEDICINE [facility] Nov 08, 2023 05:00 PM [facility] Social History: Smoking Status (Most current) [...] 13, 2022 11:00 AM [facility] Tobacco Use History This section includes a history of the smoking, or tobacco-related health factors, that were collected on or before the date of the Encounter. The data comes from the [place] facility where the Encounter took place. Date/Time Smoking Status/Tobacco Use Comment F acility July 11, 2021 03:00 PM VA-TOBACCO NEVER USED [facility] July 09, 2020 09:30 AM VA-TOBACCO NEVER USED [facility] May 16, 2019 11:51 AM VA-TOBACCO NEVER USED [facility] Oct 20, 2017 11:04 AM VA-TOBACCO NEVER USED [facility] May 21, 2017 01:47 PM LIFETIME NON-TOBACCO USER [facility] Radiology Reports: +/- 30 days of the [...] the Encounter. The data comes from all [place] treatment facilities. Date/Time Radiology Report Provider Source Apr 14, 2023 09:42 AM ANKLE 3 OR MORE VIEWS(LEFT): JULIÁN PENN JR [id number] -[id number] Ex Date: APR 14, 2023@09:42 Req Phys: DAVID KIM Loc: CWM/NO/PACT 2 (Req'g Loc) Img Loc: [facility] 1 Service: Unknown (Case [id number] COMPLETE) ANKLE 3 OR MORE VIEWS(LEFT) (RAD Detailed) CPT:64491 Reason for Study: pain, look for fracture Clinical History: Report Status: Verified Date Reported: APR 15, 2023 Date Verified: APR 15, 2023 Medical Lead E-Sig: Report: ANKLE 3 OR MORE VIEWS(LEFT) [...] joint degenerative changes. READING PHYSICIAN: Malick Fatima -[id number] 04/15/2023 7:[address] [facility] National Teleradiology Program [phone] (For Medical Practitioner Use Only) Attention Patients / Veterans: If you have questions or concerns about these test results, please contact your ordering provider or primary care team. Primary Diagnostic Code: SIGNIFICANT ABNORMALITY, ATTN NEEDED Primary Interpreting Staff: RADIOLOGY,OUTSIDE SERVICE, Staff Physician / RADIOLOGY,OUTSIDE SERVICE [facility] Apr 14, 2023 09:42 AM FOOT 3 OR MORE VIEWS(LEFT): ISAMARJULIÁN JR [id number] -[id number] M Exm Date: APR 14, 2023@09:42 Req Phys: DAVID KIM Loc: CWM/NO/PACT 2 (Req'g Loc) Img Loc: [facility] 1 Service: Unknown (Case [id number] COMPLETE) FOOT 3 OR MORE VIEWS(LEFT) (RAD Detailed) CPT:35418 Proc Modifiers : LEFT CPT Modifiers : LT LEFT SIDE Reason for Study: pain, look for fracture Clinical History: Report Status: Verified Date Reported: APR 15, 2023 Date Verified: APR 15, 2023 Medical Lead E-Sig: Report: FOOT 3 OR MORE VIEWS(LEFT) [...] 3. Calcaneal enthesopathy READING PHYSICIAN: Malick Fatima -[id number] 04/15/2023 7:[address] [facility] National Teleradiology Program [phone] (For Medical Practitioner Use Only) Attention Patients / Veterans: If you have questions or concerns about these test results, please contact your ordering provider or primary care team. Primary Diagnostic Code: SIGNIFICANT ABNORMALITY, ATTN NEEDED Primary Interpreting Staff: RADIOLOGY,OUTSIDE SERVICE, Staff Physician / RADIOLOGY,OUTSIDE SERVICE [facility] Encounter Notes: All associated encounter notes This section contains the clinical notes associated to the Encounter. Date/Time Encounter Note(s) Provider Source May 11, 2023 12:26 PM ADMINISTRATIVE NOT E: LOCAL TITLE: ADMINISTRATIVE NOTE STANDARD TITLE: ADMINISTRATIVE NOTE DATE OF NOTE: MAY 11, 2023@12:26 ENTRY DATE: MAY 11, 2023@12:26:48 AUTHOR: MARY GRAJEDA COSIGNER: URGENCY: STATUS: COMPLETED ADMINISTRATIVE NOTE Has ADDENDA Received voicemail from [facility] reporting [place] is scheduled to see their provider on 05/14/23 for gout. They are requesting authorization for this care. Should PCP be in agreement a new community care Rheumatology consult would be needed. Alerting PACT for review /mendez/ MARY GRAJEDA Signed: 05/11/2023 12:32 Receipt Acknowledged By: 05/12/2023 08:16 /es/ Luz Edwards RN Primary Care Staff Nurse for ROSS LEE 05/11/2023 15:55 /mendez/ David Kim MD Staff Physician 05/11/2023 ADDENDUM STATUS: COMPLETED Done. /mendez/ David Kim MD Staff Physician Signed: 05/11/2023 15:55 MARY GRAJEDA [facility]
--- OUTSIDE RECORDS SUMMARY | 2024-03-13 19:49 | XMS_ITS ---
Author Name Department of [place]a [place] Organization [place] Address [address] [place] [id number] Care Team Providers Care Tariff Expert Name Role Phone KIM DAVID Primary Care Provider Unavailabl e Selected Encounter This section includes the information on record at [place] for the Encounter. Date/Time Encounter Type Encounter Description Reason Provider Source Aug 02, 2023 01:00 PM PSYTX W PT 45 MINUTES PCMHI INDIV ICD-10-CM F32.A Depression, unspecified DEVYN UNDERWOOD E Encounter Template Text not used by [place] Assessments - Encounter Diagnoses This section includes the primary and secondary diagnoses documented for the Encounter. Date/Time Primary/Secondary Diagnosis Diagnosis Name Provider Source Aug 03, 2023 08:53 AM PRIMARY Depression, unspecified DEVYN UNDERWOOD [facility] [place] [facility] Aug 03, 2023 08:53 AM SECONDARY Anxiety disorder, unspecified DEVYN UNDERWOOD [facility] [place] [facility] Aug 03, 2023 08:53 AM SECONDARY Pain in leg, unspecified DEVYN UNDERWOOD [facility] [place] [facility] Plan of Treatment: Future Appointments (+ 6 months) and Future Tests (+/- 45 days) The Plan of Treatment section includes future care activities for the patient from all [place] treatmentfacilities. This section includes future appointments and future orders which are active, pending or scheduled. Future Appointments This section includes appointments that were scheduled to occur 6 months from the date of the Encounter, up to a maximum of 20 appointments. The data comes from all [place] treatment facilities. Appointment Date/Time Appointment Type Appointme nt Facility Name Aug 16, 2023 04:00 PM AMBULATORY - PSYCHIATRY [facility] [place] [facility] Aug 30, 2023 04:00 PM AMBULATORY - PSYCHIATRY [facility] [place] [facility] Sep 13, 2023 05:00 PM AMBULATORY - PSYCHIATRY [facility] [place] [facility] Sep 17, 2023 10:00 AM AMBULATORY - MEDICINE [facility] [place] [facility] Sep 22, 2023 01:30 PM AMBULATORY - NONE [facility] [place] [facility] Oct 18, 2023 05:00 PM AMBULATORY - PSYCHIATRY [facility] [place] [facility] Oct 25, 2023 05:00 PM AMBULATORY - PSYCHIATRY [facility] [place] [facility] Oct 29, 2023 01:30 PM AMBULATORY - MEDICINE [facility] [place] [facility] Nov 08, 2023 05:00 PM AMBULATORY - PSYCHIATRY [facility] [place] [facility] Nov 16, 2023 10:00 AM AMBULATORY - MEDICINE [place] [facility] [place] [facility] Nov 22, 2023 04:30 PM AMBULATORY - PSYCHIATRY [facility] [place] [facility] Dec 20, 2023 04:30 PM AMBULATORY - PSYCHIATRY [facility] [place] [facility] Jan 03, 2024 04:30 PM AMBULATORY - PSYCHIATRY [facility] [place] [facility] Jan 31, 2024 04:30 PM AMBULATORY - PSYCHIATRY [facility] [place] [facility] Social History: Smoking Status (Most current) and Tobacco Use (All prior to encounter date) This section includes the most current, and the historical, smoking and tobacco- related health factors from the [place] facility where the Encounter took place. Current Smoking Status This section includes the most current smoking, or tobacco-related health factor, from the [place] facility where the Encounter took place. Date/Time Current Smoking Status Comment Chika reyna Nov 13, 2022 11:00 AM VA-TOBACCO NEVER USED [facility] [place] [facility] Tobacco Use History This section includes a history of the smoking, or tobacco-related health factors, that were collected on or before the date of the Encounter. The data comes from the [place] facility where the Encounter took place. Date/Time Smoking Status/Tobacco Use Comment F ni July 11, 2021 03:00 PM VA-TOBACCO NEVER USED [facility] [place] [facility] July 09, 2020 09:30 AM VA-TOBACCO NEVER USED [facility] [place] [facility] May 16, 2019 11:51 AM VA-TOBACCO NEVER USED [facility] [place] [facility] Oct 20, 2017 11:04 AM VA-TOBACCO NEVER USED [facility] [place] [facility] May 21, 2017 01:47 PM LIFETIME NON-TOBACCO USER [facility] [place] [facility] Encounter Notes: All associated encounter notes This section contains the clinical notes associated to the Encounter. Date/Time Encounter Note(s) Provider Source Aug 02, 2023 07:36 AM MENTAL HEALTH CONSULT: LOCAL TITLE: PC-MH INTEGRATION/CONSULT REPORT STANDARD TITLE: MENTAL HEALTH CONSULT DATE OF NOTE: AUG 02, 2023@07:36 ENTRY DATE: AUG 02, 2023@07:36:47 AUTHOR: SUMEET UNDERWOOD COSIGNER: URGENCY: STATUS: COMPLETED VA Video Connect (VVC) Standard Documentation VVC Clinician Resources Only: E911 (Emergency Call Relay Center): [phone] National Veterans Crisis Line - 988 then press #1. [facility] Suicide Coordinator [phone], Ext. [phone]; Back-up Ext. [phone] [place] Police, [place] [phone] Introduction: Visit is being conducted by [place] Video Connect. [place] identified with 2 identifiers: [X] Full Name [X] Date of [ ] VA ID Card Emergency Plan: confirmed and/or provided the following information in case of emergency or technology failure. PATIENT PHONE - PHONE NUMBER [CELLULAR] - NONE FOUND Is patient phone number correct, if not, enter below: [place]'s phone number: JULIÁN ROB JR [address] [place] [address], [id number] 's present location and address for appointment: [address] [place] [address] 's emergency contact name and phone number: [phone]- mother Pradeep's phone reported that location is private and safe: Yes Informed Consent: informed of the risks and benefits of Telehealth video care. has the right to refuse video services. If refuses video visit, a lexo-su-aril visit will be scheduled. verbalized consent for this video visit: Yes provided consent for any other persons present for visit: No If yes, who and relationship to patient: Secure visit: Visit was locked for security and privacy:Yes PC-MHI HEALTH ASSESSMENT NOTE DURATION: 50 mins REFERRING PROVIDER: Dr. Kim REASON FOR REFERRAL: Anxiety Informed consent and limits of confidentiality were provided. Mr. Rob is a 38 year-old, partnered male [place] with a PMH of pain in leg, knee, Achillies, anxiety, and depression. CHIEF COMPLAINT: Mr. 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 He also revealed witnessing a man blow self[place]up in [place] civilian job- [place], that he still experiences related intrusive memories and nightmares. 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 He has been sober from alcohol and nicotine six months and abstinent from cannabis for one year. He and his girlfriend are also expecting a baby the end of this month, and he has a daughter (12) from previous marriage. He identified how he has difficulty being open and vulnerable with others, and keeps a lot to himself. He shared that he has challenges with trust with his family of origin. He denied SI/HI. Results on measures were reviewed. FUNCTIONAL ASSESSMENT: o SLEEP: 6-7 hours a night on average, trouble falling and staying asleep, insomnia , either stay watching TV really late or use sauna to help relax (sleep study consult recently placed)- overthinking at night- dreams and some nightmares, naps 15 mins 1-2x a week o APPETITE: coping with food/stress eating for years- started working on this past six months, breakfast, lunch, dinner, on and off stress eating o ALCOHOL: abstinent 6 months outside of one celebratory drink yesterday with family and daughter's birthday green party- o CAFFIENE: 2 cups of coffee- morning- (on occasion lester luke- afternoon)- o ILLICIT DRUGS/TOBACCO: cannabis was using daily one year ago but discontinued using; quit nicotine 1-2 years ago o CLOSE RELATIONSHIPS: girlfriend and expecting baby, friends from work o LIVING SITUATION: with girlfriend o EMPLOYMENT: [employer]- 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- 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 and was in [employer] o COPING: recreational activities sports, video games, movies, family time- travel- chores and busy around house- o PAIN/CHRONIC HEALTH CONDITIONS: nothing else- sleep study- pain (Achillies)- thoughts had gout- GI health- working on- listening to body- water- o CULTURE: maximino- God Gnosticist- INTERVENTION: Gathered psychosocial history and functioning Provided psychoeducation on stress response, anxiety and role of aovidance0- handouts were mailed Provided psychoeducation on impact of loss and grief- handouts were mailed Conducted SI/HI risk assessment Provided information on PC-MHI LETHALITY: Suicidal or homicidal ideation: No Suicidal or homicidal plans: No Suicidal or homicidal intention: No Previous suicide attempts: No RISK LEVEL IMPRESSION: presents at low risk of harm to self and others at this time. SCREENERS: PHQ-9: 6, mild depression, somewhat difficult ABIODUN-7: 12, moderate anxiety, somewhat difficult DIAGNOSES: Anxiety D/O, Unspecified; Depressive Disorder, Unspecified; Pain in left IMPRESSIONS/PLAN: Mr. 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 He has not engaged in treatment and symptoms persist despite making many positive health changes (discontinuing use of alhcol tobacco and cannabis and earing healthier). He denied SI/HI. In collaboration with [place] considering evidence-based treatment, clinical judgment and patient preference, options of treatment were offered. He agreed to return to [facility] for brief CBT for depression and anxiety including relaxation training, cognitive restructuring and behavioral activation. He will return to [facility] for roughly 3-5, individual sessions. He will return to [facility], 08/15 at 4pm, [facility]. INTERDICIPLINARY TREATMENT PLANNING INVOLVING: Referring provider will be alerted of this plan ACTIVE PROBLEMS LIST Active problems - Computerized Problem List is the source for the followin. Pain in leg 2. Hypercholesterolemia ([facility] [id number]) 3. Abdominal pain 4. Sleep disorder 5. Achilles tendinitis 6. Knee pain ALL ACTIVE MEDICATIONS Active Outpatient Medications (including Supplies): Active Outpatient [...] A DAY AFTER MEALS 4 Total Medications Suicide Screen: C-SSRS Screening [place]-Suicide Severity Rating Scale (C-SSRS Screener) 1. Over [...] due to responses to other questions. /mendez/ SUMEET UNDERWOOD, PhD STAFF PSYCHOLOGIST Signed: 08/03/2023 14:29 Receipt Acknowledged By: 08/03/2023 14:32 /mendez/ David Kim MD Staff Physician SUMEET UNDERWOOD [facility]
--- OUTSIDE RECORDS SUMMARY | 2024-03-13 19:49 | XMS_ITS ---
Author Name Department of Vetera Affairs [place] Organization [place] Address [address] [place] [address] Care Team Providers Care Top And Trim Worker Name Role Phone KIM DAVID Primary Care Provider Unavailabl e Selected Encounter This section includes the information on record at [place] for the Encounter. Date/Time Encounter Type Encounter Description Reason Pro vider Source July 29, 2023 05:27 PM Outpatient Encounter PRIMARY CARE/MEDICINE IHE Encounter Template Text not used by [place] Plan of Treatment: Future Appointments (+ 6 months) and Future Tests (+/- 45 days) The Plan of Treatment section includes future care activities for the patient from all [place] treatmentfacilities. This section includes future appointments and future orders which are active, pending or scheduled. Future Appointments This section includes appointments that were scheduled to occur 6 months from the date of the Encounter, up to a maximum of 20 appointments. The data comes from all [place] treatment facilities. Appointment Date/Time Appointment Type Appointme nt Facility Name Aug 02, 2023 01:00 PM AMBULATORY - PSYCHIATRY [place] [facility] [place] [facility] Aug 16, 2023 04:00 PM AMBULATORY - PSYCHIATRY [place] [facility] [place] [facility] Aug 30, 2023 04:00 PM AMBULATORY - PSYCHIATRY [place] [facility] [place] [facility] Sep 13, 2023 05:00 PM AMBULATORY - PSYCHIATRY [place] [facility] [place] [facility] Sep 17, 2023 10:00 AM AMBULATORY - MEDICINE [place] [facility] [place] [facility] Sep 22, 2023 01:30 PM AMBULATORY - NONE [facility] [place] [facility] Oct 18, 2023 05:00 PM AMBULATORY - PSYCHIATRY [facility] [place] [facility] Oct 25, 2023 05:00 PM AMBULATORY - PSYCHIATRY [facility] [place] [facility] Oct 29, 2023 01:30 PM AMBULATORY - MEDICINE [facility] [place] [facility] Nov 08, 2023 05:00 PM AMBULATORY - PSYCHIATRY [facility] [place] [facility] Nov 16, 2023 10:00 AM AMBULATORY - MEDICINE [facility] [place] [facility] Nov 22, 2023 04:30 PM AMBULATORY - PSYCHIATRY [facility] [place] [facility] Dec 20, 2023 04:30 PM AMBULATORY - PSYCHIATRY [facility] [place] [facility] Jan 03, 2024 04:30 PM AMBULATORY - PSYCHIATRY [facility] [place] [facility] Social History: Smoking Status (Most current) and Tobacco Use (All prior to encounter date) This section includes the most current, and the historical, smoking and tobacco- related health factors from the [place] facility where the Encounter took place. Current Smoking Status This section includes the most current smoking, or tobacco-related health factor, from the [place] facility where the Encounter took place. Date/Time Current Smoking Status Comment Chika reyna Nov 13, 2022 11:00 AM [facility]CO [facility] Tobacco Use History This section includes a history of the smoking, or tobacco-related health factors, that were collected on or before the date of the Encounter. The data comes from the [place] facility where the Encounter took place. Date/Time Smoking Status/Tobacco Use Comment F acility July 11, 2021 03:00 PM VA-TOBACCO NEVER USED [facility] [place] [facility] July 09, 2020 09:30 AM VA-TOBACCO NEVER USED [facility] [place] [facility] May 16, 2019 11:51 AM VA-TOBACCO NEVER USED [facility] [place] [facility] Oct 20, 2017 11:04 AM VA-TOBACCO NEVER USED [facility] [place] [facility] May 21, 2017 01:47 PM LIFETIME NON-TOBACCO USER [facility] [place] [facility] Encounter Notes: All associated encounter notes This section contains the clinical notes associated to the Encounter. Date/Time Encounter Note(s) Provider Source July 29, 2023 05:40 PM NONVA CONSULT: LOCAL TITLE: MD/OUTSIDE CONSULT REPORT SUMMARY STANDARD TITLE: NONVA CONSULT DATE OF NOTE: JULY 29, 2023@17:40 ENTRY DATE: JULY 29, 2023@17:40:08 AUTHOR: DAVID KIM EXP COSIGNER: URGENCY: STATUS: COMPLETED MRI left foot with and without contrast [facility] 05-20-2023 Impression: 1. Within the base [...] be considered in the appropriate clinical setting. Full report sent to scanning. /mendez/ David Kim MD Staff Physician Signed: 07/29/2023 17:43 DAVID KIM [place] [facility]
--- OUTSIDE RECORDS SUMMARY | 2024-03-13 19:49 | XMS_ITS ---
Author Name Department of Vetera Affairs ([place]) Organization Department of Vetera Affairs ([place]) Address [address] [place] [address] Care Team Providers Care Canine Enforcement Officer Name Role Phone RAFIA MEDEROS Primary Care Provider Unavailabl e Selected Encounter This section includes the information on record at [place] for the Encounter. Date/Time Encounter Type Encounter Description Reason Pro vider Source May 18, 2023 02:50 PM Outpatient Encounter COMMUNITY CARE CONSULT IHE Encounter Template Text not used by SD Plan of Treatment: Future Appointments (+ 6 months) and Future Tests (+/- 45 days) The Plan of Treatment section includes future care activities for the patient from all [place] treatmentfacilities. This section includes future appointments and future orders which are active, pending or scheduled. Future Appointments This section includes appointments that were scheduled to occur 6 months from the date of the Encounter, up to a maximum of 20 appointments. The data comes from all [place] treatment facilities. Appointment Date/Time Appointment Type Appointme nt Facility Name May 20, 2023 04:30 PM AMBULATORY - MEDICINE [place] [facility] [place] [facility] July 20, 2023 01:00 PM AMBULATORY - MEDICINE [place] [facility] [place] [facility] Aug 02, 2023 01:00 PM AMBULATORY - PSYCHIATRY [place] [facility] [place] [facility] Aug 16, 2023 04:00 PM AMBULATORY - PSYCHIATRY [place] [facility] [place] [facility] Aug 30, 2023 04:00 PM AMBULATORY - PSYCHIATRY [place] [facility] [place] [facility] Sep 13, 2023 05:00 PM AMBULATORY - PSYCHIATRY [place] [facility] [place] [facility] Sep 17, 2023 10:00 AM AMBULATORY - MEDICINE [facility] [place] [facility] Sep 22, 2023 01:30 PM AMBULATORY - NONE [facility] [place] [facility] Oct 18, 2023 05:00 PM AMBULATORY - PSYCHIATRY [facility] [place] [facility] Oct 25, 2023 05:00 PM AMBULATORY - PSYCHIATRY [facility] [place] [facility] Oct 29, 2023 01:30 PM AMBULATORY - MEDICINE [place] [facility] [place] [facility] Nov 08, 2023 05:00 PM AMBULATORY - PSYCHIATRY [facility] [place] [facility] Nov 16, 2023 10:00 AM AMBULATORY - MEDICINE [facility] Social History: Smoking Status (Most current) and Tobacco Use (All prior to encounter date) This section includes the most current, and the historical, smoking and tobacco- related health factors from the SD facility where the Encounter took place. Current Smoking Status This section includes the most current smoking, or tobacco-related health factor, from the SD facility where the Encounter took place. Date/Time Current Smoking Status Comment Chika ity Nov 13, 2022 11:00 AM [facility] Tobacco Use History This section includes a history of the smoking, or tobacco-related health factors, that were collected on or before the date of the Encounter. The data comes from the SD facility where the Encounter took place. Date/Time Smoking Status/Tobacco Use Comment F acility July 11, 2021 03:00 PM VA-TOBACCO NEVER USED [facility] [place] [facility] July 09, 2020 09:30 AM VA-TOBACCO NEVER USED [facility] [place] [facility] May 16, 2019 11:51 AM VA-TOBACCO NEVER USED [facility] [place] [facility] Oct 20, 2017 11:04 AM VA-TOBACCO NEVER USED [place] [facility] [place] [facility] May 21, 2017 01:47 PM LIFETIME [facility]-TOBACCO [facility] Encounter Notes: All associated encounter notes This section contains the clinical notes associated to the Encounter. Date/Time Encounter Note(s) Provider Source May 18, 2023 02:50 PM NONVA NOTE: LOCAL TITLE: [facility] SELF PRESENTING CARE COORD PLAN STANDARD TITLE: NONVA NOTE DATE OF NOTE: MAY 18, 2023@14:50 ENTRY DATE: MAY 18, 2023@14:50:34 AUTHOR: ERNESTINE LEAL COSIGNER: URGENCY: STATUS: COMPLETED Emergency Notification Intake Date Presenting to the Facility: Apr Method of Contact: Notified from ECR worklist Notification ID: [id number] [facility] Referral #: [facility] Name: Hospital: [facility] Address: City: [place] State: [place] Zip Code: Phone : [facility] Point of Contact: Name: Colette Phone: Chief complaint: FRACTURED MIDDLE FINGER Primary Diagnosis: Disposition Discharged Date of discharge: Apr Discharge to Comment: ER Only /mendez/ ERNESTINE LINDSAY Signed: 05/18/2023 14:52 Receipt Acknowledged By: * AWAITING SIGNATURE * VIPIN HUSTON * AWAITING SIGNATURE * CALISTA ANGUIANO * AWAITING SIGNATURE * SMITH ROTH * AWAITING SIGNATURE * SILVERIO FIELDS DAWN MARIE CAMBRIDGE
--- OUTSIDE RECORDS SUMMARY | 2024-03-13 19:49 | XMS_ITS ---
Author Name Department of Vetera Affairs (OR) Organization Department of Vetera Affairs ([place]) Address [address] [place] [address] Care Team Providers Care Social Services Director Name Role Phone RAFIA MEDEROS Primary Care Provider Unavailabl e Selected Encounter This section includes the information on record at OR for the Encounter. Date/Time Encounter Type Encounter Description Reason Provider Source Oct 27, 2023 09:12 AM SLEEP STUDY UNATT&RESP EFFT SLEEP STUDY ICD-10-CM G47.33 Obstructive sleep apnea (adult) (pediatric) SHIRAZCHIKA E Encounter Template Text not used by [place] Assessments - Encounter Diagnoses This section includes the primary and secondary diagnoses documented for the Encounter. Date/Time Primary/Secondary Diagnosis Diagnosis Name Provider Source Oct 27, 2023 09:12 AM PRIMARY Obstructive sleep apnea (adult) (pediatric) SHIRAZ,CH[facility]A [facility] Plan of Treatment: Future Appointments (+ 6 months) and Future Tests (+/- 45 days) The Plan of Treatment section includes future care activities for the patient from all [place] treatmentfacilities. This section includes future appointments and future orders which are active, pending or scheduled. Future Appointments This section includes appointments that were scheduled to occur 6 months from the date of the Encounter, up to a maximum of 20 appointments. The data comes from all [place] treatment facilities. Appointment Date/Time Appointment Type Appointme nt Facility Name Oct 29, 2023 01:30 PM AMBULATORY - [facility]ICINE [facility] Nov 08, 2023 05:00 PM AMBULATORY - PSYCHIATRY [facility] [place] [facility] Nov 16, 2023 10:00 AM AMBULATORY - MEDICINE [facility] [place] [facility] Nov 22, 2023 04:30 PM AMBULATORY - PSYCHIATRY [facility] [place] [facility] Dec 20, 2023 04:30 PM AMBULATORY - PSYCHIATRY [facility] [place] [facility] Jan 03, 2024 04:30 PM AMBULATORY - PSYCHIATRY [facility] [place] [facility] Jan 31, 2024 04:30 PM AMBULATORY - PSYCHIATRY [facility] [place] [facility] Feb 07, 2024 10:00 AM AMBULATORY - PSYCHIATRY [facility] [place] [facility] Feb 07, 2024 11:30 AM AMBULATORY - PSYCHIATRY [facility] [place] [facility] Feb 14, 2024 04:30 PM AMBULATORY - PSYCHIATRY [facility] [place] [facility] Feb 19, 2024 01:00 PM AMBULATORY - PSYCHIATRY [facility] [place] [facility] Feb 26, 2024 01:00 PM AMBULATORY - PSYCHIATRY [facility] [place] [facility] Feb 28, 2024 04:30 PM AMBULATORY - PSYCHIATRY [facility] [place] [facility] Mar 14, 2024 05:00 PM AMBULATORY - PSYCHIATRY [facility] [place] [facility] Mar 23, 2024 10:00 AM AMBULATORY - MEDICINE [facility] [place] [facility] Mar 27, 2024 04:30 PM AMBULATORY - PSYCHIATRY [facility] [place] [facility] Active, Pending, and Scheduled Orders This section includes a listing of several types of active, pending, and scheduled orders, including clinic medications orders, diagnostic test orders, procedure orders and consult orders; where the start date of the order is 45 days before the date of the Encounter or 45 days after the date of theEncounter. The data comes from all [place] treatment facilities. Test Date/Time Test Type Test Details Facility Name Nov 23, 2023 05:39 PM Consult Order LIBRA Casey/BILLY OUTPT Cons [facility] [place] [facility] Lab Results: +/- 30 days of [...] Range Comment Nov 16, 2023 10:39 AM [facility] BASIC METABOLIC PANEL (fasting) Specimen Type: SERUM No comment entered. Ordering Provider: RAFIA MEDEROS Report Released Date/Time: Nov 07, 2023 12:06 AM Reporting Lab: [address] [address] Performing Lab: [address] [address] UREA NITROGEN 15 mg/dL 7-25 GLUCOSE 90 mg/dL 65-100 SODIUM 139 mmol/L 135-145 POTASSIUM 5.4 mmol/L H 3.5-5.0 CHLORIDE 106 mmol/L 100-110 CO2 25 meq/L 20-30 CREATININE, Serum 0.94 mg/dL 0.50-1.40 eGFR(CKD-EPI 2020) >90 mL/min >60 Nov 16, 2023 10:39 AM [facility] CBC AND DIFF (AUTO) Specimen Type: BLOOD No comment entered. Ordering Provider: RAFIA MEDEROS Report Released Date/Time: Nov 07, 2023 12:06 AM Reporting Lab: [address] [address] Performing Lab: [address] [address] WBC 5.28 10*3/uL 4.50-11.00 RBC 5.16 10*6/uL [...] 10*3/uL 0.00-0.00 Nov 16, 2023 10:39 AM [facility] LIVER FUNCTION Specimen Type: SERUM No comment entered. Ordering Provider: RAFIA MEDEROS Report Released Date/Time: Nov 07, 2023 12:06 AM Reporting Lab: [address] [address] Performing Lab: [address] [address] PROTEIN,TOTAL 7.4 g/dL 6.0-8.3 ALBUMIN 4.3 g/dL 3.5-5.0 ALKALINE PHOSPHATASE 49 U/L 40-150 AST 18 U/L 5-34 ALT 34 U/L BILIRUBIN, TOTAL 0.4 mg/dL 0.2-1.2 Nov 16, 2023 10:39 AM [facility] TSH Specimen Type: SERUM No comment entered. Ordering Provider: RAFIA MEDEROS Report Released Date/Time: Nov 07, 2023 12:06 AM Reporting Lab: [address] [address] Performing Lab: [address] [address] TSH 1.25 u[IU]/mL 0.35-5.00 Nov 16, 2023 10:39 AM [facility] LIPID PANEL FASTING Specimen Type: SERUM No comment entered. Ordering Provider: RAFIA MEDEROS Report Released Date/Time: Nov 07, 2023 12:06 AM Reporting Lab: [facility] [address] [facility] [address] Performing Lab: [address] [address] CHOLESTEROL 257 mg/dL H TRIGLYCERIDE 375 mg/dL H 0-150 LDL calculated Reflex to dLDL mg/dL 0-129 CHOL/HDL 6.4 HDL CHOLESTEROL 40 mg/dL 40-60 LDL DIRECT 153 mg/dL H Nov 16, 2023 10:39 AM [facility] URIC ACID Specimen Type: SERUM No comment entered. Ordering Provider: RAFIA MEDEROS Report Released Date/Time: Nov 07, 2023 12:06 AM Reporting Lab: [facility] [address] [facility] [address] Performing Lab: [facility] [address] [facility] [address] URIC ACID 9.6 mg/dL H 3.5-7.2 Nov 16, 2023 10:39 AM [facility] URINALYSIS CLEAN CATCH Specimen Type: URINE Comment: If Glucose = >500 and Ketones are positive, please alert the Physician. Ordering Provider: RAFIA MEDEROS Report Released Date/Time: Nov 07, 2023 12:06 AM Reporting Lab: [address] [address] Performing Lab: [address] [address] UA COLOR Colorless Yellow UA APPEARANCE Clear [...] and tobacco- related health factors from the [place] facility where the Encounter took place. Current Smoking Status This section includes the most current smoking, or tobacco-related health factor, from the [place] facility where the Encounter took place. Date/Time Current Smoking Status Comment Chika reyna Nov 13, 2022 11:00 AM VA-TOBACCO NEVER USED [facility] Tobacco Use History This section includes a history of the smoking, or tobacco-related health factors, that were collected on or before the date of the Encounter. The data comes from the [place] facility where the Encounter took place. Date/Time Smoking Status/Tobacco Use Comment F acsanjeev July 11, 2021 03:00 PM VA-TOBACCO NEVER USED [place] [facility] [place] [facility] July 09, 2020 09:30 AM VA-TOBACCO NEVER USED [place] [facility] [place] [facility] May 16, 2019 11:51 AM VA-TOBACCO NEVER USED [place] [facility] Oct 20, 2017 11:04 AM VA-TOBACCO NEVER USED [place] [facility] [facility] May 21, 2017 01:47 PM LIFETIME [facility]-TOBACCO [facility] [place] [facility] Encounter Notes: All associated encounter notes This section contains the clinical notes associated to the Encounter. Date/Time Encounter Note(s) Provider Source Oct 27, 2023 09:12 AM SLEEP MEDICINE NOT E: LOCAL TITLE: SLEEP TEST T DATA UPLOAD STANDARD TITLE: SLEEP MEDICINE NOTE DATE OF NOTE: OCT 27, 2023@09:12:20 ENTRY DATE: OCT 27, 2023@09:12:20 AUTHOR: CHIKA WELDON EXP COSIGNER: URGENCY: STATUS: COMPLETED Home sleep testing was completed by the patient and the device was returned. The data has been uploaded and reviewed for quality.: Data quality is: Acceptable Study to be scored and reviewed for interpretation Preliminary diagnosis Minutes professional time spent providing care.: 30 min Diagnoses: G47.33 - Obstructive Sleep Apnea Procedures 1 Roller Mill Tender Stdy Unatnd w/ Resp Effort Modifiers technical component /es/ SALMA MALAVE PERSONAL CARE ASSISTANT Signed: 10/27/2023 09:12 CHIKA WELDON [facility] [place] [facility]
--- OUTSIDE RECORDS SUMMARY | 2024-03-13 19:49 | XMS_ITS ---
Author Name Department of Vetera Affairs (ME) Organization [facility] ([facility]) Address [address] [place] [id number] Care Team Providers Care Relief Driller Name Role Phone DAVID KIM Primary Care Provider Unavailabl e Selected Encounter This section includes the information on record at ME for the Encounter. Date/Time Encounter Type Encounter Description Reason Provider Source Apr 14, 2023 09:00 AM OFFICE O/P EST SF 10 MIN PRIMARY CARE/MEDICINE ICD-10-CM M76.60 Achilles tendinitis, unspecified leg DAVID KIM E Encounter Template Text not used by ME Assessments - Encounter Diagnoses This section includes the primary and secondary diagnoses documented for the Encounter. Date/Time Primary/Secondary Diagnosis Diagnosis Name Provider Source Apr 14, 2023 09:38 AM PRIMARY Achilles tendinitis, unspecified leg DAVID KIM [facility] Plan of Treatment: Future Appointments (+ [...] 14, 2023 08:00 AM AMBULATORY - MEDICINE [facility] May 20, 2023 04:30 PM AMBULATORY MEDICINE [facility] July 20, 2023 01:00 PM AMBULATORY - MEDICINE [facility] [place] [facility] Aug 02, 2023 01:00 PM AMBULATORY - PSYCHIATRY [facility] [place] [facility] Aug 16, 2023 04:00 PM AMBULATORY - PSYCHIATRY [facility] [place] [facility] Aug 30, 2023 04:00 PM AMBULATORY - PSYCHIATRY [facility] [place] [facility] Sep 13, 2023 05:00 PM AMBULATORY - PSYCHIATRY [facility] [place] [facility] Sep 17, 2023 10:00 AM AMBULATORY - MEDICINE [facility] [place] [facility] Sep 22, 2023 01:30 PM AMBULATORY - NONE [place] [facility] [place] [facility] Vital Signs: All taken on the encounter date This section contains inpatient and outpatient Vital Signs collected on the date of the Encounter. Date/Time Temperature Pulse Blood Pressure Respiratory Rate SP02 Pain Height Weight Body Mass Index Source Apr 14, 2023 09:33 AM 130/76 [place] [facility] Apr 14, 2023 09:14 AM 98.2 64 150/98 16 98 0 209 32 [place] [facility] Social History: Smoking Status (Most current) and [...] 2022 11:00 AM VA-TOBACCO NEVER USED [place] [facility] [facility] Tobacco Use History This section includes a history of the smoking, or tobacco-related health factors, that were collected on or before the date of the Encounter. The data comes from the [place] facility where the Encounter took place. Date/Time Smoking Status/Tobacco Use Comment Chase dan July 11, 2021 03:00 PM VA-TOBACCO NEVER USED [place] [facility] [place] [facility] July 09, 2020 09:30 AM VA-TOBACCO NEVER USED [place] [facility] [place] [facility] May 16, 2019 11:51 AM [facility]ACCO [facility] Oct 20, 2017 11:04 AM VA-TOBACCO [facility]ED [facility] May 21, 2017 01:47 PM LIFETIME NON-TOBACCO [facility]ER [facility] Radiology Reports: +/- 30 days of [...] the Encounter. The data comes from all [place] treatment facilities. Date/Time Radiology Report Provider Source Apr 14, 2023 09:42 AM ANKLE 3 OR MORE VIEWS(LEFT): JULIÁN PENN JR [id number] -[id number] Exm Date: APR 14, 2023@09:42 Req Phys: DAVID KIM Loc: CWM/NO/PACT 2 (Req'g Loc) Img Loc: [facility] 1 Service: Unknown (Case [id number] COMPLETE) ANKLE 3 OR MORE VIEWS(LEFT) (RAD Detailed) CPT:45255 Reason for Study: pain, look for fracture Clinical History: Report Status: Verified Date Reported: APR 15, 2023 Date Verified: APR 15, 2023 Operating Systems Programmer E-Sig: Report: ANKLE 3 OR MORE VIEWS(LEFT) [...] tibiotalar joint degenerative changes. READING PHYSICIAN: Malick [id number] 04/15/2023 7:14 EST [facility] Teleradiology Program [phone] (For Medical Practitioner Use Only) Attention Patients / Veterans: If you have questions or concerns about these test results, please contact your ordering provider or primary care team. Primary Diagnostic Code: SIGNIFICANT ABNORMALITY, ATTN NEEDED Primary Interpreting Staff: RADIOLOGY,OUTSIDE SERVICE, Staff Physician / RADIOLOGY,OUTSIDE SERVICE [place] [facility] [place] [facility] Apr 14, 2023 09:42 AM FOOT 3 OR MORE VIEWS(LEFT): JULIÁN PENN JR [id number] -[id number] Ex Date: APR 14, 2023@09:42 Req Phys: DAVID KIM Loc: CWM/NO/PACT 2 (Req'g Loc) Img Loc: [facility] 1 Service: Unknown (Case [id number] COMPLETE) FOOT 3 OR MORE VIEWS(LEFT) (RAD Detailed) CPT:80831 Proc Modifiers : LEFT CPT Modifiers : LT LEFT SIDE Reason for Study: pain, look for fracture Clinical History: Report Status: Verified Date Reported: APR 15, 2023 Date Verified: APR 15, 2023 Operating Systems Programmer E-Sig: Report: FOOT 3 OR MORE VIEWS(LEFT) [...] deformity. 3. Calcaneal enthesopathy READING PHYSICIAN: Malick [id number] 04/15/2023 7:18 EST [facility] Teleradiology Program [phone] (For Medical Practitioner Use Only) Attention Patients / Veterans: If you have questions or concerns about these test results, please contact your ordering provider or primary care team. Primary Diagnostic Code: SIGNIFICANT ABNORMALITY, ATTN NEEDED Primary Interpreting Staff: RADIOLOGY,OUTSIDE SERVICE, Staff Physician / RADIOLOGY,OUTSIDE SERVICE [place] [facility] [place] [facility] Encounter Notes: All associated encounter notes This section contains the clinical notes associated to the Encounter. Date/Time Encounter Note(s) Provider Source Apr 14, 2023 09:35 AM PHYSICIAN NOTE: LOCAL TITLE: MD NOTE STANDARD TITLE: PHYSICIAN NOTE DATE OF NOTE: APR 14, 2023@09:35 ENTRY DATE: APR 14, 2023@09:35:03 AUTHOR: DAVID KIM COSIGNER: URGENCY: STATUS: COMPLETED Patient Name: JULIÁN PENN JR JR VITALS: Patient temperature: 98.2 F [36.8 C] (04/14/2023 09:14) Blood pressure: 130/76 (04/14/2023 09:33) Patient height: 68 in [172.7 cm] (05/20/2018 08:13) Patient weight: 209 lb [94.80 kg] (04/14/2023 09:14) Patient BMI: BMI: 31.8 Patient pulse: 64 (04/14/2023 09:14) Patient respiration: 16 (04/14/2023 09:14) Patient Pulse Oximetry: 98% (04/14/2023 09:14) Pain Ratin (04/14/2023 09:14) Active VA Medications: Active Outpatient Medications (including Supplies): Pending Outpatient Medications Status 1) DICLOFENAC NA 1% TOP GEL APPLY 2 GRAMS TOPICALLY PENDING THREE TIMES DAILY NEEDED FOR OSTEOARTHRITIS - USE DOSING CARD PROVIDED IN BOX Active Non-VA Medications Status 1) Non-VA IBUPROFEN 800MG TAB 800MG BY MOUTH THREE TIMES ACTIVE A DAY AFTER MEALS 2 Total Medications Remote Medications: No Active 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 Has had 10 flareups of foot and ankle pain since then. He has Aircast and crutches at home. Over the past several weeks, has had recurrent discomfort left ankle and foot without radiation. No new trauma, numbness, weakness, paresthesias, bleeding, joint swelling. Physical examination Well-developed well-nourished male no acute distress Normal sensory and motor Skin no lacerations or abrasions No joint swelling ambulation normal Assessment and plan: 1. Left ankle pain: No acute neurovascular deficit. Discussed options for intervention including x-rays, MRI, physical therapy, anti-inflammatory medication, orthopedics. Patient wishes to get x-rays today to rule out stress fracture. He will continue crutches and air splint as needed Plan: X-rays left ankle and foot Already set for follow-up 11-16-2023 Medication Reconciliation: Outpatient: Has the patient been taking medications as documented in the EMLR? YES: The patient has been taking medications as documented in the EMLR. Essential Medication List for Review used to complete this medication reconciliation. INCLUDED IN THIS LIST: Alphabetical list of active outpatient prescriptions dispensed from this ME (local) and dispensed from another ME or DoD facility (remote) as well as [...] immunization(s) in the COVID-19 group Date Documented: 04/14/23 09:37 /mendez/ David Kim MD Staff Physician Signed: 04/14/2023 09:38 [facility] [place] [facility] Apr 14, 2023 09:26 AM LETTERS: LOCAL TITLE: PATIENT LETTER (T) STANDARD TITLE: LETTERS DATE OF NOTE: APR 14, 2023@09:26 ENTRY DATE: APR 14, 2023@09:26:17 AUTHOR: DAVID KIM EXP COSIGNER: URGENCY: STATUS: COMPLETED DEPARTMENT OF [facility] Toll Free Number Primary Care Telephone Assistance can be reached at extension [phone] [facility] scheduling can be reached at extension [phone] [facility] scheduling can be reached at ext [phone], [address] April 14, 2023 To whom it may concern, This patient is presently under my medical care. He was seen in this clinic today. Please contact me if you have questions. Respectfully, David Kim MD Sincerely, Your Primary Care Team [facility] [address] [address] [place] [address] [phone] [facility] [address] [place] [address] [place] [address] [facility] [address] [facility] [place] [id number] [place] [address] [phone] DAVID KIM [facility] [place] [facility]
--- OUTSIDE RECORDS SUMMARY | 2024-03-13 19:49 | XMS_ITS | Encounter Summary ---
Author Name Department of Vetera Affairs ([place]) Organization Department of Vetera Affairs ([place]) Address [address] [place] [address] Care Team Providers Care Rolfer Name Role Phone KIM DAVID Primary Care Provider Unavailabl e Selected Encounter This section includes the information on record at MD for the Encounter. Date/Time Encounter Type Encounter Description Reason Pro vider Source Apr 22, 2023 10:16 PM Outpatient Encounter PRIMARY CARE/MEDICINE IHE Encounter Template Text not used by MD Plan of Treatment: Future Appointments (+ 6 months) and Future Tests (+/- 45 days) The Plan of Treatment section includes future care activities for the patient from all MD treatmentfacilities. This section includes future appointments and future orders which are active, pending or scheduled. Future Appointments This section includes appointments that were scheduled to occur 6 months from the date of the Encounter, up to a maximum of 20 appointments. The data comes from all MD treatment facilities. Appointment Date/Time Appointment Type Appointme nt Facility Name May 14, 2023 08:00 AM AMBULATORY - MEDICINE MD [facility] [place] [facility] May 20, 2023 04:30 PM AMBULATORY - MEDICINE MD [facility] [place] [facility] July 20, 2023 01:00 PM AMBULATORY - MEDICINE MD [facility] [place] [facility] Aug 02, 2023 01:00 PM AMBULATORY - PSYCHIATRY MD [facility] [place] [facility] Aug 16, 2023 04:00 PM AMBULATORY - PSYCHIATRY MD [facility] [place] [facility] Aug 30, 2023 04:00 PM AMBULATORY - PSYCHIATRY MD [facility] [place] [facility] Sep 13, 2023 05:00 PM AMBULATORY - PSYCHIATRY MD [facility] [place] [facility] Sep 17, 2023 10:00 AM AMBULATORY - MEDICINE MD [facility] [place] [facility] Sep 22, 2023 01:30 PM AMBULATORY - NONE MD [facility] [place] [facility] Oct 18, 2023 05:00 PM AMBULATORY - PS[facility]CHIATRY [facility] Social History: Smoking Status (Most current) and Tobacco Use (All prior to encounter date) This section includes the most current, and the historical, smoking and tobacco- related health factors from the MD facility where the Encounter took place. Current Smoking Status This section includes the most current smoking, or tobacco-related health factor, from the MD facility where the Encounter took place. Date/Time Current Smoking Status Comment Facil ity Nov 13, 2022 11:00 AM [facility] Tobacco Use History This section includes a history of the smoking, or tobacco-related health factors, that were collected on or before the date of the Encounter. The data comes from the MD facility where the Encounter took place. Date/Time Smoking Status/Tobacco Use Comment F acility July 11, 2021 03:00 PM VA-TOBACCO NEVER USED MD [facility] [place] [facility] July 09, 2020 09:30 AM VA-TOBACCO NEVER USED VA [facility] [place] [facility] May 16, 2019 11:51 AM VA-TOBACCO NEVER USED [facility] [place] [facility] Oct 20, 2017 11:04 AM VA-TOBACCO NEVER USED [facility] [place] [facility] May 21, 2017 01:47 PM LIFETIME NON-TOBACCO USER MD [facility] Radiology Reports: +/- 30 days of [...] the Encounter. The data comes from all MD treatment facilities. Date/Time Radiology Report Provider Source Apr 14, 2023 09:42 AM FOOT 3 OR MORE VIEWS(LEFT): ISAMARJULIÁNSLOAN Villalpando [id number] -[id number] M Exm Date: APR 14, 2023@09:42 Req Phys: KMIDAVID Reid Finney Loc: CWM/NO/PACT 2 (Req'g Loc) Img Loc: [facility] Service: Unknown (Case [id number] COMPLETE) FOOT 3 OR MORE VIEWS(LEFT) (RAD Detailed) CPT:39738 Proc Modifiers : LEFT CPT Modifiers : LT LEFT SIDE Reason for Study: pain, look for fracture Clinical History: Report Status: Verified Date Reported: APR 15, 2023 Date Verified: APR 15, 2023 [place] E-Sig: Report: FOOT 3 OR MORE VIEWS(LEFT) [...] deformity. 3. Calcaneal enthesopathy READING PHYSICIAN: Malick [id number] 04/15/2023 7:18 EST [facility] National Teleradiology Program [phone] (For Medical Practitioner Use Only) Attention Patients / Veterans: If you have questions or concerns about these test results, please contact your ordering provider or primary care team. Primary Diagnostic Code: SIGNIFICANT ABNORMALITY, ATTN NEEDED Primary Interpreting Staff: RADIOLOGY,OUTSIDE SERVICE, Staff Physician / RADIOLOGY,OUTSIDE SERVICE [facility] Apr 14, 2023 09:42 AM ANKLE 3 OR MORE VIEWS(LEFT): JULIÁN PENN JR Irasema [id number] -[id number] M Exm Date: APR 14, 2023@09:42 Req Phys: DAVID KIM Loc: CWM/NO/PACT 2 (Req'g Loc) Img Loc: [facility] 1 Service: Unknown (Case [id number] COMPLETE) ANKLE 3 OR MORE VIEWS(LEFT) (RAD Detailed) CPT:89468 Reason for Study: pain, look for fracture Clinical History: Report Status: Verified Date Reported: APR 15, 2023 Date Verified: APR 15, 2023 [place] E-Sig: Report: ANKLE 3 OR MORE VIEWS(LEFT) [...] tibiotalar joint degenerative changes. READING PHYSICIAN: Malick [id number] 04/15/2023 7:14 [facility] National Teleradiology Program [phone] (For Medical Practitioner Use Only) Attention Patients / Veterans: If you have questions or concerns about these test results, please contact your ordering provider or primary care team. Primary Diagnostic Code: SIGNIFICANT ABNORMALITY, ATTN NEEDED Primary Interpreting Staff: RADIOLOGY,OUTSIDE SERVICE, Staff Physician / RADIOLOGY,OUTSIDE SERVICE [facility] Encounter Notes: All associated encounter notes This section contains the clinical notes associated to the Encounter. Date/Time Encounter Note(s) Provider Source Apr 22, 2023 10:39 PM PHYSICIAN NOTE: LOCAL TITLE: MD NOTE STANDARD TITLE: PHYSICIAN NOTE DATE OF NOTE: APR 22, 2023@22:39 ENTRY DATE: APR 22, 2023@22:39:43 AUTHOR: KIM,DAVID D EXP COSIGNER: URGENCY: STATUS: COMPLETED Right finger #3 trigger finger Seen in ER [facility] Sent [place] to MD ER notifications team Has upcoming orthopedics appointment Ordered community care consult. /mendez/ David Kim MD Staff Physician Signed: 04/22/2023 22:40 DAVID KIM [facility] [place] [facility] Apr 22, 2023 10:20 PM LETTERS: LOCAL TITLE: PATIENT LETTER (T) STANDARD TITLE: LETTERS DATE OF NOTE: APR 22, 2023@22:20 ENTRY DATE: APR 22, 2023@22:20:47 AUTHOR: DAVID KIM EXP COSIGNER: URGENCY: STATUS: COMPLETED DEPARTMENT OF [facility] Toll Free Number Primary Care Telephone Assistance can be reached at extension [phone] [facility] scheduling can be reached at extension [phone] [facility] scheduling can be reached at ext [phone], [address] April 22, 2023 [place], Please find enclosed a copy of recent testing. X-rays of the left ankle and foot showed no fracture or dislocation. There was mild osteoarthritis. There was a well-defined lytic lesion involving the base of the proximal phalanx of the great toe. There is a chance this could be a tumor. An MRI of the left foot with and without Since contrast was requested at [facility]. Please contact me if you have questions. Respectfully, David Kim MD Sincerely, Your Primary Care Team [facility] [address] [facility] [address] [place] [address] [place] [address] [phone] [facility] [address] [place] [address] [place] [address] [phone] [facility] [address] [facility] [place] [id number] [place] [address] [phone] DAVID KIM [facility]
--- OUTSIDE RECORDS SUMMARY | 2024-03-13 19:49 | XMS_ITS ---
Author Name [facility] ([place]) Organization [facility] ([place]) Address [address] [place] [address] Care Team Providers Care Clinical Systems Educator Name Role Phone RAFIA MEDEROS Primary Care Provider Unavailabl e Selected Encounter This section includes the information on record at [place] for the Encounter. Date/Time Encounter Type Encounter Description Reason Provider Source Sep 22, 2023 01:30 PM SELF-MGMT EDUC & TRAIN 1 PT SLEEP MEDICINE ICD-10-CM G47.33 Obstructive sleep apnea (adult) (pediatric) SHIRAZCHIKA E Encounter Template Text not used by [place] Assessments - Encounter Diagnoses This section includes the primary and secondary diagnoses documented for the Encounter. Date/Time Primary/Secondary Diagnosis Diagnosis Name Provider Source Sep 22, 2023 01:44 PM PRIMARY Obstructive sleep apnea (adult) (pediatric) SHIRAZGARRYCHIKA [facility] Plan of Treatment: Future Appointments (+ [...] The data comes from all [place] treatment facilities. Appointment Date/Time Appointment Type Appointme nt Facility Name Oct 18, 2023 05:00 PM AMBULATORY - PSYCHIATRY [facility] Oct 25, 2023 05:00 PM AMBULATORY PSYCHIATRY [facility] [place] [facility] Oct 29, 2023 01:30 PM AMBULATORY - MEDICINE [facility] [place] [facility] Nov 08, 2023 05:00 PM AMBULATORY - PSYCHIATRY [facility] [place] [facility] Nov 16, 2023 10:00 AM AMBULATORY - MEDICINE [facility] [place] [facility] Nov 22, 2023 04:30 PM AMBULATORY - PSYCHIATRY [facility] [place] [facility] Dec 20, 2023 04:30 PM AMBULATORY - PSYCHIATRY [facility] [place] [facility] Jan 03, 2024 04:30 PM AMBULATORY - PSYCHIATRY [facility] [place] [facility] Jan 31, 2024 04:30 PM AMBULATORY - PSYCHIATRY [facility] [place] [facility] Feb 07, 2024 10:00 AM AMBULATORY - PSYCHIATRY [facility] [place] [facility] Feb 07, 2024 11:30 AM AMBULATORY - PSYCHIATRY [facility] [place] [facility] Feb 14, 2024 04:30 PM AMBULATORY - PSYCHIATRY [facility] [place] [facility] Feb 19, 2024 01:00 PM AMBULATORY - PSYCHIATRY [facility] [place] [facility] Feb 26, 2024 01:00 PM AMBULATORY - PSYCHIATRY [facility] [place] [facility] Feb 28, 2024 04:30 PM AMBULATORY - PSYCHIATRY [facility] [place] [facility] Mar 14, 2024 05:00 PM AMBULATORY - PSYCHIATRY [facility] [place] [facility] Mar 23, 2024 10:00 AM AMBULATORY - MEDICINE [place] [facility] [place] [facility] Social History: Smoking Status (Most current) [...] 13, 2022 11:00 AM VA-TOBACCO [facility]ED [facility] Tobacco Use History This section includes a history of the smoking, or tobacco-related health factors, that were collected on or before the date of the Encounter. The data comes from the [place] facility where the Encounter took place. Date/Time Smoking Status/Tobacco Use Comment F acsanjeev July 11, 2021 03:00 PM VA-TOBACCO NEVER USED [facility] [place] [facility] July 09, 2020 09:30 AM VA-TOBACCO NEVER USED [facility] [place] [facility] May 16, 2019 11:51 AM VA-TOBACCO NEVER USED [facility] [place] [facility] Oct 20, 2017 11:04 AM VA-TOBACCO NEVER USED [facility] [place] [facility] May 21, 2017 01:47 PM LIFETIME NON-TOBACCO USER [facility] [place] [facility] Encounter Notes: All associated encounter notes This section contains the clinical notes associated to the Encounter. Date/Time Encounter Note(s) Provider Source Sep 22, 2023 01:30 PM SLEEP MEDICINE CON SULT: LOCAL TITLE: SLEEP STUDY/CONSULT REPORT STANDARD TITLE: SLEEP MEDICINE CONSULT DATE OF NOTE: SEP 22, 2023@13:30 ENTRY DATE: SEP 22, 2023@13:44:38 AUTHOR: CHIKA WELDON EXP COSIGNER: URGENCY: STATUS: COMPLETED SLEEP STUDY/CONSULT REPORT Has ADDENDA Service Location [address] Device Information DeviceName: [id number] DeviceSerialNumber: [id number] Patient was offered to receive home sleep testing device by mail and accepted. Verbal instruction was provided for use of home sleep testing equipment. All questions were answered and the patient expressed understanding of the provided instructions and care plan. Santa was mailed a package including: Written instructions on device use with links to online videos and instructions from the sports book server. Instructions on device return (does not apply to disposable device) and contact information for the sleep center. Educational materials on positive airway pressure therapy. Patient questionnaires. Other diagnosis- obstructive sleep apnea witn. loud snoring, to BR 1x/pm, tired in the afternoon. Minutes professional time spent providing care.: 30 min /mendez/ SALMA MALAVE GRINDER DRESSER Signed: 09/22/2023 13:44 09/22/2023 ADDENDUM STATUS: COMPLETED VA Video Connect (VVC) Standard Documentation VVC Clinician Resources Only: E911 (Emergency Call Relay Center): [phone] National Veterans Crisis Line - 988 then press #1. YUNG Suicide Coordinator [phone], Ext. [phone]; Back-up Ext. [phone] [place] Police, Gavin BARRAGAN [phone] Introduction: Visit is being conducted by [place] [facility]. identified with 2 identifiers: [X] Full Name [X] Date of [ ] VA ID Card Emergency Plan: confirmed and/or provided the following information in case of emergency or technology failure. PATIENT PHONE - PHONE NUMBER [CELLULAR] - NONE FOUND Is patient phone number correct, if not, enter below: 's phone number: JULIÁN PENN JR [address], [place], [address] Santa's present location and address for appointment: [place] [employer] [place], [place] Santa's emergency contact name and phone number: relative ISAMARISRAEL (EXTENDED FAMILY MEMBER) [address], [place] [address] reported that location is private and safe: Yes Informed Consent: informed of the risks and benefits of Telehealth video care. has the right to refuse video services. If refuses video visit, a [id number] visit will be scheduled. Santa verbalized consent for this video visit: Yes provided consent for any other persons present for visit: N/A If yes, who and relationship to patient: Secure visit: Visit was locked for security and privacy:Yes /mendez/ SALMA MALAVE GRINDER DRESSER Signed: 09/22/2023 13:47 CHIKA WELDON [place] [facility]
--- OUTSIDE RECORDS SUMMARY | 2024-03-13 19:49 | XMS_ITS | Encounter Summary ---
Author Name [facility] of [facility] [place] Organization [facility] [place] [facility] [place] Address [address] [place] [address] Care Team Providers Care Finish Grinder Name Role Phone RAFIA MEDEROS Primary Care Provider Unavailabl e Selected Encounter This section includes the information on record at [place] for the Encounter. Date/Time Encounter Type Encounter Description Reason Pro vider Source May 20, 2023 12:00 AM Outpatient Encounter COMMUNITY CARE CONSULT IHE Encounter Template Text not used by [place] Plan of Treatment: Future Appointments (+ 6 [...] 20, 2023 01:00 PM AMBULATORY - MEDICINE [place] [facility] [place] [facility] Aug 02, 2023 01:00 PM AMBULATORY - PSYCHIATRY [place] [facility] [place] [facility] Aug 16, 2023 04:00 PM AMBULATORY - PSYCHIATRY MT [facility] [place] [facility] Aug 30, 2023 04:00 PM AMBULATORY - PSYCHIATRY MT [facility] [place] [facility] Sep 13, 2023 05:00 PM AMBULATORY - PSYCHIATRY MT [facility] [place] [facility] Sep 17, 2023 10:00 AM AMBULATORY - MEDICINE VA C [facility] [place] [facility] Sep 22, 2023 01:30 PM AMBULATORY - NONE [facility] [place] [facility] Oct 18, 2023 05:00 PM AMBULATORY - PSYCHIATRY [facility] [place] [facility] Oct 25, 2023 05:00 PM AMBULATORY - PSYCHIATRY [facility] [place] [facility] Oct 29, 2023 01:30 PM AMBULATORY - MEDICINE MT C [facility] [place] [facility] Nov 08, 2023 05:00 PM AMBULATORY - PSYCHIATRY [facility] [place] [facility] Nov 16, 2023 10:00 AM AMBULATORY - MEDICINE [facility] Social History: Smoking Status (Most current) [...] 13, 2022 11:00 AM VA-TOBACCO [facility] Tobacco Use History This section includes a history of the smoking, or tobacco-related health factors, that were collected on or before the date of the Encounter. The data comes from the [place] facility where the Encounter took place. Date/Time Smoking Status/Tobacco Use Comment F [email or web address] July 11, 2021 03:00 PM VA-TOBACCO NEVER USED VA [facility] [place] [facility] July 09, 2020 09:30 AM VA-TOBACCO NEVER USED VA [facility] [place] [facility] May 16, 2019 11:51 AM VA-TOBACCO NEVER USED VA [facility] [place] [facility] Oct 20, 2017 11:04 AM VA-TOBACCO NEVER USED VA [facility] [place] [facility] May 21, 2017 01:47 PM LIFETIME NON-TOBACCO USER [place] [facility] [place] [facility] Encounter Notes: All associated encounter notes This section contains the clinical notes associated to the Encounter. Date/Time Encounter Note(s) Provider Source May 20, 2023 12:00 AM NONVA CONSULT: LOCAL TITLE: COMMUNITY CARE-CONSULT RESULT NOTE STANDARD TITLE: NONVA CONSULT DATE OF NOTE: MAY 20, 2023 ENTRY DATE: AUG 04, 2023@14:24:49 AUTHOR: RAZ YANES EXP COSIGNER: URGENCY: STATUS: COMPLETED VistA Imaging - Scanned Document SCANNED DOCUMENT SIGNATURE NOT REQUIRED Electronically Filed: 08/04/2023 by: RAZ BOUDREAUX [place] [facility]
--- OUTSIDE RECORDS SUMMARY | 2024-03-13 19:49 | XMS_ITS ---
Author Name [facility] of Vetera [facility] ([place]) Organization Department of Veter[facility] Affairs ([place]) Address [address] [place] [address] Care Team Providers Care Top Dyeing Machine Tender Name Role Phone RAFIA MEDEROS Primary Care Provider Unavailabl e Selected Encounter This section includes the information on record at [place] for the Encounter. Date/Time Encounter Type Encounter Description Reason Pro vider Source July 20, 2023 03:55 PM Outpatient Encounter TELEPHONE IHE Encounter Template Text not used by [...] 02, 2023 01:00 PM AMBULATORY - PSYCHIATRY [place] [facility] [place] [facility] Aug 16, 2023 04:00 PM AMBULATORY - PSYCHIATRY DE [facility] [place] [facility] Aug 30, 2023 04:00 PM AMBULATORY - PSYCHIATRY DE [facility] [place] [facility] Sep 13, 2023 05:00 PM AMBULATORY - PSYCHIATRY DE [facility] [place] [facility] Sep 17, 2023 10:00 AM AMBULATORY - MEDICINE DE C [facility] [place] [facility] Sep 22, 2023 01:30 PM AMBULATORY - NONE [place] [facility] [place] [facility] Oct 18, 2023 05:00 PM AMBULATORY - PSYCHIATRY [facility] [place] [facility] Oct 25, 2023 05:00 PM AMBULATORY - PSYCHIATRY [facility] [place] [facility] Oct 29, 2023 01:30 PM AMBULATORY - MEDICINE VA C [facility] [place] [facility] Nov 08, 2023 05:00 PM AMBULATORY - PSYCHIATRY [facility] [place] [facility] Nov 16, 2023 10:00 AM AMBULATORY - MEDICINE DE C [facility] [place] [facility] Nov 22, 2023 04:30 PM AMBULATORY - PSYCHIATRY [facility] [place] [facility] Dec 20, 2023 04:30 PM AMBULATORY - PSYCHIATRY [facility] [place] [facility] Jan 03, 2024 04:30 PM AMBULATORY - PSYCHIATRY DE [facility] [place] [facility] Vital Signs: All taken on the encounter date This section contains inpatient and outpatient Vital Signs collected on the date of the Encounter. Date/Time Temperature Pulse Blood Pressure Respiratory Rate SP02 Pain Height Weight Body Mass Index Source July 20, 2023 01:28 PM 132/66 [place] [facility] [place] [facility] July 20, 2023 12:52 PM 98.7 59 142/92 16 99 3 69 205.3 30 [place] [facility] [place] [facility] Social History: Smoking Status (Most [...] 13, 2022 11:00 AM VA-TOBACCO [facility] Tobacco Use History This section includes a history of the smoking, or tobacco-related health factors, that were collected on or before the date of the Encounter. The data comes from the [place] facility where the Encounter took place. Date/Time Smoking Status/Tobacco Use Comment F [email or web address] July 11, 2021 03:00 PM [facility]CO [facility] [place] [facility] July 09, 2020 09:30 AM VA-TOBACCO NEVER USED VA [facility] [place] [facility] May 16, 2019 11:51 AM VA-TOBACCO NEVER USED [facility] [place] [facility] Oct 20, 2017 11:04 AM VA-TOBACCO NEVER USED VA [facility] [place] [facility] May 21, 2017 01:47 PM LIFETIME NON-TOBACCO USER [facility] [place] [facility]
--- OUTSIDE RECORDS SUMMARY | 2024-03-13 19:49 | XMS_ITS ---
Author Name Department of Vetera Affairs (MD) Organization Department of Vetera Affairs (MD) Address [address] [place] [address] Care Team Providers Care Government Affairs Specialist Name Role Phone RAFIA MEDEROS Primary Care Provider Unavailabl e Selected Encounter This section includes the information on record at MD for the Encounter. Date/Time Encounter Type Encounter Description Reason Pro vider Source Sep 13, 2023 05:00 PM [facility] En[facility] Template Text not used by MD [...] Appointment Type Appointme nt Facility Name Sep 17, 2023 10:00 AM AMBULATORY - MEDICINE [place] [facility] [place] [facility] Sep 22, 2023 01:30 PM AMBULATORY - NONE [place] [facility] [place] [facility] Oct 18, 2023 05:00 PM AMBULATORY - PSYCHIATRY MD [facility] [place] [facility] Oct 25, 2023 05:00 PM AMBULATORY - PSYCHIATRY MD [facility] [place] [facility] Oct 29, 2023 01:30 PM AMBULATORY - MEDICINE MD [facility] [place] [facility] Nov 08, 2023 05:00 PM AMBULATORY - PSYCHIATRY [facility] [place] [facility] Nov 16, 2023 10:00 AM AMBULATORY - MEDICINE [place] [facility] [place] [facility] Nov 22, 2023 04:30 PM AMBULATORY - PSYCHIATRY [facility] [place] [facility] Dec 20, 2023 04:30 PM AMBULATORY - PSYCHIATRY [facility] [place] [facility] Jan 03, 2024 04:30 PM AMBULATORY - PSYCHIATRY [facility] [place] [facility] Jan 31, 2024 04:30 PM AMBULATORY - PSYCHIATRY [facility] [place] [facility] Feb 07, 2024 10:00 AM AMBULATORY - PSYCHIATRY [facility] [place] [facility] Feb 07, 2024 11:30 AM AMBULATORY - PSYCHIATRY [facility] [place] [facility] Feb 14, 2024 04:30 PM AMBULATORY - PSYCHIATRY [facility] [place] [facility] Feb 19, 2024 01:00 PM AMBULATORY - PSYCHIATRY [facility] [place] [facility] Feb 26, 2024 01:00 PM AMBULATORY - PSYCHIATRY [facility] [place] [facility] Feb 28, 2024 04:30 PM AMBULATORY - PSYCHIATRY [facility] [place] [facility] Mar 14, 2024 05:00 PM AMBULATORY - PSYCHIATRY MD [facility] [place] [facility] Social History: Smoking Status (Most [...] 13, 2022 11:00 AM [facility] [place] [facility] Tobacco Use History This section includes a history of the smoking, or tobacco-related health factors, that were collected on or before the date of the Encounter. The data comes from the MD facility where the Encounter took place. Date/Time Smoking Status/Tobacco Use Comment F [email or web address] July 11, 2021 03:00 PM VA-TOBACCO NEVER USED [facility] [place] [facility] July 09, 2020 09:30 AM VA-TOBACCO NEVER USED [place] [facility] [place] [facility] May 16, 2019 11:51 AM VA-TOBACCO NEVER USED [place] [facility] [place] [facility] Oct 20, 2017 11:04 AM VA-TOBACCO NEVER USED [facility] [place] [facility] May 21, 2017 01:47 PM LIFETIME NON-TOBACCO USER [facility] [place] [facility] Encounter Notes: All associated encounter notes This section contains the clinical notes associated to the Encounter. Date/Time Encounter Note(s) Provider Source Sep 14, 2023 09:56 AM CLERICAL NOTE: LOCAL TITLE: APPOINTMENT NO SHOW STANDARD TITLE: CLERICAL NOTE DATE OF NOTE: SEP 14, 2023@09:56 ENTRY DATE: SEP 14, 2023@09:56:43 AUTHOR: SUMEET UNDERWOOD COSIGNER: URGENCY: STATUS: COMPLETED APPOINTMENT NO SHOW Has ADDENDA Patient Name: JULIÁN ROB JR Patient SSN: [id number] Date and time of Appointment No show : 09/13/23 17:00 PATIENT PHONE - PHONE NUMBER [CELLULAR] - NONE FOUND Patient's medical record was reviewed. Follow-up actions were determined and initiated: Please check/complete as applies: [X]Telephoned Directly [ ]Re-scheduled for next available appt [X]Sent a N0-show letter ( must call for appointment) [ ]Other (Emergent/Overbook, etc.): Additional Comments: Barrel Lathe Operator Outside called Liane five minutes into the start of the video appt and left a voice message sharing that she was logged onto their scheduled video appointment. Barrel Lathe Operator Outside shared that she would remain on another 10 mins to see if he can join today's appt. Barrel Lathe Operator Outside left her direct contact information and requested for a call back to reschedule if he cannot join today's appt. Future Clinic Visits 09/17/2023 10:00 CWM/NO/PODIATRY A 09/22/2023 13:30 CWM/NO/VVC/HOMESLEEP 1 11/16/2023 10:00 CWM/NO/PACT 2 /es/ SUMEET UNDERWOOD, PhD STAFF PSYCHOLOGIST Signed: 09/14/2023 11:05 09/29/2023 ADDENDUM STATUS: COMPLETED Barrel Lathe Operator Outside called Mr. Rob and reached him. He said that he has been busy with the new baby and his 's . He was rescheduled for 10/17 at 5pm, [facility]. /mendez/ SUMEET UNDERWOOD, PhD STAFF PSYCHOLOGIST Signed: 10/05/2023 08:36 SUMEET UNDERWOOD [facility]
--- OUTSIDE RECORDS SUMMARY | 2024-03-13 19:49 | XMS_ITS | Encounter Summary ---
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 Date/Time Encounter Type Encounter Description Reason Provider Source Oct 18, 2023 05:00 PM PSYTX W PT 30 MINUTES PCMHI INDIV ICD-10-CM F41.9 Anxiety disorder, unspecified DEVYN UNDERWOOD E Encounter Template Text not used by [place] Assessments - Encounter Diagnoses This section includes the primary and secondary diagnoses documented for the Encounter. Date/Time Primary/Secondary Diagnosis Diagnosis Name Provider Source Oct 19, 2023 10:27 AM PRIMARY Anxiety disorder, unspecified DEVYN UNDERWOOD [place] [facility] [place] [facility] Oct 19, 2023 10:27 AM SECONDARY Depression, unspecified DEVYN UNDERWOOD [place] [facility] [place] [facility] Oct 19, 2023 10:27 AM SECONDARY Pain in leg, unspecified DEVYN UNDERWOOD [facility] [place] [facility] Plan of Treatment: Future Appointments (+ 6 months) and Future Tests (+/- 45 days) The Plan of Treatment section includes future care activities for the patient from all [place] treatmentfacilities. This section includes future appointments and future orders which are active, pending or scheduled. Future Appointments This section includes appointments that were scheduled to occur 6 months from the date of the Encounter, up to a maximum of 20 appointments. The data comes from all [place] treatment facilities. Appointment Date/Time Appointment Type Appointme nt Facility Name Oct 25, 2023 05:00 PM AMBULATORY - PSYCHIATRY [facility] [place] [facility] Oct 29, 2023 01:30 PM AMBULATORY - MEDICINE [place] [facility] [place] [facility] Nov 08, 2023 05:00 PM AMBULATORY - PSYCHIATRY [facility] [place] [facility] Nov 16, 2023 10:00 AM AMBULATORY - MEDICINE [place] [facility] [facility] [facility] Feb 07, 2024 10:00 AM AMBULATORY - PSYCHIATRY [place] [facility] [place] [facility] Feb 07, 2024 11:30 AM AMBULATORY - PSYCHIATRY [facility] [place] [facility] Feb 14, 2024 04:30 PM AMBULATORY - PSYCHIATRY [facility] [place] [facility] Feb 19, 2024 01:00 PM AMBULATORY - PSYCHIATRY [facility] [place] [facility] Feb 26, 2024 01:00 PM AMBULATORY - PSYCHIATRY [facility] [place] [facility] Feb 28, 2024 04:30 PM AMBULATORY - PSYCHIATRY [facility] [place] [facility] Mar 14, 2024 05:00 PM AMBULATORY - PSYCHIATRY [facility] [place] [facility] Mar 23, 2024 10:00 AM AMBULATORY - MEDICINE [place] [facility] [place] [facility] Mar 27, 2024 04:30 PM AMBULATORY - PSYCHIATRY [place] [facility] [place] [facility] Active, Pending, and Scheduled Orders This section includes a listing of several types of active, pending, and scheduled orders, including clinic medications orders, diagnostic test orders, procedure orders and consult orders; where the start date of the order is 45 days before the date of the Encounter or 45 days after the date of theEncounter. The data comes from all [place] treatment facilities. Test Date/Time Test Type Test Details Facility Name Nov 23, 2023 05:39 PM Consult Order ACUPUNCTPHUONG E/ALEXANDRAM OUTPT Cons Pattern Generator Operator's Choice [facility] Lab Results: +/- 30 days of the encounter This section includes the Chemistry and Hematology Lab Results on record with [place] for the patient. Radiology Reports and Pathology Reports are provided separately, in subsequent sections. Lab Results This section contains the Chemistry/Hematology Results that were resulted 30 days before or 30 daysafter the date of the Encounter. Date/Time Source Result Type Result - Unit Interpretation Reference Range Comment Nov 16, 2023 10:39 AM [facility] BASIC METABOLIC PANEL (fasting) Specimen Type: SERUM No comment entered. Ordering Provider: RAFIA MEDEROS Report Released Date/Time: Nov 07, 2023 12:06 AM Reporting Lab: [address] [address] Performing Lab: [address] [address] UREA NITROGEN 15 mg/dL 7-25 GLUCOSE 90 mg/dL 65-100 SODIUM 139 mmol/L 135-145 POTASSIUM 5.4 mmol/L H 3.5-5.0 CHLORIDE 106 mmol/L 100-110 CO2 25 meq/L 20-30 CREATININE, Serum 0.94 mg/dL 0.50-1.40 eGFR(CKD-EPI 2020) >90 mL/min >60 Nov 16, 2023 10:39 AM [facility] CBC AND DIFF (AUTO) Specimen Type: BLOOD No comment entered. Ordering Provider: RAFIA MEDEROS Report Released Date/Time: Nov 07, 2023 12:06 AM Reporting Lab: [address] [address] Performing Lab: [address] [address] WBC 5.28 10*3/uL 4.50-11.00 RBC 5.16 10*6/uL [...] 10*3/uL 0.00-0.00 Nov 16, 2023 10:39 AM [facility] LIVER FUNCTION Specimen Type: SERUM No comment entered. Ordering Provider: RAFIA MEDEROS Report Released Date/Time: Nov 07, 2023 12:06 AM Reporting Lab: [address] [address] Performing Lab: [address] [address] PROTEIN,TOTAL 7.4 g/dL 6.0-8.3 ALBUMIN 4.3 g/dL 3.5-5.0 ALKALINE PHOSPHATASE 49 U/L 40-150 AST 18 U/L 5-34 ALT 34 U/L BILIRUBIN, TOTAL 0.4 mg/dL 0.2-1.2 Nov 16, 2023 10:39 AM [facility] TSH Specimen Type: SERUM No comment entered. Ordering Provider: RAFIA MEDEROS Report Released Date/Time: Nov 07, 2023 12:06 AM Reporting Lab: [facility] [address] [facility] [address] Performing Lab: [facility] [address] [facility] [address] TSH 1.25 u[IU]/mL 0.35-5.00 Nov 16, 2023 10:39 AM [facility] LIPID PANEL FASTING Specimen Type: SERUM No comment entered. Ordering Provider: RAFIA MEDEROS Report Released Date/Time: Nov 07, 2023 12:06 AM Reporting Lab: [facility] [address] [facility] [address] Performing Lab: [address] [address] CHOLESTEROL 257 mg/dL H TRIGLYCERIDE 375 mg/dL H 0-150 LDL calculated Reflex to dLDL mg/dL 0-129 CHOL/HDL 6.4 HDL CHOLESTEROL 40 mg/dL 40-60 LDL DIRECT 153 mg/dL H Nov 16, 2023 10:39 AM [facility] URIC ACID Specimen Type: SERUM No comment entered. Ordering Provider: RAFIA MEDEROS Report Released Date/Time: Nov 07, 2023 12:06 AM Reporting Lab: [facility] [address] [facility] [address] Performing Lab: [address] [address] URIC ACID 9.6 mg/dL H 3.5-7.2 Nov 16, 2023 10:39 AM [facility] URINALYSIS CLEAN CATCH Specimen Type: URINE Comment: If Glucose = >500 and Ketones are positive, please alert the Physician. Ordering Provider: RAFIA MEDEROS Report Released Date/Time: Nov 07, 2023 12:06 AM Reporting Lab: [facility] [address] [facility] [address] Performing Lab: [facility] [address] [address] UA COLOR Colorless Yellow UA APPEARANCE Clear [...] and tobacco- related health factors from the [place] facility where the Encounter took place. Current Smoking Status This section includes the most current smoking, or tobacco-related health factor, from the [place] facility where the Encounter took place. Date/Time Current Smoking Status Comment Facil ity Nov 13, 2022 11:00 AM VA-TOBACCO NEVER USED [place] [facility] [place] [facility] Tobacco Use History This section includes a history of the smoking, or tobacco-related health factors, that were collected on or before the date of the Encounter. The data comes from the [place] facility where the Encounter took place. Date/Time Smoking Status/Tobacco Use Comment F acility July 11, 2021 03:00 PM VA-TOBACCO NEVER USED [place] [facility] [place] [facility] July 09, 2020 09:30 AM VA-TOBACCO NEVER USED [place] [facility] [place] [facility] May 16, 2019 11:51 AM VA-TOBACCO NEVER USED [place] [facility] [place] [facility] Oct 20, 2017 11:04 AM VA-TOBACCO NEVER USED [place] [facility] [place] [facility] May 21, 2017 01:47 PM LIFETIME NON-TOBACCO USER [place] [facility] [place] [facility] Encounter Notes: All associated encounter notes This section contains the clinical notes associated to the Encounter. Date/Time Encounter Note(s) Provider Source Oct 18, 2023 07:08 AM TELEHEALTH NOTE: LOCAL TITLE: [facility] VIDEO CONNECT [facility] NOTE STANDARD TITLE: TELEHEALTH NOTE DATE OF NOTE: OCT 18, 2023@07:08 ENTRY DATE: OCT 18, 2023@07:08:11 AUTHOR: SUMEET UNDERWOOD COSIGNER: URGENCY: STATUS: COMPLETED [facility] Video Connect (VVC) Standard Documentation VVC Clinician Resources Only: E911 (Emergency Call Relay Center): [phone] National Veterans Crisis Line - 988 then press #1. TOÑA Suicide Coordinator [phone], Ext. [phone]; Back-up Ext. [phone] [place] Police, TOAÑGavin Raya [phone] Introduction: Visit is being conducted by [place] Video Connect. identified with 2 identifiers: [X] Full Name [X] Date of [ ] VA ID Card Emergency Plan: confirmed and/or provided the following information in case of emergency or technology failure. PATIENT PHONE - PHONE NUMBER [CELLULAR] - NONE FOUND Is patient phone number correct, if not, enter below: [place]'s phone number: JULIÁN ROB JR [address], [place], [address] [place]'s present location and address for appointment: home address listed above [place]'s emergency contact name and phone number: [phone] mother Pradeep's phone reported that location is private and safe: Yes Informed Consent: informed of the risks and benefits of Telehealth video care. [place] has the right to refuse video services. If refuses video visit, a [id number] visit will be scheduled. verbalized consent for this video visit: Yes provided consent for any other persons present for visit: No If yes, who and relationship to patient: Secure visit: Visit was locked for security and privacy:Yes [facility] OUTPATIENT F/U NOTE DURATION: 20 mins Mr. Rob is a 38 year-old, partnered male [place] with a PMH of pain in leg, knee, Achillies, anxiety, and depression. 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 was 10 mins late to the call. [place] explored how he is adjusting to returning to work with a new born baby and how he is adjusting to being a new father. He said that he did not get much time off from work and had to use his leave. Landscaping Specialist informed [place] of [place] program and he said that he will review the application and learn more. He denied SI/HI. He explored moments of feeling overwhelmed, having trouble relaxing, and always feeling he must be busy and productive. Importance of finding balance for self-care and learning ways of practicing self-relaxation were explored. Benefits of self-relaxation for anxiety was introduced. Related handouts and free apps for practice were reviewed and securely messaged. SCREENERS: PHQ-9: 6, mild depression, somewhat difficult [...] were offered. He agreed to return to [facility] for brief CBT for depression and anxiety including relaxation training, cognitive restructuring and behavioral activation. He will return to [facility] for roughly 2-3, individual sessions. He will return to [facility], 11/24 at 5pm, [facility]. [facility], ASPIRATION, PURPOSE, VALUES, AND SHARED GOALS MAP and values discussed /es/ SUMEET UNDERWOOD, PhD STAFF PSYCHOLOGIST Signed: 10/19/2023 14:27 SUMEET UNDERWOOD [place] [facility]
--- OUTSIDE RECORDS SUMMARY | 2024-03-13 19:55 | XMS_ITS | Continuity of Care Document ---
Author Name [facility] Organization [facility] Care Team Providers Care Disulfurizer Tender Name Role Phone [facility] Unavailable Unavailable Problems Combined list of problems [...] Entered By: RAFIA MEDEROS Comment: ordered [facility] Hypercholesterolemia (SCT [id number]) Active Condition July 11, 2021 Entered By: [...] Obstructive sleep apnea (adult) (pediatric) Active Diagnosis [facility] Diagnosis: ICD-10-CM M76.62 Achilles tendinitis, left [...] BY MOUTH ONCE DAILYFOR GOUT Active 05/17/2024 [id number] DAVID CAMARILLO 2023 14 [facility] COLCHICINE 0.6MG TAB TAKE ONE TABLET BY MOUTH ONCE DAILY NEEDED FOR ACUTE GOUT ATTACK FOR GOUT ORAL ACTIVE 11/16/2024 [id number] 4 CINTHIA MEDEROS 2023 14 [facility] COLCHICINE 0.6MG TAB TAKE ONE TABLET BY MOUTH ONCE DAILY FOR GOUT ORAL DISCONT INUED 05/17/2024 [id number] ZO CAMARILLO 2023 14 [facility] DICLOFENAC NA 1% GEL,TOP APPLY 2 GRAMS TOPICALL Y THREE TIMES DAILY NEEDED FOR OSTEOART HRITIS - USE DOSING CARD PROVIDED IN BOX TOPICA L ACTIVE 04/14/2024 [id number] 4 CINTHIA MEDEROS D 2023 100 [facility] Diclofenac Sodium 0.01mg/mg, Gel/Jelly, Topical APPLY 2 GRAMS TOPICALL Y THREE TIMES DAILY NEEDED FOR OSTEOART HRITIS - USE DOSING CARD PROVIDED IN BOX Active 04/14/2024 [id number] 4 RAFIA MEDEROS 2023 100 [facility] Ibuprofen (Motrin) Tablet 800 mg Oral TAKE ONE TABLET BY MOUTH EVERY 8 HOURSTAK E WITH FOOD Active 05/17/2024 [id number] 4 DAVID CAMARILLO 2023 30 [facility] IBUPROFEN 800MG TAB TAKE ONE TABLET BY MOUTH EVERY 8 HOURS NEEDED FOR PAIN TAKE WITH FOOD ORAL ACTIVE 11/16/2024 [id number] 4 CINTHIA MEDEROS D 2023 90 [facility] IBUPROFEN 800MG TAB TAKE ONE TABLET BY MOUTH EVERY 8 HOURS TAKE WITH FOOD ORAL DISCONT INUED 05/17/2024 [id number] 4 ZO CAMARILLO 2023 30 [facility] IBUPROFEN 800MG TAB TAKE ONE TABLET BY MOUTH THREE TIMES A DAY AFTER MEALS ORAL ACTIVE ONEYSSI,I SSAM A 2019 [facility] Immunizations Combined list of available immunizations from the Department of Defense and Veterans Affairs facilities. Immunization Series Date Given Administered By Site Reaction Lot Number CVX Code Drug Manager Aviation Status Comments Source INFLUENZA, INJECTABLE, QUADRIVALENT, PRESERVATIVE FREE 2022 BRITTNEY MORENO LEFT DELTO ID [id number] A 150 complet ed [facility] [place] [facility] INFLUENZA, INJECTABLE, QUADRIVALENT, PRESERVATIVE FREE 2019 150 complet ed Site: Right Deltoid [facility] [place] [facility] INFLUENZA, INJECTABLE, QUADRIVALENT 2018 158 complet ed Site: Right Deltoid [facility] [place] [facility] INFLUENZA, SEASONAL, INJECTABLE 2017 141 complet ed Site: Right Deltoid [facility] TDAP 2017 115 complet ed Site: Left Deltoid [facility] [facility] Results Combined list of recent chemistry, hematology [...] Nov 07, 2023 12:06 AM Reporting Lab: [facility] [place] [facility] [address] [address] Performing Lab: [facility] [address] [facility] BASIC METABOLI C PANEL (fasting ) GLUCOSE [MASS/VOLU ME] IN SERUM OR PLASMA 90 mg/dL 65 - 100 11/15 Specimen Type: SERUM No comment entered. Ordering Provider: EFFIE MEDEROS Report Released Date/Time: Nov 07, 2023 12:06 AM Reporting Lab: [facility] [place] [facility] [address] [facility] [address] Performing Lab: [facility] [place] [address] [address] [facility] [facility] BASIC METABOLI C PANEL (fasting ) SODIUM [MOLES/VOL UME] IN SERUM OR PLASMA 139 mmol/L 135 - 145 11/15 Specimen Type: SERUM No comment entered. Ordering Provider: EFFIE MEDEROS Report Released Date/Time: Nov 07, 2023 12:06 AM Reporting Lab: [facility] [place] [facility] [address] [facility] [address] Performing Lab: [facility] [place] [address] [address] [facility] [facility] BASIC METABOLI C PANEL (fasting ) POTASSIUM [MOLES/VOL UME] IN SERUM OR PLASMA 5.4 mmol/L 3.5 - 5.0 11/15 H Specimen Type: SERUM No comment entered. Ordering Provider: EFFIE MEDEROS Report Released Date/Time: Nov 07, 2023 12:06 AM Reporting Lab: [facility] [address] [address] Performing Lab: [facility] [address] [address] [facility] BASIC METABOLI C PANEL (fasting ) CHLORIDE [MOLES/VOL UME] IN SERUM OR PLASMA 106 mmol/L 100 - 110 11/15 Specimen Type: SERUM No comment entered. Ordering Provider: EFFIE MEDEROS Report Released Date/Time: Nov 07, 2023 12:06 AM Reporting Lab: [address] [address] Performing Lab: [facility] [address] [address] [facility] BASIC METABOLI C PANEL (fasting ) CARBON DIOXIDE, TOTAL [MOLES/VOL UME] IN SERUM OR PLASMA 25 meq/L 20 - 30 11/15 Specimen Type: SERUM No comment entered. Ordering Provider: EFFIE MEDEROS Report Released Date/Time: Nov 07, 2023 12:06 AM Reporting Lab: [facility] [address] [address] Performing Lab: [facility] [address] [address] [facility] BASIC METABOLI C PANEL (fasting ) CREATININE [MASS/VOLU ME] IN SERUM OR PLASMA 0.94 mg/dL 0.50 - 1.40 11/15 Specimen Type: SERUM No comment entered. Ordering Provider: EFFIE MEDEROS Report Released Date/Time: Nov 07, 2023 12:06 AM Reporting Lab: [facility] [address] [address] Performing Lab: [facility] [place] [facility] [address] [address] [facility] [facility] BASIC METABOLI C PANEL (fasting ) GLOMERULAR FILTRATION RATE/1.73 SQ M.PREDICTE D [VOLUME RATE/AREA] IN SERUM, PLASMA OR BLOOD BY CREATININE -BASED FORMULA (CKD-EPI 2020) >90mL/mi n 60 11/15 Specimen Type: SERUM No comment entered. Ordering Provider: EFFIE MEDEROS Report Released Date/Time: Nov 07, 2023 12:06 AM Reporting Lab: [facility] [place] [facility] [address] [address] Performing Lab: [facility] [place] [facility] [address] [facility] [address] [facility] [place] [facility] CBC AND DIFF (AUTO) LEUKOCYTES [#/VOLUME] IN BLOOD BY AUTOMATED COUNT 5.28 10*3/uL 4.50 - 11.00 11/15 Specimen Type: BLOOD No comment entered. Ordering Provider: EFFIE MEDEROS Report Released Date/Time: Nov 07, 2023 12:06 AM Reporting Lab: [facility] [place] [facility] [address] [facility] [address] Performing Lab: [facility] [place] [facility] [address] [facility] [address] [facility] [place] [facility] CBC AND DIFF (AUTO) ERYTHROCYT ES [#/VOLUME] IN BLOOD BY AUTOMATED COUNT 5.16 10*6/uL 4.23 - 5.66 11/15 Specimen Type: BLOOD No comment entered. Ordering Provider: EFFIE MEDEROS Report Released Date/Time: Nov 07, 2023 12:06 AM Reporting Lab: [facility] [place] [facility] [address] [address] Performing Lab: [facility] [place] [address] [address] [facility] [place] [facility] CBC AND DIFF (AUTO) HEMOGLOBIN [MASS/VOLU ME] IN BLOOD 14.9 g/dL 12.8 - 17 11/15 Specimen Type: BLOOD No comment entered. Ordering Provider: EFFIE MEDEROS Report Released Date/Time: Nov 07, 2023 12:06 AM Reporting Lab: [facility] [address] [address] Performing Lab: [facility] [address] [address] [facility] CBC AND DIFF (AUTO) HEMATOCRIT [VOLUME FRACTION] OF BLOOD BY AUTOMATED COUNT 43.7 39.2 - 50.4 11/15 Specimen Type: BLOOD No comment entered. Ordering Provider: EFFIE MEDEROS Report Released Date/Time: Nov 07, 2023 12:06 AM Reporting Lab: [facility] [place] [facility] [address] [address] Performing Lab: [facility] [place] [facility] [address] [address] [facility] CBC AND DIFF (AUTO) MCV [ENTITIC VOLUME] BY AUTOMATED COUNT 84.7 fL 82 - 99 11/15 Specimen Type: BLOOD No comment entered. Ordering Provider: EFFIE MEDEROS Report Released Date/Time: Nov 07, 2023 12:06 AM Reporting Lab: [facility] [address] [address] Performing Lab: [facility] [place] [facility] [address] [address] [facility] [facility] CBC AND DIFF (AUTO) MCHC [MASS/VOLU ME] BY AUTOMATED COUNT 34.1 g/dL 30.8 - 35.1 11/15 Specimen Type: BLOOD No comment entered. Ordering Provider: EFFIE MEDEROS Report Released Date/Time: Nov 07, 2023 12:06 AM Reporting Lab: [facility] [address] [facility] [address] Performing Lab: [facility] [place] [facility] [address] [address] [facility] [place] [facility] CBC AND DIFF (AUTO) PLATELETS [#/VOLUME] IN BLOOD BY AUTOMATED COUNT 256 10*3/uL 140 - 360 11/15 Specimen Type: BLOOD No comment entered. Ordering Provider: EFFIE MEDEROS Report Released Date/Time: Nov 07, 2023 12:06 AM Reporting Lab: [facility] [place] [facility] [address] [address] Performing Lab: [facility] [place] [facility] [address] [address] [facility] [facility] CBC AND DIFF (AUTO) ERYTHROCYT E DISTRIBUTI ON WIDTH [RATIO] BY AUTOMATED COUNT 12.8 12.0 - 16.0 11/15 Specimen Type: BLOOD No comment entered. Ordering Provider: EFFIE MEDEROS Report Released Date/Time: Nov 07, 2023 12:06 AM Reporting Lab: [facility] [place] [address] [address] Performing Lab: [facility] [place] [facility] [address] [address] [facility] [place] [facility] CBC AND DIFF (AUTO) MONOCYTES [#/VOLUME] IN BLOOD BY AUTOMATED COUNT 0.34 10*3/uL 0.30 - 1.10 11/15 Specimen Type: BLOOD No comment entered. Ordering Provider: EFFIE MEDEROS Report Released Date/Time: Nov 07, 2023 12:06 AM Reporting Lab: [facility] [place] [address] [address] Performing Lab: [facility] [place] [facility] [address] [address] [facility] [place] [facility] CBC AND DIFF (AUTO) MCH [ENTITIC MASS] BY AUTOMATED COUNT 28.9 pg 26.2 - 32.6 11/15 Specimen Type: BLOOD No comment entered. Ordering Provider: EFFIE MEDEROS Report Released Date/Time: Nov 07, 2023 12:06 AM Reporting Lab: [facility] [place] [facility] [address] [facility] [address] Performing Lab: [facility] [place] [address] [address] [facility] CBC AND DIFF (AUTO) NEUTROPHIL S/100 LEUKOCYTES IN BLOOD BY AUTOMATED COUNT 43.4 43.7 - 75.8 11/15 L Specimen Type: BLOOD No comment entered. Ordering Provider: EFFIE MEDEROS Report Released Date/Time: Nov 07, 2023 12:06 AM Reporting Lab: [facility] [address] [address] Performing Lab: [facility] [address] [facility] [address] [facility] CBC AND DIFF (AUTO) LYMPHOCYTE S/100 LEUKOCYTES IN BLOOD BY AUTOMATED COUNT 45.6 14.0 - 42.3 11/15 H Specimen Type: BLOOD No comment entered. Ordering Provider: EFFIE MEDEROS Report Released Date/Time: Nov 07, 2023 12:06 AM Reporting Lab: [facility] [address] [address] Performing Lab: [facility] [place] [address] [address] [facility] CBC AND DIFF (AUTO) MONOCYTES/ 100 LEUKOCYTES IN BLOOD BY AUTOMATED COUNT 6.4 5.1 - 13.7 11/15 Specimen Type: BLOOD No comment entered. Ordering Provider: EFFIE MEDEROS Report Released Date/Time: Nov 07, 2023 12:06 AM Reporting Lab: [facility] [address] [address] Performing Lab: [facility] [address] [address] [facility] CBC AND DIFF (AUTO) EOSINOPHIL S/100 LEUKOCYTES IN BLOOD BY AUTOMATED COUNT 3.6 0.4 - 6.8 11/15 Specimen Type: BLOOD No comment entered. Ordering Provider: EFFIE MEDEROS Report Released Date/Time: Nov 07, 2023 12:06 AM Reporting Lab: [facility] [place] [facility] [address] [address] Performing Lab: [facility] [place] [facility] [address] [address] [facility] [place] [facility] CBC AND DIFF (AUTO) BASOPHILS/ 100 LEUKOCYTES IN BLOOD BY AUTOMATED COUNT 0.6 0.1 - 2.0 11/15 Specimen Type: BLOOD No comment entered. Ordering Provider: EFFIE MEDEROS Report Released Date/Time: Nov 07, 2023 12:06 AM Reporting Lab: [facility] [address] [address] Performing Lab: [facility] [place] [facility] [address] [facility] [address] [facility] [place] [facility] CBC AND DIFF (AUTO) NEUTROPHIL S [#/VOLUME] IN BLOOD BY AUTOMATED COUNT 2.29 10*3/uL 2.20 - 7.60 11/15 Specimen Type: BLOOD No comment entered. Ordering Provider: EFFIE MEDEROS Report Released Date/Time: Nov 07, 2023 12:06 AM Reporting Lab: [facility] [place] [facility] [address] [address] Performing Lab: [facility] [place] [facility] [address] [address] [facility] [place] [facility] CBC AND DIFF (AUTO) LYMPHOCYTE S [#/VOLUME] IN BLOOD BY AUTOMATED COUNT 2.41 10*3/uL 1.00 - 3.20 11/15 Specimen Type: BLOOD No comment entered. Ordering Provider: EFFIE MEDEROS Report Released Date/Time: Nov 07, 2023 12:06 AM Reporting Lab: [facility] [place] [facility] [address] [address] Performing Lab: [facility] [place] [facility] [address] [address] [facility] [place] [facility] CBC AND DIFF (AUTO) EOSINOPHIL S [#/VOLUME] IN BLOOD BY AUTOMATED COUNT 0.19 10*3/uL 0.03 - 0.44 11/15 Specimen Type: BLOOD No comment entered. Ordering Provider: EFFIE MEDEROS Report Released Date/Time: Nov 07, 2023 12:06 AM Reporting Lab: [facility] [address] [facility] [address] Performing Lab: [facility] [address] [address] [facility] CBC AND DIFF (AUTO) BASOPHILS [#/VOLUME] IN BLOOD BY AUTOMATED COUNT 0.03 10*3/uL 0.01 - 0.13 11/15 Specimen Type: BLOOD No comment entered. Ordering Provider: EFFIE MEDEROS Report Released Date/Time: Nov 07, 2023 12:06 AM Reporting Lab: [facility] [address] [facility] [address] Performing Lab: [facility] [address] [address] [facility] CBC AND DIFF (AUTO) IMMATURE GRANULOCYT ES/100 LEUKOCYTES IN BLOOD BY AUTOMATED COUNT 0.4 0.0 - 0.7 11/15 Specimen Type: BLOOD No comment entered. Ordering Provider: EFFIE MEDEROS Report Released Date/Time: Nov 07, 2023 12:06 AM Reporting Lab: [facility] [address] [facility] [address] Performing Lab: [facility] [address] [address] [facility] CBC AND DIFF (AUTO) IMMATURE GRANULOCYT ES [#/VOLUME] IN BLOOD 0.02 10*3/uL 0.00 - 0.06 11/15 Specimen Type: BLOOD No comment entered. Ordering Provider: EFFIE MEDEROS Report Released Date/Time: Nov 07, 2023 12:06 AM Reporting Lab: [facility] [address] [facility] [address] Performing Lab: [facility] [address] [place] [address] [facility] CBC AND DIFF (AUTO) NRBC % 0.0 0.0 - 0.0 11/15 Specimen Type: BLOOD No comment entered. Ordering Provider: EFFIE MEDEROS Report Released Date/Time: Nov 07, 2023 12:06 AM Reporting Lab: [facility] [place] [facility] [address] [facility] [address] Performing Lab: [facility] [place] [facility] [address] [address] [facility] [facility] CBC AND DIFF (AUTO) NRBC, ABS 0.00 10*3/uL 0.00 - 0.00 11/15 Specimen Type: BLOOD No comment entered. Ordering Provider: EFFIE MEDEROS Report Released Date/Time: Nov 07, 2023 12:06 AM Reporting Lab: [facility] [place] [facility] [address] [facility] [address] Performing Lab: [facility] [address] [address] [facility] LIPID PANEL FASTING CHOLESTERO L [MASS/VOLU ME] IN SERUM OR PLASMA 257 mg/dL 11/15 H Specimen Type: SERUM No comment entered. Ordering Provider: EFFIE MEDEROS Report Released Date/Time: Nov 07, 2023 12:06 AM Reporting Lab: [facility] [place] [facility] [address] [facility] [address] Performing Lab: [facility] [place] [address] [address] [facility] LIPID PANEL FASTING TRIGLYCERI DE [MASS/VOLU ME] IN SERUM OR PLASMA 375 mg/dL 0 - 150 11/15 H Specimen Type: SERUM No comment entered. Ordering Provider: EFFIE MEDEROS Report Released Date/Time: Nov 07, 2023 12:06 AM Reporting Lab: [facility] [place] [facility] [address] [facility] [address] Performing Lab: [facility] [place] [address] [address] [facility] [facility] LIPID PANEL FASTING CHOLESTERO L IN LDL [MASS/VOLU ME] IN SERUM OR PLASMA BY CALCULATIO N Reflex to dLDLmg/d L 0 - 129 11/15 Specimen Type: SERUM No comment entered. Ordering Provider: EFFIE MEDEROS Report Released Date/Time: Nov 07, 2023 12:06 AM Reporting Lab: [facility] [place] [facility] [address] [facility] [address] Performing Lab: [facility] [place] [facility] [address] [facility] [address] [facility] [place] [facility] LIPID PANEL FASTING CHOLESTERO L.TOTAL/CH OLESTEROL IN HDL [MASS RATIO] IN SERUM OR PLASMA 6.4 11/15 Specimen Type: SERUM No comment entered. Ordering Provider: EFFIE MEDEROS Report Released Date/Time: Nov 07, 2023 12:06 AM Reporting Lab: [facility] [place] [address] [address] Performing Lab: [facility] [place] [facility] [address] [facility] [address] [facility] [place] [facility] LIPID PANEL FASTING CHOLESTERO L IN HDL [MASS/VOLU ME] IN SERUM OR PLASMA 40 mg/dL 40 - 60 11/15 Specimen Type: SERUM No comment entered. Ordering Provider: EFFIE MEDEROS Report Released Date/Time: Nov 07, 2023 12:06 AM Reporting Lab: [facility] [place] [address] [address] Performing Lab[facility] [place] [facility] [address] [facility] [address] [facility] [place] [facility] LIPID PANEL FASTING CHOLESTERO L IN LDL [MASS/VOLU ME] IN SERUM OR PLASMA BY DIRECT ASSAY 153 mg/dL 11/15 H Specimen Type: SERUM No comment entered. Ordering Provider: EFFIE MEDEROS Report Released Date/Time: Nov 07, 2023 12:06 AM Reporting Lab: [facility] [place] [facility] [address] [facility] [address] Performing Lab: [facility] [address] [facility] [address] [facility] [place] [facility] LIVER FUNCTION PROTEIN [MASS/VOLU ME] IN SERUM OR PLASMA 7.4 g/dL 6.0 - 8.3 11/15 Specimen Type: SERUM No comment entered. Ordering Provider: EFFIE MEDEROS Report Released Date/Time: Nov 07, 2023 12:06 AM Reporting Lab: [facility] [address] [facility] [address] Performing Lab: [facility] [place] [facility] [address] [facility] [address] [facility] [place] [facility] LIVER FUNCTION ALBUMIN [MASS/VOLU ME] IN SERUM OR PLASMA 4.3 g/dL 3.5 - 5.0 11/15 Specimen Type: SERUM No comment entered. Ordering Provider: EFFIE MEDEROS Report Released Date/Time: Nov 07, 2023 12:06 AM Reporting Lab: [facility] [place] [facility] [address] [facility] [address] Performing Lab: [facility] [place] [facility] [address] [address] [place] [facility] [place] [facility] LIVER FUNCTION ALKALINE PHOSPHATAS E [ENZYMATIC ACTIVITY/V OLUME] IN SERUM OR PLASMA 49 U/L 40 - 150 11/15 Specimen Type: SERUM No comment entered. Ordering Provider: EFFIE MEDEROS Report Released Date/Time: Nov 07, 2023 12:06 AM Reporting Lab: [facility] [place] [facility] [address] [address] Performing Lab: [facility] [place] [facility] [address] [address] [facility] [place] [facility] LIVER FUNCTION ASPARTATE AMINOTRANS FERASE [ENZYMATIC ACTIVITY/V OLUME] IN SERUM OR PLASMA 18 U/L 5 - 34 11/15 Specimen Type: SERUM No comment entered. Ordering Provider: EFFIE MEDEROS Report Released Date/Time: Nov 07, 2023 12:06 AM Reporting Lab: [facility] [place] [facility] [address] [id number] Performing Lab: [facility] [place] [facility] [address] [address] [facility] [place] [facility] LIVER FUNCTION ALANINE AMINOTRANS FERASE [ENZYMATIC ACTIVITY/V OLUME] IN SERUM OR PLASMA 34 U/L 11/15 Specimen Type: SERUM No comment entered. Ordering Provider: EFFIE MEDEROS Report Released Date/Time: Nov 07, 2023 12:06 AM Reporting Lab: [facility] [place] [facility] [address] [address] Performing Lab: [place] [facility] [place] [facility] [address] [address] [facility] [facility] LIVER FUNCTION BILIRUBIN. TOTAL [MASS/VOLU ME] IN SERUM OR PLASMA 0.4 mg/dL 0.2 - 1.2 11/15 Specimen Type: SERUM No comment entered. Ordering Provider: EFFIE MEDEROS Report Released Date/Time: Nov 07, 2023 12:06 AM Reporting Lab: [facility] [place] [facility] [address] [address] Performing Lab: [facility] [place] [facility] [address] [address] [facility] [place] [facility] TSH THYROTROPI N [UNITS/VOL UME] IN SERUM OR PLASMA 1.25 u[IU]/mL 0.35 - 5.00 11/15 Specimen Type: SERUM No comment entered. Ordering Provider: EFFIE MEDEROS Report Released Date/Time: Nov 07, 2023 12:06 AM Reporting Lab: [facility] [place] [facility] [address] [address] Performing Lab: [facility] [place] [facility] [address] [facility] [address] [facility] [place] [facility] URIC ACID URATE [MASS/VOLU ME] IN SERUM OR PLASMA 9.6 mg/dL 3.5 - 7.2 11/15 H Specimen Type: SERUM No comment entered. Ordering Provider: EFFIE MEDEROS Report Released Date/Time: Nov 07, 2023 12:06 AM Reporting Lab: [facility] [place] [facility] [address] [address] Performing Lab: [facility] [place] [facility] [address] [facility] [address] [facility] [place] [facility] URINALYS IS CLEAN CATCH COLOR OF URINE Colorles s 11/15 Specimen Type: URINE Comment: If Glucose = >500 and Ketones are positive, please alert the Physician. Ordering Provider: EFFIE MEDEROS Report Released Date/Time: Nov 07, 2023 12:06 AM Reporting Lab: [facility] [place] [facility] [address] [address] Performing Lab: [facility] [place] [facility] [address] [address] [facility] [place] [facility] URINALYS IS CLEAN CATCH APPEARANCE OF URINE Clear 11/15 Specimen Type: URINE Comment: If Glucose = >500 and Ketones are positive, please alert the Physician. Ordering Provider: EFFIE MEDEROS Report Released Date/Time: Nov 07, 2023 12:06 AM Reporting Lab: [facility] [place] [facility] [address] [facility] [address] Performing Lab: [facility] [place] [facility] [address] [address] [facility] [place] [facility] URINALYS IS CLEAN CATCH GLUCOSE [MASS/VOLU ME] IN URINE Normalmg /dL 11/15 Specimen Type: URINE Comment: If Glucose = >500 and Ketones are positive, please alert the Physician. Ordering Provider: EFFIE MEDEROS Report Released Date/Time: Nov 07, 2023 12:06 AM Reporting Lab: [facility] [place] [facility] [address] [address] Performing Lab: [facility] [place] [facility] [address] [address] [facility] [place] [facility] URINALYS IS CLEAN CATCH KETONES [MASS/VOLU ME] IN URINE BY TEST STRIP NEGATIVE mg/dL 11/15 Specimen Type: URINE Comment: If Glucose = >500 and Ketones are positive, please alert the Physician. Ordering Provider: EFFIE MEDEROS Report Released Date/Time: Nov 07, 2023 12:06 AM Reporting Lab: [facility] [place] [facility] [address] [address] Performing Lab: [facility] [address] [facility] [address] [facility] [place] [facility] URINALYS IS CLEAN CATCH ERYTHROCYT ES [PRESENCE] IN URINE SEDIMENT BY LIGHT MICROSCOPY NEGATIVE mg/dL 11/15 Specimen Type: URINE Comment: If Glucose = >500 and Ketones are positive, please alert the Physician. Ordering Provider: EFFIE MEDEROS Report Released Date/Time: Nov 07, 2023 12:06 AM Reporting Lab: [facility] [place] [facility] [address] [address] Performing Lab: [facility] [place] [facility] [address] [address] [facility] [place] [facility] URINALYS IS CLEAN CATCH PROTEIN [MASS/VOLU ME] IN URINE BY TEST STRIP NEGATIVE mg/dL 11/15 Specimen Type: URINE Comment: If Glucose = >500 and Ketones are positive, please alert the Physician. Ordering Provider: EFFIE MEDEROS Report Released Date/Time: Nov 07, 2023 12:06 AM Reporting Lab: [facility] [place] [facility] [address] [address] Performing Lab: [facility] [place] [facility] [address] [facility] [address] [facility] [place] [facility] URINALYS IS CLEAN CATCH NITRITE [PRESENCE] IN URINE NEGATIVE mg/dL 11/15 Specimen Type: URINE Comment: If Glucose = >500 and Ketones are positive, please alert the Physician. Ordering Provider: EFFIE MEDEROS Report Released Date/Time: Nov 07, 2023 12:06 AM Reporting Lab: [facility] [place] [facility] [address] [facility] [address] Performing Lab: [facility] [place] [facility] [address] [facility] [address] [facility] URINALYS IS CLEAN CATCH BILIRUBIN. TOTAL [PRESENCE] IN URINE NEGATIVE mg/dL 11/15 Specimen Type: URINE Comment: If Glucose = >500 and Ketones are positive, please alert the Physician. Ordering Provider: EFFIE MEDEROS Report Released Date/Time: Nov 07, 2023 12:06 AM Reporting Lab: [facility] [address] Performing Lab: [facility] [address] [facility] URINALYS IS CLEAN CATCH SPECIFIC GRAVITY OF URINE BY REFRACTOME TRY 1.017 1.016 - 1.022 11/15 Specimen Type: URINE Comment: If Glucose = >500 and Ketones are positive, please alert the Physician. Ordering Provider: EFFIE MEDEROS Report Released Date/Time: Nov 07, 2023 12:06 AM Reporting Lab: [facility] [address] Performing Lab: [facility] [address] [facility] URINALYS IS CLEAN CATCH PH OF URINE BY TEST STRIP 6.0 5.0 - 9.0 11/15 Specimen Type: URINE Comment: If Glucose = >500 and Ketones are positive, please alert the Physician. Ordering Provider: EFFIE MEDEROS Report Released Date/Time: Nov 07, 2023 12:06 AM Reporting Lab: [facility] [address] Performing Lab: [facility] [address] [facility] URINALYS IS CLEAN CATCH UROBILINOG EN [MASS/VOLU ME] IN URINE BY TEST STRIP Normalmg /dL <2.0 - 2.0 11/15 Specimen Type: URINE Comment: If Glucose = >500 and Ketones are positive, please alert the Physician. Ordering Provider: EFIFE MEDEROS Report Released Date/Time: Nov 07, 2023 12:06 AM Reporting Lab: [facility] [place] [facility] [address] [address] Performing Lab: [facility] [place] [facility] [address] [facility] [address] [facility] [place] [facility] URINALYS IS CLEAN CATCH LEUKOCYTE ESTERASE [PRESENCE] IN URINE BY TEST STRIP NEGATIVE 11/15 Specimen Type: URINE Comment: If Glucose = >500 and Ketones are positive, please alert the Physician. Ordering Provider: EFFIE MEDEROS Report Released Date/Time: Nov 07, 2023 12:06 AM Reporting Lab: [facility] [place] [facility] [address] [address] Performing Lab: [facility] [place] [address] [address] [facility] [place] [facility] BASIC METABOLI C PANEL (fasting ) UREA NITROGEN [MASS/VOLU ME] IN SERUM OR PLASMA 20 mg/dL 7 - 25 11/13 Specimen Type: SERUM No comment entered. Ordering Provider: EFFIE MEDEROS Report Released Date/Time: Oct 31, 2022 05:55 PM Reporting Lab: [facility] [place] [facility] [address] [facility] [address] Performing Lab: [facility] [place] [address] [address] [facility] [place] [facility] BASIC METABOLI C PANEL (fasting ) GLUCOSE [MASS/VOLU ME] IN SERUM OR PLASMA 93 mg/dL 65 - 100 11/13 Specimen Type: SERUM No comment entered. Ordering Provider: EFFIE MEDEROS Report Released Date/Time: Oct 31, 2022 05:55 PM Reporting Lab: [facility] [place] [facility] [address] [address] Performing Lab: [facility] [place] [address] [address] [facility] [place] [facility] BASIC METABOLI C PANEL (fasting ) SODIUM [MOLES/VOL UME] IN SERUM OR PLASMA 139 mmol/L 135 - 145 11/13 Specimen Type: SERUM No comment entered. Ordering Provider: EFFIE MEDEROS Report Released Date/Time: Oct 31, 2022 05:55 PM Reporting Lab: [facility] [address] [address] Performing Lab: [facility] [address] [facility] BASIC METABOLI C PANEL (fasting ) POTASSIUM [MOLES/VOL UME] IN SERUM OR PLASMA 4.9 mmol/L 3.5 - 5.0 11/13 Specimen Type: SERUM No comment entered. Ordering Provider: EFFIE MEDEROS Report Released Date/Time: Oct 31, 2022 05:55 PM Reporting Lab: [facility] TRN [address] [address] Performing Lab: [facility] [address] [facility] BASIC METABOLI C PANEL (fasting ) CHLORIDE [MOLES/VOL UME] IN SERUM OR PLASMA 104 mmol/L 100 - 110 11/13 Specimen Type: SERUM No comment entered. Ordering Provider: EFFIE MEDEROS Report Released Date/Time: Oct 31, 2022 05:55 PM Reporting Lab: [facility] [address] [address] Performing Lab: [facility] [address] [address] [facility] BASIC METABOLI C PANEL (fasting ) CARBON DIOXIDE, TOTAL [MOLES/VOL UME] IN SERUM OR PLASMA 26 meq/L 20 - 30 11/13 Specimen Type: SERUM No comment entered. Ordering Provider: EFFIE MEDEROS Report Released Date/Time: Oct 31, 2022 05:55 PM Reporting Lab: [facility] [address] Performing Lab: [facility] [place] [facility] [address] [facility] [address] [facility] [place] [facility] BASIC METABOLI C PANEL (fasting ) CREATININE [MASS/VOLU ME] IN SERUM OR PLASMA 1.08 mg/dL 0.50 - 1.40 11/13 Specimen Type: SERUM No comment entered. Ordering Provider: EFFIE MEDEROS Report Released Date/Time: Oct 31, 2022 05:55 PM Reporting Lab: [facility] [place] [facility] [address] [facility] [address] Performing Lab: [facility] [address] [facility] [address] [facility] [place] [facility] BASIC METABOLI C PANEL (fasting ) GLOMERULAR FILTRATION RATE/1.73 SQ M.PREDICTE D [VOLUME RATE/AREA] IN SERUM, PLASMA OR BLOOD BY CREATININE -BASED FORMULA (CKD-EPI 2020) >90mL/mi n 60 11/13 Specimen Type: SERUM No comment entered. Ordering Provider: EFFIE MEDEROS Report Released Date/Time: Oct 31, 2022 05:55 PM Reporting Lab: [facility]N [facility] [address] [facility] [address] Performing Lab: [facility] TRN [facility] [address] [facility] [address] [facility] CBC AND DIFF (AUTO) LEUKOCYTES [#/VOLUME] IN BLOOD BY AUTOMATED COUNT 7.14 10*3/uL 4.50 - 11.00 11/13 Specimen Type: BLOOD No comment entered. Ordering Provider: EFFIE MEDEROS Report Released Date/Time: Oct 31, 2022 05:55 PM Reporting Lab: [facility] TRN [facility] [address] [facility] [address] Performing Lab: [facility] TRN [facility] [address] [address] [facility]ITAL[facility] CBC AND DIFF (AUTO) ERYTHROCYT ES [#/VOLUME] IN BLOOD BY AUTOMATED COUNT 5.17 10*6/uL 4.23 - 5.66 11/13 Specimen Type: BLOOD No comment entered. Ordering Provider: EFFIE MEDEROS Report Released Date/Time: Oct 31, 2022 05:55 PM Reporting Lab: [facility] [place] [facility] [address] [facility] [address] Performing Lab: [facility] [place] [facility] [address] [address] [facility] [place] [facility] CBC AND DIFF (AUTO) HEMOGLOBIN [MASS/VOLU ME] IN BLOOD 15.0 g/dL 12.8 - 17 11/13 Specimen Type: BLOOD No comment entered. Ordering Provider: EFFIE MEDEROS Report Released Date/Time: Oct 31, 2022 05:55 PM Reporting Lab: [facility] [place] [facility] [address] [facility] [address] Performing Lab: [facility] [place] [address] [address] [facility] [place] [facility] CBC AND DIFF (AUTO) HEMATOCRIT [VOLUME FRACTION] OF BLOOD BY AUTOMATED COUNT 44.2 39.2 - 50.4 11/13 Specimen Type: BLOOD No comment entered. Ordering Provider: EFFIE MEDEROS Report Released Date/Time: Oct 31, 2022 05:55 PM Reporting Lab: [facility] [place] [facility] [address] [facility] [address] Performing Lab: [facility] [place] [facility] [address] [address] [facility] [place] [facility] CBC AND DIFF (AUTO) MCV [ENTITIC VOLUME] BY AUTOMATED COUNT 85.5 fL 82 - 99 11/13 Specimen Type: BLOOD No comment entered. Ordering Provider: EFFIE MEDEROS Report Released Date/Time: Oct 31, 2022 05:55 PM Reporting Lab: [facility] [place] [facility] [address] [facility] [address] Performing Lab: [facility] [place] [address] [address] [facility] [place] [facility] CBC AND DIFF (AUTO) MCHC [MASS/VOLU ME] BY AUTOMATED COUNT 33.9 g/dL 30.8 - 35.1 11/13 Specimen Type: BLOOD No comment entered. Ordering Provider: EFFIE MEDEROS Report Released Date/Time: Oct 31, 2022 05:55 PM Reporting Lab: [facility] [place] [facility] [address] [facility] [address] Performing Lab: [facility] [place] [facility] [address] [facility] [address] [facility] [place] [facility] CBC AND DIFF (AUTO) PLATELETS [#/VOLUME] IN BLOOD BY AUTOMATED COUNT 294 10*3/uL 140 - 360 11/13 Specimen Type: BLOOD No comment entered. Ordering Provider: EFFIE MEDEROS Report Released Date/Time: Oct 31, 2022 05:55 PM Reporting Lab: [facility] [place] [address] [address] Performing Lab: [facility] [place] [address] [address] [facility] CBC AND DIFF (AUTO) ERYTHROCYT E DISTRIBUTI ON WIDTH [RATIO] BY AUTOMATED COUNT 12.3 12.0 - 16.0 11/13 Specimen Type: BLOOD No comment entered. Ordering Provider: EFFIE MEDEROS Report Released Date/Time: Oct 31, 2022 05:55 PM Reporting Lab: [facility] [place] [address] [address] Performing Lab: [facility] [place] [address] [address] [facility] [place] [facility] CBC AND DIFF (AUTO) MONOCYTES [#/VOLUME] IN BLOOD BY AUTOMATED COUNT 0.53 10*3/uL 0.30 - 1.10 11/13 Specimen Type: BLOOD No comment entered. Ordering Provider: EFFIE MEDEROS Report Released Date/Time: Oct 31, 2022 05:55 PM Reporting Lab: [facility] [place] [facility] [address] [facility] [address] Performing Lab: [facility] [place] [address] [place] [address] [facility] [place] [facility] CBC AND DIFF (AUTO) MCH [ENTITIC MASS] BY AUTOMATED COUNT 29.0 pg 26.2 - 32.6 11/13 Specimen Type: BLOOD No comment entered. Ordering Provider: EFFIE MEDEROS Report Released Date/Time: Oct 31, 2022 05:55 PM Reporting Lab: [facility] [place] [facility] [address] [facility] [address] Performing Lab: [facility] [place] [facility] [address] [facility] [address] [facility] [place] [facility] CBC AND DIFF (AUTO) NEUTROPHIL S/100 LEUKOCYTES IN BLOOD BY AUTOMATED COUNT 54.3 43.7 - 75.8 11/13 Specimen Type: BLOOD No comment entered. Ordering Provider: EFFIE MEDEROS Report Released Date/Time: Oct 31, 2022 05:55 PM Reporting Lab: [facility] [place] [facility] [address] [facility] [address] Performing Lab: [facility] [place] [facility] [address] [facility] [address] [facility] [place] [facility] CBC AND DIFF (AUTO) LYMPHOCYTE S/100 LEUKOCYTES IN BLOOD BY AUTOMATED COUNT 35.7 14.0 - 42.3 11/13 Specimen Type: BLOOD No comment entered. Ordering Provider: EFFIE MEDEROS Report Released Date/Time: Oct 31, 2022 05:55 PM Reporting Lab: [facility] [place] [facility] [address] [facility] [address] Performing Lab: [facility] [place] [facility] [address] [facility] [address] [facility] [place] [facility] CBC AND DIFF (AUTO) MONOCYTES/ 100 LEUKOCYTES IN BLOOD BY AUTOMATED COUNT 7.4 5.1 - 13.7 11/13 Specimen Type: BLOOD No comment entered. Ordering Provider: EFFIE MEDEROS Report Released Date/Time: Oct 31, 2022 05:55 PM Reporting Lab: [facility] [place] [facility] [address] [facility] [address] Performing Lab: [facility] [place] [facility] [address] [facility] [address] [facility] [place] [facility] CBC AND DIFF (AUTO) EOSINOPHIL S/100 LEUKOCYTES IN BLOOD BY AUTOMATED COUNT 1.7 0.4 - 6.8 11/13 Specimen Type: BLOOD No comment entered. Ordering Provider: EFFIE MEDEROS Report Released Date/Time: Oct 31, 2022 05:55 PM Reporting Lab: [facility] [place] [facility] [address] [facility] [address] Performing Lab: [facility] [place] [address] [address] [facility] [place] [facility] CBC AND DIFF (AUTO) BASOPHILS/ 100 LEUKOCYTES IN BLOOD BY AUTOMATED COUNT 0.6 0.1 - 2.0 11/13 Specimen Type: BLOOD No comment entered. Ordering Provider: EFFIE MEDEROS Report Released Date/Time: Oct 31, 2022 05:55 PM Reporting Lab: [facility] [place] [address] [address] Performing Lab: [facility] [place] [address] [address] [facility] [place] [facility] CBC AND DIFF (AUTO) NEUTROPHIL S [#/VOLUME] IN BLOOD BY AUTOMATED COUNT 3.88 10*3/uL 2.20 - 7.60 11/13 Specimen Type: BLOOD No comment entered. Ordering Provider: EFFIE MEDEROS Report Released Date/Time: Oct 31, 2022 05:55 PM Reporting Lab: [facility] [place] [address] [address] Performing Lab: [facility] [place] [address] [address] [facility] [place] [facility] CBC AND DIFF (AUTO) LYMPHOCYTE S [#/VOLUME] IN BLOOD BY AUTOMATED COUNT 2.55 10*3/uL 1.00 - 3.20 11/13 Specimen Type: BLOOD No comment entered. Ordering Provider: EFFIE MEDEROS Report Released Date/Time: Oct 31, 2022 05:55 PM Reporting Lab: [facility] [place] [facility] [address] [facility] [address] Performing Lab: [facility] [place] [facility] [address] [facility] [address] [facility] [place] [facility] CBC AND DIFF (AUTO) EOSINOPHIL S [#/VOLUME] IN BLOOD BY AUTOMATED COUNT 0.12 10*3/uL 0.03 - 0.44 11/13 Specimen Type: BLOOD No comment entered. Ordering Provider: EFFIE MEDEROS Report Released Date/Time: Oct 31, 2022 05:55 PM Reporting Lab: [facility] [place] [facility] [address] [facility] [address] Performing Lab: [facility] [place] [facility] [address] [place] [address] [facility] CBC AND DIFF (AUTO) BASOPHILS [#/VOLUME] IN BLOOD BY AUTOMATED COUNT 0.04 10*3/uL 0.01 - 0.13 11/13 Specimen Type: BLOOD No comment entered. Ordering Provider: EFFIE MEDEROS Report Released Date/Time: Oct 31, 2022 05:55 PM Reporting Lab: [facility] [place] [facility] [address] [facility] [address] Performing Lab: [facility] [place] [facility] [address] [place] [address] [facility] CBC AND DIFF (AUTO) IMMATURE GRANULOCYT ES/100 LEUKOCYTES IN BLOOD BY AUTOMATED COUNT 0.3 0.0 - 0.7 11/13 Specimen Type: BLOOD No comment entered. Ordering Provider: EFFIE MEDEROS Report Released Date/Time: Oct 31, 2022 05:55 PM Reporting Lab: [facility] [place] [facility] [address] [facility] [address] Performing Lab: [facility] [place] [facility] [address] [place] [address] [facility] CBC AND DIFF (AUTO) IMMATURE GRANULOCYT ES [#/VOLUME] IN BLOOD 0.02 10*3/uL 0.00 - 0.06 11/13 Specimen Type: BLOOD No comment entered. Ordering Provider: EFFIE MEDEROS Report Released Date/Time: Oct 31, 2022 05:55 PM Reporting Lab: [facility] [place] [facility] [address] [facility] [address] Performing Lab: [facility] [place] [facility] [address] [facility] [address] [facility] [place] [facility] LIVER FUNCTION PROTEIN [MASS/VOLU ME] IN SERUM OR PLASMA 7.9 g/dL 6.0 - 8.3 11/13 Specimen Type: SERUM No comment entered. Ordering Provider: EFFIE MEDEROS Report Released Date/Time: Oct 31, 2022 05:55 PM Reporting Lab: [facility] [place] [address] [address] Performing Lab: [facility] [place] [address] [address] [facility] LIVER FUNCTION ALBUMIN [MASS/VOLU ME] IN SERUM OR PLASMA 4.8 g/dL 3.5 - 5.0 11/13 Specimen Type: SERUM No comment entered. Ordering Provider: EFFIE MEDEROS Report Released Date/Time: Oct 31, 2022 05:55 PM Reporting Lab: [facility] [place] [address] [address] Performing Lab: [facility] [place] [address] [address] [facility] LIVER FUNCTION ALKALINE PHOSPHATAS E [ENZYMATIC ACTIVITY/V OLUME] IN SERUM OR PLASMA 49 U/L 40 - 150 11/13 Specimen Type: SERUM No comment entered. Ordering Provider: EFFIE MEDEROS Report Released Date/Time: Oct 31, 2022 05:55 PM Reporting Lab: [facility] [place] [address] [address] Performing Lab: [facility] [place] [address] [address] [facility] [facility] LIVER FUNCTION ASPARTATE AMINOTRANS FERASE [ENZYMATIC ACTIVITY/V OLUME] IN SERUM OR PLASMA 21 U/L 5 - 34 11/13 Specimen Type: SERUM No comment entered. Ordering Provider: EFFIE MEDEROS Report Released Date/Time: Oct 31, 2022 05:55 PM Reporting Lab: [facility] [place] [facility] [address] [facility] [address] Performing Lab: [facility] [place] [facility] [address] [facility] [address] [facility] [place] [facility] LIVER FUNCTION ALANINE AMINOTRANS FERASE [ENZYMATIC ACTIVITY/V OLUME] IN SERUM OR PLASMA 36 U/L 11/13 Specimen Type: SERUM No comment entered. Ordering Provider: EFFIE MEDEROS Report Released Date/Time: Oct 31, 2022 05:55 PM Reporting Lab: [facility] [place] [address] [address] Performing Lab: [facility] [place] [facility] [address] [address] [facility] LIVER FUNCTION BILIRUBIN. TOTAL [MASS/VOLU ME] IN SERUM OR PLASMA 0.7 mg/dL 0.2 - 1.2 11/13 Specimen Type: SERUM No comment entered. Ordering Provider: EFFIE MEDEROS Report Released Date/Time: Oct 31, 2022 05:55 PM Reporting Lab: [facility] [place] [place] [address] [address] Performing Lab: [facility] [place] [address] [address] [facility] Vital Signs Combined list of inpatient and outpatient Vital Signs from Department of Defense and Veterans Affairs, ranging from 12 months to all on record, depending upon the facility. Vital Sign Value Date Comments Source SYSTOLIC BLOOD PRESSURE [id number] 11/16/19 24 09:59:08 [facility] DIASTOLIC BLOOD PRESSURE [id number] 09:59:08 [facility] PULSE OXIMETRY 99 11/16/2023 09:59:08 [facility] [...] Disposition Source [place] [address](Opt ometry Clinic [facility]) OUTPATIENT [id number] ROSINA KEITH 08/24 Released w/o Limitations [facility] [place] [address](O ptometr y Clinic [facility]) Theater Facility OUTPATIENT [id number] Theater Provider 10/06 Released w/o Limitations Theater Facilit [facility] Theater Facility OUTPATIENT [id number] Theater Provider 10/06 Released w/o Limitations Theater Facilit y Theater Facility OUTPATIENT [id number] Theater Provider 10/13 Released w/o Limitations Theater Facilit y Theater Facility OUTPATIENT [id number] Theater Provider 10/20 Released w/o Limitations Theater Facilit y Theater Facility OUTPATIENT [id number] Theater Provider 12/23 Transfer to [facility] Theater Facilit y Theater Facility OUTPATIENT [id number] Theater Provider 12/23 Released with Work/Duty Limitations Theater Facilit y Theater Facility OUTPATIENT [id number] Theater Provider 12/26 Released with Work/Duty Limitations Theater Facilit y Theater Facility OUTPATIENT [id number] Theater Provider 12/28 Released with Work/Duty Limitations Theater Facilit y Theater Facility OUTPATIENT [id number] Theater Provider 01/02 Released w/o Limitations Theater Facilit y Theater Facility OUTPATIENT [id number] Theater Provider 01/05 Theater Facilit y [facility] Outpatient Encounter [id number] 11/05 [facility] OFF[facility] O/P EST LOW 20-29 MIN [id number] Diagnos is: ICD-10- CM 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
VALERIE MEDEROS RD 11/13 [facility] En[facility] [id number] 03/04 [facility] En[facility] [id number] OSCAR EARLY 04/05 [facility] O/P EST SF 10 MIN [id number] Diagnos is: ICD-10- CM M76.60 Lloyd s tendini tis, unspeci fied leg<br/ > VALERIE MEDEROS RD D 04/14 [facility] En[facility] [id number] 04/16 [facility] En[facility] [id number] 04/22 [facility] En[facility] [id number] 05/10 [facility] En[facility] [id number] 05/12 [facility] En[facility] [id number] 05/17 [facility] [id number] 05/19 [facility] En[facility] [id number] 07/15 [facility] OFF[facility] O/P EST LOW 20 MIN [id number] Diagnos is: ICD-10- CM M79.669 Pain in unspeci fied lower leg<br/ > VALERIE MEDEROS RD 07/19 [facility] En[facility] [id number] 07/19 [facility] En[facility] [id number] 07/28 [facility] PSYTX W PT 45 MINUTES [id number] Diagnos is: ICD-10- CM F32.A Depress ion, unspeci fied
MARGARITA UNDERWOOD R 08/01 [facility] En[facility] [id number] 08/05 [facility] PSYTX W PT 30 MINUTES [id number] Diagnos is: ICD-10- CM F41.9 Anxiety disorde r, unspeci fied
MARGARITA UNDERWOOD R 08/15 [facility] [place] Outpatient Encounter [id number] 08/29 [facility] En[facility] [id number] 09/12 [facility] [place] OFFICE O/P NEW LOW 30 MIN [id number] Diagnos is: ICD-10- CM M76.62 Talmage s tendini tis, left leg<br/ > JENNIE MOSS D 09/16 [facility] SELF-MGMT EDUC & TRAIN 1 [place] [id number] Diagnos is: ICD-10- CM G47.33 Obstruc tive sleep apnea (adult) (pediat [place])
SHIRAZ,FREDE ROSALINA 09/21 [facility] PSYTX W PT 30 MINUTES [id number] Diagnos is: ICD-10- CM F41.9 Anxiety disorde r, unspeci fied
MARGARITA UNDERWOOD R 10/17 [facility] [place] [facility] [place] [facility] Outpatient Encounter [id number] 10/24 [facility] [place] SLEEP STUDY UNATT&RESP EFFT [id number] Diagnos is: ICD-10- CM G47.33 Obstruc tive sleep apnea (adult) ([facility] [place])
SHIRAZJOSEPH Gutiererz ROSALINA 10/26 [facility] [place] [facility] [place] Outpatient Encounter [id number] 10/28 [facility] [place] SLEEP STUDY UNATT&RESP EFFT [id number] Diagnos is: ICD-10- CM G47.33 Obstruc tive sleep apnea (adult) ([facility] [place])
COCO HENDRIXA 11/04 [place] [facility] [place] [facility] Outpatient Encounter [id number] 11/06 [facility] [place] [facility] [place] [facility] PSYTX W PT 30 MINUTES [id number] Diagnos is: ICD-10- CM F41.9 Anxiety disorde r, unspeci fied
MARGARITA UNDERWOOD R 11/07 [facility] [place] [facility] [place] [facility] OFFICE O/P EST LOW 20 MIN [id number] Diagnos is: ICD-10- CM M10.9 Gout, unspeci fied
VALERIE MEDEROS RD D 11/15 [facility] En[facility] [id number] 1.11/20 [facility] En[facility] [id number] D 11/20 [facility] PSYTX W PT 30 MINUTES [id number] 1. Diagnos is: ICD-10- CM F32.A Depress ion, unspeci fied
MARGARITA UNDERWOOD R 11/21 [facility] En[facility] [id number] 1.1987 [facility] PSYTX W PT 30 MINUTES [id number] Diagnos is: ICD-10- CM F41.9 Anxiety disorde r, unspeci fied
MARGARITA UNDERWOOD R 12/19 [facility] PSYTX W PT 30 MINUTES [id number] Diagnos is: ICD-10- CM F32.A Depress ion, unspeci fied
MARGARITA UNDERWOOD R 01/02 [facility] En[facility] [id number] D 01/20 [facility] PSYTX W PT 30 MINUTES [id number] Diagnos is: ICD-10- CM F41.9 Anxiety disorde r, unspeci fied
MARGARITA UNDERWOOD RTNEY R 01/30 [facility] [place] [facility] PSYCH DIAGNOSTIC EVALUATION [id number] Diagnos is: ICD-10- CM F12.10 Cannabi s abuse, uncompl icated< br/> CLARITA MCCOYF PETER 02/06 [facility] En[facility] [id number] 1. NADINELIZABETH PETER 02/06 [facility] PSYTX W PT 30 MINUTES [id number] Diagnos is: ICD-10- CM F12.10 Cannabi s abuse, uncompl icated< br/> LIZABETH MCCOY 02/06 [facility] PSYTX W PT 30 MINUTES [id number] Diagnos is: ICD-10- CM F41.9 Anxiety disorde r, unspeci fied
MARGARITA UNDERWOOD RTMARK R 02/13 [facility] [id number] 02/18 [facility] En[facility] [id number] 02/25 [facility] PSYTX W PT 30 MINUTES [id number] Diagnos is: ICD-10- CM F32.A Depress ion, unspeci fied
MARGARITA UNDERWOOD RTMARK R 02/27 [facility] [place] [facility] Procedures Combined list of: 1) Procedures from Department of Veterans Affairs facilities going back up to thelast 18 months, not all [place] non-surgical procedures are included; 2) All procedures from the Department of Defense facilities. Procedure Procedure Type Code Date Perfomer Comments Sour e Screening Test Of Visual Acuity, Quantitative, Bilateral Screening Test Of Visual Acuity, Quantitative, Bilateral 17069 08/25/2011 ONELIA JAEGER [facility] Spectacles Services Fitting Monofocal Except For Aphakia Spectacles Services Fitting Monofocal Except For Aphakia 97836 08/25/2011 ONELIA JAEGER [facility] THERAPEUTIC, PROPHYLACTIC, OR DIAGNOSTIC INJECTION (SPECIFY SUBSTANCE OR DRUG); SUBCUTANEOUS OR INTRAMUSCULAR 08/27/2011 [facility] FITTING OF SPECTACLES, EXCEPT FOR APHAKIA; MONOFOCAL 08/25/2011 [facility] Social History Combined list of available smoking, tobacco, and other social history from Department of Defense and Veterans Affairs facilities. Social History Type Response Date Comment Sourc e Tobacco smoking status NHIS VA-TOBACCO QUIT 1 TO < 5 YRS 11/16/2023 [facility] History of tobacco use VA-TOBACCO FORMER USER 11/16/2023 [facility] [facility] History of tobacco [...] of tobacco use LIFETIME NON-TOBACCO USER 05/21/2017 [facility] [place] [facility] This section is an empty social history section. [facility] Plan of Care List of future care activities from Department of Veterans Affairs facilities. Additional future care activities may be listed in the Assessment and Plan section. Date/Time Care Activity Care Activity Detail Facili ty 03/14/2024 AMBULATORY - PSYCHIATRY AMBULATORY - PSYC [place]ATRY [facility] [place] [facility] 03/23/2024 AMBULATORY - MEDICINE [facility] 03/27/2024 AMBULATORY - PSYCHIATRY AMBULATORY [facility] 02/07/2024 Consult Order [facility] OUTPT Cons Sausage Smoker's Choice [facility]
== END 2024-03-13 17:21 | disposition home or self-care (01) ==
LOC: HO.ED 17:19
PROVIDERS: Registered Nurse Emergency; Emergency Provider Emergency Medicine; PCP Internal Medicine
DX: Z02.83 Encounter for blood-alcohol and blood-drug test (principal)
CPT/HCPCS: 80307; 99282